=== PATIENT | male | born 1945 | race Caucasian/White ===

== ENCOUNTER 2023-05-17 22:11 | Inpatient (IN) | payer OTHER, SELFPAY ==
[2023-05-17 18:54] VITALS: BP 156/71
[2023-05-17 20:34] VITALS: BMI 34.6
[2023-05-17 20:36] VITALS: BP 146/64
[2023-05-17] MEDS: ZOSYN 100 IV (20:52)
[2023-05-17 21:00] VITALS: BP 138/61
--- NOTE | 2023-05-17 21:00 | ED.GENMED ---
History of Present Illness
General
Chief Complaint: Skin Problem
Source: patient
Exam Limitations: none
Time Seen by Provider: 05/17/23 19:57
Travel History
Have you had any contact with someone who has COVID-19?: No
Do you have any symptoms of coronavirus? Fever > 100 degrees, chills, cough, shortness of breath, sore throat, loss of taste or smell, muscle aches, or headache?: No
History of Present Illness
History of Present Illness:
77-year-old male presents with redness and drainage from the left third toe. Noticed it 3 to 4 days ago. Seen by his car stereo installer today who felt this needed IV antibiotics and apparently an amputation. Patient denies pain fever or other complaints
Past History
Past History
ED Past Medical History: HTN, Hypercholesterolemia and NIDDM
ED Past Surgical History: Cardiac (Pacemaker/stents), Orthopedic (Laminectomy) and Other (Stents bilateral lower extremities for peripheral vascular disease)
Social History
Tobacco: Former smoker
Alcohol: Occasional
Drug: None
Personal:
Living: with family
Review of Systems
Review of Systems
All Other Systems: Not applicable
Constitutional: Denies fever
Respiratory: Reports no symptoms
Cardiac: Reports no symptoms
Phy Exam
Physical Exam
Physical Exam:
GENERAL: Alert and oriented in no apparent distress. Healing surgical laceration of the right scalp
EYE: Orbits normal.
NECK: Supple
CARDIAC: Regular rate and rhythm without any obvious murmurs.
LUNGS: Clear breath sounds,normal
ABDOMEN: Soft, without focal tenderness or distention. Elevated BMI
NEUROLOGICAL: Alert and oriented , grossly non-focal
SKIN: Warm and dry, erythema swelling and skin breakdown with ulceration to the left third toe with cellulitis extending up to the dorsal foot
MUSCULOSKELETAL: Chronic edema
PSYCH: Normal and appropriate interaction.
Course
Orders/Labs/Results
Orders:
Orders
05/17/23 20:14
IV Insert/Care/Rem.- Treatment PRN
Piperacillin/Tazo 4.5 Gram [Zosyn] 4.5 gram in 100 ml IV NOW
05/17/23 20:15
Foot, Left 3 View [CR Foot - Left Min 3 Views] Routine
Comment:
Reason For Exam: Cellulitic left third toe
05/17/23 20:49
Blood Culture Q30M
FELICIANO Source: Blood/Venous
Specimen Description:
Blood Culture Q30M
FELICIANO Source: Blood/Venous
Specimen Description:
05/17/23 20:52
Basic Metabolic Panel Urgent
Complete Blood Count/With Diff Urgent
05/17/23 21:17
Vancomycin [Vancocin] 1,500 mg 0.9% Sodium Chloride [Nss] 20 ml 0.9% Sodium Chloride 250 ml [Nss] 250 ml IV NOW
Abnormal Lab Results
05/17/23
20:52
RBC 3.42 L 10^6/uL
(4.70-6.10)
Hgb 11.7 L g/dL
(13.0-18.0)
Hct 32.0 L %
(39.0-52.0)
MCH 34.2 H pg
(27.0-31.0)
Absolute Monos (auto) 1.0 H 10^3/uL
(0.1-0.6)
Lymphocytes % 15.1 L %
(20.5-51.1)
Monocytes % 11.0 H %
(1.7-9.3)
BUN 22 H mg/dl
(9-20)
05/17/23 20:52
05/17/23 20:52
Vital Signs
Initial and Last Documented VS:
Initial Vital Signs
Temp Pulse Resp BP Pulse Ox
98.2 F 72 18 156/71 96
05/17/23 18:54 05/17/23 18:54 05/17/23 18:54 05/17/23 18:54 05/17/23 18:54
Last Documented Vital Signs
Temp Pulse Resp BP Pulse Ox
98.2 F 72 18 156/71 96
05/17/23 18:54 05/17/23 18:54 05/17/23 18:54 05/17/23 18:54 05/17/23 18:54
*Radiology
Radiology exam reviewed: preliminary read by ED provider (Osteomyelitis left third toe)
*Pulse Oximetry
Patient hypoxic: no
*Critical Care Note
Total Time (30-74mins, 75-104mins- exclusive of procedures): Not Applicable
Data Reviewed
Review of Other/Old Records Reveals: Labs and Records
Update Note
Update Note:
Osteomyelitis/cellulitis left third toe and diabetic. Admit IV antibiotics
ED Attending Note
-
Portions of this chart may have been created with voice recognition software.� Occasional wrong word or��sound alike� substitutions may have occurred due to the inherent limitations of voice recognition software.
Discharge Plan
Departure
Patient Disposition: Admit
Date of Disposition: 05/17/23
Time of Disposition: 21:31
Presentation/result/management discussed w/ accepting MD/DO: Hospitalist
Discharge Problem:
Osteomyelitis/cellulitis left third toe
Prescriptions:
No Action
cyanocobalamin (vitamin B-12) 1,000 MCG tablet
1,000 mcg PO DAILY
multivitamin with folic acid [Tab-A-Natasha] 1 TABLET tablet
1 tab PO DAILY
atorvastatin 40 MG tablet
40 mg PO HS
trazodone 100 MG tablet
100 mg PO HS
pantoprazole 40 MG tablet,delayed release (DR/EC)
40 mg PO DAILY
pregabalin [Lyrica] 150 MG capsule
300 mg PO HS
Patient Comments:
05/17/2023: last filled 03/09/23, 90 tabs for 30 days from [id number]
aspirin 81 MG tablet,delayed release (DR/EC)
81 mg PO DAILY
melatonin 10 MG tablet
10 mg PO HSPRN PRN (Reason: sleep)
amlodipine 10 MG tablet
10 mg PO DAILY Qty: 30 0RF
insulin aspart U-100 [Novolog FlexPen U-100 Insulin] 300 UNITS/3 ML insulin pen
20 units SC AC Qty: 1 1RF
carvedilol 12.5 mg tablet
12.5 mg PO BID
pregabalin 150 mg capsule
150 mg PO DAILY
Patient Comments:
05/17/2023: last filled 03/09/23, 90 tabs for 30 days from [id number]
Levemir FlexPen 100 unit/mL (3 mL) insulin pen
55 unit SC HS
budesonide-formoterol [Symbicort] 80-4.5 mcg/actuation Hfa Aerosol Inhaler
1 puff INHALATION R DAILY PRN (Reason: sob/wheezing)
Eliquis 5 mg tablet
5 mg PO BID
Combivent Respimat 20-100 mcg/actuation Mist
1 puff INHALATION R Q4 PRN (Reason: sob/wheezing)
Referrals:
Haja Manuel MD [Family Provider] -
Interventions
Interventions:
*Risk Screen - Suicide Last Done: 05/17/23 18:54
*General Assessment Last Done: 05/17/23 18:54
*Neglect/Abuse Screening Last Done: 05/17/23 18:54
*ED COVID-19 Vaccine History Last Done: 05/17/23 18:54
ED-Skin Assessment Last Done: 05/17/23 20:34
[2023-05-17 21:17] LABS: % Basophils 0.5 % (0-2); % Eosinophils 4.5 % (0-6); % Immature Granulocytes 0.4 % (0-0.5); % Lymphocytes 15.1 % (20.5-51.1); % Neutrophils 68.5 % (42.2-75.2); Absolute Basophils 0.1 10^3/uL (0-0.2); Absolute Eosinophils 0.4 10^3/uL (0-0.7); Absolute Lymphocytes 1.4 10^3/uL (1.2-3.4); Absolute Neutrophils 6.4 10^3/uL (1.4-6.5); Hemoglobin 11.7 g/dL (13.0-18.0); Mean Corp Hgb Conc. 36.6 g/dL (33.0-37.0); Mean Corpuscular Hgb 34.2 pg (27.0-31.0); Mean Corpuscular Volume 93.6 fL (80.0-94.0); Nucleated Red Blood Cells % 0 % (-); Platelet Count 217 10^3/uL (130-400); Red Blood Cell Count 3.42 10^6/uL (4.70-6.10); Red Cell Dist. Width 13.1 % (11.5-14.5); White Blood Cell Count 9.3 10^3/uL (4.8-10.8)
[2023-05-17 21:22] LABS: Blood Urea Nitrogen 22 mg/dl (9-20); Calcium 9.2 mg/dl (8.4-10.2); Carbon Dioxide 27 mmol/L (22-30); Chloride 102 mmol/L (98-107); Estimated Creatinine Clearance 51 ml/min; Glucose 76 mg/dl (70-99); Potassium 4.2 mmol/L (3.5-5.1); Sodium 139 mmol/L (135-145); eGFR 56.23
[2023-05-17] MEDS: VANCOCIN 300 ML IV (21:44)
[2023-05-17] MEDS: VANCOCIN 300 MG IV (21:44)
[2023-05-17 22:00] VITALS: BP 128/52
--- NOTE | 2023-05-17 22:04 | HPS.HSE ---
Family Physician
-
Family Physician: Haja Manuel
Chief Complaint
-
L Toe Redness / Discharge
History of Present Illness
Patient is a 77y M with PMH significant for ASCVD, DM-II and newly diagnosed A-Fib who presents to ED for evaluation of L 3rd toe infection. Patient has prior history of diabetic foot infections and multiple prior amputations. He states that he
noted swelling, redness and blood in his sock about 1 week ago. He was seen by his Industrial Analyst today who advised hospital admission for IV medications and likely amputation.
Patient denies any evident purulent discharge. He denies any systemic complaints such as fevers / chills, N/V/D, etc.
Of note: Patient states that he was changed from Plavix to Eliquis last week due to periods of A-Fib noted on routine PPM evaluation.
Medical History
Past Medical History
Past Medical History: Reports Other
Additional Past Medical History:
ASCVD (CAD, PAD)
DM-II with CKD and Neuropathy
Hypertension
Cardiomyopathy (LVEF = 40-45%)
Paroxysmal Atrial Fibrillation (new)
Lumbar DDD
Past Surgical History: Reports Other
Additional Past Surgical History:
Bilateral 1st-2nd Distal Phalanx / Toe Amputations
Left Heel Debridement
PTCA with Stent (x 6)
PPM Placement
LE Angiography with SFA Stents
Lumbar Laminectomy
Social History
Tobacco: Former Smoker (Quit smoking 40 years ago. Approx 20 pack years total use.)
Alcohol: Daily (3-4 beers daily.)
Drug: None
Family History
Family History: Not pertinent
Allergies / Home Medications
Allergies reflects when Allergies were last updated in [employer].
Home Medications with original date entered in [employer] [facility]
Allergy/Medication List:
Allergies
Allergy/AdvReac Type Severity Reaction Status Date / Time
No Known Allergies Allergy Verified 05/17/23 18:56
Home Medications
cyanocobalamin (vitamin B-12) 1,000 mcg tablet 1,000 mcg PO DAILY Supplement 07/27/14
multivitamin with folic acid 400 mcg tablet (Tab-A-Natasha) 1 tab PO DAILY Supplement 07/27/14
atorvastatin 40 mg tablet 40 mg PO HS High cholesterol 03/15/20
pantoprazole 40 mg tablet,delayed release 40 mg PO DAILY Gastrointestinal issue 03/15/20
pregabalin 150 mg capsule (Lyrica) 300 mg PO HS fibromyalgia 03/15/20
trazodone 100 mg tablet 100 mg PO HS antidepress 03/15/20
aspirin 81 mg tablet,delayed release 81 mg PO DAILY Blood clot prevention/tx 04/23/20
melatonin 10 mg tablet 10 mg PO HSPRN PRN sleep 04/28/20
amlodipine 10 mg tablet 10 mg PO DAILY #30 tabs 07/15/21
insulin aspart U-100 100 unit/mL (3 mL) subcutaneous pen (Novolog FlexPen U-100 Insulin aspart) 20 units (0.2 mL) SC AC ##1 07/15/21
apixaban 5 mg tablet (Eliquis) 5 mg PO BID 05/17/23
budesonide-formoterol HFA 80 mcg-4.5 mcg/actuation aerosol inhaler (Symbicort) 1 puff inhalation R DAILY PRN sob/wheezing 05/17/23
carvedilol 12.5 mg tablet 12.5 mg PO BID 05/17/23
insulin detemir U-100 100 unit/mL (3 mL) subcutaneous pen (Levemir FlexPen) 55 unit SC HS 05/17/23
ipratropium 20 mcg-albuterol 100 mcg/actuation mist for inhalation (Combivent Respimat) 1 puff inhalation R Q4 PRN sob/wheezing 05/17/23
pregabalin 150 mg capsule 150 mg PO DAILY 05/17/23
Review of Systems
-
History Source: Patient
A 12 point ROS was completed and negative except as noted: Yes
Constitutional: Denies Fever, Fatigue or Chills
Respiratory: Denies Cough or Trouble Breathing
Cardiac: Denies Chest Pain or Palpitations
Abdomen/GI: Denies Abdominal Pain, Nausea, Vomiting or Diarrhea
: Denies Dysuria, Frequency or Flank Pain
Musculoskeletal: Reports Joint Pain (bilateral hip pain.) and Edema (chronic / unchanged)
Skin: Reports Other (L 3rd toe bleeding / redness.)
Neurological: Denies Dizzy or Headache
Psych: Denies Depression or Anxiety
Physical Exam
Vital Signs
Vital Signs
Temp Pulse Resp BP Pulse Ox
98.2 F 72 18 138/61 95
05/17/23 18:54 05/17/23 18:54 05/17/23 18:54 05/17/23 21:00 05/17/23 21:45
Physical Exam
General: Other (77y M in no acute distress.)
HEENT: Moist mucous membranes and PERRLA
Respiratory: Clear; No Wheezes, Rales or Rhonchi
Cardiac: S1/S2, Regular Rhythm and Murmur (III/ ERIC)
GI: Other (Distended, not tender. Pos BS. No guarding.)
Musculoskeletal: No Clubbing, No Cyanosis and Other (2-3+ pitting edema b/l LEs)
Skin: Other (L 3rd toe with erythema extending into foot. Wound lateral aspect with serosanguinous drainage. Wound over heel with dressing in place. No surrounding erythema / induration.)
Neuro: AO x 3
Laboratory Results
-
05/17/23 20:52
05/17/23 20:52
Impression/Plan
-
A/P: Patient is a 77y M with PMH significant for ASCVD, DM-II and prior amputations who presents to ED at the direction of his Industrial Analyst for evaluation of L 3rd toe infection.
Left 3rd Toe Osteomyelitis
- Admit for further evaluation and treatment.
- X-ray done in the ED shows soft tissue infection and evidence for bony erosion c/w suspected osteo.
- IV abx with Vanco / Zosyn for now.
- Podiatry consulted for probably amputation in AM.
- Follow-up operative culture data for abx changes.
- Vascular evaluation including angiography in 2021 revealed distal / small vessel changes not amenable to intervention.
Paroxysmal Atrial Fibrillation
PPM
- New diagnosis per patient - made from evaluation of routine PPM data.
- Changed from Plavix to Eliquis last week.
- Asymptomatic without palpitations, chest pain, worsening dyspnea, etc.
- Monitor on tele dhruv-operatively.
- Hold Eliquis for now.
- Will ask Cardiology to evaluate given new diagnosis / extensive associated CV disease.
ASCVD
- Extensive vascular disease history with documented CAD (6 stents) and PAD (SFA stents).
- Continue daily ASA without interruption.
- Continue statin, etc.
- Follow for any new / worsening symptoms.
Ischemic Cardiomyopathy
- Last Echo (11/2022) with LVEF = 40-45%. Chronic edema and abdominal distention on exam.
- Follow I/Os, daily weights, etc.
- Consider trial of diuretic therapy / PRN Lasix and follow clinical status.
- Cardio eval as noted above.
DM-II
CKD III secondary to the above
Peripheral Neuropathy secondary to the above
- Stable. Continue basal : bolus insulin regimen.
- Follow glucose and cover with SSI as needed.
- Update A1C.
- Renal function is better than usual baseline - follow for any changes.
- Continue Lyrica for neuropathy symptoms.
COPD without Acute Exacerbation
- Stable. No complaints.
- DuoNebs PRN.
Alcohol Use Disorder
- Patient reports 3-4 beers daily / every day.
- Monitor MSAS and treat any withdrawal symptoms with BZDs as needed.
Obesity due to excess calories and insulin resistance
- Affects all aspects of care.
- Encourage health diet and increased activity with goal of weight loss.
DVT Prophylaxis: SCDs - Resume Eliquis post-op.
Code Status: Full
[2023-05-17 23:14] VITALS: BP 155/78
[2023-05-17 23:22] VITALS: BMI 33.8
[2023-05-17 23:24] LABS: Glucose - Point of Care 126 mg/dl (70-99)
[2023-05-17 23:25] VITALS: BMI 33.8
--- NOTE | 2023-05-17 23:29 | PHA.VAN.IN ---
Assessment
- Assessment
Renal Function: Appears similar to baseline (04/29/20 BASELINE SCR: 1.3)
Concomitant Antimicrobials: ZOSYN
- Previous Dosing Experience
Previous Regimen: NONE
AUC Dosing Plan
- Dosing Variables
Dosing Weight (kg): 97.3
Dosing CrCl (ml/min): 51
Vd coefficient (L/kg): 0.6
- Empiric Dosing
Initial / Loading Dose: 1500MG
Maintenance Regimen: 1250MG IV Q24H
Estimated AUC (mcg*h/mL): 474
Estimated Peak (mcg*h/mL): 31.8
Estimated Trough (mcg/ml): 11.1
Estimated Half Life (H): 14.8
Pharmacokinetics Vancomycin I
- -
Patient Age: 77
Patient Sex: Male
Vancomycin Day #: 1
Indication: Diabetic Foot
Requesting Provider: STEPHANIE
Height / Weight:
Height 5 ft 6 in
Actual Weight 94.982 kg
Pertinent Past Medical History: DM, AFIB, RECURRENT FOOT INFECTIONS, AMPUTATIONS
- Vital Signs / Lab Results
Temp Pulse Resp BP Pulse Ox
97.5 F 79 18 155/78 93
05/17/23 23:14 05/17/23 23:14 05/17/23 23:14 05/17/23 23:14 05/17/23 23:14
Lab Results - Hematology
05/17/23
20:52
WBC 9.3
Lab Results - Chemistry
05/17/23
20:52
BUN 22 H
Creatinine 1.3
Estimated Creat Clear 51
[2023-05-18] VITALS (15 sets, daily range): BP systolic 132–175; BP diastolic 54–75; PULSE 65–76; O2SAT 96–97; BMI 33.8
[2023-05-18] MEDS: LYRICA 300 MG PO ×2 (00:11→21:30)
[2023-05-18] MEDS: LIPITOR 40 MG PO ×2 (00:12→21:30)
[2023-05-18] MEDS: DESYREL 100 MG PO ×2 (00:12→21:30)
[2023-05-18] MEDS: MELATONIN 10 MG PO (00:14)
[2023-05-18] MEDS: TYLENOL 650 MG PO (00:14)
[2023-05-18] MEDS: ZOSYN 50 IV ×4 (02:28→20:18)
[2023-05-18] MEDS: VANCOCIN 275 MG IV (05:03)
[2023-05-18 05:35] LABS: Glucose - Point of Care 143 mg/dl (70-99)
[2023-05-18] MEDS: NOVOLOG FLEXPEN-HIGH RESISTANCE SC (05:36)
[2023-05-18 07:24] LABS: Hematocrit 30.8 % (39.0-52.0); Hemoglobin 10.7 g/dL (13.0-18.0); Mean Corp Hgb Conc. 34.7 g/dL (33.0-37.0); Mean Corpuscular Volume 97.8 fL (80.0-94.0); Mean Platelet Volume 9.4 fL (7.4-10.4); Platelet Count 192 10^3/uL (130-400); Red Blood Cell Count 3.15 10^6/uL (4.70-6.10); Red Cell Dist. Width 13.3 % (11.5-14.5); White Blood Cell Count 7.5 10^3/uL (4.8-10.8)
[2023-05-18 08:13] LABS: Blood Urea Nitrogen 21 mg/dl (9-20); Calcium 8.6 mg/dl (8.4-10.2); Carbon Dioxide 29 mmol/L (22-30); Chloride 106 mmol/L (98-107); Estimated Creatinine Clearance 44 ml/min; Glucose 148 mg/dl (70-99); Potassium 4.1 mmol/L (3.5-5.1); Sodium 139 mmol/L (135-145); eGFR 47.36
[2023-05-18] MEDS: ASPIR LOW (ENTERIC COATED) 81 MG PO (08:31)
[2023-05-18] MEDS: PROTONIX 40 MG PO (08:31)
[2023-05-18] MEDS: LYRICA 150 MG PO (08:31)
[2023-05-18] MEDS: COREG 12.5 MG PO ×2 (08:31→20:19)
[2023-05-18] MEDS: NORVASC 10 MG PO (08:31)
[2023-05-18] MEDS: THIAMINE INJECTION 200 MG IV ×2 (08:32→20:18)
[2023-05-18] MEDS: FOLVITE 1 MG PO (08:32)
[2023-05-18] MEDS: NOVOLOG FLEXPEN SC ×3 (08:33→18:12)
--- NOTE | 2023-05-18 08:50 | PHA.VAN.FU ---
Vancomycin Assessment / Plan
- Assessment
Renal Function: SCR Increasing
WBC's are: WNL
In the past 24 hrs, patient has been: Afebrile
Concomitant Antimicrobials: piperacillin/tazobactam
- Dosing Plan
Continue: Vanc 1250mg Q24H
- Monitoring Plan
No level(s) ordered at this time: consider changing to dosing by level if SCR continues to increase
- Follow Up
Pharmacy will continue to follow.
Vancomycin Follow UP
- -
Patient Age: 77
Patient Sex: Male
Vancomycin Day #: 2
Indication: Diabetic Foot
Requesting Provider: Dr. Nuno
Pertinent Antimicrobial Allergies:
NKDA
Height / Weight:
Height 5 ft 6 in
Actual Weight 94.892 kg
Pertinent Past Medical History: DM II, BMI ~34, CKD
- Vital Signs / Lab Results
Temp Pulse Resp BP Pulse Ox
98.1 F 68 18 175/75 92
05/18/23 07:30 05/18/23 07:30 05/18/23 04:38 05/18/23 07:30 05/18/23 07:30
Lab Results - Hematology
05/17/23 05/18/23
20:52 06:56
WBC 9.3 7.5
Lab Results - Chemistry
05/17/23 05/18/23
20:52 06:56
BUN 22 H 21 H
Creatinine 1.3 1.5 H
Estimated Creat Clear 51 44
--- NOTE | 2023-05-18 09:56 | CON.CAR ---
Addendum entered and electronically signed by Flo Marroquin MD 05/18/23 13:58:
77-year-old man with history of ANGELITA to mid circumflex, OM 2 and RCA in 2014, heart block, pacemaker, paroxysmal atrial fibrillation admitted now for osteomyelitis of the left third toe and now scheduled for amputation. Currently without cardiac
complaints. Last echo in 2022, cardiac catheterization in 2019
PMH: CAD/PCI to circumflex, OM 2 and RCA 2014, Complete heart block, dual-chamber [employer] pacemaker, recently diagnosed paroxysmal atrial fibrillation on pacemaker histograms, diabetes, hyperlipidemia, hypertension, asthma/COPD,
obstructive sleep apnea, ischemic cardiomyopathy, EF 40-45% by echo 2022, history of possible TIA
PSH: Amputation of right second toe, partial amputation of left great toe, carpal tunnel release, cataracts
SH: , former smoker, daily alcohol, retired, lives alone, no children, socially isolated
FH: Reviewed
Allergies: None
Outpatient medicines: Amlodipine 10 mg a day, apixaban 5 mg twice daily, aspirin 81 mg a day, atorvastatin 40 mg at bedtime, carvedilol 12.5 twice daily, insulin, Combivent, Symbicort, Lyrica, trazodone
Current meds: Carvedilol 12.5 twice daily, Lyrica, amlodipine 10 mg a day, aspirin 81 mg a day, atorvastatin 40 mg at bedtime, Protonix, Lyrica, trazodone, Zosyn, thiamine, vancomycin, insulin
ROS: Negative except as above
132/60, pulse 60,
No acute distress, head neck exam unremarkable, lungs are clear, soft systolic murmur at base to left sternal border, abdomen benign, 1+ to 2+ edema, pulses in lower extremities modestly diminished, but palpable, partial amputations of both feet,
left third toe wrapped, neuro nonfocal
EKG sinus rhythm with ventricular pacing
Hemoglobin 10.7, white count 7.5, BUN and creatinine 21 and 1.5, which is baseline
Impression:
Impression:
Presented with left third toe infection
Osteomyelitis of left third toe
CAD
[facility] 05/13/2019 with stable, nonobstructive disease
s/p ANGELITA to the OM 2 and mid circumflex 11/27/2014
s/p ANGELITA to RCA 11/16/2014Cardiomyopathy, EF 40-45% by echo 11/2022
Complete heart block s/p [employer] PPM 05/20/2019
Paroxysmal atrial fibrillation (New diagnosis 04/20/2023)
Anticoagulated with Eliquis
DM2
Hyperlipidemia
Hypertension
h/o TIA vs hypertensive encephalopathy in 07/2014
RBBB
Asthma/COPD
Plan:
He appears stable from a cardiac standpoint, okay to proceed with amputation of left third toe at acceptable cardiac risk. No further testing required at this time.
Resume Eliquis when safe from a surgical standpoint. Continue carvedilol 12.5 mg twice daily, continue aspirin
Original Note:
Consultation
Consultation Request
Date/Time Consultation Requested: 05/17/2023 at 2255
Date/Time Consultation Performed: 05/18/2023 at 0900
Requesting Provider: Dr. Nuno
Performing Provider: Dr. SIVA Marroquin
Reason for Consultation: Pre-op Evaluation
Medical History
-
History of Present Illness:
HPI: Christopher is a 77-year-old male with past medical history of CAD status post ANGELITA to OM2, mid circumflex, and RCA in 2014, cardiomyopathy, complete heart block status post permanent pacemaker, recently diagnosed paroxysmal A-fib, diabetes,
hyperlipidemia, hypertension, asthma, and KATHY who presents to ER for evaluation of left third toe infection. He states he first noted swelling, redness, and pain of his toe last week. He was seen by his caramel cutter machine yesterday and was recommended
to come to ER for further evaluation and IV antibiotics. On arrival, x-ray of left foot showed evidence of possible osteomyelitis of the toe. He was admitted, started on IV antibiotics, and plan is for possible amputation of the toe later today.
Cardiology asked to evaluate preoperatively. He has been feeling well from a cardiac standpoint and has had no new or worsening complaints. He is active at home and denies any limiting exertional cardiac symptoms. Denies any chest pain,
palpitations, dizziness, lightheadedness, or shortness of breath. Of note, he recently was noted to have 14 hours of A-fib by pacemaker on 04/20/2023. He was started on anticoagulation at that time.
PMH:
CAD
LHC 05/13/2019 with stable, nonobstructive disease
s/p ANGELITA to the OM 2 and mid circumflex 11/27/2014
s/p ANGELITA to RCA 11/16/2014
Cardiomyopathy, EF 40-45% by echo 11/2022
Complete heart block s/p [employer] PPM 05/20/2019
Paroxysmal atrial fibrillation (New diagnosis 04/20/2023)
Anticoagulated with Eliquis
DM2
Hyperlipidemia
Hypertension
h/o TIA vs hypertensive encephalopathy in 07/2014
RBBB
Asthma/COPD
KATHY on CPAP
Past Medical History
Past Medical History: Other (In HPI)
Past Surgical History: Cardiac (PCI of OM2, mid circumflex, RCA 2014, PPM implantation 05/2019) and Other (Amputation of right second toe 04/2020, left great toe partial amputation 07/09/2021, right carpal tunnel release 11/30/2022, cataract extraction
10/2017)
Social History
Tobacco: Former Smoker
Alcohol: Daily
Drug: None
Personal:
Employment: Retired
Family History
Family History: Cancer
Allergies / Home Medications
Allergy/AdvReac Type Severity Reaction Status Date / Time
No Known Allergies Allergy Verified 05/17/23 18:56
Medication Instructions Recorded Confirmed Type
cyanocobalamin (vitamin B-12) 1,000 mcg PO DAILY Supplement 07/27/14 05/17/23 History
1,000 mcg tablet
multivitamin with folic acid 400 1 tab PO DAILY Supplement 07/27/14 05/17/23 History
mcg tablet (Tab-A-Natasha)
atorvastatin 40 mg tablet 40 mg PO HS High cholesterol 03/15/20 05/17/23 History
pantoprazole 40 mg tablet,delayed 40 mg PO DAILY Gastrointestinal 03/15/20 05/17/23 History
release issue
pregabalin 150 mg capsule (Lyrica) 300 mg PO HS fibromyalgia 03/15/20 05/17/23 History
trazodone 100 mg tablet 100 mg PO HS antidepress 03/15/20 05/17/23 History
aspirin 81 mg tablet,delayed 81 mg PO DAILY Blood clot 04/23/20 05/17/23 History
release prevention/tx
melatonin 10 mg tablet 10 mg PO HSPRN PRN sleep 04/28/20 05/17/23 History
amlodipine 10 mg tablet 10 mg PO DAILY #30 tabs 07/15/21 05/17/23 Rx
insulin aspart U-100 100 unit/mL 20 units (0.2 mL) SC AC ##1 07/15/21 05/17/23 Rx
(3 mL) subcutaneous pen (Novolog
FlexPen U-100 Insulin aspart)
apixaban 5 mg tablet (Eliquis) 5 mg PO BID 05/17/23 05/17/23 History
budesonide-formoterol HFA 80 1 puff inhalation R DAILY PRN 05/17/23 05/17/23 History
mcg-4.5 mcg/actuation aerosol sob/wheezing
inhaler (Symbicort)
carvedilol 12.5 mg tablet 12.5 mg PO BID 05/17/23 05/17/23 History
insulin detemir U-100 100 unit/mL 55 unit SC HS 05/17/23 05/17/23 History
(3 mL) subcutaneous pen (Levemir
FlexPen)
ipratropium 20 mcg-albuterol 100 1 puff inhalation R Q4 PRN 05/17/23 05/17/23 History
mcg/actuation mist for inhalation sob/wheezing
(Combivent Respimat)
pregabalin 150 mg capsule 150 mg PO DAILY 05/17/23 05/17/23 History
Review of Systems
-
History Source: Patient
All other systems: Negative unless noted
Physical Exam
Vital Signs
Temp Pulse Resp BP Pulse Ox
98.1 F 68 18 175/75 92
05/18/23 07:30 05/18/23 07:30 05/18/23 04:38 05/18/23 07:30 05/18/23 07:30
Lab Results
05/18/23 06:56
05/18/23 06:56
Physical Exam
General: Well Developed, Well Nourished and No Apparent Distress
HEENT: Normocephalic, Anicteric and Moist Mucous Membranes
Respiratory: Clear and Non Labored Respirations
Cardiac: S1/S2 and Regular Rhythm
Musculoskeletal: No Clubbing, No Cyanosis and Edema
Skin: Warm and Dry
Neuro: AO x 3 and Nonfocal/Grossly Intact
Psych: Calm
Impression / Plan
-
PCP: Dr. Manuel
Cardiology: Dr. Del Angel
Impression:
Presented with left third toe infection
Osteomyelitis of left third toe
CAD
[facility] 05/13/2019 with stable, nonobstructive disease
s/p ANGELITA to the OM 2 and mid circumflex 11/27/2014
s/p ANGELITA to RCA 11/16/2014
Cardiomyopathy, EF 40-45% by echo 11/2022
Complete heart block s/p [employer] PPM 05/20/2019
Paroxysmal atrial fibrillation (New diagnosis 04/20/2023)
Anticoagulated with Eliquis
DM2
Hyperlipidemia
Hypertension
h/o TIA vs hypertensive encephalopathy in 07/2014
RBBB
Asthma/COPD
KATHY on CPAP
[facility] @ [facility] 05/13/2019: LM: Normal. LAD: Diffusely calcified and tortuous with 20 to 30% stenosis. LCx: Stent in mid vessel is widely patent. OM1 patent. OM 2 patent. RCA: Dominant 20 to 30% segmental. LVEF: Normal.
Echo 09/27/2020: EF 50 to 55%, trace MR, trace AI, trace TR, estimated PAP 27 mmHg
Echo 12/05/2022: EF 40 to 45%, hypokinesis of the distal inferior septum and apex, mild concentric LVH, mild MR, trace TR, estimated PAP 20 mmHg
Plan:
-Presented with left third toe infection and found to have osteomyelitis. Plan is for possible amputation in OR later today. Cardiology asked to evaluate preoperatively.
-He is stable from a cardiac standpoint and denies any new or worsening symptoms. He is able to complete at least 3 METS of activity without any angina.
-He had cath at outside hospital in 2019 with stable, nonobstructive disease as noted above.
-Recent echo 12/05/2022 with EF 40 to 45%.
-Recently diagnosed with paroxysmal atrial fibrillation as noted on device check 04/20/2023.
-No A-fib noted on review of telemetry. V-Paced on EKG.
-He has been maintained on Eliquis. This has been placed on hold pre-operatively. Resume once safe from surgical perspective post-op.
-BP and HR stable on-Coreg 12.5mg BID. Continue amlodipine 10 mg daily.
-Continue aspirin and Lipitor.
-HbA1c pending. Continue tight glucose control
-Patient is at increased cardiac risk for surgery, however this risk is not prohibitive.
HPI: Christopher is a 77-year-old male with past medical history of CAD status post ANGELITA to OM2, mid circumflex, and RCA in 2014, cardiomyopathy, complete heart block status post permanent pacemaker, recently diagnosed paroxysmal A-fib, diabetes,
hyperlipidemia, hypertension, asthma, and KATHY who presents to ER for evaluation of left third toe infection. He states he first noted swelling, redness, and pain of his toe last week. He was seen by his caramel cutter machine yesterday and was recommended
to come to ER for further evaluation and IV antibiotics. On arrival, x-ray of left foot showed evidence of possible osteomyelitis of the toe. He was admitted, started on IV antibiotics, and plan is for possible amputation of the toe later today.
Cardiology asked to evaluate preoperatively. He has been feeling well from a cardiac standpoint and has had no new or worsening complaints. He is active at home and denies any limiting exertional cardiac symptoms. Denies any chest pain,
palpitations, dizziness, lightheadedness, or shortness of breath. Of note, he recently was noted to have 14 hours of A-fib by pacemaker on 04/20/2023. He was started on anticoagulation at that time.
Data Reviewed
-
EKG: Tracing Personally Visualized and interpreted
Radiology: Report Reviewed by me
Labs: Labs Reviewed by me
Old Records: Reviewed
--- NOTE | 2023-05-18 10:57 | W.PN.HOSP.TC ---
Today's Communication/Plan
-
NPO for OR today
Vanc/Zosyn
appreciate cardiology consult
Assessment / Plan
Assessment / Plan
A/P:� Patient is a 77y M with PMH significant for ASCVD, DM-II and prior amputations who presents to ED at the direction of his Ward Assistant for evaluation of L 3rd toe infection.
Left 3rd Toe Osteomyelitis
�- X-ray done in the ED shows soft tissue infection and evidence for bony erosion c/w suspected osteo.
�- IV abx with Vanco / Zosyn for now.
�- Podiatry consulted for probably amputation in AM.
�- Follow-up operative culture data for abx changes.
�- Vascular evaluation including angiography in 2021 revealed distal / small vessel changes not amenable to intervention.
Paroxysmal Atrial Fibrillation
PPM
�- New diagnosis per patient - made from evaluation of routine PPM data.
�- Changed from Plavix to Eliquis last week.
�- Asymptomatic without palpitations, chest pain, worsening dyspnea, etc.
�- Monitor on tele dhruv-operatively.
�- Hold Eliquis for now.
- appreciate cardiology consult
ASCVD
�- Extensive vascular disease history with documented CAD (6 stents) and PAD (SFA stents).
�- Continue daily ASA without interruption.
�- Continue statin, etc.
- appreciate cardiology consult, cleared for OR
Ischemic Cardiomyopathy
�- Last Echo (11/2022) with LVEF = 40-45%.� Chronic edema and abdominal distention on exam.
�- Follow I/Os, daily weights, etc.
�- Consider trial of diuretic therapy / PRN Lasix and follow clinical status.
DM-II
CKD III secondary to the above
Peripheral Neuropathy secondary to the above
�- Stable.� Continue basal : bolus insulin regimen.
�- Follow glucose and cover with SSI as needed.
�- Update A1C.
�- Renal function is better than usual baseline - follow for any changes.
�- Continue Lyrica for neuropathy symptoms.
COPD without Acute Exacerbation
�- Stable.� No complaints.
�- DuoNebs PRN.
Alcohol Use Disorder
�- Patient reports 3-4 beers daily / every day.
�- Monitor MSAS and treat any withdrawal symptoms with BZDs as needed.
Obesity due to excess calories and insulin resistance
�- Affects all aspects of care.
�- Encourage health diet and increased activity with goal of weight loss.
DVT Prophylaxis:� SCDs - Resume Eliquis post-op.
Code Status:� Full
Anticipated Discharge: > 48 hours
Subjective/Interval History
-
Date of Service: May 18, 2023
feeling well
no new complaints
no chest pain or shortness of breath
Objective Data
-
Labs:
Laboratory Results
05/18/23
06:56
WBC 7.5
Hgb 10.7 L
Hct 30.8 L
Plt Count 192
Sodium 139
Potassium 4.1
Chloride 106
Carbon Dioxide 29
BUN 21 H
Creatinine 1.5 H
Glucose 148 H
Calcium 8.6
Vital Signs:
Vital Signs
Temp Pulse Resp BP Pulse Ox
98.1 F 68 18 175/75 92
05/18/23 07:30 05/18/23 07:30 05/18/23 04:38 05/18/23 07:30 05/18/23 07:30
I&O
05/17/23 05/18/23 05/19/23
06:59 06:59 06:59
Intake Total 565 / 565
Balance 565 / 565
Review of Systems
-
History Source: Patient
All other systems: Reviewed and negative
Physical Exam
-
General: No Apparent Distress
HEENT: PERRLA
Respiratory: Clear to Auscultation; Negative Wheezes
Cardiac: Regular Rhythm and S1/S2
GI: Soft and Nontender
Musculoskeletal: No Edema
Skin: Warm and Dry; Negative Rash
Neuro: AO x 3
Psych: Calm
Data Reviewed
-
Diagnostic Radiology: Report Reviewed by me
Labs: Labs Reviewed by me
[2023-05-18 11:06] LABS: Glycohemoglobin (HgbA1c) 7.2 % (4.0-5.6)
[2023-05-18 11:49] LABS: Glucose - Point of Care 228 mg/dl (70-99)
[2023-05-18] MEDS: NOVOLOG FLEXPEN-HIGH RESISTANCE 4 UNITS SC (12:39)
--- NOTE | 2023-05-18 15:50 | CON.MD ---
Consultation - Medical
-
HPI:
This is a pleasant 77-year-old diabetic man seen by me in outpatient office for diabetic foot screening with new ulceration left 3rd toe that probed to bone and cellulitis left 3rd toe and forefoot and was sent to ED for IV abt, abt with high
suspicion of osteomyelitis and possible need for amputation.
PMH: CAD, Complete heart block, dual-chamber [employer] pacemaker, recently diagnosed paroxysmal atrial fibrillation, diabetes, hyperlipidemia, hypertension, asthma/COPD, obstructive sleep apnea, ischemic cardiomyopathy, history of possible
TIA
PSH: Amputation of right second toe, partial amputation of left great toe and 2nd toe, carpal tunnel release, cataracts
SH: , former smoker, daily alcohol, retired, lives alone, no children, socially isolated
FH: Reviewed and not pertinent
Allergies: None
Outpatient medicines: Amlodipine 10 mg a day, apixaban 5 mg twice daily, aspirin 81 mg a day, atorvastatin 40 mg at bedtime, carvedilol 12.5 twice daily, insulin, Combivent, Symbicort, Lyrica, trazodone
Current meds: Carvedilol 12.5 twice daily, Lyrica, amlodipine 10 mg a day, aspirin 81 mg a day, atorvastatin 40 mg at bedtime, Protonix, Lyrica, trazodone, Zosyn, thiamine, vancomycin, insulin
ROS: Negative except as above
Physical Exam-lower extremity focused-
feeble pedal pulses, feet warm and dry. Cellulitis left distal forefoot. Ulcer distal 3rd toe to bone
xerosis. previous toe amps lef 1,2 and right 2nd. Ulcer left heel -full thickness to subcutaneous tissue, uninfected.
Vital Signs / Labs
-
Vital Signs and Labs:
Temp Pulse Resp BP Pulse Ox
97.8 F 60 30 138/59 96
05/18/23 11:30 05/18/23 11:30 05/18/23 17:22 05/18/23 17:22 05/18/23 17:22
05/18/23 06:56
05/18/23 06:56
05/17/23 05/17/23 05/18/23
20:52 23:23 05:34
RBC 3.42 L
Hgb 11.7 L
Hct 32.0 L
MCV
MCH 34.2 H
Absolute Monos (auto) 1.0 H
Lymphocytes % 15.1 L
Monocytes % 11.0 H
BUN 22 H
Creatinine
Glucose
Hemoglobin A1c
POC Glucose 126 H 143 H
05/18/23 05/18/23 05/18/23
06:56 11:47 17:25
RBC 3.15 L
Hgb 10.7 L
Hct 30.8 L
MCV 97.8 H
MCH 34.0 H
Absolute Monos (auto)
Lymphocytes %
Monocytes %
BUN 21 H
Creatinine 1.5 H
Glucose 148 H
Hemoglobin A1c 7.2 H
POC Glucose 228 H 163 H
XRAYS + osteomyelitis to the left 3rd toe distal phalynx, no st emphysema
Assessemnt/Plan
-
DM2 with PAD -stable
DM2 with DPN and LOPS
Cellulitis and OM left 3rd toe
--> patient agreeable to proceed with partial left 3rd toe amp. he has been NPO and cleared by cardiology. Patient transitional care manager to OR today
--- NOTE | 2023-05-18 16:51 | CM ---
CM following re: d/c planning
Chart reviewed
CM met with the patient at bedside; IA completed
Pt states he resides in an apartment on the 1st floor with 7 [address] through the front of the home and 3 [address] in the back of the house
OFFC SPEC patient reports independence at baseline
Pt has no past SNF hx, has had [facility] for home care and has a r/w for use as needed
Pt has prescription coverage and rx's are filled at [facility]
Pt PCP-Dr. Haja Manuel
CM addressed CM consult for SA counseling & the patient became offended denied having a substance abuse problem and also declined resources
Per PT eval. post d/c recommendation wavers btwn home PT vs SNF
CM will continue to monitor patient progress and assist with needs at d/c as indicated
PLAN; CM following for continued needs
--- NOTE | 2023-05-18 17:21 | W.SUR.POST ---
Surgical Immediate Post Op
Note
Pre Op Diagnosis: osteomyelitis distal phalynx left 3rd toe
Post Op Diagnosis: osteomyelitis distal phalynx left 3rd toe
Procedure Performed: partial left 3rd toe amp to prox phalynx
Primary Surgeon: Nicole Barros
Secondary Surgeons: N/A
Anesthesia: IV sed w/local block 0.5%tracy plain 10mL
Estimated Blood Loss: 5mL
Fluids: n/a
Drains/Shunts: n/a
Specimens/Cultures: bone prox phal left 3rd toe
Doppler/Duplex/Angio (Y/N): N
Complications:
NONE
Operative Findings: necrosis and fracture of the distal phalynx, good healthy bone to the prox phalynx
[2023-05-18 17:26] LABS: Glucose - Point of Care 163 mg/dl (70-99)
[2023-05-18] MEDS: NOVOLOG FLEXPEN-HIGH RESISTANCE 2 UNITS SC (18:46)
[2023-05-18] MEDS: FLUSH (NSS) 1 FLUSH IV (20:18)
[2023-05-18] MEDS: ELIQUIS 5 MG PO (21:30)
[2023-05-18] MEDS: LEVEMIR 0.5 UNITS SC (21:34)
[2023-05-18 21:35] LABS: Glucose - Point of Care 225 mg/dl (70-99)
[2023-05-19] MEDS: ZOSYN 50 IV ×4 (01:40→21:10)
[2023-05-19 01:58] VITALS: PULSE 62
[2023-05-19 03:09] VITALS: BP 146/60
[2023-05-19] MEDS: TYLENOL 650 MG PO ×2 (05:39→21:19)
[2023-05-19] MEDS: VANCOCIN 275 MG IV (05:40)
[2023-05-19 06:00] VITALS: BMI 32.5
[2023-05-19 06:17] LABS: Hematocrit 33.7 % (39.0-52.0); Hemoglobin 11.9 g/dL (13.0-18.0); Mean Corp Hgb Conc. 35.3 g/dL (33.0-37.0); Mean Corpuscular Hgb 34.5 pg (27.0-31.0); Mean Corpuscular Volume 97.7 fL (80.0-94.0); Mean Platelet Volume 9.3 fL (7.4-10.4); Platelet Count 208 10^3/uL (130-400); Red Blood Cell Count 3.45 10^6/uL (4.70-6.10); Red Cell Dist. Width 13.2 % (11.5-14.5); White Blood Cell Count 8.8 10^3/uL (4.8-10.8)
[2023-05-19 06:50] LABS: Blood Urea Nitrogen 19 mg/dl (9-20); Carbon Dioxide 27 mmol/L (22-30); Chloride 104 mmol/L (98-107); Estimated Creatinine Clearance 46 ml/min; Glucose 167 mg/dl (70-99); Sodium 138 mmol/L (135-145); eGFR 51.45
[2023-05-19 07:19] LABS: Glucose - Point of Care 165 mg/dl (70-99)
[2023-05-19 07:20] VITALS: BP 139/75
[2023-05-19] MEDS: NOVOLOG FLEXPEN-HIGH RESISTANCE 2 UNITS SC ×2 (08:27→17:16)
[2023-05-19] MEDS: NOVOLOG FLEXPEN 14 UNITS SC ×3 (08:27→17:16)
[2023-05-19] MEDS: LYRICA 150 MG PO (09:15)
[2023-05-19] MEDS: PROTONIX 40 MG PO ×2 (09:16)
[2023-05-19] MEDS: ASPIR LOW (ENTERIC COATED) 81 MG PO (09:16)
[2023-05-19] MEDS: COREG 12.5 MG PO ×2 (09:16→21:09)
[2023-05-19] MEDS: FOLVITE 1 MG PO (09:16)
[2023-05-19] MEDS: ELIQUIS 5 MG PO ×2 (09:16→21:09)
[2023-05-19] MEDS: THIAMINE INJECTION 200 MG IV ×2 (09:16→21:09)
[2023-05-19] MEDS: NORVASC 10 MG PO (09:16)
--- NOTE | 2023-05-19 09:36 | W.PN.HOSP.TC ---
Today's Communication/Plan
-
Back on Eliquis
Dressing changes as per podiatry
Activity with PT/OT
Unclear whether will need rehab course
Having bladder retention and will need bladder protocol and will place on trial of tamsulosin could be postanesthetic effect still
Assessment / Plan
Assessment / Plan
A/P:� Patient is a 77y M with PMH significant for ASCVD, DM-II and prior amputations who presents to ED at the direction of his Supervisor Cell Maintenance for evaluation of L 3rd toe infection.
Left 3rd Toe Osteomyelitis
�- X-ray done in the ED shows soft tissue infection and evidence for bony erosion c/w suspected osteo.
�- IV abx with Vanco / Zosyn for now.
�- Podiatry consulted for probably amputation in AM.
�- Follow-up operative culture data for abx changes.
�- Vascular evaluation including angiography in 2021 revealed distal / small vessel changes not amenable to intervention.
Paroxysmal Atrial Fibrillation
PPM
�- New diagnosis per patient - made from evaluation of routine PPM data.
�- Changed from Plavix to Eliquis last week.
�- Asymptomatic without palpitations, chest pain, worsening dyspnea, etc.
�- Monitor on tele dhruv-operatively.
�- Eliquis restarted
- appreciate cardiology consult
ASCVD
�- Extensive vascular disease history with documented CAD (6 stents) and PAD (SFA stents).
�- Continue daily ASA without interruption.
�- Continue statin, etc.
- appreciate cardiology consult, cleared for OR
Ischemic Cardiomyopathy
�- Last Echo (11/2022) with LVEF = 40-45%.� Chronic edema and abdominal distention on exam.
�- Follow I/Os, daily weights, etc.
�- Consider trial of diuretic therapy / PRN Lasix and follow clinical status.
DM-II
CKD III secondary to the above
Peripheral Neuropathy secondary to the above
�- Stable.� Continue basal : bolus insulin regimen.
�- Follow glucose and cover with SSI as needed.
�- Update A1C.
�- Renal function is better than usual baseline - follow for any changes.
�- Continue Lyrica for neuropathy symptoms.
COPD without Acute Exacerbation
�- Stable.� No complaints.
�- DuoNebs PRN.
Alcohol Use Disorder
�- Patient reports 3-4 beers daily / every day.
�- Monitor MSAS and treat any withdrawal symptoms with BZDs as needed.
Obesity due to excess calories and insulin resistance
�- Affects all aspects of care.
�- Encourage health diet and increased activity with goal of weight loss.
Bladder retention
-Postvoid residual was 900 this morning
-Possibly related to postanesthetic effects will placed on tamsulosin
-Continue bladder scan protocol and straight cath as needed
DVT Prophylaxis:� SCDs - Resume Eliquis post-op.
Code Status:� Full
Anticipated Discharge: 24 - 48 hours
Subjective/Interval History
-
Date of Service: May 19, 2023
Patient no acute distress was able to walk with walking boot to the bathroom overnight.
Objective Data
-
Labs:
Laboratory Results
05/19/23
05:54
WBC 8.8
Hgb 11.9 L
Hct 33.7 L
Plt Count 208
Sodium 138
Potassium 4.0
Chloride 104
Carbon Dioxide 27
BUN 19
Creatinine 1.4 H
Glucose 167 H
Calcium 9.0
Vital Signs:
Vital Signs
Temp Pulse Resp BP Pulse Ox
98 F 68 20 139/75 92
05/19/23 07:20 05/19/23 07:20 05/19/23 07:20 05/19/23 07:20 05/19/23 07:20
I&O
05/18/23 05/19/23 05/20/23
06:59 06:59 06:59
Intake Total 565 / 565 725 / 72
Balance 565 / 56 725 / 72
Review of Systems
-
All other systems: Not reviewed unless documented
Respiratory: Reports No Symptoms
Cardiac: Reports No Symptoms
Abdomen/GI: Reports No Symptoms
Musculoskeletal: Reports Joint Swelling, Arthralgias and Myalgias
Physical Exam
-
General: Obese
HEENT: Normocephalic
Respiratory: Clear to Auscultation
Cardiac: Regular Rhythm
GI: Soft and Distended (protuberent)
Musculoskeletal: Edema, Right Lower Extrem and Edema, Left Lower Extrem (dressing w/ strikethru bleeding )
Neuro: Awake
Data Reviewed
-
Total Time Spent with Patient (in minutes): 45
Labs: Labs Reviewed by me (creat 1.4/ Hgb uo to 11.9)
[2023-05-19] MEDS: FLOMAX 0.400000000000000022 MG PO (10:08)
[2023-05-19 11:15] VITALS: BP 146/68
--- NOTE | 2023-05-19 11:24 | PHA.VAN.FU ---
Vancomycin Assessment / Plan
- Assessment
Renal Function: Stable (1.3->1.5->1.4)
WBC's are: WNL
In the past 24 hrs, patient has been: Afebrile
Concomitant Antimicrobials: piperacillin/tazobactam
- Dosing Plan
Continue: vancomycin 1250 mg q24h - first dose 05/18 0600 (after 1500 mg LD 05/17)
- Monitoring Plan
No level(s) ordered at this time: consider levels in a couple days or if renal function changes
- Follow Up
Pharmacy will continue to follow.
Vancomycin Follow UP
- -
Patient Age: 77
Patient Sex: Male
Vancomycin Day #: 3
Indication: Diabetic Foot
Requesting Provider: Dr. Nuno
Pertinent Antimicrobial Allergies:
NKDA
Height / Weight:
Height 5 ft 6 in
Actual Weight 91.2 kg
Pertinent Past Medical History: DM II, BMI ~34, CKD ( partial L 3rd toe amp 05/18/23)
- Vital Signs / Lab Results
Temp Pulse Resp BP Pulse Ox
98.1 F 66 20 146/68 95
05/19/23 11:15 05/19/23 11:15 05/19/23 11:15 05/19/23 11:15 05/19/23 11:15
Lab Results - Hematology
05/17/23 05/18/23 05/19/23
20:52 06:56 05:54
WBC 9.3 7.5 8.8
Lab Results - Chemistry
05/17/23 05/18/23 05/19/23
20:52 06:56 05:54
BUN 22 H 21 H 19
Creatinine 1.3 1.5 H 1.4 H
Estimated Creat Clear 51 44 46
Microbiology Results
05/18/23 00:19 MRSA Screen - Final
Nose No Methicillin Resistant Staphylococcus aureus isolated.
05/17/23 20:49 Blood Culture - Preliminary
Blood/Venous No Growth in 24 hours- Final report to follow
05/17/23 20:49 Blood Culture - Preliminary
Blood/Venous No Growth in 24 hours- Final report to follow
05/18/23 17:01 Gram Stain - Preliminary
Toe
[2023-05-19 12:20] LABS: Glucose - Point of Care 238 mg/dl (70-99)
[2023-05-19] MEDS: NOVOLOG FLEXPEN-HIGH RESISTANCE 4 UNITS SC (12:24)
--- NOTE | 2023-05-19 13:01 | W.PN.UPDATE ---
Update Note
Progress Note Update
Patient adm 05/17/23 from outpt office w/ cellulitis and wound to bone left 3rd toe +OM distal phalynx
POD #1 S/P partial left 3rd toe amp
Denies fever/chills/pain/V/N
He was able to walk to the bathroom in post op shoe w/o difficulty
Wound cx bone-negative so far
exam-dressing left foot with bloody drainage now back on eliquis. cellulitis left forefoot resolved
a/p
1-S/P amp for osteomyelitis left 3rd toe- redressed left foot dressing and heel, surgical cure
2-Recurrent heel wound left-full thickness. Recommend Home VN for wound care to the left heel. Medihoneydressing 2x/week. will see in office mon/tu
3-cellulitis -resolved
Ok to DC home from my standpoint. Follow up in office in 2-3 days
--- NOTE | 2023-05-19 14:06 | W.PN.UPDATE ---
Update Note
Progress Note Update
I spoke with patient who offers no cardiac complaints. He has follow-up with Dr. Del Angel in June.
Cardiac status seems stable, no changes in medications recommended, he is back on Eliquis. He is on aspirin.
I will sign off, please call if questions.
[2023-05-19 15:20] VITALS: BP 140/67
[2023-05-19 16:44] LABS: Glucose - Point of Care 177 mg/dl (70-99)
[2023-05-19 21:08] LABS: Glucose - Point of Care 115 mg/dl (70-99)
[2023-05-19] MEDS: DESYREL 100 MG PO (21:10)
[2023-05-19] MEDS: LEVEMIR 0.5 UNITS SC (21:10)
[2023-05-19] MEDS: LYRICA 300 MG PO (21:10)
[2023-05-19] MEDS: LIPITOR 40 MG PO (21:10)
[2023-05-19] MEDS: MELATONIN 10 MG PO (21:19)
[2023-05-19 23:57] VITALS: BP 141/66
[2023-05-20] MEDS: ZOSYN 50 IV ×2 (01:57→08:51)
[2023-05-20] MEDS: VANCOCIN 275 MG IV (05:06)
[2023-05-20 06:00] VITALS: BMI 32.2
[2023-05-20 06:23] LABS: Hemoglobin 11.4 g/dL (13.0-18.0); Mean Corp Hgb Conc. 35.6 g/dL (33.0-37.0); Mean Corpuscular Hgb 34.1 pg (27.0-31.0); Mean Corpuscular Volume 95.8 fL (80.0-94.0); Mean Platelet Volume 9.1 fL (7.4-10.4); Platelet Count 182 10^3/uL (130-400); Red Blood Cell Count 3.34 10^6/uL (4.70-6.10); Red Cell Dist. Width 13.2 % (11.5-14.5); White Blood Cell Count 7.2 10^3/uL (4.8-10.8)
[2023-05-20 06:43] LABS: Blood Urea Nitrogen 20 mg/dl (9-20); Calcium 9.1 mg/dl (8.4-10.2); Carbon Dioxide 29 mmol/L (22-30); Chloride 102 mmol/L (98-107); Estimated Creatinine Clearance 43 ml/min; Glucose 99 mg/dl (70-99); Potassium 3.6 mmol/L (3.5-5.1); Sodium 142 mmol/L (135-145); eGFR 47.36
[2023-05-20 07:15] VITALS: BP 154/76
[2023-05-20 07:16] LABS: Glucose - Point of Care 108 mg/dl (70-99)
[2023-05-20] MEDS: NOVOLOG FLEXPEN-HIGH RESISTANCE SC (07:44)
[2023-05-20] MEDS: NOVOLOG FLEXPEN 14 UNITS SC (08:48)
[2023-05-20] MEDS: FLOMAX 0.400000000000000022 MG PO (08:51)
[2023-05-20] MEDS: FOLVITE 1 MG PO (08:51)
[2023-05-20] MEDS: ASPIR LOW (ENTERIC COATED) 81 MG PO (08:51)
[2023-05-20] MEDS: ELIQUIS 5 MG PO (08:51)
[2023-05-20] MEDS: NORVASC 10 MG PO (08:52)
[2023-05-20] MEDS: THIAMINE INJECTION 200 MG IV (08:52)
[2023-05-20] MEDS: COREG 12.5 MG PO (08:52)
[2023-05-20] MEDS: LYRICA 150 MG PO (08:52)
--- NOTE | 2023-05-20 10:02 | W.DS.TRANS ---
DC Summary - Presales Consultant
-
Discharge Instructions:
Discharge Diagnosis/Procedures Osteomyelitis of the left third toe resected
Surgical cure
Coronary artery disease with PCI history
Paroxysmal atrial fibrillation rate controlled
continue Eliquis
Dual-chamber pacer
Diabetes mellitus
Diet Diabetic, Carb Controlled
Additional Activity Weightbearing with boot left foot
Driving Restrictions As prior to admission
Other Services VN,PT,OT
Wound Care Recurrent heel wound to the left full-thickness
recommendation for home visiting nurses for
wound care to the left heel/Medihoney dressing 2
times a week follow-up with podiatry in 1 to 2
days
Instructions:
Stand-Alone Forms:
Changes to Home Medications: Yes
Discharge Medications:
DC Medications w/original date entered in [employer]
cyanocobalamin (vitamin B-12) 1,000 mcg tablet 1,000 mcg PO DAILY Supplement 07/27/14
multivitamin with folic acid 400 mcg tablet (Tab-A-Natasha) 1 tab PO DAILY Supplement 07/27/14
atorvastatin 40 mg tablet 40 mg PO HS High cholesterol 03/15/20
pantoprazole 40 mg tablet,delayed release 40 mg PO DAILY Gastrointestinal issue 03/15/20
pregabalin 150 mg capsule (Lyrica) 300 mg PO HS fibromyalgia 03/15/20
trazodone 100 mg tablet 100 mg PO HS antidepress 03/15/20
aspirin 81 mg tablet,delayed release 81 mg PO DAILY Blood clot prevention/tx 04/23/20
melatonin 10 mg tablet 10 mg PO HSPRN PRN sleep 04/28/20
amlodipine 10 mg tablet 10 mg PO DAILY #30 tabs 07/15/21
insulin aspart U-100 100 unit/mL (3 mL) subcutaneous pen (Novolog FlexPen U-100 Insulin aspart) 20 units (0.2 mL) SC AC ##1 07/15/21
apixaban 5 mg tablet (Eliquis) 5 mg PO BID Blood Clot Prevention/Tx 05/17/23
budesonide-formoterol HFA 80 mcg-4.5 mcg/actuation aerosol inhaler (Symbicort) 1 puff inhalation R DAILY PRN sob/wheezing 05/17/23
carvedilol 12.5 mg tablet 12.5 mg PO BID Heart Disease/Condition 05/17/23
insulin detemir U-100 100 unit/mL (3 mL) subcutaneous pen (Levemir FlexPen) 55 unit SC HS Diabetes 05/17/23
ipratropium 20 mcg-albuterol 100 mcg/actuation mist for inhalation (Combivent Respimat) 1 puff inhalation R Q4 PRN sob/wheezing 05/17/23
pregabalin 150 mg capsule 150 mg PO DAILY Pain 05/17/23
tamsulosin 0.4 mg capsule 0.4 mg PO DAILY #30 caps 05/20/23
Home Medication Changes
tamsulosin 0.4 mg capsule 0.4 mg PO DAILY #30 caps 05/20/23
Pending Results: No
Total time spent discharging patient (in min): 39
--- NOTE | 2023-05-20 10:49 | PHA.VAN.FU ---
Vancomycin Assessment / Plan
- Assessment
Renal Function: Stable
WBC's are: WNL
In the past 24 hrs, patient has been: Afebrile
Concomitant Antimicrobials: piperacillin/tazobactam
- Dosing Plan
Continue: vancomycin 1250 mg q12h
- Monitoring Plan
No level(s) ordered at this time: pt is stable for discharge today
- Follow Up
Pharmacy will continue to follow.
Vancomycin Follow UP
- -
Patient Age: 77
Patient Sex: Male
Vancomycin Day #: 4
Indication: Diabetic Foot
Requesting Provider: Dr. Nuno
Pertinent Antimicrobial Allergies:
NKDA
Height / Weight:
Height 5 ft 6 in
Actual Weight 90.407 kg
Pertinent Past Medical History: DM II, BMI ~34, CKD ( partial L 3rd toe amp 05/18/23)
- Vital Signs / Lab Results
Temp Pulse Resp BP Pulse Ox
97.4 F 61 20 154/76 95
05/20/23 07:15 05/20/23 07:15 05/20/23 07:15 05/20/23 07:15 05/20/23 07:15
Lab Results - Hematology
05/17/23 05/18/23 05/19/23
20:52 06:56 05:54
WBC 9.3 7.5 8.8
05/20/23
05:38
WBC 7.2
Lab Results - Chemistry
05/17/23 05/18/23 05/19/23
20:52 06:56 05:54
BUN 22 H 21 H 19
Creatinine 1.3 1.5 H 1.4 H
Estimated Creat Clear 51 44 46
05/20/23
05:38
BUN 20
Creatinine 1.5 H
Estimated Creat Clear 43
Microbiology Results
05/17/23 20:49 Blood Culture - Preliminary
Blood/Venous No Growth in 48 hours- Final report to follow
05/17/23 20:49 Blood Culture - Preliminary
Blood/Venous No Growth in 48 hours- Final report to follow
05/18/23 17:01 Anaerobic Culture - Preliminary
Toe Culture pending. Anaerobic cultures are examined after 3
days incubation. Additional information to follow.
05/18/23 17:01 Tissue Culture - Preliminary
Toe No Growth After 18-24 Hours
Gram Stain - Preliminary
05/18/23 00:19 MRSA Screen - Final
Nose No Methicillin Resistant Staphylococcus aureus isolated.
--- NOTE | 2023-05-20 13:38 | W.DCSUMMARY ---
Discharge Summary
Discharge Data
Date of Admission: 05/17/23
Date of Discharge: 05/20/23
Total time spent discharging patient (in min): 38
-
Pending Results: No
Hospital Course
Patient is a 77y M with PMH significant for ASCVD, DM-II and newly diagnosed A-Fib who presents to ED for evaluation of L 3rd toe infection.� Patient has prior history of diabetic foot infections and multiple prior amputations.� He states that he
noted swelling, redness and blood in his sock about 1 week ago.� He was seen by his Milk Bottling Machine Operator today who advised hospital admission for IV medications and likely amputation.
Patient denies any evident purulent discharge.� He denies any systemic complaints such as fevers / chills, N/V/D, etc.
In addition the patient was recently found to have periods of atrial fibrillation and his Plavix dosing was changed to Eliquis
He was admitted with a diagnosis of left third toe osteomyelitis/paroxysmal atrial fibrillation/diabetes mellitus and COPD without acute exacerbation.
He is placed on empiric antibiotic coverage with vancomycin and Zosyn and podiatry was consulted of note the patient had a vascular evaluation and angiography in 2021 showing distal small vessel changes not amenable to intervention at that time.
X-ray done in the ED showed soft tissue infection and evidence of bony erosion with consistent with suspected osteomyelitis
Patient's Eliquis was held
He underwent evaluation for cardiac clearance by the cardiology service. Review of prior left heart cath along with records of previous [facility] to stenting of the obtuse marginal and RCA and diagnosis of cardiomyopathy with EF of 40 to 45% document in
November 2022 based on their assessment he appears stable from cardiac standpoint for her to undergo third toe amputation with acceptable cardiac risk. It is felt that the patient's Eliquis dosing can be resumed once surgical opinion warranted. He
is to continue on carvedilol 12.5 mg twice daily along with aspirin.
He underwent a left third toe amputation by the podiatry service is not considered a surgical cure
Eliquis was resumed resumed postop only postop complication with some postvoid residual urine retention felt to be postanesthetic and he was watched an additional night to document adequate void he was placed on tamsulosin 0.4 mg will be called into
his local pharmacy
Arrangements were made for VNA follow-up for wound care with also noting a left heel wound that is full-thickness and recommendations by podiatry are Medihoney dressing 3 times a week and for further follow-up early this coming week Sunday or
Sunday.
Discharge Plan
-
Patient Disposition: Home with Home Care
Discharge Diagnosis/Procedures: Osteomyelitis of the left third toe resected
Surgical cure
Coronary artery disease with PCI history
Paroxysmal atrial fibrillation rate controlled continue Eliquis
Dual-chamber pacer
Diabetes mellitus
Condition: Good
Diet: Diabetic, Carb Controlled
Additional Activity: Weightbearing with boot left foot
Driving Restrictions: As prior to admission
Other Services: VN, PT and OT
Wound Care: Recurrent heel wound to the left full-thickness recommendation for home visiting nurses for wound care to the left heel/Medihoney dressing 2 times a week follow-up with podiatry in 1 to 2 days
Referrals:
Haja Manuel MD [Family Provider] -
Angelina Barros DPM [Active] - (See in office 1 to 2 days)
Prescriptions:
New
tamsulosin 0.4 mg Capsule
0.4 mg PO DAILY Qty: 30 0RF
Continued
cyanocobalamin (vitamin B-12) 1,000 MCG tablet
1,000 mcg PO DAILY
multivitamin with folic acid [Tab-A-Natasha] 1 TABLET tablet
1 tab PO DAILY
atorvastatin 40 MG tablet
40 mg PO HS
trazodone 100 MG tablet
100 mg PO HS
pantoprazole 40 MG tablet,delayed release (DR/EC)
40 mg PO DAILY
pregabalin [Lyrica] 150 MG capsule
300 mg PO HS
Patient Comments:
05/17/2023: last filled 12/01/23, 90 tabs for 30 days from [facility]#[id number]
aspirin 81 MG tablet,delayed release (DR/EC)
81 mg PO DAILY
melatonin 10 MG tablet
10 mg PO HSPRN PRN (Reason: sleep)
amlodipine 10 MG tablet
10 mg PO DAILY Qty: 30 0RF
insulin aspart U-100 [Novolog FlexPen U-100 Insulin] 300 UNITS/3 ML insulin pen
20 units SC AC Qty: 1 1RF
carvedilol 12.5 mg tablet
12.5 mg PO BID
pregabalin 150 mg capsule
150 mg PO DAILY
Patient Comments:
05/17/2023: last filled 03/09/23, 90 tabs for 30 days from [facility]#[id number]
Levemir FlexPen 100 unit/mL (3 mL) insulin pen
55 unit SC HS
budesonide-formoterol [Symbicort] 80-4.5 mcg/actuation Hfa Aerosol Inhaler
1 puff INHALATION R DAILY PRN (Reason: sob/wheezing)
Eliquis 5 mg tablet
5 mg PO BID
Combivent Respimat 20-100 mcg/actuation Mist
1 puff INHALATION R Q4 PRN (Reason: sob/wheezing)
Discharge Orders:
Discharge Patient (As Directed); Ordered 05/20/23
Ordered By: Nitesh Nicole
Discharge Date and Time
Discharge Date/Time: 05/20/23 11:02
--- NOTE | 2023-05-20 13:41 | CM ---
Pt for dc today.
IMM issued and signed.
[facility] referral was placed.
No transport needs identified.
== END 2023-05-20 11:02 | disposition home health service (06) | DRG 580 ==
LOC: 4 EAST ACU 22:11
PROVIDERS: Student in an Organized Health Care Education/Training Program; ADMITTING PHYSICIAN Hospitalist; ATTENDING PHYSICIAN Internal Medicine; CONSULT PHYSICIAN Internal Medicine Cardiovascular Disease; CONSULT PHYSICIAN Podiatrist Foot & Ankle Surgery; EMERGENCY PHYSICIAN Emergency Medicine; FAMILY PHYSICIAN Family Medicine
PROC: 0Y6U0Z1 Detachment at Left 3rd Toe, High, Open Approach (ICD-10-PCS; 2023-05-18)
DX: L03.032 Cellulitis of left toe (principal); M86.8X7 Other osteomyelitis, ankle and foot; E11.51 Type 2 diabetes mellitus with diabetic peripheral angiopathy without gangrene; E11.69 Type 2 diabetes mellitus with other specified complication; E11.621 Type 2 diabetes mellitus with foot ulcer; I48.0 Paroxysmal atrial fibrillation; E11.22 Type 2 diabetes mellitus with diabetic chronic kidney disease; N18.30 Chronic kidney disease, stage 3 unspecified; I25.10 Atherosclerotic heart disease of native coronary artery without angina pectoris; I12.9 Hypertensive chronic kidney disease with stage 1 through stage 4 chronic kidney disease, or unspecified chronic kidney disease; I25.5 Ischemic cardiomyopathy; F10.10 Alcohol abuse, uncomplicated; E66.09 Other obesity due to excess calories; L97.529 Non-pressure chronic ulcer of other part of left foot with unspecified severity; Z79.01 Long term (current) use of anticoagulants; Z87.891 Personal history of nicotine dependence; Z68.32 Body mass index [BMI] 32.0-32.9, adult
CPT/HCPCS: 88304; 88311; 73620; 73630; 80048; 82962; 83036; 83735; 85025; 85027; 87040; 87070; 87075; 87147; 87176; 87186; 87205; 93005; 94660; 96365; 96367; 97163; 97167; 99285

== ENCOUNTER → 2023-09-26 12:36 | Outpatient (REF) | payer OTHER, SELFPAY | LOC: RAD 12:36 | PROVIDERS: ATTENDING PHYSICIAN Surgery Vascular Surgery; FAMILY PHYSICIAN Family Medicine; REFERRING PHYSICIAN Podiatrist Foot & Ankle Surgery | DX: I73.9 Peripheral vascular disease, unspecified (principal); L97.422 Non-pressure chronic ulcer of left heel and midfoot with fat layer exposed; E11.51 Type 2 diabetes mellitus with diabetic peripheral angiopathy without gangrene | CPT/HCPCS: 93922; 93925 ==

== ENCOUNTER 2023-10-26 18:17 | Inpatient (IN) | payer OTHER, SELFPAY ==
[2023-10-26] VITALS (12 sets, daily range): BP systolic 106–133; BP diastolic 49–61; PULSE 71; BMI 32.4; BMI 32.1
[2023-10-26 11:52] LABS: % Basophils 0.2 % (0-2); % Immature Granulocytes 0.6 % (0-0.5); % Lymphocytes 5.7 % (20.5-51.1); % Monocytes 11.3 % (1.7-9.3); % Neutrophils 82.2 % (42.2-75.2); Absolute Basophils 0.1 10^3/uL (0-0.2); Absolute Immature Granulocytes 0.1 10^3/uL (0-0.05); Absolute Lymphocytes 1.3 10^3/uL (1.2-3.4); Absolute Monocytes 2.7 10^3/uL (0.1-0.6); Absolute Neutrophils 19.3 10^3/uL (1.4-6.5); Hematocrit 35.2 % (39.0-52.0); Hemoglobin 12.8 g/dL (13.0-18.0); Mean Corp Hgb Conc. 36.4 g/dL (33.0-37.0); Mean Corpuscular Hgb 33.3 pg (27.0-31.0); Mean Corpuscular Volume 91.7 fL (80.0-94.0); Mean Platelet Volume 10.2 fL (7.4-10.4); Nucleated Red Blood Cells % 0 % (-); Platelet Count 149 10^3/uL (130-400); Red Blood Cell Count 3.84 10^6/uL (4.70-6.10); Red Cell Dist. Width 13.3 % (11.5-14.5); White Blood Cell Count 23.5 10^3/uL (4.8-10.8)
[2023-10-26 12:05] LABS: ALT (SGPT) 17 U/L (0-50); AST (SGOT) 29 U/L (17-59); Albumin 4.2 g/dl (3.5-5.0); Alkaline Phosphatase 89 U/L (38-126); Blood Urea Nitrogen 27 mg/dl (9-20); Calcium 8.7 mg/dl (8.4-10.2); Carbon Dioxide 25 mmol/L (22-30); Chloride 97 mmol/L (98-107); Estimated Creatinine Clearance 40 ml/min; Glucose 281 mg/dl (70-99); Potassium 3.9 mmol/L (3.5-5.1); Sodium 134 mmol/L (135-145); Total Bilirubin 1.4 mg/dl (0.2-1.3); Total Protein 6.9 g/dl (6.3-8.2); eGFR 43.56
--- NOTE | 2023-10-26 13:00 | ED.GENMED ---
History of Present Illness
General
Chief Complaint: Weakness
Source: patient
Time Seen by Provider: 10/26/23 12:34
History of Present Illness
History of Present Illness:
78 year old male presents c/o generalized weakness. Symptoms began yesterday afternoon. He also has joint aches and noted foul-smelling urine. + nausea but no vomiting. No appetite for food but has forced down some Gatroaid. No
diarrhea/constipation.
Past History
Past History
ED Past Medical History: HTN, Hypercholesterolemia and NIDDM
ED Past Surgical History: Cardiac (Pacemaker/stents), Orthopedic (Laminectomy) and Other (Stents bilateral lower extremities for peripheral vascular disease)
Social History
Tobacco: Former smoker
Alcohol: Occasional
Drug: None
Personal:
Living: with family
Phy Exam
Physical Exam
Physical Exam:
Gen: Awake, alert, oriented x3. Appears stated age. No acute distress
Head: Atraumatic
Eyes: EOMI, no scleral icterus, pupils equal and reactive b/l
Throat: no exudates, mucosa moist, no stridor
Ears: TM's normal b/l
Neck: trachea midline, no mass or adenopathy
Lungs: clear and equal b/l
Heart: regular rate, no murmurs
Abd: soft, non-tender, no pulsitile mass
Ext: pulses intact b/l, sensation intact, no edema
Neuro: CN intact, muscle strength equal b/l, sensation equal b/l, cerebellar exam intact, reflexes equal and intact b/l
Course
Orders/Labs/Results
Orders:
Orders
10/26/23 11:40
Complete Blood Count/With Diff Urgent
Comprehensive Metabolic Panel Urgent
10/26/23 12:45
Urinalysis Reflex To Culture Urgent
Date Specimen was Collected: 10/26/23
Time Specimen was Collected: 11:39
Urine Microscopic Reflex Cult Urgent
Urine Culture Urgent
FELICIANO Source: U
Specimen Description:
Date Specimen was Collected: 10/26/23
Time Specimen was Collected: 11:39
10/26/23 12:58
0.9% Sodium Chloride 500 ml [Nss] 500 ml IV BOLUS
CR Chest - 2 Views Urgent
Comment:
Reason For Exam: weakness, mild cough
10/26/23 14:20
CT Abd/pel Without Iv Or Oral Urgent
Comment:
Reason For Exam: uti, eval for infected stone
CefTRIAXone [Rocephin] 1,000 mg IV NOW STA
10/26/23 14:51
COVID-19 Antigen Urgent
Source: Nasal Swab
10/26/23 Dinner
1600 calorie (13 carb) Diabetic
10/26/23 15:42
Acetaminophen [Tylenol] 650 mg PO NOW STA
10/26/23 17:34
Admit/Transfer Patient As Directed
Co-Sign Provider:
Level of Care: Inpatient admission
Assign to:: Telemetry
Physician / Group: hospitalist
Diagnosis: Acute UTI
Reason for Telemetry: Arrhythmia
Date to Stop Telemetry: 10/29/23
Time to Stop Telemetry: 11:00
Reason for Hospitalization: Acute urinary tract infection, leukocytosis, generalized weakness
Expected length of stay greater than two midnights?: Yes
ELOS- Estimated Length of Stay in days: 3
I certify the patient meets the requirements for IP care: Yes
PRN Pain Medication Management As Directed
May give lesser potent ordered pain med per pt: Yes
preference::
Protocol:: Medication orders for pain may be administered in a
manner that supports deferring to patient preference
when the pt is:
- Requesting an ordered lesser potent pain medication.
Least to most potent pain medications are defined
as: acetaminophen < NSAID < tramadol < opioids
(morphine, oxycodone, hydromorphone).
- Requesting a lesser dose of the same medication IF
ORDERED.
- Requesting a less intrusive route of administration
if both routes are prescribed by the provider (PO <
IV).
10/26/23 17:58
Code Status As Directed
Resuscitation Status: Full Code
10/26/23 19:21
0.9% Sodium Chloride [Nss (Preservative Free)] See Protocol IV PRN PRN
Bisacodyl [Dulcolax] 10 mg RECTAL [id number] PRN
Docusate W/Senna [Senokot-S] 1 tablet PO BIDPRN PRN
FOLic ACID [Folvite] 1 mg 0.9% Sodium Chloride 50 ml [Nss] 50 ml IV DAILYPRN
Lorazepam [Ativan] 1 mg IV Q1HPRN PRN
Lorazepam [Ativan] 1 mg PO Q2HPRN PRN
Lorazepam [Ativan] 2 mg IV Q1HPRN PRN
Polyethylene Glycol Powder [Miralax] 17 grams PO DAILYPRN PRN
ipratropium-albuterol [Combivent Respimat] 1 puff INH R Q4HPRN PRN
10/26/23 19:21
Case Management Consult Once
Case Management Consult: Other
Comment: Substance abuse counseling
DIETARY CONSULT Routine
Reason for Consult: Nutrition support, possible refeeding guidelines
Activity As Directed
Activity Level: Out of Bed-Early Mobility
Head of Bed-Restrictions As Directed
Intake/ Output As Directed
Frequency: Per unit guidelines
MSAS SCORE As Directed
MSAS Score 0-4: Repeat MSAS every 2 hours until 0-4 for three consecutive assessments, then every 4 hours x 48
hours.
MSAS Score 5-7: For MILD withdrawl symptoms. Repeat MSAS and RASS every 2 hours
MSAS Score 8-11: For MODERATE withdrawal symptoms. Repeat MSAS and RASS every 1 hour. Consider ICU or IMU
level of care.
MSAS Score > 11: For SEVERE withdrawal symptoms. Repeat MSAS and RASS every 1 hour. Notify provider, consider
ICU level of care.
MSAS Additional Instructions: If no improvement or no decrease in score from severe to moderate within 12
hours, consult psychiatry
MSAS Notify Provider: Notify provider if patient requires more than 10 mg of Lorazepam in eight hour period.
Precautions As Directed
Type of Precautions: Aspiration
Vital Signs As Directed
Frequency: Per unit guidelines
Weight As Directed
Frequency: Daily
10/26/23 19:35
Alcohol Urgent
B-Hydroxybutyrate Urgent
GGTP Urgent
NT-proBNP Routine
Phosphorus Urgent
Prothrombin Time Urgent
10/26/23 20:00
Apixaban [Eliquis] 5 mg PO BID
Carvedilol [Coreg] 12.5 mg PO BID
Thiamine Injection 200 mg IV Q12
10/26/23 22:00
Atorvastatin [Lipitor] 40 mg PO HS
Pregabalin [Lyrica] 300 mg PO HS
Trazodone [Desyrel] 100 mg PO HS
10/27/23 Breakfast
1600 calorie (13 carb) Diabetic
Complete Blood Count/With Diff IN AM
Comprehensive Metabolic Panel IN AM
Magnesium IN AM
TSH IN AM
Vitamin B12 IN AM
10/27/23 07:30
Insulin Aspart Pen [Novolog Flexpen] 14 units SC AC
10/27/23 08:00
Amlodipine [Norvasc] 10 mg PO DAILY
Aspirin Low Dose EC [Aspir Low (Enteric Coated)] 81 mg PO DAILY
Cyanocobalamin [Vitamin B-12] 1,000 mcg PO DAILY
Furosemide [Lasix] 40 mg PO DAILY
Pantoprazole [Protonix] 40 mg PO DAILY
pregabalin 150 mg PO DAILY
10/29/23 11:00
DC Protocol for Telemetry ONCE
10/29/23 20:00
Thiamine HCl [Vitamin B1] 100 mg PO BID
Abnormal Lab Results
10/26/23 10/26/23
11:40 12:45
WBC 23.5 H 10^3/uL
(4.8-10.8)
RBC 3.84 L 10^6/uL
(4.70-6.10)
Hgb 12.8 L g/dL
(13.0-18.0)
Hct 35.2 L %
(39.0-52.0)
MCH 33.3 H pg
(27.0-31.0)
Abs Immat Gran (auto) 0.1 H 10^3/uL
(0-0.05)
Absolute Neuts (auto) 19.3 H 10^3/uL
(1.4-6.5)
Absolute Monos (auto) 2.7 H 10^3/uL
(0.1-0.6)
Immature Gran % 0.6 H %
(0-0.5)
Neutrophils % 82.2 H %
(42.2-75.2)
Lymphocytes % 5.7 L %
(20.5-51.1)
Monocytes % 11.3 H %
(1.7-9.3)
Sodium 134 L mmol/L
(135-145)
Chloride 97 L mmol/L
(98-107)
BUN 27 H mg/dl
(9-20)
Creatinine 1.6 H mg/dL
(0.7-1.3)
Glucose 281 H mg/dl
(70-99)
Total Bilirubin 1.4 H mg/dl
(0.2-1.3)
Urine Ketones Trace A
(Negative)
Ur Occult Blood Reflex 2+ A
(Negative)
Leukocyte Esterase Rfl 2+ A
(Negative)
Urine RBC 16-20 A /HPF
(0-2)
Urine WBC (Reflex) 50-60 A /HPF
(0-5)
Urine Bacteria (Reflex) Many A
(Negative)
10/26/23 11:40
10/26/23 11:40
Vital Signs
Initial and Last Documented VS:
Initial Vital Signs
Temp Pulse Resp BP Pulse Ox
98.1 F 80 24 125/55 93
10/26/23 11:34 10/26/23 11:34 10/26/23 11:34 10/26/23 11:34 10/26/23 11:34
Last Documented Vital Signs
Temp Pulse Resp BP Pulse Ox
100.5 F H 69 22 121/59 24
10/26/23 14:00 10/26/23 19:15 10/26/23 19:15 10/26/23 19:00 10/26/23 18:00
MDM/Problems Addressed
Differential Diagnosis Includes:
Urinary tract infection, electrolyte abnormality, renal failure, pneumonia, viral illness
MDM/Problems Addressed:
Patient presents with confusion, general weakness. Labs show a significantly elevated white blood cell count of 23.5. Chemistry show increased renal function which is baseline for him. Urinalysis is highly suggestive of a urinary tract infection
with 50-60 WBCs per high-power field and positive leukocyte esterase. Patient treated with Rocephin. He will be admitted to the hospitalist because he is too weak to ambulate and care for himself at home. CT of the abdomen and pelvis shows no
obstructing stones.
*Radiology
Radiology exam reviewed: radiology read reviewed
*Pulse Oximetry
Patient hypoxic: no
*Critical Care Note
Total Time (30-74mins, 75-104mins- exclusive of procedures): Not Applicable
ED Attending Note
-
Portions of this chart may have been created with voice recognition software.� Occasional wrong word or��sound alike� substitutions may have occurred due to the inherent limitations of voice recognition software.
Discharge Plan
Departure
Patient Disposition: Admit
Date of Disposition: 10/26/23
Time of Disposition: 16:33
Admit to: Med/Surg
Presentation/result/management discussed w/ accepting MD/DO: Hospitalist
Condition: Fair
Discharge Problem:
Acute UTI
Interventions
Interventions:
*Risk Screen - Suicide Last Done: 10/26/23 11:36
*General Assessment Last Done: 10/26/23 11:27
*Neglect/Abuse Screening Last Done: 10/26/23 11:36
ED- Fall Risk Assessment Last Done: 10/26/23 11:37
*ED COVID-19 Vaccine History Last Done: 10/26/23 19:33
*Nursing Disposition Last Done: 10/26/23 19:26
ED- Cardiac Assessment Last Done: 10/26/23 11:37
ED- Neurological Assessment Last Done: 10/26/23 11:37
ED- Pulmonary Assessment Last Done: 10/26/23 11:37
Discharge Date and Time
Discharge Date/Time: 10/26/23 19:27
[2023-10-26 13:12] LABS: Urine Albumin Trace (Neg - Trace); Urine Bilirubin Negative (Negative); Urine Character Clear (Clear); Urine Color Yellow; Urine Glucose Negative (Negative); Urine Ketone Trace (Negative); Urine Leukocyte 2+ (Negative); Urine Nitrite Negative (Negative); Urine Occult Blood 2+ (Negative); Urine Urobilinogen Negative (Neg - 1+)
[2023-10-26] MEDS: NSS 500 IV (13:38)
[2023-10-26 13:48] LABS: Urine Bacteria Many (Negative); Urine White Cell 50-60 /HPF (0-5)
[2023-10-26 13:49] LABS: Urine Red Blood Cell 16-20 /HPF (0-2)
[2023-10-26] MEDS: ROCEPHIN 1000 MG IV (14:34)
[2023-10-26 15:15] LABS: COVID-19 Antigen Negative (Negative)
[2023-10-26] MEDS: TYLENOL 650 MG PO (15:47)
--- NOTE | 2023-10-26 18:40 | HPS.HSE ---
Addendum entered and electronically signed by Wilfredo Briscoe MD 10/26/23 19:03:
78-year-old male with weakness
I personally performed a history and physical exam of the patient and discussed management with the resident. I reviewed the resident's note and agree with the documented findings and plan of care HPI/CC except for change in documentation
CT abdomen and pelvis-no acute pathology. Nonobstructing renal or ureteral calculi. No hydronephrosis or hydroureter. Atherosclerosis, multilevel lumbar DJD
Chest x-ray-no acute cardiopulmonary abnormality
Drowsy but arousable
Cardiovascular system is most appreciated
Chest clear to auscultation
Abdomen soft and nontender. No CVA tenderness
Pedal edema
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
# Fever-Likely source UTI
Likely due to enlarged Prostate
Unfortunately no Bld Cx sent from ER
Will do if he has more fevers
Await Urin CX
# Coronary artery disease with history of RCA stent , mid circumflex stent -continue ASA/statin/Coreg
# Diabetes-outpatient regimen-Levemir 55 units at bedtime, NovoLog 20 AC. will do Lantus 45 units and NovoLog 14 AC and SSI
# Paroxysmal atrial fibrillation-continue Eliquis 5 twice daily, Coreg
# Hypertension-continue Coreg/Norvasc
# History of pacemaker 2020
# Peripheral vascular disease with right lower extremity stent
# CKD stage III
# COPD-continue Combivent inhaler/equivalent
# Sleep apnea-continue CPAP at 11 cm H2)
# History of CVA versus hypertensive encephalopathy 2014-Eliquis/statin/aspirin
# History of gout/pseudogout
# Atherosclerosis/hyperlipidemia-continue Statin
# Chronic right bundle branch block
# Multilevel lumbar DJD/chronic back pain/diabetic neuropathy-continue Lyrica
# Daily Alcohol use - Thiamine and MSAS protocol
# Obesity - Per BMI
# Ex-smoker
# DVT prophylaxis-Eliquis
# CODE STATUS- Full CODE
Original Note:
Family Physician
-
Family Physician: Haja Manuel
Chief Complaint
-
Acute UTI
Admit to telemetry
History of Present Illness
78-year-old male with past medical history of ASCVD, heart failure mildly reduced ejection fraction, A-fib on Eliquis, hypertension, hyperlipidemia, presents to the emergency department complaining of generalized weakness acutely worse over the last
day. Patient reports having weakness over the last couple days as well as a foul-smelling urine. He reports the urine smelling as 'battery acid 'he also endorses having a fever as well as joint aches. No nausea vomiting diarrhea patient endorses
being able to void on his own however he also endorses nocturia and incontinence at times. Drinks 2-3 beers per day his last drink was yesterday. Patient will be admitted to telemetry for his previous history of A-fib.
Medical History
Past Medical History
Past Medical History: Reports Arrhythmia, CAD, CHF, HTN, Hypercholesterolemia and IDDM
Past Surgical History: Reports Other (Laminectomy, cardiac pacemaker, coronary artery stents, peripheral vascular stents)
Additional Past Surgical History:
PTCA with stent x 6, cardiac pacemaker, laminectomy, bilateral lower extremity stents
Social History
Tobacco: Former Smoker (04-[id number]-mpup history of smoking, 40 years ago)
Alcohol: Daily (Drinks 2-3 beers per day, last drink was 10/25/2023)
Drug: None
Personal: Single
Living: Alone
Employment: Retired
Family History
Family History: Not pertinent
Allergies / Home Medications
Allergies reflects when Allergies were last updated in [facility].
Home Medications with original date entered in [facility]
Allergy/Medication List:
Allergies
Allergy/AdvReac Type Severity Reaction Status Date / Time
No Known Allergies Allergy Verified 10/26/23 11:30
Home Medications
cyanocobalamin (vitamin B-12) 1,000 mcg tablet 1,000 mcg PO DAILY Supplement 07/27/14
atorvastatin 40 mg tablet 40 mg PO HS High cholesterol 03/15/20
pantoprazole 40 mg tablet,delayed release 40 mg PO DAILY Gastrointestinal issue 03/15/20
pregabalin 150 mg capsule (Lyrica) 300 mg PO HS fibromyalgia 03/15/20
trazodone 100 mg tablet 100 mg PO HS antidepress 03/15/20
aspirin 81 mg tablet,delayed release 81 mg PO DAILY Blood clot prevention/tx 04/23/20
amlodipine 10 mg tablet 10 mg PO DAILY #30 tabs 07/15/21
insulin aspart U-100 100 unit/mL (3 mL) subcutaneous pen (Novolog FlexPen U-100 Insulin aspart) 20 units SC AC ##1 07/15/21
apixaban 5 mg tablet (Eliquis) 5 mg PO BID Blood Clot Prevention/Tx 05/17/23
carvedilol 12.5 mg tablet 12.5 mg PO BID Heart Disease/Condition 05/17/23
insulin detemir U-100 100 unit/mL (3 mL) subcutaneous pen (Levemir FlexPen) 55 unit SC HS Diabetes 05/17/23
ipratropium 20 mcg-albuterol 100 mcg/actuation mist for inhalation (Combivent Respimat) 1 puff inhalation R Q4HPRN PRN sob/wheezing 05/17/23
pregabalin 150 mg capsule 150 mg PO DAILY Pain 05/17/23
furosemide 40 mg tablet (Lasix) 40 mg PO DAILY 10/26/23
Review of Systems
-
History Source: Patient
Constitutional: Reports Fever
Respiratory: Reports No Symptoms
Cardiac: Reports No Symptoms
Abdomen/GI: Reports No Symptoms; Denies Nausea, Vomiting or Diarrhea
: Reports Frequency and Incontinence
Physical Exam
Vital Signs
Vital Signs
Temp Pulse Resp BP Pulse Ox
100.5 F H 74 25 133/58 97
10/26/23 14:00 10/26/23 16:00 10/26/23 16:00 10/26/23 16:00 10/26/23 16:00
Physical Exam
General: Well Developed, Well Nourished, No Apparent Distress, Comfortable and Morbidly Obese
Respiratory: Clear
Cardiac: S1/S2 and Regular Rhythm
GI: Soft, Non Tender, Normal Bowel Sounds and Distended
Genito-urinary: No costovertebral tender; No Suprapubic Tube
Musculoskeletal: Edema, Left Lower Extremity and Edema, Right Lower Extremity
Skin: Warm and Dry
Neuro: Awake, Alert, Oriented and AO x 3
Psych: Calm and Intact Judgment/Insight
Laboratory Results
-
10/26/23 11:40
10/26/23 11:40
Laboratory Results
Total Bilirubin 1.4 mg/dl (0.2-1.3) H 10/26/23 11:40
AST 29 U/L (17-59) 10/26/23 11:40
ALT 17 U/L (0-50) 10/26/23 11:40
Alkaline Phosphatase 89 U/L (38-126) 10/26/23 11:40
Data Reviewed
-
Diagnostic Radiology: Report Reviewed by me and Discussed with Physician
CT Scan: Report Reviewed by me and Discussed with Physician
Lab Data: Labs Reviewed by me and Discussed with Physician
Impression/Plan
-
IMPRESSION:
78-year-old male with weakness and an acute UTI
PLAN:
#Acute UTI
-Patient febrile in ED temperature 100.5
-Likely due to enlarged prostate
-Patient endorses multiple days of foul-smelling urine
-Urinalysis in ED was consistent with UTI, many bacteria 50-60 with blood cells
-Patient started on ceftriaxone 1000 mg IV daily
-Urinalysis and culture was sent out, await culture and sensitivity and adjust antibiotics
#Alcohol use disorder
-Patient endorses drinking 2-3 beers daily
-Donna RODRIGUEZ protocol initiated
-Replete thiamine and folate
-Check magnesium, phosphorus in a.m.
#Paroxysmal atrial fibrillation
-Telemetry
-Status post pacemaker
-Currently in sinus rhythm
-[id number] score 5
-Continue Eliquis 5 mg twice daily p.o.
-Continue Coreg
#Heart failure mildly reduced ejection fraction
-Echo 11/29 showed EF 40 to 45%
-Strict ins and outs
-Daily weights
-Continue Lasix 40 mg p.o. daily
#Insulin-dependent diabetes mellitus
-Continue Lantus 55 units
-Continue mealtime NovoLog insulin 20 units
-Adjust as needed
#Obstructive sleep apnea
-Patient on CPAP at night 11 cm H20
-Ordered CPAP for patient
# Coronary artery disease with history of RCA stent , mid circumflex stent
-continue ASA/statin/Coreg
# Atherosclerosis/hyperlipidemia
-continue Statin
# Hypertension-continue Coreg/Norvasc
# History of pacemaker 2019
# Peripheral vascular disease with right lower extremity stent
# CKD stage III
# COPD-continue Combivent inhaler/equivalent
# History of CVA versus hypertensive encephalopathy 2014-Eliquis/statin/aspirin
# History of gout/pseudogout
# Chronic right bundle branch block
# Multilevel lumbar DJD/chronic back pain/diabetic neuropathy-continue Lyrica
# Obesity - Per BMI
Diet: Diabetic diet 1600 pasha
DVT prophylaxis-Eliquis
CODE STATUS-full code
[2023-10-26 19:53] LABS: PT 23.4 Sec (11.4-14.6)
[2023-10-26 19:55] LABS: GGTP 46 U/L (15-73); Phosphorus 3.9 mg/dl (2.5-4.5)
[2023-10-26 19:59] LABS: Alcohol None Detected
[2023-10-26 20:02] LABS: B-Hydroxybutyrate 0.19 mmol/L (0.02-0.27)
[2023-10-26 20:06] LABS: NT-proBNP 6790 pg/ml
[2023-10-26] MEDS: COREG 12.5 MG PO (21:23)
[2023-10-26] MEDS: ELIQUIS 5 MG PO (21:23)
[2023-10-26] MEDS: DESYREL 100 MG PO (21:24)
[2023-10-26] MEDS: THIAMINE INJECTION 200 MG IV (21:24)
[2023-10-26] MEDS: STERILE WATER FOR INJECTION 10 ML IV (21:24)
[2023-10-26] MEDS: LIPITOR 40 MG PO (21:24)
[2023-10-26] MEDS: LYRICA 150 MG PO (21:28)
[2023-10-26 22:01] LABS: Glucose - Point of Care 225 mg/dl (70-99)
[2023-10-26] MEDS: LANTUS 0.45 UNITS SC (22:04)
[2023-10-27] VITALS (8 sets, daily range): BP systolic 119–144; BP diastolic 40–65; PULSE 75; BMI 32.2
--- NOTE | 2023-10-27 07:17 | W.PN.HOSP.TC ---
Addendum entered and electronically signed by Wilfredo Briscoe MD 10/27/23 13:23:
78-year-old male with weakness
I personally performed a history and physical exam of the patient and discussed management with the resident. I reviewed the resident's note and agree with the documented findings and plan of care HPI/CC except for change in documentation
CT abdomen and pelvis-no acute pathology. Nonobstructing renal or ureteral calculi. No hydronephrosis or hydroureter. Atherosclerosis, multilevel lumbar DJD
Feels better
Had retention needed straight cath
# Fever-Likely source UTI
Likely due to enlarged Prostate
Unfortunately no Bld Cx sent from ER
Will do if he has more fevers
Urine CX with E COli
# Coronary artery disease with history of RCA stent , mid circumflex stent -continue ASA/statin/Coreg
# Diabetes-outpatient regimen-Levemir 55 units at bedtime, NovoLog 20 AC. will do Lantus 48 units and NovoLog 17 AC and SSI
# Paroxysmal atrial fibrillation-continue Eliquis 5 twice daily, Coreg
# Hypertension-continue Coreg/Norvasc
# History of pacemaker 2019
# Peripheral vascular disease with right lower extremity stent
# CKD stage III
# COPD-continue Combivent inhaler/equivalent
# Sleep apnea-continue CPAP at 11 cm H2)
# History of CVA versus hypertensive encephalopathy 2014-Eliquis/statin/aspirin
# History of gout/pseudogout
# Atherosclerosis/hyperlipidemia-continue Statin
# Chronic right bundle branch block
# Multilevel lumbar DJD/chronic back pain/diabetic neuropathy-continue Lyrica
# Daily Alcohol use - Thiamine and MSAS protocol
# Obesity - Per BMI
# Ex-smoker
# DVT prophylaxis-Eliquis
# CODE STATUS- Full CODE
Original Note:
Today's Communication/Plan
-
Continue ceftriaxone
Monitor for alcohol withdrawal with MSAS protocol
Assessment / Plan
Assessment / Plan
IMPRESSION:
78-year-old male with acute onset weakness and an acute UTI
PLAN:
#Acute UTI
-Patient febrile in ED temperature 100.5
-Likely due to enlarged prostate
-Patient endorses multiple days of foul-smelling urine
-Urinalysis in ED was consistent with UTI, many bacteria 50-60 with blood cells
-ceftriaxone 1000 mg IV daily, Day 2
-Urinalysis and culture was sent out, await culture and sensitivity and adjust antibiotics
#Urinary retention
-Per nursing patient not voiding overnight, patient reports no sensation to void
-Bladder scan overnight 600, status post straight cath removing 600 mL of urine
-Patient willing to trial Flomax
-Flomax 0.4 daily PO
#Alcohol use disorder
-Patient endorses drinking 2-3 beers daily
-MSAS protocol initiated
-M SAS score 0 this a.m.
-Replete thiamine and folate
-Check magnesium, phosphorus in a.m.
#Paroxysmal atrial fibrillation
-Telemetry
-Status post pacemaker
-Currently in sinus rhythm
-[id number] score 5
-Continue Eliquis 5 mg twice daily p.o.
-Continue Coreg
#Heart failure mildly reduced ejection fraction
-Lower extremity edema +1 on exam today
-Echo 11/29 showed EF 40 to 45%
-Strict ins and outs
-Daily weights
-Continue Lasix 40 mg p.o. daily
-PT/OT consulted
#Insulin-dependent diabetes mellitus
-Continue Lantus 48 units
-Continue mealtime NovoLog insulin 14 units
-Adjust as needed
#Obstructive sleep apnea
-Patient on CPAP at night 11 cm H20
-CPAP 11 cm H2O @ night
# Coronary artery disease with history of RCA stent , mid circumflex stent
-continue ASA/statin/Coreg
# Atherosclerosis/hyperlipidemia
-continue Statin
# Hypertension
-continue Coreg/Norvasc
# CKD stage III
-Creatinine on admission 1.6
# COPD
-continue Combivent inhaler/equivalent
# History of CVA versus hypertensive encephalopathy 2014
-Eliquis/statin/aspirin
# Multilevel lumbar DJD/chronic back pain/diabetic neuropathy
-continue Lyrica
# History of pacemaker 2019
# Peripheral vascular disease with right lower extremity stent
# History of gout/pseudogout
# Chronic right bundle branch block
# Obesity - Per BMI
Diet: Diabetic diet 1600 pasha
DVT prophylaxis-Eliquis
CODE STATUS-full code
Anticipated Discharge: 24 - 48 hours
Subjective/Interval History
-
Date of Service: October 27, 2023
No acute events overnight
Objective Data
-
Labs:
Laboratory Results
10/26/23 10/27/23
19:35 06:00
WBC Pending
Hgb Pending
Hct Pending
Plt Count Pending
PT 23.4 H
INR 2.10
Sodium Pending
Potassium Pending
Chloride Pending
Carbon Dioxide Pending
BUN Pending
Creatinine Pending
Glucose Pending
Calcium Pending
Total Bilirubin Pending
AST Pending
ALT Pending
Alkaline Phosphatase Pending
Vital Signs:
Vital Signs
Temp Pulse Resp BP Pulse Ox
99.5 F 76 19 119/40 92
10/27/23 03:00 10/27/23 03:00 10/27/23 03:00 10/27/23 03:00 10/27/23 03:00
I&O
10/26/23 10/27/23 10/28/23
06:59 06:59 06:59
Intake Total 280 / 280
Balance 280 / 280
Review of Systems
-
History Source: Patient
Constitutional: Reports No Symptoms
Respiratory: Reports No Symptoms
Cardiac: Reports No Symptoms
Abdomen/GI: Reports No Symptoms
Genitourinary: Reports Difficulty Voiding and Other (Foul-smelling urine)
Physical Exam
-
General: Well Developed, Well Nourished, No Apparent Distress, Comfortable and Obese
Respiratory: Clear to Auscultation
Cardiac: Regular Rhythm and S1/S2
GI: Soft, Nontender, Normal Bowel Sounds and Distended
Musculoskeletal: Edema, Right Lower Extrem (+1) and Edema, Left Lower Extrem (+1)
Skin: Warm and Dry
Neuro: Awake, Alert, Oriented and AO x 3
Psych: Calm and Intact Judgement/Insight
Data Reviewed
-
Labs: Labs Reviewed by me and Discussed with Physician
--- NOTE | 2023-10-27 07:34 | PTCARENOTE ---
Patient admitted to unit overnight. Dx UTI. Patient AAO. Patient uses cane at baseline. No compliants overnight, tolerated CPAP well. Patient woke up and needed to urinate. Patient was able to stand with moderate assistance using a walker. Full skin
assessment showed hx of 3 partial toe amputations on L foot, 2 partial toe amputations on R foot, L heel ulcer (mepilex applied). Wound care consult ordered. Patient was unable to use urinal. Bladder scan showed 510 cc in bladder. Straight cath
output 600 selene urine. PVR 0 cc. Will continue to monitor during day shift.
[2023-10-27 07:42] LABS: Glucose - Point of Care 205 mg/dl (70-99)
[2023-10-27] MEDS: THIAMINE INJECTION 200 MG IV ×2 (08:03→21:35)
[2023-10-27] MEDS: COREG 12.5 MG PO ×2 (08:04→21:31)
[2023-10-27] MEDS: PROTONIX 40 MG PO (08:04)
[2023-10-27] MEDS: LYRICA 150 MG PO ×2 (08:04→21:32)
[2023-10-27] MEDS: LASIX 40 MG PO (08:04)
[2023-10-27] MEDS: VITAMIN B-12 1000 MCG PO (08:04)
[2023-10-27] MEDS: ASPIR LOW (ENTERIC COATED) 81 MG PO (08:05)
[2023-10-27] MEDS: ELIQUIS 5 MG PO ×2 (08:05→21:31)
[2023-10-27] MEDS: NORVASC 10 MG PO (08:05)
[2023-10-27] MEDS: NOVOLOG FLEXPEN 14 UNITS SC ×2 (08:14→12:05)
[2023-10-27 09:15] LABS: % Basophils 0.2 % (0-2); % Eosinophils 0.5 % (0-6); % Immature Granulocytes 0.8 % (0-0.5); % Lymphocytes 9.6 % (20.5-51.1); % Monocytes 8.1 % (1.7-9.3); % Neutrophils 80.8 % (42.2-75.2); Absolute Eosinophils 0.1 10^3/uL (0-0.7); Absolute Immature Granulocytes 0.2 10^3/uL (0-0.05); Absolute Lymphocytes 1.9 10^3/uL (1.2-3.4); Absolute Monocytes 1.6 10^3/uL (0.1-0.6); Absolute Neutrophils 15.6 10^3/uL (1.4-6.5); Hematocrit 34.7 % (39.0-52.0); Hemoglobin 12.4 g/dL (13.0-18.0); Mean Corp Hgb Conc. 35.7 g/dL (33.0-37.0); Mean Corpuscular Hgb 34.3 pg (27.0-31.0); Mean Corpuscular Volume 95.9 fL (80.0-94.0); Mean Platelet Volume 10.5 fL (7.4-10.4); Nucleated Red Blood Cells % 0 % (-); Platelet Count 133 10^3/uL (130-400); Red Blood Cell Count 3.62 10^6/uL (4.70-6.10); Red Cell Dist. Width 13.6 % (11.5-14.5); White Blood Cell Count 19.3 10^3/uL (4.8-10.8)
[2023-10-27 09:58] LABS: ALT (SGPT) 14 U/L (0-50); AST (SGOT) 29 U/L (17-59); Albumin 3.6 g/dl (3.5-5.0); Alkaline Phosphatase 90 U/L (38-126); Blood Urea Nitrogen 29 mg/dl (9-20); Calcium 8.3 mg/dl (8.4-10.2); Carbon Dioxide 29 mmol/L (22-30); Chloride 99 mmol/L (98-107); Estimated Creatinine Clearance 37 ml/min; Glucose 176 mg/dl (70-99); Magnesium 1.8 mg/dl (1.6-2.3); Potassium 3.5 mmol/L (3.5-5.1); Sodium 137 mmol/L (135-145); Total Bilirubin 1.2 mg/dl (0.2-1.3); Total Protein 6.2 g/dl (6.3-8.2)
[2023-10-27 11:30] LABS: Glucose - Point of Care 206 mg/dl (70-99)
[2023-10-27] MEDS: NSS (PRESERVATIVE FREE) 10 ML IV ×2 (12:02→12:32)
[2023-10-27] MEDS: FLOMAX 0.4 MG PO (12:31)
[2023-10-27] MEDS: ROCEPHIN 1000 MG IV (12:32)
--- NOTE | 2023-10-27 15:08 | CM ---
Patient lives alone in a 1st floor apartment, with 7 steps to enter, patient is independent with adl's and uses a walker or cane with ambulation, patient drives, disability case manager offered patient information and treatment for alcohol however patient
declined.
Pharmacy [facility]
PCP: Dr Manuel
[2023-10-27 15:11] LABS: TSH 3.98 uIU/ml (0.47-4.68)
[2023-10-27 15:30] LABS: Vitamin B12 986 pg/ml (239-931)
[2023-10-27 17:05] LABS: Glucose - Point of Care 124 mg/dl (70-99)
[2023-10-27] MEDS: NOVOLOG FLEXPEN 17 UNITS SC (17:09)
[2023-10-27 20:57] LABS: Glucose - Point of Care 185 mg/dl (70-99)
[2023-10-27] MEDS: LIPITOR 40 MG PO (21:32)
[2023-10-27] MEDS: DESYREL 100 MG PO (21:32)
[2023-10-27] MEDS: LANTUS 0.48 UNITS SC (21:33)
[2023-10-27] MEDS: STERILE WATER FOR INJECTION IV (21:36)
[2023-10-27] MEDS: TYLENOL 650 MG PO (23:00)
[2023-10-28] VITALS (9 sets, daily range): BP systolic 119–157; BP diastolic 51–69; PULSE 74–75; BMI 32.0
[2023-10-28 06:55] LABS: Glucose - Point of Care 178 mg/dl (70-99)
--- NOTE | 2023-10-28 07:33 | W.PN.HOSP.TC ---
Addendum entered and electronically signed by Wilfredo Briscoe MD 10/28/23 15:16:
78-year-old male with weakness
I personally performed a history and physical exam of the patient and discussed management with the resident. I reviewed the resident's note and agree with the documented findings and plan of care HPI/CC except for change in documentation
CT abdomen and pelvis-no acute pathology. Nonobstructing renal or ureteral calculi. No hydronephrosis or hydroureter. Atherosclerosis, multilevel lumbar DJD
# Fever-Likely source UTI
Likely due to enlarged Prostate
Unfortunately no Bld Cx sent from ER-Will do if he has more fevers
Urine CX with E Coli-Townsend sensitive
Leukocytosis better
Flomax started
Davis placed as he was requiring straight cath multiple Straight cath
He has an appt with
Voiding trial in the rehab
# Coronary artery disease with history of RCA stent , mid circumflex stent -continue ASA/statin/Coreg
# Diabetes-outpatient regimen-Levemir 55 units at bedtime, NovoLog 20 AC.
# Paroxysmal atrial fibrillation-continue Eliquis 5 twice daily, Coreg
# Hypertension-continue Coreg/Norvasc
# History of pacemaker 2019
# Peripheral vascular disease with right lower extremity stent
# CKD stage III
# COPD-continue Combivent inhaler/equivalent
# Sleep apnea-continue CPAP at 11 cm H2)
# History of CVA versus hypertensive encephalopathy 2014-Eliquis/statin/aspirin
# History of gout/pseudogout
# Atherosclerosis/hyperlipidemia-continue Statin
# Chronic right bundle branch block
# Multilevel lumbar DJD/chronic back pain/diabetic neuropathy-continue Lyrica
# Daily Alcohol use - Thiamine and MSAS protocol ( zero now)
# Obesity - Per BMI
# Ex-smoker
# DVT prophylaxis-Eliquis
# CODE STATUS- Full CODE
Medically stable for discharge to rehab
Case management made aware.
Original Note:
Today's Communication/Plan
-
Ceftriaxone day 3
Continue to monitor for alcohol withdrawal
Assessment / Plan
Assessment / Plan
IMPRESSION:
78-year-old male with acute onset weakness and an acute UTI
PLAN:
#Acute UTI
-Patient febrile in ED temperature 100.5
-Currently afebrile
-Likely due to enlarged prostate
-Patient endorses multiple days of foul-smelling urine
-Urinalysis in ED was consistent with UTI, many bacteria 50-60 with blood cells
-ceftriaxone 1000 mg IV daily, Day 3
-Urinalysis and culture was sent out, await culture and sensitivity and adjust antibiotics
#Urinary retention
-Per nursing patient not voiding overnight, patient reports no sensation to void, as well as incontinence at times
-Patient has a urologist he follows outpatient, patient says will schedule his own appointment to follow-up with urology
-Bladder scan overnight 400
-Davis was ordered by overnight team
-Flomax 0.4 daily PO
-Creatinine abnormalities likely secondary to bladder outlet obstruction
#Alcohol use disorder
-Patient endorses drinking 2-3 beers daily
-MSAS protocol initiated
-MSAS score 0 this a.m.
-IV thiamine and folate
-Magnesium normal
#Paroxysmal atrial fibrillation
-Telemetry
-Status post pacemaker
-Currently in sinus rhythm
-[id number] score 5
-Continue Eliquis 5 mg twice daily p.o.
-Continue Coreg
#Heart failure mildly reduced ejection fraction
-Lower extremity edema +1 on exam today
-Echo 11/29 showed EF 40 to 45%
-Strict ins and outs
-Daily weights
-Continue Lasix 40 mg p.o. daily
-PT/OT consulted
#Insulin-dependent diabetes mellitus
-Continue Lantus 48 units
-Continue mealtime NovoLog insulin 14 units
-Adjust as needed
#Obstructive sleep apnea
-Patient on CPAP at night 11 cm H20
-CPAP 11 cm H2O @ night
# Coronary artery disease with history of RCA stent , mid circumflex stent
-continue ASA/statin/Coreg
# Atherosclerosis/hyperlipidemia
-continue Statin
# Hypertension
-continue Coreg/Norvasc
# CKD stage III
-Creatinine on admission 1.6
# COPD
-continue Combivent inhaler/equivalent
# History of CVA versus hypertensive encephalopathy 2014
-Eliquis/statin/aspirin
# Multilevel lumbar DJD/chronic back pain/diabetic neuropathy
-continue Lyrica
# History of pacemaker 2019
# Peripheral vascular disease with right lower extremity stent
# History of gout/pseudogout
# Chronic right bundle branch block
# Obesity - Per BMI
Diet: Diabetic diet 1600 [address]asha
DVT prophylaxis-Eliquis
CODE STATUS-full code
Anticipated Discharge: Within 24 hours
Subjective/Interval History
-
Date of Service: October 28, 2023
Patient required Davis overnight
Bladder scan was 400
MSAS 0
Objective Data
-
Labs:
Laboratory Results
10/28/23
07:26
WBC Pending
Hgb Pending
Hct Pending
Plt Count Pending
Sodium Pending
Potassium Pending
Chloride Pending
Carbon Dioxide Pending
BUN Pending
Creatinine Pending
Glucose Pending
Calcium Pending
Vital Signs:
Vital Signs
Temp Pulse Resp BP Pulse Ox
97.4 F 71 18 126/64 92
10/28/23 03:00 10/28/23 03:00 10/28/23 03:00 10/28/23 03:00 10/28/23 03:00
I&O
07/10/28/23 10/29/23
06:59 06:59 06:59
Intake Total 280 / 280 1330 / 1330
Output Total 2450 / 2450
Balance 280 / 280 -1120 / -1120
Review of Systems
-
History Source: Patient
Constitutional: Reports No Symptoms
Respiratory: Reports No Symptoms
Cardiac: Reports No Symptoms
Abdomen/GI: Reports No Symptoms
Genitourinary: Reports Incontinence, Difficulty Voiding and Urgency
Physical Exam
-
General: Well Developed, Well Nourished, No Apparent Distress, Comfortable and Morbidly Obese
Respiratory: Clear to Auscultation
Cardiac: Regular Rhythm and S1/S2
GI: Soft, Nontender, Normal Bowel Sounds and Distended
Musculoskeletal: No Edema
Neuro: Awake, Alert, Oriented and AO x 3
Psych: Calm and Intact Judgement/Insight
Data Reviewed
-
Labs: Labs Reviewed by me and Discussed with Physician
[2023-10-28] MEDS: NOVOLOG FLEXPEN 17 UNITS SC ×2 (07:41→11:40)
[2023-10-28] MEDS: ELIQUIS 5 MG PO ×2 (07:42→21:59)
[2023-10-28] MEDS: LASIX 40 MG PO (07:42)
[2023-10-28] MEDS: LYRICA 150 MG PO ×2 (07:42→21:58)
[2023-10-28] MEDS: THIAMINE INJECTION 200 MG IV ×2 (07:42→21:58)
[2023-10-28] MEDS: ASPIR LOW (ENTERIC COATED) 81 MG PO (07:43)
[2023-10-28] MEDS: COREG 12.5 MG PO ×2 (07:43→21:59)
[2023-10-28] MEDS: PROTONIX 40 MG PO (07:44)
[2023-10-28] MEDS: NORVASC 10 MG PO (07:44)
[2023-10-28] MEDS: VITAMIN B-12 1000 MCG PO (07:44)
[2023-10-28] MEDS: FLOMAX 0.4 MG PO (07:44)
[2023-10-28 08:30] LABS: % Basophils 0.3 % (0-2); % Eosinophils 2.4 % (0-6); % Immature Granulocytes 0.4 % (0-0.5); % Lymphocytes 7.8 % (20.5-51.1); % Monocytes 9.4 % (1.7-9.3); % Neutrophils 79.7 % (42.2-75.2); Absolute Eosinophils 0.3 10^3/uL (0-0.7); Absolute Immature Granulocytes 0.1 10^3/uL (0-0.05); Absolute Lymphocytes 0.9 10^3/uL (1.2-3.4); Absolute Monocytes 1.1 10^3/uL (0.1-0.6); Absolute Neutrophils 9.1 10^3/uL (1.4-6.5); Hematocrit 34.9 % (39.0-52.0); Hemoglobin 12.4 g/dL (13.0-18.0); Mean Corp Hgb Conc. 35.5 g/dL (33.0-37.0); Mean Corpuscular Hgb 32.9 pg (27.0-31.0); Mean Corpuscular Volume 92.6 fL (80.0-94.0); Mean Platelet Volume 10.4 fL (7.4-10.4); Nucleated Red Blood Cells % 0 % (-); Platelet Count 149 10^3/uL (130-400); Red Blood Cell Count 3.77 10^6/uL (4.70-6.10); Red Cell Dist. Width 13.2 % (11.5-14.5); White Blood Cell Count 11.5 10^3/uL (4.8-10.8)
[2023-10-28 08:46] LABS: Blood Urea Nitrogen 28 mg/dl (9-20); Calcium 8.5 mg/dl (8.4-10.2); Carbon Dioxide 29 mmol/L (22-30); Chloride 99 mmol/L (98-107); Estimated Creatinine Clearance 42 ml/min; Glucose 165 mg/dl (70-99); Potassium 3.5 mmol/L (3.5-5.1); Sodium 136 mmol/L (135-145); eGFR 47.06
[2023-10-28 11:19] LABS: Glucose - Point of Care 238 mg/dl (70-99)
--- NOTE | 2023-10-28 11:43 | CM ---
bridge manager reviewed patient's chart and met with patient and spoke with nursing per physical therapy notes recommendation is [facility] family service caseworker reviewed options with patient and patient stated that he would prefer to return
to home home at discharge but has agreed to skilled placement at [facility], referral has been faxed to [facility] skilled.
Plan; Skilled placement at [facility], referral sent though care port.
[2023-10-28] MEDS: ROCEPHIN 1000 MG IV (13:09)
[2023-10-28] MEDS: NSS (PRESERVATIVE FREE) 10 ML IV (13:10)
[2023-10-28 16:18] LABS: Glucose - Point of Care 164 mg/dl (70-99)
[2023-10-28] MEDS: NOVOLOG FLEXPEN 20 UNITS SC (16:36)
[2023-10-28 21:27] LABS: Glucose - Point of Care 183 mg/dl (70-99)
[2023-10-28] MEDS: STERILE WATER FOR INJECTION IV (21:58)
[2023-10-28] MEDS: DESYREL 100 MG PO (21:58)
[2023-10-28] MEDS: LANTUS 0.5 UNITS SC (21:59)
[2023-10-28] MEDS: LIPITOR 40 MG PO (21:59)
[2023-10-28] MEDS: TYLENOL 650 MG PO (23:00)
[2023-10-29] VITALS (11 sets, daily range): BP systolic 122–150; BP diastolic 63–77; PULSE 61–67; O2SAT 99; BMI 32.0
[2023-10-29 07:15] LABS: Glucose - Point of Care 164 mg/dl (70-99)
[2023-10-29 07:28] LABS: % Basophils 0.4 % (0-2); % Eosinophils 5.3 % (0-6); % Immature Granulocytes 0.2 % (0-0.5); % Lymphocytes 17.6 % (20.5-51.1); % Monocytes 14.2 % (1.7-9.3); % Neutrophils 62.3 % (42.2-75.2); Absolute Eosinophils 0.4 10^3/uL (0-0.7); Absolute Lymphocytes 1.4 10^3/uL (1.2-3.4); Absolute Monocytes 1.1 10^3/uL (0.1-0.6); Hematocrit 32.4 % (39.0-52.0); Hemoglobin 11.8 g/dL (13.0-18.0); Mean Corp Hgb Conc. 36.4 g/dL (33.0-37.0); Mean Corpuscular Hgb 33.3 pg (27.0-31.0); Mean Corpuscular Volume 91.5 fL (80.0-94.0); Mean Platelet Volume 10.3 fL (7.4-10.4); Nucleated Red Blood Cells % 0 % (-); Platelet Count 164 10^3/uL (130-400); Red Blood Cell Count 3.54 10^6/uL (4.70-6.10); Red Cell Dist. Width 13.2 % (11.5-14.5); White Blood Cell Count 8.1 10^3/uL (4.8-10.8)
[2023-10-29 07:36] LABS: Blood Urea Nitrogen 29 mg/dl (9-20); Calcium 8.6 mg/dl (8.4-10.2); Carbon Dioxide 27 mmol/L (22-30); Chloride 100 mmol/L (98-107); Estimated Creatinine Clearance 39 ml/min; Glucose 151 mg/dl (70-99); Potassium 3.5 mmol/L (3.5-5.1); Sodium 138 mmol/L (135-145); eGFR 43.56
[2023-10-29] MEDS: NOVOLOG FLEXPEN 20 UNITS SC ×3 (08:22→15:44)
[2023-10-29] MEDS: THIAMINE INJECTION 200 MG IV (08:23)
[2023-10-29] MEDS: FLOMAX 0.4 MG PO (08:24)
[2023-10-29] MEDS: ASPIR LOW (ENTERIC COATED) 81 MG PO (08:24)
[2023-10-29] MEDS: NORVASC 10 MG PO (08:24)
[2023-10-29] MEDS: LASIX 40 MG PO (08:24)
[2023-10-29] MEDS: LYRICA 150 MG PO ×2 (08:25→21:26)
[2023-10-29] MEDS: ELIQUIS 5 MG PO ×2 (08:25→21:27)
[2023-10-29] MEDS: COREG 12.5 MG PO ×2 (08:25→21:27)
[2023-10-29] MEDS: VITAMIN B-12 1000 MCG PO (08:25)
[2023-10-29] MEDS: PROTONIX 40 MG PO (08:25)
--- NOTE | 2023-10-29 09:32 | W.PN.HOSP.TC ---
Addendum entered and electronically signed by Scooter Nur MD 10/29/23 11:35:
I saw and evaluated the patient. I reviewed the resident�s note and agree with findings and plan as documented in the resident�s note.
Patient denies chest pain, shortness of breath, abdominal pain.
No acute distress, awake and alert
Regular rate and rhythm, normal S1-S2
Clear to auscultation bilaterally
Positive bowel sounds, soft, nontender, nondistended
Davis catheter with clear yellow urine
10/26/23 19:35 Blood/Venous Blood Culture - Preliminary
No Growth in 48 hours- Final report to follow
10/26/23 12:45 Urine Urine Culture - Final
Escherichia coli
10/26/23 22:28 Nose MRSA Screen - Final
No Methicillin Resistant Staphylococcus aureus isolated.
Acute urinary tract infection:
-CT A/P: There is no evidence of acute pathology. There are no obstructing renal or ureteral calculi. There is no hydronephrosis or hydroureter.
-Leukocytosis resolved
-with fever yesterday evening monitor one more day (cont to trend fever curve)
-Transition to Keflex to complete 10 days of antibiotic therapy on discharge
-with recurrent fever check BCxs and c/s ID
Acute urinary retention:
-Flomax started
-Add Proscar
-c/s urology
Total time spent on today's encounter was 50 minutes which included time spent in counseling the patient/family regarding diagnosis and treatment plan as listed above, goals of care, and symptom management. Case was discussed with nursing staff,
specialists, and care coordinators/case management. All labs and imaging personally reviewed by me. Remainder the time spent in detailed review of previous records, lab data, imaging, and other medical provider documentation.
Original Note:
Today's Communication/Plan
-
Discharge, either home or to rehab facility
Assessment / Plan
Assessment / Plan
IMPRESSION:
78-year-old male with acute onset weakness and an acute UTI
PLAN:
#Acute UTI
-Patient febrile in ED temperature 100.5
-Currently afebrile
-Likely due to enlarged prostate
-Patient endorses multiple days of foul-smelling urine
-Urinalysis in ED was consistent with UTI, many bacteria 50-60 with blood cells
-ceftriaxone 1000 mg IV daily, Day 4
-Urinalysis and culture was sent out, await culture and sensitivity and adjust antibiotics
-Urinalysis resulted with E. coli resistant to ampicillin and ampicillin/sulbactam
-Will transition to p.o. antibiotics keeping these resistances in mind
#Urinary retention
-Per nursing patient not voiding overnight, patient reports no sensation to void, as well as incontinence at times
-Patient has a urologist he follows outpatient, patient says will schedule his own appointment to follow-up with urology
-Patient requiring multiple intermittent bladder scans and straight caths as he could not void during his stay
-Davis was initiated per protocol
-Flomax 0.4 daily PO
-Creatinine abnormalities likely secondary to bladder outlet obstruction
#Alcohol use disorder
-Patient endorses drinking 2-3 beers daily
-MSAS protocol initiated
-MSAS score 0 this a.m.
-IV thiamine and folate
-Last magnesium check was normal
#Paroxysmal atrial fibrillation
-Telemetry
-Status post pacemaker
-Currently in sinus rhythm
-[id number] score 5
-Continue Eliquis 5 mg twice daily p.o.
-Continue Coreg
#Heart failure mildly reduced ejection fraction
-Lower extremity edema +1 on exam today
-Echo 11/29 showed EF 40 to 45%
-Strict ins and outs
-Daily weights
-Continue Lasix 40 mg p.o. daily
-PT/OT consulted
#Insulin-dependent diabetes mellitus
-Continue Lantus 48 units
-Continue mealtime NovoLog insulin 14 units
-Adjust as needed
#Obstructive sleep apnea
-Patient on CPAP at night 11 cm H20
-CPAP 11 cm H2O @ night
# Coronary artery disease with history of RCA stent , mid circumflex stent
-continue ASA/statin/Coreg
# Atherosclerosis/hyperlipidemia
-continue Statin
# Hypertension
-continue Coreg/Norvasc
# CKD stage III
-Creatinine on admission 1.6
# COPD
-continue Combivent inhaler/equivalent
# History of CVA versus hypertensive encephalopathy 2014
-Eliquis/statin/aspirin
# Multilevel lumbar DJD/chronic back pain/diabetic neuropathy
-continue Lyrica
# History of pacemaker 2019
# Peripheral vascular disease with right lower extremity stent
# History of gout/pseudogout
# Chronic right bundle branch block
# Obesity - Per BMI
Diet: Diabetic diet 1600 pasha
DVT prophylaxis-Eliquis
CODE STATUS-full code
Anticipated Discharge: Today
Subjective/Interval History
-
Date of Service: October 29, 2023
No acute events overnight
Patient reports no longer weak and would like to be discharged home if possible
Were originally tentatively planning to send him to rehab
Objective Data
-
Labs:
Laboratory Results
10/29/23
06:36
WBC 8.1
Hgb 11.8 L
Hct 32.4 L
Plt Count 164
Sodium 138
Potassium 3.5
Chloride 100
Carbon Dioxide 27
BUN 29 H
Creatinine 1.6 H
Glucose 151 H
Calcium 8.6
Vital Signs:
Vital Signs
Temp Pulse Resp BP Pulse Ox
97.9 F 68 17 127/64 96
10/29/23 07:00 10/29/23 08:24 10/29/23 07:00 10/29/23 08:10/29/23 07:00
I&O
10/28/23 10/29/23 10/30/23
06:59 06:59 06:59
Intake Total 1330 / 1330 660 / 660
Output Total 2450 / 2450 1974
Balance -1120 / -1120 -1315 / -1315
--- NOTE | 2023-10-29 10:50 | WOUNDNOTE ---
L HEEL 2ND VIEW
--- NOTE | 2023-10-29 10:50 | WOUNDNOTE ---
L HEEL WITH FLASH
--- NOTE | 2023-10-29 10:51 | WOUNDNOTE ---
WON RN note: Patient admitted with Acute UTI.
See H&P for complete history. Lives alone at home.
PMH: NIDDM, COPD,HTN,CT, PM, Gout, RCA stents, ex- smoker L partial amp L Gr. toe and L heel debridement 2021.
Wound Location and type/assessment: Patient known to service last seen 07/12/21 for L great toe and heel wounds. Was being followed by Dr. Ratliff at that time who did partial amp of toe and debridement of heel. Has also been seen by Dr. Alegre and patient
confirmed he has a follow up apt next month. Currently patient has been going to Dr. Barros for Podiatry regularly and has [facility] home care 3x wk. Reviewed current wound care and offloading with patient. Uses Diabetic sneakers with moldable inserts,
at home. Ambulated with walker slowly, minimal assist from chair to bed and back to chair. L heel with mostly pink base, scant slough and small drainage. No sign of infection, no odor. + palpable pedal pulses. R heel intact and healed Amp. sites of
R 2 toes. Sacrum is intact.
Appetite: Good, 100% of breakfast.
Pressure redistribution devices in place: Versa care Accumax, able to turn self and ambulate with walker.
Plan: Honey gel, adaptic and dry dressing applied. Air chair cushion given, using in chair currently. When back to bed then use to offload heel with air cushion on pillow under calves.
Will confirm orders with hospitalist and updated nurse [place].
Updated care plan and will follow as needed.
Recommend follow up with Dr. Barros and Dr. Alegre as scheduled
Continue VN when home. For discharge to [email or web address] when medically ready per CM note.
--- NOTE | 2023-10-29 11:41 | CM ---
Addendum entered by Ashanti Richard 10/29/23 14:29:
CM notified by physician, that patient would not be ready for discharge today. CM updated [facility] and nursing. Will need to confirm bed availability tomorrow.
Addendum entered by Ashanti Richard 10/29/23 13:55:
CM spoke with Alfred from insurance and auth approved # [id number] for 10/28-11/01 next review date is 11/01 and report to [phone]. CM updated patient nursing and physician. Patient completed IMM and signed form placed on chart. patient for
transfer via private car with friend Brian. patient to update nursing with time as soon as clarified. CM will continue to follow for discharge planning needs.
Original Note:
Patient accepted to go to [facility], CM to work on Auth. Patient not indicated that he would like to go home. Patient to see PT/OT and confirm plan for discharge. CM will continue to follow for discharge planning needs.
Plan; SNF; pending confirmation and Auth
[2023-10-29] MEDS: PROSCAR 5 MG PO (11:53)
[2023-10-29 12:38] LABS: Glucose - Point of Care 215 mg/dl (70-99)
[2023-10-29] MEDS: ROCEPHIN 1000 MG IV (13:33)
[2023-10-29] MEDS: CITROMA 300 ML PO (15:07)
[2023-10-29 15:43] LABS: Glucose - Point of Care 226 mg/dl (70-99)
--- NOTE | 2023-10-29 16:54 | W.PN.URO.CBU ---
Today's Communication / Plan
-
teach pt and family foly leg bag care
Assessment / Plan
-
acute retention in diabetic with bph will leave hall will do voiding trial inofficve on flomax may need to learn cic and require uds cyst has appt thos week
Diagnosis
-
Date of Service: October 29, 2023
-
Patient Diagnosis:acute urinary retention and e coli uti 700- 1000 cc drained x 3
Post Op Day:
Subjective
-
hates hall no systemic complaints
Objective
-
Vital Signs
Temp Pulse Resp BP Pulse Ox
98.7 F 69 17 141/73 97
10/29/23 15:00 10/29/23 15:00 10/29/23 15:00 10/29/23 15:00 10/29/23 15:00
Intake and Output
10/28/23 10/29/23 10/30/23
06:59 06:59 06:59
Intake Total 1330 / 1330 660 / 660
Output Total 2450 / 2450 1974
Balance -1120 / -1120 -1315 / -1315
Intake:
Oral fluids 1330 / 1330 660 / 660
Output:
Urine, Hall 800 / 800 1974
Urine, Voided 550 / 550
Straight cath output 1100 / 1100
Laboratory Results
10/29/23 06:36
10/29/23 06:36
Review of Systems
-
: Difficulty Voiding
Physical Exam
-
General - well developed, well nourished, no acute distress
Chest - clear bilaterally
Abdomen - soft, non-tender, positive bowel sounds, no CVAT, no incisional pain or distention
Genitalia - normal
Rectal - normal
Skin - warm & dry with no rash
Neuro - AOx3, no motor deficits
Extremities - no clubbing, no cyanosis, no edema
Incision - clean, dry
Dressing - clean, dry, intact
Care Review
Data Reviewed
Discussed with: Hospitalist and Nursing
CT Scan: Image Pers Reviewed
[2023-10-29 20:58] LABS: Glucose - Point of Care 146 mg/dl (70-99)
[2023-10-29] MEDS: STERILE WATER FOR INJECTION IV (21:25)
[2023-10-29] MEDS: DESYREL 100 MG PO (21:26)
[2023-10-29] MEDS: LANTUS 0.5 UNITS SC (21:26)
[2023-10-29] MEDS: LIPITOR 40 MG PO (21:26)
[2023-10-29] MEDS: VITAMIN B1 100 MG PO (21:27)
[2023-10-30 03:00] VITALS: BP 140/75
[2023-10-30 06:00] VITALS: BMI 31.7
[2023-10-30 07:25] VITALS: BP 134/61
[2023-10-30 07:29] LABS: Glucose - Point of Care 216 mg/dl (70-99)
[2023-10-30 07:56] LABS: % Basophils 0.6 % (0-2); % Eosinophils 6.1 % (0-6); % Immature Granulocytes 0.6 % (0-0.5); % Lymphocytes 18.3 % (20.5-51.1); % Monocytes 15.7 % (1.7-9.3); % Neutrophils 58.7 % (42.2-75.2); Absolute Basophils 0.1 10^3/uL (0-0.2); Absolute Eosinophils 0.5 10^3/uL (0-0.7); Absolute Immature Granulocytes 0.1 10^3/uL (0-0.05); Absolute Lymphocytes 1.5 10^3/uL (1.2-3.4); Absolute Monocytes 1.3 10^3/uL (0.1-0.6); Absolute Neutrophils 4.7 10^3/uL (1.4-6.5); Mean Corp Hgb Conc. 36.4 g/dL (33.0-37.0); Mean Corpuscular Volume 90.7 fL (80.0-94.0); Nucleated Red Blood Cells % 0 % (-); Platelet Count 180 10^3/uL (130-400); Red Blood Cell Count 3.64 10^6/uL (4.70-6.10); Red Cell Dist. Width 13.2 % (11.5-14.5); White Blood Cell Count 8.1 10^3/uL (4.8-10.8)
[2023-10-30] MEDS: NOVOLOG FLEXPEN 20 UNITS SC ×2 (08:13→12:17)
[2023-10-30 08:14] LABS: Blood Urea Nitrogen 35 mg/dl (9-20); Calcium 8.6 mg/dl (8.4-10.2); Carbon Dioxide 29 mmol/L (22-30); Chloride 98 mmol/L (98-107); Estimated Creatinine Clearance 42 ml/min; Glucose 200 mg/dl (70-99); Potassium 3.6 mmol/L (3.5-5.1); Sodium 135 mmol/L (135-145); eGFR 47.06
[2023-10-30] MEDS: PROTONIX 40 MG PO (08:14)
[2023-10-30] MEDS: PROSCAR 5 MG PO (08:14)
[2023-10-30] MEDS: FLOMAX 0.4 MG PO (08:14)
[2023-10-30] MEDS: LYRICA 150 MG PO (08:14)
[2023-10-30] MEDS: ELIQUIS 5 MG PO (08:14)
[2023-10-30] MEDS: VITAMIN B1 100 MG PO (08:15)
[2023-10-30] MEDS: NORVASC 10 MG PO (08:15)
[2023-10-30] MEDS: ASPIR LOW (ENTERIC COATED) 81 MG PO (08:15)
[2023-10-30] MEDS: COREG 12.5 MG PO (08:15)
[2023-10-30] MEDS: LASIX 40 MG PO (08:15)
[2023-10-30] MEDS: VITAMIN B-12 1000 MCG PO (08:15)
--- NOTE | 2023-10-30 09:02 | W.PN.URO.CBU ---
Today's Communication / Plan
-
home with hall oce cleared by hospitalist
Assessment / Plan
-
acute retention in diabetic with bph will leave hall will do voiding trial inofficve on flomax may need to learn cic and require uds cyst has appt thos week
Diagnosis
-
Date of Service: October 30, 2023
-
Patient Diagnosis:
Post Op Day:
Patient Diagnosis:acute urinary retention and e coli uti 700- 1000 cc drained x 3
Post Op Day:
Subjective
-
feels well discussed hall options
Objective
-
Vital Signs
Temp Pulse Resp BP Pulse Ox
98.8 F 70 14 134/61 96
10/30/23 07:25 10/30/23 07:25 10/30/23 07:25 10/30/23 07:25 10/30/23 07:25
Intake and Output
10/29/23 10/30/23 10/31/23
06:59 06:59 06:59
Intake Total 660 / 660 1080 / 1080
Output Total 1974
Balance -1315 / -1315 -670 / -670
Intake:
Oral fluids 660 / 660 1080 / 1080
Output:
Urine, Hall 1974
Laboratory Results
10/30/23 07:17
10/30/23 07:17
Review of Systems
-
: Difficulty Voiding
Physical Exam
-
General - well developed, well nourished, no acute distress
Chest - clear bilaterally
Abdomen - soft, non-tender, positive bowel sounds, no CVAT, no incisional pain or distention
Genitalia - normal
Rectal - normal
Skin - warm & dry with no rash
Neuro - AOx3, no motor deficits
Extremities - no clubbing, no cyanosis, no edema
Incision - clean, dry
Dressing - clean, dry, intact
--- NOTE | 2023-10-30 09:05 | W.PN.HOSP.TC ---
Addendum entered and electronically signed by Scooter Nur MD 10/30/23 15:02:
Total time spent on d/c = 31 min. This included today's physical exam, progress note, review of laboratory and diagnostic data, preparation of discharge documents and prescriptions, and discussions about the pt's hospital course and discharge plan
with the patient and other chief medical officer involved in the patient's care.
Addendum entered and electronically signed by Scooter Nur MD 10/30/23 12:38:
Case discussed with Dr. Paul ([email or web address]). d/c on 5 days of Keflex to complete 10 days total abx. Pt needs to receive today's dose of Rocephin prior to discharge.
Addendum entered and electronically signed by Scooter Nur MD 10/30/23 10:57:
I saw and evaluated the patient. I reviewed the resident�s note and agree with findings and plan as documented in the resident�s note.
Patient denies chest pain, shortness of breath, abdominal pain.
No acute distress, awake and alert
remains Regular rate and rhythm, normal S1-S2
remains Clear to auscultation bilaterally
remains Positive bowel sounds, soft, nontender, nondistended
Hall catheter with clear yellow urine
10/26/23 19:35 Blood/Venous Blood Culture - Preliminary
No Growth in 72 hours- Final report to follow
10/26/23 12:45 Urine Urine Culture - Final
Escherichia coli
10/26/23 22:28 Nose MRSA Screen - Final
No Methicillin Resistant Staphylococcus aureus isolated.
Acute urinary tract infection:
-CT A/P: There is no evidence of acute pathology. There are no obstructing renal or ureteral calculi. There is no hydronephrosis or hydroureter.
-Leukocytosis resolved
-fever now resolved
-ID to see
-cont Rocephin
-follow repeat BCxs
Acute urinary retention:
-Flomax/proscar started
-seen by uro, d/c with hall
Dispo: Possible d/c later today pending ID recs.
Original Note:
Today's Communication/Plan
-
Discharge to rehab, with Hall and antibiotics
Patient has follow-up with urology regarding new urinary retention
Assessment / Plan
Assessment / Plan
IMPRESSION:
78-year-old male with acute onset weakness and an acute UTI
PLAN:
#Acute UTI
-Patient febrile in ED temperature 100.5
-Currently afebrile
-Was afebrile overnight as well
-Likely due to enlarged prostate
-Patient endorses multiple days of foul-smelling urine
-Urinalysis in ED was consistent with UTI, many bacteria 50-60 with blood cells
-ceftriaxone 1000 mg IV daily, Day 5
-Urinalysis and culture was sent out, await culture and sensitivity and adjust antibiotics
-Urinalysis resulted with E. coli resistant to ampicillin and ampicillin/sulbactam
-Will transition to p.o. antibiotics keeping these resistances in mind
#Urinary retention
-New onset urinary retention, cause unknown.
-Autonomic dysfunction secondary to diabetes versus acute UTI
-Per nursing patient not voiding overnight, patient reports no sensation to void, as well as incontinence at times
-Urology was consulted
-Urology recommended leaving and Hall, as well as voiding trial at rehab. Will see the patient in their office next Sunday.
-Patient requiring multiple intermittent bladder scans and straight caths as he could not void during his stay
-Hall was initiated per protocol
-Flomax 0.4 daily PO
-Creatinine abnormalities likely secondary to bladder outlet obstruction
#Alcohol use disorder
-Patient endorses drinking 2-3 beers daily
-MSAS protocol initiated
-MSAS score 0 this a.m.
-IV thiamine and folate
-Last magnesium check was normal
#Paroxysmal atrial fibrillation
-Telemetry
-Status post pacemaker
-Currently in sinus rhythm
-[id number] score 5
-Continue Eliquis 5 mg twice daily p.o.
-Continue Coreg
#Heart failure mildly reduced ejection fraction
-Lower extremity edema +1 on exam today
-Echo 11/29 showed EF 40 to 45%
-Strict ins and outs
-Daily weights
-Continue Lasix 40 mg p.o. daily
-PT/OT consulted
#Insulin-dependent diabetes mellitus
-Continue Lantus 48 units
-Continue mealtime NovoLog insulin 14 units
-Adjust as needed
#Obstructive sleep apnea
-Patient on CPAP at night 11 cm H20
-CPAP 11 cm H2O @ night
# Coronary artery disease with history of RCA stent , mid circumflex stent
-continue ASA/statin/Coreg
# Atherosclerosis/hyperlipidemia
-continue Statin
# Hypertension
-continue Coreg/Norvasc
# CKD stage III
-Creatinine on admission 1.6
# COPD
-continue Combivent inhaler/equivalent
# History of CVA versus hypertensive encephalopathy 2014
-Eliquis/statin/aspirin
# Multilevel lumbar DJD/chronic back pain/diabetic neuropathy
-continue Lyrica
# History of pacemaker 2019
# Peripheral vascular disease with right lower extremity stent
# History of gout/pseudogout
# Chronic right bundle branch block
# Obesity - Per BMI
Diet: Diabetic diet 1600 pasha
DVT prophylaxis-Eliquis
CODE STATUS-full code
Anticipated Discharge: Today
Subjective/Interval History
-
Date of Service: October 30, 2023
No acute events overnight
Patient afebrile overnight
Objective Data
-
Labs:
Laboratory Results
10/30/23
07:17
WBC 8.1
Hgb 12.0 L
Hct 33.0 L
Plt Count 180
Sodium 135
Potassium 3.6
Chloride 98
Carbon Dioxide 29
BUN 35 H
Creatinine 1.5 H
Glucose 200 H
Calcium 8.6
Vital Signs:
Vital Signs
Temp Pulse Resp BP Pulse Ox
98.8 F 70 14 134/61 96
10/30/23 07:25 10/30/23 07:25 10/30/23 07:25 10/30/23 07:25 10/30/23 07:25
I&O
10/29/23 10/30/23 10/31/23
06:59 06:59 06:59
Intake Total 660 / 660 1080 / 1080
Output Total 1974 1750 / 1750
Balance -1315 / -1315 -670 / -670
Review of Systems
-
History Source: Patient
Constitutional: Reports No Symptoms
Respiratory: Reports No Symptoms
Cardiac: Reports No Symptoms
Abdomen/GI: Reports No Symptoms
Genitourinary: Reports Difficulty Voiding
Physical Exam
-
General: Well Developed, Well Nourished, No Apparent Distress, Comfortable and Obese
Respiratory: Clear to Auscultation
Cardiac: Regular Rhythm and S1/S2
GI: Soft, Nontender, Normal Bowel Sounds and Distended
Genito-urinary: Hall
Skin: Warm and Dry
Neuro: Awake, Alert, Oriented and AO x 3
Psych: Calm and Intact Judgement/Insight
Data Reviewed
-
Labs: Labs Reviewed by me and Discussed with Physician
--- NOTE | 2023-10-30 09:27 | W.DCSUMMARY ---
Discharge Summary
Discharge Data
Date of Admission: 10/26/23
Date of Discharge: 10/30/23
-
Pending Results: Yes
Additional Pending Results:
Blood culture sent pending
Hospital Course
Discharging Physician : Liudmila Ramos
Disposition : shelter facility
Primary care physician : Dr. Haja Manuel
Principal Discharge diagnosis : Acute urinary tract infection
Chronic Discharge diagnosis : CAD history of RCA, mid circumflex stent, Diabetes insulin-dependent, paroxysmal A-fib, heart failure with mildly reduced ejection fraction, hypertension, history of pacemaker 2020, PVD with right lower extremity stent,
CKD stage III, COPD, obstructive sleep apnea, gout, hyperlipidemia, chronic right bundle branch block, multilevel lumbar DJD, diabetic neuropathy, chronic back pain, daily alcohol use, obesity,
Hospital Course : 78-year-old male with an extensive medical history presents to the emergency department for generalized acute weakness, worse over the last day. Patient reported having weakness over the last couple days as well as foul-smelling
urine, he reports the urine smelling as 'battery acid 'he also endorses having a fever and joint aches. No nausea vomiting or diarrhea on admission. Patient drinks 2-3 beers per day with his last drink being the day before admission. He was
admitted to telemetry for previous history of A-fib. In the ED patient had urinalysis with reflex culture, as well as 1 blood culture drawn. Patient was started on M SAS protocol due to his alcohol use. During his stay patient articulated that he
could not void on his own, he follows a urologist outpatient for this issue. Patient required multiple bladder scans and straight caths over his days. Eventually protocol was met and patient was started on a chronic Davis for his urinary
retention. Patient was started on Flomax 0.4 mg daily p.o. as well as finasteride 5 mg p.o. Urology was consulted see the patient decided that a voiding trial would be held at the rehab facility. Patient will follow-up with his urologist
outpatient next Sunday regarding this. Patient was started on ceftriaxone 1000 mg IV he received 5 doses of ceftriaxone total. Patient will be discharged on Keflex 500 mg 4 times daily for 5 days, totalling 10 days of abx.
Important imaging findings :
10/26/2023 chest x-ray, findings:
Lines/Tubes/Devices: Left chest wall dual-lead pacemaker.
Lungs/Pleura: Low lung volumes. No focal airspace disease. No significant pleural effusions or pneumothorax.
Mediastinum/Heart: Mildly enlarged cardiac silhouette, exaggerated by portable technique.
Bones: No suspicious lesions.
10/26/2023 CT abdomen pelvis, findings:
1). There is no evidence of acute pathology
There are no obstructing renal or ureteral calculi.
There is no hydronephrosis or hydroureter.
2). Nonurgent findings include
-Atherosclerosis
-Multilevel lumbar degenerative disc disease
Procedure findings : No procedures
Discharge Plan
-
Patient Disposition: Acute Rehab Facility
Discharge Diagnosis/Procedures: Acute urinary tract infection, coronary artery disease history of right circumflex artery, mid circumflex stent, Diabetes insulin-dependent, paroxysmal atrial fibrillation, heart failure with mildly reduced ejection
fraction, hypertension, history of pacemaker 2019, peripheral vascular disease with right lower extremity stent, chronic kidney disease stage III, chronic obstructive pulmonary disease, obstructive sleep apnea, gout, hyperlipidemia, chronic right
bundle branch block, multilevel lumbar degenerative disc disease, diabetic neuropathy, chronic back pain, daily alcohol use, obesity,
Condition: Good
Diet: Low Cholesterol and Low Sodium
Activity: As tolerated
Driving Restrictions: As prior to admission
Bathing Restrictions: None
Activity Restrictions/Additional Instructions:
Wound Care Instructions
L heel:clean with saline, skin prep periwound, smear of honey gel, adaptic, 1/2 ABD pad and renato change daily or (q other day when home) and prn drainage.
offloading shoe per podiatry when ambulating
pillow under calve when sitting with leg elevated
air pillow can take home to use for offloading chair and L heel.
Follow up with [facility] and vascular as scheduled.
Instructions: How to Care for Your Davis Catheter, Male, Generalized Weakness (DC), Davis Catheter, How to remove a urinary catheter, BLOOD PRESSURE
Referrals:
Haja Manuel MD [Family Provider] - in less than 1 week
Adolph Potter MD [Active] - in less than 1 week (keep appt dr varner call if concerns [phone] You should also call to confirm appt )
Additional Discharge Medication Instructions: Take Cephalexin 500 mg capsule by mouth 4 times daily
Take Finasteride 5 mg tablet by mouth once daily
Take Tamsulosin 0.4 mg capsule by mouth once daily
Please take insulin aspart 20 units with meals
Prescriptions:
New
cephalexin 500 mg capsule
500 mg PO QID Qty: 16 0RF
tamsulosin 0.4 mg Capsule
0.4 mg PO DAILY Qty: 30 0RF
finasteride 5 mg Tablet
5 mg PO DAILY Qty: 30 0RF
Continued
cyanocobalamin (vitamin B-12) 1,000 MCG tablet
1,000 mcg PO DAILY
atorvastatin 40 MG tablet
40 mg PO HS
trazodone 100 MG tablet
100 mg PO HS
pantoprazole 40 MG tablet,delayed release (DR/EC)
40 mg PO DAILY
pregabalin [Lyrica] 150 MG capsule
300 mg PO HS
aspirin 81 MG tablet,delayed release (DR/EC)
81 mg PO DAILY
amlodipine 10 MG tablet
10 mg PO DAILY Qty: 30 0RF
carvedilol 12.5 mg tablet
12.5 mg PO BID
pregabalin 150 mg capsule
150 mg PO DAILY
Levemir FlexPen 100 unit/mL (3 mL) insulin pen
55 unit SC HS
Eliquis 5 mg tablet
5 mg PO BID
Combivent Respimat 20-100 mcg/actuation Mist
1 puff INHALATION R Q4HPRN PRN (Reason: sob/wheezing)
furosemide [Lasix] 40 mg Tablet
40 mg PO DAILY
Changed
insulin aspart U-100 [Novolog FlexPen U-100 Insulin] 300 UNITS/3 ML insulin pen
20 unit SC AC Qty: 1 1RF
Discharge Orders:
Discharge Patient (As Directed); Ordered 10/30/23
Ordered By: Jacob Ramos
Discharge Date and Time
Discharge Date/Time: 10/30/23 14:41
Print Language: DIVEHI
--- NOTE | 2023-10-30 09:55 | CM ---
Addendum entered by Ellie Ribera 10/30/23 10:31:
IMM completed.
Patients friend Brian will transport.
Original Note:
Bed available at [facility] fo transfer today.
Insurance approved skilled rehab, auth # [id number]
Start date 10/28-11/01
next review date is 11/01
updates to [phone].
[facility]
Report # [phone]
fax# [phone]
[2023-10-30 11:46] LABS: Glucose - Point of Care 290 mg/dl (70-99)
[2023-10-30] MEDS: ROCEPHIN 1000 MG IV (13:25)
[2023-10-30 14:24] VITALS: BP 131/74
== END 2023-10-30 14:41 | DRG 690 ==
LOC: 4 WEST ACU 18:17
PROVIDERS: Emergency Medicine; ADMITTING PHYSICIAN Hospitalist; ATTENDING PHYSICIAN Internal Medicine; CONSULT PHYSICIAN Specialist; EMERGENCY PHYSICIAN Emergency Medicine; FAMILY PHYSICIAN Family Medicine
DX: N39.0 Urinary tract infection, site not specified (principal); I13.0 Hypertensive heart and chronic kidney disease with heart failure and stage 1 through stage 4 chronic kidney disease, or unspecified chronic kidney disease; I50.22 Chronic systolic (congestive) heart failure; E11.22 Type 2 diabetes mellitus with diabetic chronic kidney disease; E11.51 Type 2 diabetes mellitus with diabetic peripheral angiopathy without gangrene; E11.40 Type 2 diabetes mellitus with diabetic neuropathy, unspecified; I25.10 Atherosclerotic heart disease of native coronary artery without angina pectoris; I48.0 Paroxysmal atrial fibrillation; J44.9 Chronic obstructive pulmonary disease, unspecified; G47.33 Obstructive sleep apnea (adult) (pediatric); I45.10 Unspecified right bundle-branch block; N40.0 Benign prostatic hyperplasia without lower urinary tract symptoms; R35.1 Nocturia; R33.8 Other retention of urine; R32 Unspecified urinary incontinence; E78.00 Pure hypercholesterolemia, unspecified; B96.20 Unspecified Escherichia coli [E. coli] as the cause of diseases classified elsewhere; N18.30 Chronic kidney disease, stage 3 unspecified; E66.9 Obesity, unspecified; Z68.31 Body mass index [BMI] 31.0-31.9, adult; Z95.820 Peripheral vascular angioplasty status with implants and grafts; Z95.0 Presence of cardiac pacemaker; Z95.5 Presence of coronary angioplasty implant and graft; Z79.899 Other long term (current) drug therapy; Z79.4 Long term (current) use of insulin; Z79.01 Long term (current) use of anticoagulants; Z79.82 Long term (current) use of aspirin; Z87.891 Personal history of nicotine dependence; Z11.52 Encounter for screening for COVID-19
CPT/HCPCS: 71046; 74176; 80048; 80053; 81003; 81015; 82010; 82077; 82607; 82962; 82977; 83735; 83880; 84100; 84443; 85025; 85610; 87040; 87070; 87086; 87088; 87186; 87811; 94660; 96374; 97116; 97162; 97166; 97530; 97535; 99285

== ENCOUNTER → 2023-11-01 09:28 | Outpatient (REF) | payer OTHER, SELFPAY ==
[2023-11-01 10:58] LABS: % Basophils 0.7 % (0-2); % Eosinophils 6.9 % (0-6); % Immature Granulocytes 0.9 % (0-0.5); % Lymphocytes 22.2 % (20.5-51.1); % Monocytes 12.4 % (1.7-9.3); % Neutrophils 56.9 % (42.2-75.2); Absolute Basophils 0.1 10^3/uL (0-0.2); Absolute Eosinophils 0.6 10^3/uL (0-0.7); Absolute Immature Granulocytes 0.1 10^3/uL (0-0.05); Absolute Lymphocytes 1.9 10^3/uL (1.2-3.4); Absolute Monocytes 1.1 10^3/uL (0.1-0.6); Absolute Neutrophils 4.8 10^3/uL (1.4-6.5); Hematocrit 32.4 % (39.0-52.0); Hemoglobin 11.5 g/dL (13.0-18.0); Mean Corp Hgb Conc. 35.5 g/dL (33.0-37.0); Mean Corpuscular Hgb 32.9 pg (27.0-31.0); Mean Corpuscular Volume 92.6 fL (80.0-94.0); Mean Platelet Volume 10.1 fL (7.4-10.4); Nucleated Red Blood Cells % 0 % (-); Platelet Count 235 10^3/uL (130-400); Red Cell Dist. Width 13.3 % (11.5-14.5); White Blood Cell Count 8.5 10^3/uL (4.8-10.8)
[2023-11-01 11:55] LABS: ALT (SGPT) 23 U/L (0-50); AST (SGOT) 25 U/L (17-59); Albumin 3.5 g/dl (3.5-5.0); Alkaline Phosphatase 91 U/L (38-126); Blood Urea Nitrogen 31 mg/dl (9-20); Calcium 8.9 mg/dl (8.4-10.2); Carbon Dioxide 29 mmol/L (22-30); Chloride 99 mmol/L (98-107); Glucose 129 mg/dl (70-99); Potassium 3.5 mmol/L (3.5-5.1); Sodium 138 mmol/L (135-145); Total Bilirubin 0.4 mg/dl (0.2-1.3); Total Protein 6.2 g/dl (6.3-8.2); eGFR 51.13
== END ==
LOC: OLABP 09:28
PROVIDERS: ATTENDING PHYSICIAN Family Medicine
DX: I48.0 Paroxysmal atrial fibrillation (principal); I50.9 Heart failure, unspecified; E11.40 Type 2 diabetes mellitus with diabetic neuropathy, unspecified; I73.9 Peripheral vascular disease, unspecified; Z95.0 Presence of cardiac pacemaker; I45.10 Unspecified right bundle-branch block; N18.30 Chronic kidney disease, stage 3 unspecified; I13.0 Hypertensive heart and chronic kidney disease with heart failure and stage 1 through stage 4 chronic kidney disease, or unspecified chronic kidney disease; I25.10 Atherosclerotic heart disease of native coronary artery without angina pectoris; J44.9 Chronic obstructive pulmonary disease, unspecified
CPT/HCPCS: 36415; 80053; 85025

== ENCOUNTER → 2023-11-06 10:44 | Outpatient (REF) | payer OTHER, SELFPAY ==
[2023-11-06 11:39] LABS: Blood Urea Nitrogen 33 mg/dl (9-20); Calcium 8.7 mg/dl (8.4-10.2); Carbon Dioxide 31 mmol/L (22-30); Chloride 99 mmol/L (98-107); Glucose 182 mg/dl (70-99); Potassium 3.9 mmol/L (3.5-5.1); Sodium 137 mmol/L (135-145); eGFR 47.06
== END ==
LOC: OLABP 10:44
PROVIDERS: ATTENDING PHYSICIAN Family Medicine
DX: I48.0 Paroxysmal atrial fibrillation (principal); I50.9 Heart failure, unspecified; E11.40 Type 2 diabetes mellitus with diabetic neuropathy, unspecified; I73.9 Peripheral vascular disease, unspecified; Z95.0 Presence of cardiac pacemaker; I45.10 Unspecified right bundle-branch block; N18.30 Chronic kidney disease, stage 3 unspecified; I13.0 Hypertensive heart and chronic kidney disease with heart failure and stage 1 through stage 4 chronic kidney disease, or unspecified chronic kidney disease; I25.10 Atherosclerotic heart disease of native coronary artery without angina pectoris; J44.9 Chronic obstructive pulmonary disease, unspecified
CPT/HCPCS: 36415; 80048

== ENCOUNTER → 2023-11-20 12:10 | Outpatient (REF) | payer OTHER, SELFPAY | LOC: RCS 12:10 | PROVIDERS: ATTENDING PHYSICIAN Internal Medicine Interventional Cardiology; FAMILY PHYSICIAN Family Medicine | DX: I34.0 Nonrheumatic mitral (valve) insufficiency (principal); I25.2 Old myocardial infarction | CPT/HCPCS: 93306 ==

== ENCOUNTER 2023-12-05 18:06 | Inpatient (IN) | payer OTHER, SELFPAY ==
[2023-12-05] VITALS (8 sets, daily range): BP systolic 108–142; BP diastolic 51–94; BMI 32.3
[2023-12-05] MEDS: TYLENOL 1000 MG PO (12:32)
[2023-12-05 12:39] LABS: % Basophils 0.4 % (0-2); % Eosinophils 2.3 % (0-6); % Immature Granulocytes 0.4 % (0-0.5); % Lymphocytes 5.8 % (20.5-51.1); % Monocytes 9.1 % (1.7-9.3); Absolute Basophils 0.1 10^3/uL (0-0.2); Absolute Eosinophils 0.4 10^3/uL (0-0.7); Absolute Immature Granulocytes 0.1 10^3/uL (0-0.05); Absolute Monocytes 1.6 10^3/uL (0.1-0.6); Absolute Neutrophils 13.9 10^3/uL (1.4-6.5); Hematocrit 35.5 % (39.0-52.0); Hemoglobin 12.6 g/dL (13.0-18.0); Mean Corp Hgb Conc. 35.5 g/dL (33.0-37.0); Mean Corpuscular Hgb 32.8 pg (27.0-31.0); Mean Corpuscular Volume 92.4 fL (80.0-94.0); Mean Platelet Volume 10.1 fL (7.4-10.4); Nucleated Red Blood Cells % 0 % (-); Platelet Count 176 10^3/uL (130-400); Red Blood Cell Count 3.84 10^6/uL (4.70-6.10); Red Cell Dist. Width 13.8 % (11.5-14.5); White Blood Cell Count 16.9 10^3/uL (4.8-10.8)
[2023-12-05 12:40] LABS: COVID-19 Antigen Negative (Negative)
[2023-12-05 12:46] LABS: ALT (SGPT) 15 U/L (0-50); AST (SGOT) 21 U/L (17-59); Albumin 4.5 g/dl (3.5-5.0); Alkaline Phosphatase 87 U/L (38-126); Blood Urea Nitrogen 24 mg/dl (9-20); Calcium 9.1 mg/dl (8.4-10.2); Carbon Dioxide 30 mmol/L (22-30); Chloride 99 mmol/L (98-107); Estimated Creatinine Clearance 49 ml/min; Glucose 200 mg/dl (70-99); Potassium 4.2 mmol/L (3.5-5.1); Sodium 140 mmol/L (135-145); Total Bilirubin 1.1 mg/dl (0.2-1.3); Total Protein 7.2 g/dl (6.3-8.2); eGFR 55.88
--- NOTE | 2023-12-05 14:56 | ED.GENMED ---
History of Present Illness
General
Chief Complaint: Weakness
Source: patient
Exam Limitations: none
Time Seen by Provider: 12/05/23 12:51
Nursing documentation reviewed up to this point in time: agreed with
History of Present Illness
History of Present Illness:
Patient presents to ED from home secondary to sudden onset of generalized weakness, shortly after waking up this morning. Patient states that due to weakness, he was unable to support his own weight when trying to ambulate. Upon arrival in ED, his
patient is found to be febrile, which he was not aware of. Denies headache. Denies coughing. Denies sore throat. Denies abdominal pain. Denies nausea, vomiting, or diarrhea. Denies rash. Denies recent sickness. Of note, patient was admitted
to the hospital 1 month ago when he was treated for UTI, along with acute urinary retention. Patient was discharged home with Davis catheter, which was removed at rehab facility upon discharge.
Past History
Past History
ED Past Medical History: HTN, Hypercholesterolemia and NIDDM
ED Past Surgical History: Cardiac (Pacemaker/stents), Orthopedic (Laminectomy) and Other (Stents bilateral lower extremities for peripheral vascular disease)
Social History
Tobacco: Former smoker
Alcohol: Occasional
Drug: None
Personal:
Living: with family
Review of Systems
Review of Systems
Allergies reviewed?: Yes
All Other Systems: ROS reviewed and negative except as documented in HPI and ROS
Constitutional: Reports no symptoms
EENT: Reports no symptoms
Respiratory: Reports no symptoms; Denies cough or trouble breathing
Cardiac: Reports no symptoms
ABD/GI: Reports no symptoms; Denies abdominal pain
: Reports difficulty voiding
Musculoskeletal: Reports no symptoms
Skin: Reports no symptoms
Neurological: Reports no symptoms
Phy Exam
Physical Exam
Physical Exam:
Physical Exam
General: mild distress, not acutely ill. febrile
Head: nc/at. eomi
Neck: supple. normal range of motion.
Heart: s1/s2 regular rate and rhythm, no murmur. equal radial pulses.
Lungs: no acute respiratory distress. clear bilaterally
Abdomen: normal bowel sounds. not tender.
Neuro: alert and oriented. no focal neurological deficits
Skin: no rash
Psychiatric: well kept. interactive and cooperative
Extremities: no edema. no calf tenderness.
Course
Orders/Labs/Results
Orders:
Orders
12/05/23 Breakfast
2000 calorie (17 carb) Diabetic
At Your Request: Full Participation
Does patient need a safe tray?: No
Diabetic Diet: Cholesterol Lowering
12/05/23 12:21
COVID-19 Antigen Urgent
Source: Nasal Swab
Complete Blood Count/With Diff Urgent
Comprehensive Metabolic Panel Urgent
Urinalysis Reflex To Culture Urgent
Date Specimen was Collected: 12/05/23
Time Specimen was Collected: 12:20
Urine Drug Abuse Screen Urgent
Date Specimen was Collected: 12/05/23
Time Specimen was Collected: 12:20
Urine Culture Urgent
FELICIANO Source: U
Specimen Description:
Date Specimen was Collected: 12/05/23
Time Specimen was Collected: 12:20
Comment: ADD ON
12/05/23 12:29
Acetaminophen [Tylenol] 1,000 mg .ROUTE .STK-MED ONE
12/05/23 12:31
Acetaminophen [Tylenol] 1,000 mg PO NOW STA
12/05/23 14:16
0.9% Sodium Chloride 500 ml [Nss] 500 ml IV BOLUS
12/05/23 14:49
Lactate Level [Lactic Acid] Urgent
12/05/23 15:55
Add On - Microbiology Urgent
Tests Added?: urine culture
12/05/23 15:57
CR Chest Portable - 1 View Urgent
Comment:
Reason For Exam: cough/fever
Reason Study Needs to be Portable: Patient Unstable
12/05/23 16:00
0.9% Sodium Chloride 500 ml [Nss] 500 ml IV 100 mls/hr
12/05/23 16:02
Blood Culture Urgent
FELICIANO Source: Blood/Venous
Specimen Description:
12/05/23 16:59
Procalcitonin Stat
PCT Algorithmm Indication: Sepsis
12/05/23 17:22
EKG [Electrocardiogram (*1)] Stat
Reason for Study: Atrial Fibrillation
12/05/23 17:23
Admit/Transfer Patient As Directed
Co-Sign Provider:
Level of Care: Inpatient admission
Assign to:: Telemetry
Physician / Group: do
Diagnosis: SIRS
Reason for Telemetry: Arrhythmia
Date to Stop Telemetry: 12/08/23
Time to Stop Telemetry: 11:00
Reason for Hospitalization: SIRS
Expected length of stay greater than two midnights?: Yes
ELOS- Estimated Length of Stay in days: 3
I certify the patient meets the requirements for IP care: Yes
12/05/23 17:24
PRN Pain Medication Management As Directed
May give lesser potent ordered pain med per pt: Yes
preference::
Protocol:: Medication orders for pain may be administered in a
manner that supports deferring to patient preference
when the pt is:
- Requesting an ordered lesser potent pain medication.
Least to most potent pain medications are defined
as: acetaminophen < NSAID < tramadol < opioids
(morphine, oxycodone, hydromorphone).
- Requesting a lesser dose of the same medication IF
ORDERED.
- Requesting a less intrusive route of administration
if both routes are prescribed by the provider (PO <
IV).
12/05/23 17:25
Code Status As Directed
Resuscitation Status: Full Code
12/05/23 18:25
0.9% Sodium Chloride 1000 ml [Nss] 1,000 ml IV 80 mls/hr
0.9% Sodium Chloride [Nss (Preservative Free)] See Protocol IV PRN PRN
Acetaminophen [Tylenol] 650 mg PO Q6HPRN PRN
Bisacodyl [Dulcolax] 10 mg RECTAL [id number] PRN
Dextrose 50%-Water [Dextrose 50% Syringe] 12.5 grams IV [id number] PRN
Docusate W/Senna [Senokot-S] 1 tablet PO BIDPRN PRN
FOLic ACID [Folvite] 1 mg 0.9% Sodium Chloride 50 ml [Nss] 50 ml IV DAILYPRN
Glucagon [GlucaGen] 1 mg IM PRN PRN
Lorazepam [Ativan] 1 mg IV Q1HPRN PRN
Lorazepam [Ativan] 1 mg PO Q2HPRN PRN
Lorazepam [Ativan] 2 mg IV Q1HPRN PRN
Polyethylene Glycol Powder [Miralax] 17 grams PO DAILYPRN PRN
12/05/23 18:25
Case Management Consult Once
Case Management Consult: Other
Comment: Substance abuse counseling
DIETARY CONSULT Routine
Reason for Consult: Nutrition support, possible refeeding guidelines
WOUND/OSTOMY CONSULT Routine
Reason for Consult: left heel wound
Activity As Directed
Activity Level: As Tolerated
Bedside Glucose Monitoring As Directed
Frequency: AC&HS
Additional Instructions:: Change to q6h if pt on TPN, tube feeding or not eating
Bladder Scan As Directed
Follow Bladder Retention/Intermittent Cath Algorithm?: Yes
PRN if no void in __ hours: 6
Frequency: Per Retention Algorithm
If Bladder Scan Result >: 400
then:: Straight cath
I&O [Intake/ Output] As Directed
Frequency: Per unit guidelines
MSAS SCORE As Directed
MSAS Score 0-4: Repeat MSAS every 2 hours until 0-4 for three consecutive assessments, then every 4 hours x 48
hours.
MSAS Score 5-7: For MILD withdrawl symptoms. Repeat MSAS and RASS every 2 hours
MSAS Score 8-11: For MODERATE withdrawal symptoms. Repeat MSAS and RASS every 1 hour. Consider ICU or IMU
level of care.
MSAS Score > 11: For SEVERE withdrawal symptoms. Repeat MSAS and RASS every 1 hour. Notify provider, consider
ICU level of care.
MSAS Additional Instructions: If no improvement or no decrease in score from severe to moderate within 12
hours, consult psychiatry
MSAS Notify Provider: Notify provider if patient requires more than 10 mg of Lorazepam in eight hour period.
Straight Cath As Directed
Frequency: Per Retention Algorithm
Additional Instructions: straight cath as needed per acute urinary retention algorithm for 24 hrs
Additional Instructions: for bladder scan greater than 400 mL
Vital Signs As Directed
Frequency: Per unit guidelines
Weight As Directed
Frequency: Daily
Cpap [RESP] Routine
Patient to use own unit?: No
Set Pressure (cm H2O): 9
12/05/23 20:00
Apixaban [Eliquis] 5 mg PO BID
Carvedilol [Coreg] 6.25 mg PO BID
Thiamine Injection 200 mg IV Q12
12/05/23 20:21
Ipratropium/Albuterol Sulfate [Duoneb] 3 ml INH R Q4HPRN PRN
12/05/23 22:00
Atorvastatin [Lipitor] 40 mg PO HS
Pregabalin [Lyrica] 150 mg PO BID@0800,2200
Trazodone [Desyrel] 100 mg PO HS
insulin detemir U-100 [Levemir FlexPen] 40 unit SC HS
12/06/23 06:00
Basic Metabolic Panel IN AM
CRP, Highly Sensitive IN AM
Complete Blood Count/No Diff IN AM
Cortisol, Random IN AM
ESR [Erythrocyte Sed Rate] IN AM
Glycohemoglobin (HgbA1c) IN AM
Magnesium IN AM
Phos [Phosphorus] IN AM
TSH Reflex To Free T4 IN AM
Occupational Therapy Consult [Ot Eval And Treat] IN AM
Physical Therapy Consult [Pt Eval And Treat] IN AM
Activity Level: As Tolerated
12/06/23 07:30
Insulin Aspart Corrective Low [Novolog Flexpen-Low Resistance] See Protocol SC AC
12/06/23 08:00
Aspirin Low Dose EC [Aspir Low (Enteric Coated)] 81 mg PO DAILY
FOLic ACID [Folvite] 1 mg PO DAILY
Pantoprazole [Protonix] 40 mg PO DAILY
12/07/23 06:00
Basic Metabolic Panel IN AM
Complete Blood Count/No Diff IN AM
12/08/23 06:00
Basic Metabolic Panel IN AM
Complete Blood Count/No Diff IN AM
12/08/23 11:00
DC Protocol for Telemetry ONCE
12/08/23 20:00
Thiamine HCl [Vitamin B1] 100 mg PO BID
12/09/23 06:00
Basic Metabolic Panel IN AM
Complete Blood Count/No Diff IN AM
12/10/23 06:00
Basic Metabolic Panel IN AM
Complete Blood Count/No Diff IN AM
Abnormal Lab Results
12/05/23
12:21
WBC 16.9 H 10^3/uL
(4.8-10.8)
RBC 3.84 L 10^6/uL
(4.70-6.10)
Hgb 12.6 L g/dL
(13.0-18.0)
Hct 35.5 L %
(39.0-52.0)
MCH 32.8 H pg
(27.0-31.0)
Abs Immat Gran (auto) 0.1 H 10^3/uL
(0-0.05)
Absolute Neuts (auto) 13.9 H 10^3/uL
(1.4-6.5)
Absolute Lymphs (auto) 1.0 L 10^3/uL
(1.2-3.4)
Absolute Monos (auto) 1.6 H 10^3/uL
(0.1-0.6)
Neutrophils % 82.0 H %
(42.2-75.2)
Lymphocytes % 5.8 L %
(20.5-51.1)
BUN 24 H mg/dl
(9-20)
Glucose 200 H mg/dl
(70-99)
12/05/23 12:21
12/05/23 12:21
Vital Signs
Initial and Last Documented VS:
Initial Vital Signs
Pulse Resp BP Pulse Ox
79 30 142/64 97
12/05/23 12:09 12/05/23 12:09 12/05/23 12:09 12/05/23 12:09
Last Documented Vital Signs
Temp Pulse Resp BP Pulse Ox
98.9 F 68 22 139/61 95
12/05/23 15:30 12/05/23 20:01 12/05/23 20:01 12/05/23 20:01 12/05/23 18:45
MDM/Problems Addressed
MDM/Problems Addressed:
Pt found to be in urinary retention with bladder scan > 400ml urine. Straight cath performed. UA pending
UA without any acute evidence of infection. However, in light of patient's febrile illness, along with initial hypotension, as well as profound generalized weakness, there is concern for potential bacteremia/sepsis. As such, patient will be
admitted for further evaluation and treatment, including continual IV hydration.
Blood culture pending
*Critical Care Note
Total Time (30-74mins, 75-104mins- exclusive of procedures): Not Applicable
ED Attending Note
-
Portions of this chart may have been created with voice recognition software.� Occasional wrong word or��sound alike� substitutions may have occurred due to the inherent limitations of voice recognition software.
Discharge Plan
Departure
Patient Disposition: Admit
Date of Disposition: 12/05/23
Time of Disposition: 16:04
Admit to: Telemetry
Presentation/result/management discussed w/ accepting MD/DO: Hospitalist
Discharge Problem:
Fever, Acute urinary retention
Interventions
Interventions:
*Risk Screen - Suicide Last Done: 12/05/23 16:11
*General Assessment Last Done: 12/05/23 12:16
*Neglect/Abuse Screening Last Done: 12/05/23 16:11
*ED COVID-19 Vaccine History Last Done: 12/05/23 12:16
ED- Cardiac Assessment Last Done: 12/05/23 12:30
ED- Neurological Assessment Last Done: 12/05/23 12:30
ED- Pulmonary Assessment Last Done: 12/05/23 12:30
[2023-12-05 15:14] LABS: Lactic Acid 1.8 mmol/L (0.7-2.0)
[2023-12-05 15:47] LABS: Urine Albumin Negative (Neg - Trace); Urine Bilirubin Negative (Negative); Urine Character Clear (Clear); Urine Color Yellow; Urine Glucose Negative (Negative); Urine Ketone Negative (Negative); Urine Leukocyte Negative (Negative); Urine Nitrite Negative (Negative); Urine Occult Blood Negative (Negative); Urine Specific Gravity 1.005 (<1.030); Urine Urobilinogen Negative (Neg - 1+)
--- NOTE | 2023-12-05 16:53 | HPS.HSE ---
Addendum entered and electronically signed by Moshe Valadez MD 12/05/23 17:35:
78-year-old male with a past medical history of atrial fibrillation on Eliquis, hypertension, hyperlipidemia, PAD, diabetes, neuropathy, COPD, and chronic kidney disease presents with acute onset of generalized weakness this morning. He was found
to be febrile, and hypotensive upon admission with a leukocytosis. Workup so far is negative for infection.
Will admit for systemic inflammatory response syndrome, check procalcitonin, check blood cultures.
Check ESR, CRP.
Consult PT/OT.
Hold home blood pressure medications, continue IV fluids.
I have personally seen and examined the patient, and agree with the plan of care as documented by ROSE MARY Day.
Advance care planning discussed, patient is a full code.
All other issues as outlined by the advanced care practitioner.
Original Note:
Family Physician
-
Family Physician: Haja Manuel
Chief Complaint
-
Generalized weakness
History of Present Illness
78-year-old with past medical history for type 2 diabetes, hypertension, hyperlipidemia, peripheral artery disease, neuropathy, paroxysmal A-fib, COPD, cc chronic kidney disease presented to us with generalized weakness which he noticed shortly
after waking up this morning . Patient states that due to weakness, he was unable to support his own weight when trying to ambulate. Patient denied headache, dizziness, syncopal episode patient denied fever, chills, chest pain, short of breath
patient denied runny nose, congestion cough. Patient denied abdominal pain, nausea, vomiting, diarrhea. Patient denied dysuria hematuria. Patient does have a chronic left heel wound.
COVID-negative, chest x-ray negative. Admitting for further management
Medical History
Past Medical History
Past Medical History: Reports Other
Additional Past Medical History:
Type 2 diabetes
Hypertension
CKD
Paroxysmal A-fib
COPD
Depression PID peripheral neuropathy
Carpal tunnel syndrome
Past Surgical History: Reports Other
Additional Past Surgical History:
Cataract
Stented coronary artery
Excision of cyst from upper back
Hemilaminectomy
Amputation of right second toe
Left big toe partial amputation
Social History
Tobacco: Non-smoker
Alcohol: None
Drug: None
Personal: Single
Living: Alone
Family History
Family History: Not pertinent
Allergies / Home Medications
Allergies reflects when Allergies were last updated in [facility].
Home Medications with original date entered in [facility]
Allergy/Medication List:
Allergies
Allergy/AdvReac Type Severity Reaction Status Date / Time
No Known Allergies Allergy Verified 12/05/23 12:12
Home Medications
cyanocobalamin (vitamin B-12) 1,000 mcg tablet 1,000 mcg PO DAILY Supplement 07/27/14
atorvastatin 40 mg tablet 40 mg PO HS High cholesterol 03/15/20
pantoprazole 40 mg tablet,delayed release 40 mg PO DAILY Gastrointestinal issue 03/15/20
pregabalin 150 mg capsule (Lyrica) 300 mg PO HS fibromyalgia 03/15/20
trazodone 100 mg tablet 100 mg PO HS antidepress 03/15/20
aspirin 81 mg tablet,delayed release 81 mg PO DAILY Blood clot prevention/tx 04/23/20
amlodipine 10 mg tablet 10 mg PO DAILY #30 tabs 07/15/21
apixaban 5 mg tablet (Eliquis) 5 mg PO BID Blood Clot Prevention/Tx 05/17/23
carvedilol 12.5 mg tablet 12.5 mg PO BID Heart Disease/Condition 05/17/23
insulin detemir U-100 100 unit/mL (3 mL) subcutaneous pen (Levemir FlexPen) 55 unit SC HS Diabetes 05/17/23
ipratropium 20 mcg-albuterol 100 mcg/actuation mist for inhalation (Combivent Respimat) 1 puff inhalation R Q4HPRN PRN sob/wheezing 05/17/23
pregabalin 150 mg capsule 150 mg PO DAILY Pain 05/17/23
furosemide 40 mg tablet (Lasix) 40 mg PO DAILY 10/26/23
finasteride 5 mg tablet 5 mg PO DAILY Urinary issue #30 tabs 10/29/23
acetaminophen 325 mg tablet (Tylenol) 650 mg PO Q6HPRN PRN mild pain 12/05/23
insulin aspart U-100 100 unit/mL (3 mL) subcutaneous pen (Novolog FlexPen U-100 Insulin aspart) 20 sliding scale dose SC AC Diabetes 12/05/23
Review of Systems
-
Constitutional: Reports No Symptoms
EENT: Reports No Symptoms
Respiratory: Reports No Symptoms
Cardiac: Reports No Symptoms
Abdomen/GI: Reports No Symptoms
: Reports No Symptoms
Musculoskeletal: Reports No Symptoms
Skin: Reports Other (Left heel wound)
Neurological: Reports Weakness
Endocrine: Reports No Symptoms
Hematologic/Lymphatic: Reports No Symptoms
Psych: Reports No Symptoms
Physical Exam
Vital Signs
Vital Signs
Temp Pulse Resp BP Pulse Ox
98.9 F 72 21 120/51 95
12/05/23 15:30 12/05/23 16:15 12/05/23 16:15 12/05/23 16:00 12/05/23 15:30
Physical Exam
General: Well Developed, Well Nourished and No Apparent Distress
HEENT: NormoCephalic, Moist mucous membranes and Atraumatic
Respiratory: Clear
Cardiac: S1/S2 and Regular Rhythm; No Murmur or Rub
GI: Soft, Non Tender, Non Distended and Normal Bowel Sounds; No Organomegaly
Rectal: Deferred by Provider
Musculoskeletal: No Clubbing, No Cyanosis and No Edema
Skin: Rash and Other (Left heel wound)
Neuro: AO x 3 and Nonfocal/grossly intact
Psych: Calm
Laboratory Results
-
12/05/23 12:21
12/05/23 12:21
Laboratory Results
Lactic Acid 1.8 mmol/L (0.7-2.0) 12/05/23 14:49
Total Bilirubin 1.1 mg/dl (0.2-1.3) 12/05/23 12:21
AST 21 U/L (17-59) 12/05/23 12:21
ALT 15 U/L (0-50) 12/05/23 12:21
Alkaline Phosphatase 87 U/L (38-126) 12/05/23 12:21
Data Reviewed
-
Diagnostic Radiology: Report Reviewed by me
Lab Data: Labs Reviewed by me
Impression/Plan
-
# Fevers/SIRS
-No clear source of infection likely viral
-COVID is negative
-UA negative
-WBC 16.9
-Chest x-ray with no acute cardiopulmonary abnormality
-Blood and urine culture sent from ER
-PT OT consulted
-monitor off abx, procal pending.
-will obtain ESR, CRP in am
#generalized weakness likely from febrile illness
-PT/OT consulted
# Hypotension likely hypovolemic
-Improving with fluids
-hold all antihypertensives
-fluids continued
# Urinary retention
-Bladder scan protocol
# Anemia of chronic disease
-Hemoglobin stable at 12.6
-No active bleeding
-Continue to trend
#Alcohol use disorder
-Patient endorses drinking 3 beers daily
-MSAS protocol initiated
-IV thiamine and folate
#Paroxysmal atrial fibrillation
-Telemetry
-Status post pacemaker
-Currently in sinus rhythm
-Continue Eliquis 5 mg twice daily p.o.
#Heart failure mildly reduced ejection fraction
-Echo 11/29 showed EF 40 to 45%
-Strict ins and outs
-Daily weights
-hold Lasix
#Insulin-dependent diabetes mellitus
-Continue Levemir 40
-Continue sliding scale
-Adjust as needed
#Obstructive sleep apnea
-Patient on CPAP at night 11 cm H20
-CPAP 11 cm H2O @ night
# Coronary artery disease with history of RCA stent , mid circumflex stent
-continue ASA/statin
# Atherosclerosis/hyperlipidemia
-continue Statin
# Hypertension
-hold Coreg/Norvasc
# CKD stage III
-Creatinine on admission 1.3
# COPD
-continue Combivent inhaler/equivalent
# History of CVA versus hypertensive encephalopathy 2014
-Eliquis/statin/aspirin
# Multilevel lumbar DJD/chronic back pain/diabetic neuropathy
-continue Lyrica
# History of pacemaker 2019
# Peripheral vascular disease with right lower extremity stent
# History of gout/pseudogout
# Chronic right bundle branch block
# Obesity - Per BMI
Diet: Diabetic diet
DVT prophylaxis-Eliquis
CODE STATUS-full code
[2023-12-05] MEDS: NSS 500 IV (17:00)
[2023-12-05 17:39] LABS: Procalcitonin < 0.05 ng/ml (0.0-0.25)
[2023-12-05 19:06] LABS: Amphetamines Negative (Negative); Barbiturates Negative (Negative); Benzodiazepines Negative (Negative); Buprenorphine Negative (Negative); Cocaine Negative (Negative); Marijuana Negative (Negative); Methadone Negative (Negative); Methamphetamines Negative (Negative); Opiates Negative (Negative); Phencyclidine Negative (Negative); Tricyclic Antidepressants Negative (Negative)
[2023-12-05 21:58] LABS: Glucose - Point of Care 270 mg/dl (70-99)
[2023-12-05] MEDS: COREG 6.25 MG PO (22:06)
[2023-12-05] MEDS: LIPITOR 40 MG PO (22:06)
[2023-12-05] MEDS: ELIQUIS 5 MG PO (22:06)
[2023-12-05] MEDS: NSS 1000 IV (22:06)
[2023-12-05] MEDS: THIAMINE INJECTION 200 MG IV (22:06)
[2023-12-05] MEDS: LANTUS 0.4 UNITS SC (22:07)
[2023-12-05] MEDS: LYRICA 150 MG PO (22:07)
[2023-12-05] MEDS: DESYREL 100 MG PO (22:07)
[2023-12-06] VITALS (9 sets, daily range): BP systolic 129–159; BP diastolic 54–80; PULSE 64–68; O2SAT 94–95; BMI 32.3
[2023-12-06 06:24] LABS: Hemoglobin 11.1 g/dL (13.0-18.0); Mean Corpuscular Hgb 34.4 pg (27.0-31.0); Mean Corpuscular Volume 92.9 fL (80.0-94.0); Mean Platelet Volume 9.7 fL (7.4-10.4); Platelet Count 156 10^3/uL (130-400); Red Blood Cell Count 3.23 10^6/uL (4.70-6.10); Red Cell Dist. Width 13.6 % (11.5-14.5); White Blood Cell Count 10.8 10^3/uL (4.8-10.8)
[2023-12-06 07:08] LABS: Blood Urea Nitrogen 21 mg/dl (9-20); Calcium 8.6 mg/dl (8.4-10.2); Carbon Dioxide 29 mmol/L (22-30); Chloride 101 mmol/L (98-107); Estimated Creatinine Clearance 53 ml/min; Glucose 232 mg/dl (70-99); Magnesium 1.9 mg/dl (1.6-2.3); Phosphorus 3.4 mg/dl (2.5-4.5); Potassium 3.9 mmol/L (3.5-5.1); Sodium 139 mmol/L (135-145); eGFR > 60.00
[2023-12-06 07:18] LABS: Erythrocyte Sed Rate 43 mm/hour (0-20)
[2023-12-06] MEDS: ASPIR LOW (ENTERIC COATED) 81 MG PO (07:35)
[2023-12-06] MEDS: PROTONIX 40 MG PO (07:36)
[2023-12-06] MEDS: FOLVITE 1 MG PO (07:36)
[2023-12-06] MEDS: ELIQUIS 5 MG PO ×2 (07:37→20:23)
[2023-12-06] MEDS: LYRICA 150 MG PO ×3 (07:38→22:27)
[2023-12-06 07:41] LABS: Cortisol, Random 7.9 ug/dl; TSH Reflex To Free T4 1.87 uIU/ml (0.47-4.68)
[2023-12-06] MEDS: COREG 6.25 MG PO ×2 (07:44→20:23)
[2023-12-06] MEDS: THIAMINE INJECTION 200 MG IV ×2 (08:02→20:23)
--- NOTE | 2023-12-06 08:14 | W.PN.HOSP.TC ---
Today's Communication/Plan
-
see bold
Assessment / Plan
Assessment / Plan
HPI: 78-year-old male with a past medical history of atrial fibrillation on Eliquis, hypertension, hyperlipidemia, PAD, diabetes, neuropathy, COPD, and chronic kidney disease presents with acute onset of generalized weakness this morning. He was
found to be febrile, and hypotensive upon admission with a leukocytosis. Workup so far is negative for infection.
#Systemic inflammatory response syndrome
#Fever
#Leukocytosis
Chest x-ray/urine analysis negative. Procalcitonin negative
Leukocytosis resolved
Suspect viral syndrome
Continue to monitor off of antibiotics
#Hypotension
Resolved with IV fluids
Continue holding home amlodipine 10 mg daily
Coreg reduced to 6.25 mg twice daily
#Acute urinary retention
Continue bladder scan protocol
#Generalized weakness
PT/OT recommends short-term rehab, patient declines
Patient lives alone
#Paroxysmal atrial fibrillation
Status post permanent pacemaker
Continue Eliquis, continue Coreg at reduced rate
#Chronic heart failure with mildly reduced ejection fraction
Resume Lasix
#Type 2 diabetes
Continue Levemir, sliding scale insulin
#Obstructive sleep apnea
Continue CPAP at 11 cm H2O at night
#Daily alcohol use
Monitor for withdrawal
# CKD stage III
Monitor creatinine
# COPD
Continue home bronchodilators
# History of CVA versus hypertensive encephalopathy 2014
Eliquis/statin/aspirin
# Multilevel lumbar DJD/chronic back pain/diabetic neuropathy
Lyrica
# History of pacemaker 2019
# Peripheral vascular disease with right lower extremity stent
# History of gout/pseudogout
# Chronic right bundle branch block
# Obesity - Per BMI
DVT prophylaxis�Eliquis
Full code
Total time spent to see the patient on the floor, examine the patient, review data and lab results, discuss treatment plan with patient, nursing staff around 51 minutes.
Physical Exam
General: Obese, no acute distress
HEENT: Normocephalic, Atraumatic, EOMI, MMM
Respiratory: Clear to Auscultation bilaterally
Cardiac: Normal S1/S2, Regular Rate and Rhythm
GI: Soft, Nontender, Nondistended, Normal Bowel Sounds
Extremities: No Clubbing, Cyanosis, or Edema
Neuro: Nonfocal/Grossly Intact
Psych: Calm, Cooperative
Derm: No Visible lesions
Anticipated Discharge: 24 - 48 hours
Subjective/Interval History
-
Date of Service: December 06, 2023
Patient reports that his weakness is the same as admission. Fever resolved. No nausea, no vomiting. Still having urinary retention, requiring straight cath.
Objective Data
-
Labs:
Laboratory Results
12/06/23
06:12
WBC 10.8
Hgb 11.1 L
Hct 30.0 L
Plt Count 156
Sodium 139
Potassium 3.9
Chloride 101
Carbon Dioxide 29
BUN 21 H
Creatinine 1.2
Glucose 232 H
Calcium 8.6
Vital Signs:
Vital Signs
Temp Pulse Resp BP Pulse Ox
98.9 F 61 22 129/44 95
12/05/23 15:30 12/06/23 07:44 12/06/23 06:30 12/06/23 07:44 12/05/23 18:45
I&O
12/05/23 12/06/23 12/07/23
06:59 06:59 06:59
Output Total 1400 / 1400
Balance -1400 / -1400
[2023-12-06 09:04] LABS: Glycohemoglobin (HgbA1c) 7.7 % (4.0-5.6)
--- NOTE | 2023-12-06 09:12 | WOUNDNOTE ---
SUZETTE (R MEDIAL, L LATERAL)
--- NOTE | 2023-12-06 09:13 | WOUNDNOTE ---
WO RN note: Patient admitted with SIRS, recent fall. Patient lives alone and is current with [facility].
See H&P for complete history.
PMH: a fib (Eliquis), HTN, PAD, RLE stent (follows Dr. Alegre), IDDM, neuropathy, CKD, depression, cardiac stent, negar laminectomy, R 2nd toe amp. L great toe amp, L 3rd partial toe amp, sleep apnea (CPAP at night), pacer, obesity.
Wound Location and type/assessment: Patient admitted with: Healing pink stage 3 L heel pressure injury. Patient follows Dr. Barros for his L heel wound. +Palpable pedal pulses. Trace LE edema. Sacrum and R heel intact.
Appetite: good.
Pressure redistribution devices in place: ED stretcher. Patient can turn self in bed.
Plan: L heel dressing changed. Heels off bed with air chair cushion. Instructed patient pressure injury prevention measures.
Will confirm orders with Dr. Valadez and updated ED RN Salma.
Care plan to be updated and will follow as needed.
[2023-12-06 09:42] LABS: Glucose - Point of Care 218 mg/dl (70-99)
[2023-12-06] MEDS: NOVOLOG FLEXPEN-LOW RESISTANCE 2 UNITS SC (09:43)
--- NOTE | 2023-12-06 10:54 | CM ---
CM reviewed patient's chart. Spoke with patient at bedside. CM introduced self and role.
PCP: Dr. Haja Manuel
Pharmacy: [facility] in [place] [facility]
Living situation: Patient lives alone in a 1st floor apartment. He has 7 steps to enter. He also is independent with his ADLs. 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 Patient declined [facility] coming to discuss resources with him. Per
patient, 'For what? I only drink 3 beers/day'. Physician made aware via TT.
Finances: Patient denies any social insecurities. He is able to afford her housing, clothing, medications, food, utilities and transportation.
DME/Ambulation: Patient ambulates independently with a walker and cane.
Transportation: Patient's friend, Brian Roth, will most likely provide transportation once patient is discharged. Patient drives.
Agreeable to home health care?: He is current with [facility]. They are providing PT and SN services. PT and OT are consulted.
ANTICIPATED DISCHARGE DISPOSITION:
Home with [facility] services, pending PT/OT's evaluation and recommendations.
CM will continue to follow case and available for further assistance.
[2023-12-06 12:34] LABS: Glucose - Point of Care 259 mg/dl (70-99)
[2023-12-06] MEDS: NOVOLOG FLEXPEN-LOW RESISTANCE 300 UNITS SC (13:47)
[2023-12-06 16:48] LABS: Glucose - Point of Care 319 mg/dl (70-99)
[2023-12-06] MEDS: NOVOLOG FLEXPEN-LOW RESISTANCE 4 UNITS SC (16:58)
[2023-12-06] MEDS: LASIX PO (16:59)
[2023-12-06] MEDS: MIRALAX PO (16:59)
[2023-12-06] MEDS: NSS IV (19:47)
[2023-12-06 21:32] LABS: Glucose - Point of Care 266 mg/dl (70-99)
[2023-12-06] MEDS: LYRICA PO (21:44)
[2023-12-06] MEDS: DESENEX/MITRAZOL/ZEASORB 1 APPLIC TOPICAL (21:44)
[2023-12-06] MEDS: DESYREL 100 MG PO (21:44)
[2023-12-06] MEDS: LIPITOR 40 MG PO (21:44)
[2023-12-06] MEDS: LANTUS 0.45 UNITS SC (21:45)
--- NOTE | 2023-12-06 23:00 | PTCARENOTE ---
Addendum entered by Gonzalo Saab RN 12/07/23 08:08:
2330: Howard JOSAFAT Castro notified by pharmacy that pt's creatinine clearance is low; orders changed from Lyrica 300mg HS back to 150mg HS.
Original Note:
Pt ordered Lyrica 150mg HS, pt reports that he takes Lyrica 300mg HS. Howard JOSAFAT Castro notified, order changed from Lyrica 150mg HS to 300mg HS and administered to pt.
[2023-12-07] VITALS (9 sets, daily range): BP systolic 135–148; BP diastolic 70–74; PULSE 62–70; BMI 31.4
--- NOTE | 2023-12-07 01:00 | PTCARENOTE ---
Pt due for next bag of IV NS but pt reports 'I don't want another bag, it's going right through me'. BP at midnight was 146/73, HR 79, no complaints of dizziness when ambulating. [employer] Matthew notified, order for IV NS at 80 mL/hr d/c'd.
[2023-12-07] MEDS: NSS IV (01:09)
[2023-12-07 07:20] LABS: Hematocrit 33.5 % (39.0-52.0); Hemoglobin 11.9 g/dL (13.0-18.0); Mean Corp Hgb Conc. 35.5 g/dL (33.0-37.0); Mean Corpuscular Hgb 32.8 pg (27.0-31.0); Mean Corpuscular Volume 92.3 fL (80.0-94.0); Mean Platelet Volume 9.8 fL (7.4-10.4); Platelet Count 175 10^3/uL (130-400); Red Blood Cell Count 3.63 10^6/uL (4.70-6.10); Red Cell Dist. Width 13.8 % (11.5-14.5); White Blood Cell Count 8.8 10^3/uL (4.8-10.8)
[2023-12-07 07:46] LABS: Blood Urea Nitrogen 20 mg/dl (9-20); Calcium 9.3 mg/dl (8.4-10.2); Carbon Dioxide 27 mmol/L (22-30); Chloride 104 mmol/L (98-107); Estimated Creatinine Clearance 52 ml/min; Glucose 186 mg/dl (70-99); Potassium 3.9 mmol/L (3.5-5.1); Sodium 142 mmol/L (135-145); eGFR > 60.00
--- NOTE | 2023-12-07 08:33 | W.PN.HOSP.TC ---
Today's Communication/Plan
-
Discharge tomorrow
Assessment / Plan
Assessment / Plan
HPI: 78-year-old male with a past medical history of atrial fibrillation on Eliquis, hypertension, hyperlipidemia, PAD, diabetes, neuropathy, COPD, and chronic kidney disease presents with acute onset of generalized weakness this morning. He was
found to be febrile, and hypotensive upon admission with a leukocytosis. Workup so far is negative for infection.
#Systemic inflammatory response syndrome
#Bronchitis
#Fever
#Leukocytosis
Chest x-ray/urine analysis negative. Procalcitonin negative
Leukocytosis resolved
Suspect viral syndrome
Continue to monitor off of antibiotics
Plan for discharge home with home care tomorrow
#Hypotension
Resolved, off of IV fluids
Continue holding home amlodipine 10 mg daily
Coreg reduced to 6.25 mg twice daily
#Acute urinary retention
Patient reports voiding
Continue bladder scan protocol
#Generalized weakness
PT/OT recommends short-term rehab, patient declines
PT now recommends home care
#Healing stage 3 left heel pressure injury, POA
Continue wound care
#Paroxysmal atrial fibrillation
Status post permanent pacemaker
Continue Eliquis, continue Coreg at reduced rate
#Chronic heart failure with mildly reduced ejection fraction
Resumed Lasix
#Type 2 diabetes
Continue Levemir, sliding scale insulin
Start Premeal insulin 5 units AC 3 times daily
#Obstructive sleep apnea
Continue CPAP at 11 cm H2O at night
#Daily alcohol use
Monitor for withdrawal
# CKD stage III
Monitor creatinine
# COPD
Continue home bronchodilators
# History of CVA versus hypertensive encephalopathy 2014
Eliquis/statin/aspirin
# Multilevel lumbar DJD/chronic back pain/diabetic neuropathy
Lyrica
# History of pacemaker 2019
# Peripheral vascular disease with right lower extremity stent
# History of gout/pseudogout
# Chronic right bundle branch block
# Obesity - Per BMI
DVT prophylaxis�Eliquis
Full code
Total time spent to see the patient on the floor, examine the patient, review data and lab results, discuss treatment plan with patient, nursing staff around 50 minutes.
Physical Exam
General: Obese, no acute distress
HEENT: Normocephalic, Atraumatic, EOMI, MMM
Respiratory: Clear to Auscultation bilaterally
Cardiac: Normal S1/S2, Regular Rate and Rhythm
GI: Soft, Nontender, Nondistended, Normal Bowel Sounds
Extremities: No Clubbing, Cyanosis, or Edema
Neuro: Nonfocal/Grossly Intact
Psych: Calm, Cooperative
Derm:
Healing stage 3 left heel pressure injury
Anticipated Discharge: Within 24 hours
Subjective/Interval History
-
Date of Service: December 07, 2023
Patient reports his weakness has improved. He has a cough. No shortness of breath, no dizziness, no lightheadedness. No fever.
Objective Data
-
Labs:
Laboratory Results
12/07/23
06:29
WBC 8.8
Hgb 11.9 L
Hct 33.5 L
Plt Count 175
Sodium 142
Potassium 3.9
Chloride 104
Carbon Dioxide 27
BUN 20
Creatinine 1.2
Glucose 186 H
Calcium 9.3
Vital Signs:
Vital Signs
Temp Pulse Resp BP Pulse Ox
97.9 F 63 18 136/74 96
12/07/23 03:55 12/07/23 03:55 12/07/23 03:55 12/07/23 03:55 12/07/23 03:55
I&O
12/06/23 12/07/23 12/08/23
06:59 06:59 06:59
Intake Total 1120 / 1120
Output Total 1400 / 1400 1725 / 1725
Balance -1400 / -1400 -605 / -605
[2023-12-07 08:49] LABS: Glucose - Point of Care 173 mg/dl (70-99)
[2023-12-07] MEDS: NOVOLOG FLEXPEN-LOW RESISTANCE 1 UNITS SC (10:03)
[2023-12-07] MEDS: NOVOLOG FLEXPEN 5 UNITS SC ×3 (10:03→17:17)
[2023-12-07] MEDS: MIRALAX PO (10:22)
[2023-12-07] MEDS: FOLVITE 1 MG PO (10:24)
[2023-12-07] MEDS: ASPIR LOW (ENTERIC COATED) 81 MG PO (10:24)
[2023-12-07] MEDS: LYRICA 150 MG PO ×2 (10:24→21:24)
[2023-12-07] MEDS: PROTONIX 40 MG PO (10:24)
[2023-12-07] MEDS: DESENEX/MITRAZOL/ZEASORB 1 APPLIC TOPICAL ×2 (10:25→20:15)
[2023-12-07] MEDS: ELIQUIS 5 MG PO ×2 (10:25→20:16)
[2023-12-07] MEDS: LASIX 40 MG PO (10:25)
[2023-12-07] MEDS: THIAMINE INJECTION 200 MG IV ×2 (10:26→20:16)
[2023-12-07] MEDS: COREG 6.25 MG PO ×2 (10:26→20:17)
[2023-12-07 11:00] LABS: CRP, Highly Sensitive > 15.00 mg/L
--- NOTE | 2023-12-07 11:25 | PN.CDI ---
CDI
- -
CDI:
Physician Documentation Request
Admit Date: 12/05/23 18:06
Dear Doctor Do,
Please review the following and provide your response in the progress notes.
Clinical Indicators:
- 12/05 Wound note indicates healing stage 3 left heel pressure injury, POA
Physician documentation of the type and location of wounds is required for compliant documentation. Based on the above clinical findings and your assessment, please provide the following in your progress note:
1. Location of the ulcer/wound, including laterality.
2. Type (etiology) of ulcer/wound:
- Diabetic ulcer
- Arterial (ischemic) ulcer
- Traumatic wound
- Venous stasis ulcer
- Pressure (decubitus) ulcer
- Non-healing surgical wound
- Other
- Unable to determine
Use of terms such as suspected, likely, concern for, or probable (associated with a specific diagnosis that is being evaluated, monitored, or treated as if it exists) are acceptable and can be coded in the inpatient setting, when documented at the
time of discharge.
Thank you,
Melodie Deleon RN
CDI Specialist
Please use your independent medical judgment in providing your response.
*Source: National Pressure Ulcer Advisory Panel (NPUAP)
--- NOTE | 2023-12-07 11:48 | CM ---
Chart reviewed and per physical therapy recommendation is for skilled placement medical case manager discussed skilled options with patient and patient reports that he is returning to home at discharge, and is adamant that he is not going to a skilled
facility.
Plan; Home when stable, with [facility] with [facility].
[2023-12-07 12:19] LABS: Glucose - Point of Care 262 mg/dl (70-99)
--- NOTE | 2023-12-07 13:56 | VNURNOTE ---
Chart reviewed. Patient current with [facility] PT, OT. Appears plan is DC home. Resumption referral in [facility].
[2023-12-07] MEDS: NOVOLOG FLEXPEN-LOW RESISTANCE 3 UNITS SC ×2 (13:58→17:16)
[2023-12-07 17:10] LABS: Glucose - Point of Care 289 mg/dl (70-99)
[2023-12-07] MEDS: LIPITOR 40 MG PO (21:24)
[2023-12-07] MEDS: DESYREL 100 MG PO (21:24)
[2023-12-07 21:46] LABS: Glucose - Point of Care 270 mg/dl (70-99)
[2023-12-07] MEDS: LANTUS 0.48 UNITS SC (21:52)
[2023-12-08] VITALS: BP 150/55
[2023-12-08 03:56] VITALS: BP 141/64
[2023-12-08 06:00] VITALS: BMI 31.0
[2023-12-08 07:47] VITALS: BP 122/72
--- NOTE | 2023-12-08 08:12 | W.PN.HOSP.TC ---
Today's Communication/Plan
-
Discharge today
Assessment / Plan
Assessment / Plan
HPI: 78-year-old male with a past medical history of atrial fibrillation on Eliquis, hypertension, hyperlipidemia, PAD, diabetes, neuropathy, COPD, and chronic kidney disease presents with acute onset of generalized weakness this morning. He was
found to be febrile, and hypotensive upon admission with a leukocytosis. Workup so far is negative for infection.
#Systemic inflammatory response syndrome
#Bronchitis
#Fever
#Leukocytosis
Chest x-ray/urine analysis negative. Procalcitonin negative
Leukocytosis resolved
Suspect viral syndrome
Continue to monitor off of antibiotics
Plan for discharge home with home care today
#Hypotension
Resolved, off of IV fluids
#Benign essential hypertension
Can resume previous Coreg dose upon discharge (is currently on a lower dose while in the hospital)
Can resume amlodipine at discharge but decrease to 5 mg daily
#Acute urinary retention
Patient reports voiding
Continue bladder scan protocol
#Generalized weakness
PT/OT recommends short-term rehab, patient declines
PT now recommends home care
#Healing stage 3 left heel pressure injury, POA
Continue wound care
#Paroxysmal atrial fibrillation
Status post permanent pacemaker
Continue Eliquis, continue Coreg at reduced rate
#Chronic heart failure with mildly reduced ejection fraction
Resumed Lasix
#Type 2 diabetes
Continue Levemir, sliding scale insulin
Start Premeal insulin 10 units AC 3 times daily
#Obstructive sleep apnea
Continue CPAP at 11 cm H2O at night
#Daily alcohol use
Monitor for withdrawal
# CKD stage III
Monitor creatinine
# COPD
Continue home bronchodilators
# History of CVA versus hypertensive encephalopathy 2014
Eliquis/statin/aspirin
# Multilevel lumbar DJD/chronic back pain/diabetic neuropathy
Lyrica
# History of pacemaker 2019
# Peripheral vascular disease with right lower extremity stent
# History of gout/pseudogout
# Chronic right bundle branch block
# Obesity - Per BMI
DVT prophylaxis�Eliquis
Full code
Physical Exam
General: Obese, no acute distress
HEENT: Normocephalic, Atraumatic, EOMI, MMM
Respiratory: Clear to Auscultation bilaterally
Cardiac: Normal S1/S2, Regular Rate and Rhythm
GI: Soft, Nontender, Nondistended, Normal Bowel Sounds
Extremities: No Clubbing, Cyanosis, or Edema
Neuro: Nonfocal/Grossly Intact
Psych: Calm, Cooperative
Derm:
Healing stage 3 left heel pressure injury
Anticipated Discharge: Today
Subjective/Interval History
-
Date of Service: December 08, 2023
Patient continues to have a mild cough. No shortness of breath, no chest pain. No fever, no vomiting.
Objective Data
-
Vital Signs:
Vital Signs
Temp Pulse Resp BP Pulse Ox
98.5 F 64 16 141/64 97
12/08/23 03:56 12/08/23 03:56 12/08/23 03:56 12/08/23 03:56 12/08/23 03:56
I&O
12/07/23 12/08/23 12/09/23
06:59 06:59 06:59
Intake Total 1120 / 1120 580 / 580
Output Total 1725 / 1725 1450 / 1450
Balance -605 / -605 -870 / -870
[2023-12-08 08:23] LABS: Glucose - Point of Care 239 mg/dl (70-99)
[2023-12-08] MEDS: NOVOLOG FLEXPEN-LOW RESISTANCE 2 UNITS SC (08:52)
[2023-12-08] MEDS: FOLVITE 1 MG PO (08:53)
[2023-12-08] MEDS: LYRICA 150 MG PO (08:53)
[2023-12-08] MEDS: ELIQUIS 5 MG PO (08:53)
[2023-12-08] MEDS: COREG 6.25 MG PO (08:53)
[2023-12-08] MEDS: MIRALAX 17 GRAMS PO (08:53)
[2023-12-08] MEDS: ASPIR LOW (ENTERIC COATED) 81 MG PO (08:54)
[2023-12-08] MEDS: PROTONIX 40 MG PO (08:54)
[2023-12-08] MEDS: LASIX 40 MG PO (08:54)
[2023-12-08] MEDS: DESENEX/MITRAZOL/ZEASORB 1 APPLIC TOPICAL (08:55)
[2023-12-08] MEDS: NOVOLOG FLEXPEN 5 UNITS SC ×2 (08:55→12:12)
[2023-12-08] MEDS: THIAMINE INJECTION 200 MG IV (08:56)
--- NOTE | 2023-12-08 10:20 | W.DCSUMMARY ---
Discharge Summary
Discharge Data
Date of Admission: 12/05/23
Date of Discharge: 12/08/23
-
Pending Results: No
Hospital Course
Discharge diagnosis:
Systemic inflammatory response syndrome
Acute viral syndrome/bronchitis
Fever
Leukocytosis
Transient hypotension
Essential hypertension
Acute urinary retention
Generalized weakness
Healing stage III left heel pressure injury, present upon admission
Paroxysmal atrial fibrillation on Eliquis
Chronic heart failure with mildly reduced ejection fraction
Type 2 diabetes
Obstructive sleep apnea
Stage III chronic kidney disease
Chronic obstructive pulmonary disease
History of stroke
Daily alcohol use
Obesity due to excess calories
Hospital course:
78-year-old male with a past medical history of atrial fibrillation on Eliquis, CHF, CKD, COPD, CVA, DM2, and obesity presented with fever, and weakness. Patient was found to be hypotensive. His hypotension resolved with IV fluids. His amlodipine
was held.
Patient's workup was negative. He did have a fever and leukocytosis upon admission. Chest x-ray, urine analysis, and covid were negative, procalcitonin normal. He reports a cough. Suspect he has an acute viral syndrome/viral bronchitis. He
received supportive care. His fever resolved.
Patient did have acute urinary retention, and required straight catheterization several times. This resolved, he was able to void prior to discharge.
Patient was seen in conjunction with physical therapy for his weakness. Initially, PT recommended short-term rehab. After several days, his weakness improved. PT changed the recommendation to home care.
Patient's blood pressure became elevated prior to discharge. He can resume his amlodipine at a reduced dose of 5 mg daily upon discharge. He was previously on 10 mg daily.
Patient is medically stable for discharge. He needs to follow-up with his primary care doctor in 1 week.
Disposition: Home with home care
Discharge planning: Required 40 minutes
Discharge Plan
-
Patient Disposition: Home with Home Care
Discharge Diagnosis/Procedures: Fever, low blood pressure, probable viral syndrome, weakness, urinary retention
Condition: Good
Diet: Diabetic, Carb Controlled
Activity: As tolerated
Driving Restrictions: As prior to admission
Activity Restrictions/Additional Instructions:
Your blood pressure in the hospital was low.
Your amlodipine has been reduced to 5 mg daily, from 10 mg daily.
Follow-up with your primary care doctor this week.
Wound Care Instructions
L heel wound-resume prior wound care as ordered by Dr. Barros.
Miconazole powder to groin folds, affected areas twice a day.
Elevate heels off bed with pillows.
Pressure redistributing chair cushion (i.e. Air chair cushion).
Follow up with Dr. Barros.
Referrals:
Haja Manuel MD [Family Provider] - in two to three days
Prescriptions:
New
polyethylene glycol 3350 17 gram/dose powder
17 g PO DAILY Qty: 510 0RF
Continued
cyanocobalamin (vitamin B-12) 1,000 MCG tablet
1,000 mcg PO DAILY
atorvastatin 40 MG tablet
40 mg PO HS
trazodone 100 MG tablet
100 mg PO HS
pantoprazole 40 MG tablet,delayed release (DR/EC)
40 mg PO DAILY
pregabalin [Lyrica] 150 MG capsule
300 mg PO HS
aspirin 81 MG tablet,delayed release (DR/EC)
81 mg PO DAILY
carvedilol 12.5 mg tablet
12.5 mg PO BID
pregabalin 150 mg capsule
150 mg PO DAILY
Levemir FlexPen 100 unit/mL (3 mL) insulin pen
55 unit SC HS
Eliquis 5 mg tablet
5 mg PO BID
Combivent Respimat 20-100 mcg/actuation Mist
1 puff INHALATION R Q4HPRN PRN (Reason: sob/wheezing)
furosemide [Lasix] 40 mg Tablet
40 mg PO DAILY
finasteride 5 mg Tablet
5 mg PO DAILY Qty: 30 0RF
Patient Comments:
12/05/23: Patient unsure if he currently takes this medication.
acetaminophen [Tylenol] 325 mg Tablet
650 mg PO Q6HPRN PRN (Reason: mild pain)
insulin aspart U-100 [Novolog FlexPen U-100 Insulin] 300 UNITS/3 ML insulin pen
20 sliding scale dose SC AC
Changed
amlodipine 10 MG tablet
5 mg PO DAILY Qty: 30 0RF
Discharge Orders:
Discharge Patient (As Directed); Ordered 12/08/23
Ordered By: Moshe Valadez
Discharge Date and Time
Discharge Date/Time: 12/08/23 14:53
Print Language: CITIZEN [place]
[2023-12-08 11:24] VITALS: BP 138/67
[2023-12-08 11:24] LABS: Glucose - Point of Care 332 mg/dl (70-99)
--- NOTE | 2023-12-08 11:24 | CM ---
CM following re: discharge planning.
Reviewed pt's chart, met with pt.
Discharge order noted. pt is aware, expressed his agreement with discharge and pt stated his friend will transport home. IMM reviewed, placed on chart, pt has a copy.
PT and OT evaluations noted - home PT/OT recommended. Pt is aware and he stated he already spoke to his RN from [facility] and she will visit him on Sunday.
Please fax discharge instructions to [facility] at [phone].
D/C plan: home with [facility] and friend support. Friend to transport.
[2023-12-08] MEDS: NOVOLOG FLEXPEN-LOW RESISTANCE 4 UNITS SC (12:12)
== END 2023-12-08 14:53 | disposition home health service (06) | DRG 190 ==
LOC: 4 WEST ACU 18:06
PROVIDERS: Registered Nurse; ADMITTING PHYSICIAN Family Medicine; EMERGENCY PHYSICIAN Emergency Medicine; FAMILY PHYSICIAN Family Medicine
PROC: 5A09357 Assistance with Respiratory Ventilation, Less than 24 Consecutive Hours, Continuous Positive Airway Pressure (ICD-10-PCS; 2023-12-06)
DX: J44.0 Chronic obstructive pulmonary disease with (acute) lower respiratory infection (principal); L89.623 Pressure ulcer of left heel, stage 3; I13.0 Hypertensive heart and chronic kidney disease with heart failure and stage 1 through stage 4 chronic kidney disease, or unspecified chronic kidney disease; R65.10 Systemic inflammatory response syndrome (SIRS) of non-infectious origin without acute organ dysfunction; I50.22 Chronic systolic (congestive) heart failure; J20.9 Acute bronchitis, unspecified; R53.1 Weakness; E11.22 Type 2 diabetes mellitus with diabetic chronic kidney disease; E11.40 Type 2 diabetes mellitus with diabetic neuropathy, unspecified; E78.00 Pure hypercholesterolemia, unspecified; N18.30 Chronic kidney disease, stage 3 unspecified; E11.51 Type 2 diabetes mellitus with diabetic peripheral angiopathy without gangrene; R33.9 Retention of urine, unspecified; I95.9 Hypotension, unspecified; I48.0 Paroxysmal atrial fibrillation; F32.A Depression, unspecified; E66.09 Other obesity due to excess calories; G47.33 Obstructive sleep apnea (adult) (pediatric); I25.10 Atherosclerotic heart disease of native coronary artery without angina pectoris; I45.10 Unspecified right bundle-branch block; M51.36 Other intervertebral disc degeneration, lumbar region; G89.29 Other chronic pain; M54.9 Dorsalgia, unspecified; E86.1 Hypovolemia; B34.9 Viral infection, unspecified; D63.1 Anemia in chronic kidney disease; F10.10 Alcohol abuse, uncomplicated; Z60.2 Problems related to living alone; Z79.01 Long term (current) use of anticoagulants; Z79.82 Long term (current) use of aspirin; Z79.4 Long term (current) use of insulin; Z95.0 Presence of cardiac pacemaker; Z95.5 Presence of coronary angioplasty implant and graft; Z87.891 Personal history of nicotine dependence; Z87.440 Personal history of urinary (tract) infections; Z86.73 Personal history of transient ischemic attack (TIA), and cerebral infarction without residual deficits; Z68.31 Body mass index [BMI] 31.0-31.9, adult; Z11.52 Encounter for screening for COVID-19
CPT/HCPCS: 51701; 51798; 71045; 80048; 80053; 80306; 81003; 82533; 82962; 83036; 83605; 83735; 84100; 84145; 84443; 85025; 85027; 85652; 86141; 87040; 87086; 87811; 93005; 94660; 96374; 97110; 97116; 99285

== ENCOUNTER 2024-03-12 18:53 | Emergency (ER) | payer OTHER, SELFPAY ==
[2024-03-12 18:55] VITALS: BP 122/75
--- NOTE | 2024-03-12 20:08 | ED.GENMED ---
History of Present Illness
General
Chief Complaint: Skin Surface Trauma
Time Seen by Provider: 03/12/24 19:05
History of Present Illness
History of Present Illness:
78-year-old male with history of A-fib on Eliquis presents to the emergency department for evaluation of persistent bleeding from a skin tear to the right hand sustained yesterday. Denies any pain.
Past History
Past History
ED Past Medical History: HTN, Hypercholesterolemia and NIDDM
ED Past Surgical History: Cardiac (Pacemaker/stents), Orthopedic (Laminectomy) and Other (Stents bilateral lower extremities for peripheral vascular disease)
Social History
Tobacco: Former smoker
Alcohol: Occasional
Drug: None
Personal:
Living: with family
Review of Systems
Review of Systems
Allergies reviewed?: Yes
All Other Systems: ROS reviewed and negative except as documented in HPI and ROS
Phy Exam
Physical Exam
Physical Exam:
GEN: Well appearing, NAD, WDWN
HEENT: Oral mucosa moist, no scleral icterus
Cardiac: Regular rate
Lung: No respiratory distress, no tachypnea
MSK: No gross deformity or injuries
Skin: Good color, no pallor or jaundice, numerous ecchymoses. 3 cm superficial skin tear to the dorsum of the right hand with mild active bleeding
Neuro: AO x3, moves all extremities freely
Psych: Calm, cooperative
Course
Vital Signs
Initial and Last Documented VS:
Initial Vital Signs
Temp Pulse Resp BP Pulse Ox
98.4 F 68 18 122/75 96
03/12/24 18:55 03/12/24 18:55 03/12/24 18:55 03/12/24 18:55 03/12/24 18:55
Last Documented Vital Signs
Temp Pulse Resp BP Pulse Ox
98.4 F 74 18 170/74 96
03/12/24 18:55 03/12/24 20:18 03/12/24 20:18 03/12/24 20:18 03/12/24 18:55
MDM/Problems Addressed
MDM/Problems Addressed:
Surgicel dressing applied with direct pressure and hemostasis was achieved. Discussed supportive care
*Critical Care Note
Total Time (30-74mins, 75-104mins- exclusive of procedures): Not Applicable
ED Attending Note
-
Portions of this chart may have been created with voice recognition software.� Occasional wrong word or��sound alike� substitutions may have occurred due to the inherent limitations of voice recognition software.
Discharge Plan
Departure
Patient Disposition: Home (Routine Discharge)
Date of Disposition: 03/12/24
Time of Disposition: 20:09
Patient with high blood pressure during this ER visit?: No
Discharge Problem:
Skin tear of right hand without complication
Instructions: Wound Care (DC)
Prescriptions:
No Action
cyanocobalamin (vitamin B-12) 1,000 MCG tablet
1,000 mcg PO DAILY
atorvastatin 40 MG tablet
40 mg PO HS
trazodone 100 MG tablet
100 mg PO HS
pantoprazole 40 MG tablet,delayed release (DR/EC)
40 mg PO DAILY
pregabalin [Lyrica] 150 MG capsule
300 mg PO HS
aspirin 81 MG tablet,delayed release (DR/EC)
81 mg PO DAILY
carvedilol 12.5 mg tablet
12.5 mg PO BID
pregabalin 150 mg capsule
150 mg PO DAILY
Levemir FlexPen 100 unit/mL (3 mL) insulin pen
55 unit SC HS
Eliquis 5 mg tablet
5 mg PO BID
Combivent Respimat 20-100 mcg/actuation Mist
1 puff INHALATION R Q4HPRN PRN (Reason: sob/wheezing)
furosemide [Lasix] 40 mg Tablet
40 mg PO DAILY
finasteride 5 mg Tablet
5 mg PO DAILY Qty: 30 0RF
Patient Comments:
12/05/23: Patient unsure if he currently takes this medication.
acetaminophen [Tylenol] 325 mg Tablet
650 mg PO Q6HPRN PRN (Reason: mild pain)
insulin aspart U-100 [Novolog FlexPen U-100 Insulin] 300 UNITS/3 ML insulin pen
20 sliding scale dose SC AC
polyethylene glycol 3350 17 gram/dose powder
17 g PO DAILY Qty: 510 0RF
amlodipine 10 MG tablet
5 mg PO DAILY Qty: 30 0RF
Referrals:
Haja Manuel MD [Family Provider] -
Activity Restrictions/Additional Instructions:
Leave the mesh dressing in place as this will absorb into the wound and allow clot to form. Change the overlying dressing at least once per day. He may begin washing the area in 3 days and eventually the mesh will dissolve typically in 7 days.
Return with any further bleeding
Interventions
Interventions:
*Risk Screen - Suicide Last Done: 03/12/24 18:55
*General Assessment Last Done: 03/12/24 18:55
*Neglect/Abuse Screening Last Done: 03/12/24 18:55
*Nursing Disposition Last Done: 03/12/24 20:25
ED-Skin Assessment Last Done: 03/12/24 19:37
Discharge Date and Time
Discharge Date/Time: 03/12/24 20:25
Print Language: SAMI
[2024-03-12 20:18] VITALS: BP 170/74
== END 2024-03-12 20:25 | disposition home or self-care (01) ==
LOC: EMR 18:53
PROVIDERS: EMERGENCY PHYSICIAN Emergency Medicine; FAMILY PHYSICIAN Family Medicine
DX: S61.411A Laceration without foreign body of right hand, initial encounter (principal); W22.8XXA Striking against or struck by other objects, initial encounter; I48.91 Unspecified atrial fibrillation; Z79.01 Long term (current) use of anticoagulants; Z87.891 Personal history of nicotine dependence
CPT/HCPCS: 99281

== ENCOUNTER 2024-05-29 18:19 | Emergency (ER) | payer OTHER, SELFPAY ==
[2024-05-29 18:28] VITALS: BP 141/72
--- NOTE | 2024-05-29 20:22 | ED.GENMED ---
History of Present Illness
General
Chief Complaint: Fall
Time Seen by Provider: 05/29/24 19:06
History of Present Illness
History of Present Illness:
78-year-old male with history of A-fib on Eliquis, hypertension, diabetes, hyperlipidemia presenting to the emergency department after a fall. Patient reports he slipped on his deck, injuring his left hand. He is unsure whether or not he struck
his head. Denies any present acute complaints. Denies neck pain, chest pain, difficulty breathing, abdominal pain. Denies any significant pain to his hand. Reports that his tetanus is up-to-date. Denies additional acute medical complaints
Past History
Past History
ED Past Medical History: HTN, Hypercholesterolemia and NIDDM
ED Past Surgical History: Cardiac (Pacemaker/stents), Orthopedic (Laminectomy) and Other (Stents bilateral lower extremities for peripheral vascular disease)
Social History
Tobacco: Former smoker
Alcohol: Occasional
Drug: None
Personal:
Living: with family
Phy Exam
Physical Exam
Physical Exam:
General: Well-appearing, no clinical signs of dehydration, nontoxic and in no acute distress
HEENT: protecting airway
Neck: appears supple, no midline cervical tenderness
CV: Normal heart rate, regular rhythm
Resp: No accessory muscle use, no increased work of breathing, lungs clear to auscultation bilaterally
Abd: Soft and non-distended, no tenderness to palpation
Extremities: No deformities, no swelling, skin tear to the left hypothenar eminence. Range of motion intact.
Neuro: alert, no focal neurologic deficit
: deferred
Rectal: deferred
Psych: Normal affect
Skin: Intact
Course
Orders/Labs/Results
Orders:
Orders
05/29/24 19:34
CT Head W/o Iv Contrast Urgent
Comment:
Reason For Exam: fall, on thinners
Vital Signs
Initial and Last Documented VS:
Initial Vital Signs
Temp Pulse Resp BP Pulse Ox
98.5 F 64 18 141/72 98
05/29/24 18:28 05/29/24 18:28 05/29/24 18:28 05/29/24 18:28 05/29/24 18:28
Last Documented Vital Signs
Temp Pulse Resp BP Pulse Ox
98.5 F 64 18 141/72 98
05/29/24 18:28 05/29/24 18:28 05/29/24 18:28 05/29/24 18:28 05/29/24 18:28
MDM/Problems Addressed
MDM/Problems Addressed:
78-year-old male with history of A-fib on Eliquis presenting after a fall. Vital signs are normal.
On exam patient is resting comfortably, no acute distress. Mild skin tear to the left hand, otherwise no significant signs of trauma. GCS 15. Patient is unsure whether or not he struck his head. Given anticoagulation status, will screen with CT
brain imaging. Patient skin tear was appropriately dressed and clean. Notes tetanus up-to-date.
20:35- CT brain without acute intracranial abnormality. On reassessment, patient remained stable. Feel stable for discharge. Return precautions discussed and patient verbalized understanding
*Critical Care Note
Total Time (30-74mins, 75-104mins- exclusive of procedures): Not Applicable
ED Attending Note
-
Portions of this chart may have been created with voice recognition software.� Occasional wrong word or��sound alike� substitutions may have occurred due to the inherent limitations of voice recognition software.
Discharge Plan
Departure
Prescriptions:
No Action
cyanocobalamin (vitamin B-12) 1,000 MCG tablet
1,000 mcg PO DAILY
atorvastatin 40 MG tablet
40 mg PO HS
trazodone 100 MG tablet
100 mg PO HS
pantoprazole 40 MG tablet,delayed release (DR/EC)
40 mg PO DAILY
pregabalin [Lyrica] 150 MG capsule
300 mg PO HS
aspirin 81 MG tablet,delayed release (DR/EC)
81 mg PO DAILY
carvedilol 12.5 mg tablet
12.5 mg PO BID
pregabalin 150 mg capsule
150 mg PO DAILY
Levemir FlexPen 100 unit/mL (3 mL) insulin pen
55 unit SC HS
Eliquis 5 mg tablet
5 mg PO BID
Combivent Respimat 20-100 mcg/actuation Mist
1 puff INHALATION R Q4HPRN PRN (Reason: sob/wheezing)
furosemide [Lasix] 40 mg Tablet
40 mg PO DAILY
finasteride 5 mg Tablet
5 mg PO DAILY Qty: 30 0RF
Patient Comments:
12/05/23: Patient unsure if he currently takes this medication.
acetaminophen [Tylenol] 325 mg Tablet
650 mg PO Q6HPRN PRN (Reason: mild pain)
insulin aspart U-100 [Novolog FlexPen U-100 Insulin] 300 UNITS/3 ML insulin pen
20 sliding scale dose SC AC
polyethylene glycol 3350 17 gram/dose powder
17 g PO DAILY Qty: 510 0RF
amlodipine 10 MG tablet
5 mg PO DAILY Qty: 30 0RF
Referrals:
Haja Manuel MD [Family Provider] -
Interventions
Interventions:
*Risk Screen - Suicide Last Done: 05/29/24 18:28
*General Assessment Last Done: 05/29/24 18:28
*Neglect/Abuse Screening Last Done: 05/29/24 18:28
*ED COVID-19 Vaccine History Last Done: 05/29/24 18:28
Discharge Date and Time
Print Language: [place]
== END 2024-05-29 22:03 | disposition home or self-care (01) ==
LOC: EMR 18:19
PROVIDERS: EMERGENCY PHYSICIAN Student in an Organized Health Care Education/Training Program; FAMILY PHYSICIAN Family Medicine
DX: S61.412A Laceration without foreign body of left hand, initial encounter (principal); W19.XXXA Unspecified fall, initial encounter; I48.91 Unspecified atrial fibrillation; I10 Essential (primary) hypertension; E11.51 Type 2 diabetes mellitus with diabetic peripheral angiopathy without gangrene; E78.00 Pure hypercholesterolemia, unspecified; Z87.891 Personal history of nicotine dependence; Z95.0 Presence of cardiac pacemaker; Z95.5 Presence of coronary angioplasty implant and graft
CPT/HCPCS: 99284; 70450

== ENCOUNTER 2024-06-20 15:20 | Emergency (ER) | payer OTHER, SELFPAY ==
[2024-06-20 15:27] VITALS: BP 138/108
--- NOTE | 2024-06-20 16:03 | ED.GENMED ---
History of Present Illness
General
Chief Complaint: Fall
Source: patient
Exam Limitations: none
Time Seen by Provider: 06/20/24 15:44
Nursing documentation reviewed up to this point in time: agreed with
History of Present Illness
History of Present Illness:
79 yo male w h/o afib on Eliquis, neuropathy, COPD, CPAP, HTN, HLD, FL, cardiac stent x 6, pacemaker, IDDM, depression, lives alone, states he was rolling his trash can in the driveway at home, 'it wheeled away from me and down I went.'
Laceration left forehead, pain and swelling left wrist. Denies LOC, denies nekc pain, change in vision, denies headache.
Denies CP, SOB, abd pain, n/v/d/c. Has had Tdap within past 5 years.
Past History
Past History
ED Past Medical History: COPD, HTN, Hypercholesterolemia, IDDM, Psychiatric (depression) and Other (CKD)
ED Past Surgical History: Cardiac (Pacemaker/stents), Orthopedic (Laminectomy) and Other (Stents bilateral lower extremities for peripheral vascular disease)
Social History
Tobacco: Former smoker
Alcohol: Occasional
Drug: None
Personal:
Living: with family
Review of Systems
Review of Systems
Allergies reviewed?: Yes
All Other Systems: ROS reviewed and negative except as documented in HPI and ROS
Constitutional: Denies fever
Respiratory: Denies trouble breathing
Cardiac: Denies chest pain or syncope
ABD/GI: Denies abdominal pain or nausea
: Denies incontinence
Musculoskeletal: Reports other (pain swelling left wrist); Denies neck pain or back pain
Skin: Reports other (scrape left forehead, right middle finger, )
Neurological: Reports no symptoms
Phy Exam
Physical Exam
Physical Exam:
GENERAL: No acute distress. A&Ox3.
CONSTITUTIONAL: Afebrile.
EYES: clear, conjunctivae normal, PERRL, EOMs intact
ENMT: moist mucus membranes, Pharynx nl
RESPIRATORY: Regular respirations, nonlabored, lungs clear.
CARDIOVASCULAR: Regular rate and rhythm, no murmurs, no rubs.
GI: Soft, nontender, normal BS
MUSCULOSKELETAL: No spinal bony tenderness. Left wrist with large dorsal hematoma, full ROM, distal n/v intact. Legs with mild chronic swelling, no pitting. Well perfused.
SKIN: Warm, dry, pink. Deep clean abrasion left forehead, small abrasion right middle finger dorsum.
PSYCH: Normal mood and affect. Well kept, interactive and appropriate
NEUROLOGIC: Awake, alert and oriented. Speech clear, CN 2-12 intact. Finger to nose intact. No focal neurological deficits
Course
Orders/Labs/Results
Orders:
Orders
06/20/24 15:21
CT Head W/o Iv Contrast Urgent
Comment:
Reason For Exam: fall hit head on bld thinner
06/20/24 15:33
Wrist, Left 3 Views CR [CR Wrist - Left Min 3 Views] Urgent
Comment:
Reason For Exam: injury
06/20/24 15:41
CT Cervical Spine W/o Iv Contr Urgent
Comment:
Reason For Exam: fall
06/20/24 17:50
Reji Wrap Left-Treatment ONCE
Vital Signs
Initial and Last Documented VS:
Initial Vital Signs
Temp Pulse Resp BP Pulse Ox
98 F 63 16 138/108 94
06/20/24 15:27 06/20/24 15:27 06/20/24 15:27 06/20/24 15:27 06/20/24 15:27
Last Documented Vital Signs
Temp Pulse Resp BP Pulse Ox
98 F 67 16 155/69 96
06/20/24 15:27 06/20/24 17:55 06/20/24 17:55 06/20/24 17:55 03/14/25 17:55
MDM/Problems Addressed
Differential Diagnosis Includes:
Brain bleed, concussion
Wrist fx, contusion, hematoma
MDM/Problems Addressed:
79 yo male w h/o afib on Eliquis, neuropathy, COPD, CPAP, HTN, HLD, FL, cardiac stent x 6, pacemaker, IDDM, depression, lives alone, states he was rolling his trash can in the driveway at home, 'it wheeled away from me and down I went.'
Laceration left forehead, pain and swelling left wrist. Denies LOC, denies nekc pain, change in vision, denies headache.
Denies CP, SOB, abd pain, n/v/d/c. Has had Tdap within past 5 years.
Afebrile, NAD
Cold compress applied to left wrist hematoma.
5:[address]
C-spine CT radiology report read: No evidence of acute fracture or dislocation
Head CT radiology report read: No evidence of acute intracranial abnormality
Left wrist x-ray read by this examiner: No acute bony abnormality noted. Significant soft tissue swelling dorsum of the wrist consistent with hematoma.
5:50 p.m.
Pt OOB and ambulating well.
Reji wrap applied to left wrist hematoma, slightly less swollen now.
Stable for discharge
*Critical Care Note
Total Time (30-74mins, 75-104mins- exclusive of procedures): Not Applicable
ED Attending Note
-
Portions of this chart may have been created with voice recognition software.� Occasional wrong word or��sound alike� substitutions may have occurred due to the inherent limitations of voice recognition software.
Discharge Plan
Departure
Patient Disposition: Home (Routine Discharge)
Date of Disposition: 06/20/24
Time of Disposition: 18:47
Patient with high blood pressure during this ER visit?: No
Condition: Good
Discharge Problem:
Fall
Instructions: Laceration Repair With Glue (DC), Head Injury in Adults (DC), Skin Abrasions (DC)
Prescriptions:
No Action
cyanocobalamin (vitamin B-12) 1,000 MCG tablet
1,000 mcg PO DAILY
atorvastatin 40 MG tablet
40 mg PO HS
trazodone 100 MG tablet
100 mg PO HS
pantoprazole 40 MG tablet,delayed release (DR/EC)
40 mg PO DAILY
pregabalin [Lyrica] 150 MG capsule
300 mg PO HS
aspirin 81 MG tablet,delayed release (DR/EC)
81 mg PO DAILY
carvedilol 12.5 mg tablet
12.5 mg PO BID
pregabalin 150 mg capsule
150 mg PO DAILY
Eliquis 5 mg tablet
5 mg PO BID
Combivent Respimat 20-100 mcg/actuation Mist
1 puff INHALATION R Q4HPRN PRN (Reason: sob/wheezing)
furosemide [Lasix] 40 mg Tablet
40 mg PO DAILY
finasteride 5 mg Tablet
5 mg PO DAILY Qty: 30 0RF
Patient Comments:
12/05/23: Patient unsure if he currently takes this medication.
insulin aspart U-100 [Novolog FlexPen U-100 Insulin] 300 UNITS/3 ML insulin pen
20 sliding scale dose SC AC
amlodipine 10 MG tablet
5 mg PO DAILY Qty: 30 0RF
insulin glargine [Lantus Solostar U-100 Insulin] 100 unit/mL (3 mL) Insulin Pen
55 unit SC HS
Referrals:
Haja Manuel MD [Family Provider] - Follow up in 2-3 days
Activity Restrictions/Additional Instructions:
As we discussed, nothing worrisome in your workup here today.
Return here IMMEDIATELY for vomiting more than once, confusion, headache that gets worse and worse despite Tylenol or feeling worse in any way.
See your doctor Sunday for recheck.
You may gently cleanse the forehead scrape with soap and water as usual in the shower. Apply antibiotic ointment like neosporin.
Apply cold compress to the left wrist swelling 20 minutes off and on today and tomorrow while awake to reduce swelling
Wear the reji wrap over the wrist for the next few days until the swelling is much better.
Interventions
Interventions:
*Risk Screen - Suicide Last Done: 06/20/24 15:33
*General Assessment Last Done: 06/20/24 16:19
*Neglect/Abuse Screening Last Done: 06/20/24 15:33
*ED- Fall Risk Assessment Last Done: 06/20/24 16:19
*ED COVID-19 Vaccine History Last Done: 06/20/24 16:46
*Nursing Disposition Last Done: 06/20/24 18:53
ED-Musculoskeletal Assessment Last Done: 06/20/24 16:23
ED- Neurological Assessment Last Done: 06/20/24 16:46
ED-Skin Assessment Last Done: 06/20/24 16:46
Discharge Date and Time
Discharge Date/Time: 06/20/24 18:53
Print Language: ROMANIAN
[2024-06-20 16:19] VITALS: BMI 34.8
[2024-06-20 16:23] VITALS: BP 133/62
--- NOTE | 2024-06-20 16:50 | EDRN ---
Pt says a trash can rolled away from him and he thinks he lost his balance. Pt fell onto concrete. Head strike with no loc. Pt called 911 from phone he had on him. Pt was unable to get up on his own. Pt denies headache, n/v, neck/back pain,
n/v, visual disturbance. Pt denies all pain. Dried blood cleaned from pt's face, L forearm and hands. Abrasion L forehead was glued by Shnatelle Jaime NP. Abrasion L wrist cleaned, abx and bandaid applied. Pt has large area of swelling dorsal wrist - ice
applied.
[2024-06-20 17:55] VITALS: BP 155/69
--- NOTE | 2024-06-20 18:10 | EDRN ---
Pt ambulated to and from bathroom using his cane. Pt denies pain. 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 Pt says he feels safe to go home, calling for ride home. Telfa dressing applied to L forehead. Fresh ice pack provided.
== END 2024-06-20 18:53 | disposition home or self-care (01) ==
LOC: EMR 15:20
PROVIDERS: EMERGENCY PHYSICIAN Emergency Medicine; FAMILY PHYSICIAN Family Medicine
DX: S60.212A Contusion of left wrist, initial encounter (principal); S01.81XA Laceration without foreign body of other part of head, initial encounter; W19.XXXA Unspecified fall, initial encounter; I48.91 Unspecified atrial fibrillation; I12.9 Hypertensive chronic kidney disease with stage 1 through stage 4 chronic kidney disease, or unspecified chronic kidney disease; E11.22 Type 2 diabetes mellitus with diabetic chronic kidney disease; N18.9 Chronic kidney disease, unspecified; E11.51 Type 2 diabetes mellitus with diabetic peripheral angiopathy without gangrene; E78.00 Pure hypercholesterolemia, unspecified; I25.2 Old myocardial infarction; J44.9 Chronic obstructive pulmonary disease, unspecified; F32.A Depression, unspecified; Z79.01 Long term (current) use of anticoagulants; Z87.891 Personal history of nicotine dependence; Z95.0 Presence of cardiac pacemaker; Z95.5 Presence of coronary angioplasty implant and graft
CPT/HCPCS: 99284; 70450; 72125; 73110

== ENCOUNTER → 2024-10-24 14:50 | Outpatient (REF) | payer OTHER, SELFPAY | LOC: RAD 14:50 | PROVIDERS: ATTENDING PHYSICIAN Podiatrist Foot & Ankle Surgery; FAMILY PHYSICIAN Family Medicine | DX: L97.422 Non-pressure chronic ulcer of left heel and midfoot with fat layer exposed (principal); E11.51 Type 2 diabetes mellitus with diabetic peripheral angiopathy without gangrene | CPT/HCPCS: 93922; 93925 ==

== ENCOUNTER → 2024-12-15 14:04 | Outpatient (REF) | payer OTHER, SELFPAY | LOC: RCS 14:04 | PROVIDERS: ATTENDING PHYSICIAN Internal Medicine Interventional Cardiology; FAMILY PHYSICIAN Family Medicine | DX: I10 Essential (primary) hypertension (principal); I25.10 Atherosclerotic heart disease of native coronary artery without angina pectoris; I25.2 Old myocardial infarction | CPT/HCPCS: 93306 ==

== ENCOUNTER 2025-01-09 13:43 | Inpatient (IN) | payer OTHER, SELFPAY ==
[2025-01-09] VITALS (9 sets, daily range): BP systolic 118–132; BP diastolic 53–81; PULSE 83
[2025-01-09 11:02] LABS: Hematocrit 34.9 % (39.0-52.0); Hemoglobin 12.2 g/dL (13.0-18.0); Mean Corp Hgb Conc. 35.0 g/dL (33.0-37.0); Mean Corpuscular Volume 95.4 fL (80.0-94.0); Nucleated Red Blood Cells % 0 % (-); Platelet Count 187 10^3/uL (130-400); Red Cell Dist. Width 13.6 % (11.5-14.5)
[2025-01-09 11:20] LABS: COVID-19 Antigen Negative (Negative)
[2025-01-09 11:28] LABS: ALT (SGPT) 24 U/L (0-50); AST (SGOT) 35 U/L (17-59); Albumin 3.9 g/dl (3.5-5.0); Alkaline Phosphatase 109 U/L (38-126); Blood Urea Nitrogen 26 mg/dl (9-20); Calcium 8.6 mg/dl (8.4-10.2); Carbon Dioxide 26 mmol/L (22-30); Chloride 100 mmol/L (98-107); Estimated Creatinine Clearance 42 ml/min; Glucose 321 mg/dl (70-99); Potassium 4.3 mmol/L (3.5-5.1); Sodium 135 mmol/L (135-145); Total Protein 6.9 g/dl (6.3-8.2); eGFR 46.77
[2025-01-09 12:20] LABS: Urine Character Clear (Clear)
--- NOTE | 2025-01-09 12:22 | ED.GENMED ---
History of Present Illness
General
Chief Complaint: Breathing Problem
Source: patient
Time Seen by Provider: 01/09/25 10:41
History of Present Illness
History of Present Illness:
Note:
CHIEF COMPLAINT(S)
Weakness and cough.
HISTORY OF PRESENT ILLNESS
The patient is an 79-year-old male who presents with difficulty standing, weakness, and cough, which have been ongoing for approximately two and a half weeks. He reports experiencing some shortness of breath but is unsure of any fever. The patient
fell last night, possibly hitting his head, resulting in some bruising. He has a history of using a CPAP at night but does not use supplemental oxygen at home regularly. He was unable to attend his doctors appointment due to transportation issues
and called an ambulance. EMS provided a breathing treatment, which did not provide significant relief. The patient is not currently smoking but did so in the past. He reports some difficulty expectorating sputum.
ADDITIONAL HISTORY OBTAINED FROM SOURCES OTHER THAN PATIENT
EMS provided a breathing treatment and measured the patients oxygen saturation, which was 91% on room air.
SOCIAL DETERMINANTS AFFECTING HEALTH
The patient lives alone and reported an inability to access transportation to attend his doctors office.
REVIEW OF SYSTEMS
- Constitutional: Reports of weakness.
- Respiratory: Cough and shortness of breath. No productive sputum.
- Musculoskeletal: Reported shakiness of the knee when attempting to bend it.
- Skin: Bruising noted on the head.
- Cardiovascular: No reports of chest pain.
PHYSICAL EXAM
General: Alert, no acute distress.
Skin: Warm, dry. Ecchymosis noted on the head.
Head: Normocephalic, atraumatic with noted bruising.
Neck: Supple, trachea midline.
Eye Ears, nose, mouth and throat: Oral mucosa moist.
Cardiovascular: Heart Rate Regular. Normal peripheral perfusion, No edema.
Respiratory: Bilateral rhonchi, mild tachypnea. Respirations are non-labored. Oxygen saturation 91% on room air.
Gastrointestinal: Abdomen nondistended.
Back: Normal range of motion, Normal alignment.
Musculoskeletal: Mild tenderness and redness on right patellar region. Swelling noted on the bilateral feet, described as usual by the patient. Patient experiences shakiness on bending knee.
Neurological: Alert and oriented to person, place, time, and situation, No focal neurological deficit observed.
Psychiatric: Cooperative, appropriate mood & affect.
PROBLEM LIST
- Acute: Difficulty standing, cough, shortness of breath, possible pneumonia, leg swelling.
PLAN
- Obtain a chest X-ray to evaluate for pneumonia or other respiratory causes.
- Conduct blood work to assess for infection or other metabolic causes.
- Monitor oxygen saturation and provide supplemental oxygen as needed.
DIFFERENTIAL DIAGNOSIS
The Differential Diagnosis includes, in no particular order and is not limited to:
1. Pneumonia
2. Chronic obstructive pulmonary disease (COPD) exacerbation
3. Congestive heart failure
4. Pulmonary embolism
5. Anemia
6. Urinary tract infection
7. Dehydration
8. Stroke or transient ischemic attack
9. Metabolic imbalance
10. Medication side effects
EKG
My independent EKG interpretation is:
- Rhythm: AV pacemaker
- Heart Rate: 76 bpm
- No acute ischemic changes noted
Disposition:
SUMMARY OF ENCOUNTER
The patient, an 79-year-old male with a history of chronic obstructive pulmonary disease (COPD) and bronchitis, presented with a productive cough over the past one and a half weeks. He was found to be hypoxic. Laboratory tests revealed leukocytosis
with a white blood cell count of 17,000, elevated from 8,000 in November 2023, and a left shift with 83% neutrophils. The patients chemistry panel indicated acute kidney injury with a creatinine level of 1.5 mg/dL, hyperglycemia with a glucose level
of 321 mg/dL, and an elevated B-type Natriuretic Peptide (BNP) at 3,000 pg/mL. A COVID test returned negative. Chest X-ray shows suspicion for an infiltrating process. Management included initiating broad-spectrum antibiotics, corticosteroids, and
bronchodilators. Due to worsening respiratory status and increased oxygen demand, the decision was made to admit the patient for further evaluation and management.
DISPOSITION
Admit
ASSESSMENT
The patient demonstrates clinical signs consistent with a respiratory infection, likely pneumonia given the productive cough and chest X-ray findings, compounded by acute kidney injury and hyperglycemia. The elevated BNP also raises concern for
possible heart failure exacerbation, warranting further inpatient evaluation and management.
INDEPENDENT REVIEW OF LABS AND INTERPRETATION OF TESTS
- My independent review of CBC shows leukocytosis with a white blood cell count of 17,000 and a left shift of 83% neutrophils.
- My independent review of BMP indicates acute kidney injury with a creatinine level of 1.5 mg/dL and hyperglycemia with a glucose level of 321 mg/dL.
- My independent review of BNP shows an elevation at 3,000 pg/mL.
- My independent interpretation of the COVID test is negative.
- My independent interpretation of the chest X-ray indicates a suspicion for an infiltrating process.
MEDICATION RECONCILIATION
- Broad-spectrum antibiotics initiated.
- Corticosteroids administered.
- Bronchodilators provided.
MEDICAL DECISION MAKING
-Complexity of Data Reviewed: Chronic conditions affecting care, including COPD and bronchitis. Differential diagnosis includes pneumonia, acute kidney injury, heart failure exacerbation, and hyperglycemia.
-Data:
Category 1:
- Reviewed external records showing a previous white blood cell count of 8,000 in November 2023.
- Clinical information obtained from an independent historian.
Category 2:
- My independent interpretation of the CBC, BMP, BNP, and COVID-19 tests.
-Risk:
Prescription medication management with antibiotics, steroids, and bronchodilators. The patient requires hospitalization due to the complexity and risk associated with the respiratory infection, potential heart failure exacerbation, and renal
impairment.
DIAGNOSIS
- Pneumonia, unspecified organism (ICD-10: J18.9)
- Acute kidney injury, unspecified (ICD-10: N17.9)
- Hyperglycemia, unspecified (ICD-10: R73.9)
- Chronic obstructive pulmonary disease with bronchitis (ICD-10: J44.0)
Past History
Past History
ED Past Medical History: COPD, HTN, Hypercholesterolemia, IDDM, Psychiatric (depression) and Other (CKD)
ED Past Surgical History: Cardiac (Pacemaker/stents), Orthopedic (Laminectomy) and Other (Stents bilateral lower extremities for peripheral vascular disease)
Social History
Tobacco: Former smoker
Alcohol: Occasional
Drug: None
Personal:
Living: with family
Phy Exam
Physical Exam
Physical Exam:
.
Scores
Heart Failure Risk
Heart Failure Risk Score: Not Applicable
Course
Orders/Labs/Results
Orders:
Orders
01/09/25 Breakfast
2000 calorie (17 carb) Diabetic
At Your Request: Limited Participation
01/09/25 10:41
Electrocardiogram (*1) Urgent
Reason for Study: Shortness of Breath
EKG- Treatment ONCE
01/09/25 10:53
COVID-19 Antigen Urgent
Source: Nasal Swab
Complete Blood Count/With Diff Urgent
Comprehensive Metabolic Panel Urgent
Lactic Acid Urgent
NT-proBNP Urgent
Blood Culture Urgent
FELICIANO Source: Blood/Venous
Specimen Description:
Influenza A+B Rapid Molecular Urgent
FELICIANO Source: Nasal Swab
Specimen Description:
CR Chest - 2 Views Urgent
Comment:
Reason For Exam: cough
01/09/25 11:50
Urinalysis Reflex To Culture Urgent
Date Specimen was Collected: 01/09/25
Time Specimen was Collected: 11:48
Urine Microscopic Reflex Cult Urgent
01/09/25 12:22
Ipratropium/Albuterol Sulfate [Duoneb] 3 ml INH R NOW STA
Piperacillin/Tazo 3.375 Gram [Zosyn] 3.375 gram in 50 ml IV NOW
01/09/25 12:23
Dexamethasone Sod Phosphate [Decadron] 10 mg IV NOW STA
Vancomycin [Vancocin] 2,000 mg 0.9% Sodium Chloride 500 ml [Nss] 500 ml IV NOW
01/09/25 12:32
Blood Culture Urgent
FELICIANO Source: Blood/Venous
Specimen Description:
01/09/25 13:06
CT Head W/o Iv Contrast Stat
Comment:
Reason For Exam: fall
01/09/25 13:11
Admit/Transfer Patient As Directed
Co-Sign Provider:
Level of Care: Inpatient admission
Assign to:: Telemetry
Physician / Group: leni
Diagnosis: acute hypoxia
Reason for Telemetry: Arrhythmia
Date to Stop Telemetry: 01/12/25
Time to Stop Telemetry: 11:00
Reason for Hospitalization: acute hypoxia
Expected length of stay greater than two midnights?: Yes
ELOS- Estimated Length of Stay in days: 3
I certify the patient meets the requirements for IP care: Yes
PRN Pain Medication Management As Directed
May give lesser potent ordered pain med per pt: Yes
preference::
Protocol:: Medication orders for pain may be administered in a
manner that supports deferring to patient preference
when the pt is:
- Requesting an ordered lesser potent pain medication.
Least to most potent pain medications are defined
as: acetaminophen < NSAID < tramadol < opioids
(morphine, oxycodone, hydromorphone).
- Requesting a lesser dose of the same medication IF
ORDERED.
- Requesting a less intrusive route of administration
if both routes are prescribed by the provider (PO <
IV).
01/09/25 13:13
Code Status As Directed
Resuscitation Status: Full Code
01/09/25 14:25
Acetaminophen [Tylenol] 650 mg PO Q4HPRN PRN
Dexamethasone Sod Phosphate [Decadron] 4 mg IV Q8
Dextrose 50%-Water [Dextrose 50% Syringe] 12.5 grams IV [id number] PRN
Glucagon [GlucaGen] 1 mg IM PRN PRN
Ipratropium/Albuterol Sulfate [Duoneb] 3 ml INH R Q4HPRN PRN
01/09/25 14:25
Legionella Urinary Antigen Routine
FELICIANO Source: Urine
Specimen Description:
Respiratory Culture/Gram Stain Urgent
FELICIANO Source: Sputum
Specimen Description:
Date Specimen was Collected: 01/10/25
Time Specimen was Collected: 09:20
Strep pneumoniae Antigen Routine
FELICIANO Source: Urine
Specimen Description:
Activity As Directed
Activity Level: Out of Bed-Early Mobility
Bedside Glucose Monitoring As Directed
Frequency: AC&HS
Additional Instructions:: Change to q6h if pt on TPN, tube feeding or not eating
Intake/ Output As Directed
Frequency: Per unit guidelines
Vital Signs As Directed
Frequency: Per unit guidelines
Weight As Directed
Frequency: Once
Comment: on admission
Cpap [RESP] Routine
Patient to use own unit?: No
Set Pressure (cm H2O): 11
Pulse Ox/cont/shift [RESP] Routine
Quantity: 1
Special Instructions: notify provider if SPO2 < 91%
Ot Eval And Treat Routine
Pt Eval And Treat Routine
Activity Level: As Tolerated
01/09/25 15:00
CefTRIAXone [Rocephin] 1,000 mg IV Q24H
01/09/25 16:30
Insulin Aspart Corrective Mod [Novolog Flexpen-Moderate Resistance] See Protocol SC AC
01/09/25 20:00
Apixaban [Eliquis] 2.5 mg PO BID
Carvedilol [Coreg] 12.5 mg PO BID
Doxycycline [Vibramycin] 100 mg PO BID
Guaifenesin [Mucinex] 600 mg PO Q12
01/09/25 22:00
Atorvastatin [Lipitor] 40 mg PO HS
Pregabalin [Lyrica] 300 mg PO HS
Tamsulosin [Flomax] 2 mg PO HS
Trazodone [Desyrel] 100 mg PO HS
01/10/25 07:36
Basic Metabolic Panel IN AM
Complete Blood Count/No Diff IN AM
Glycohemoglobin (HgbA1c) IN AM
01/10/25 08:00
Amlodipine [Norvasc] 10 mg PO DAILY
Aspirin Low Dose EC [Aspir Low (Enteric Coated)] 81 mg PO DAILY
Finasteride [Proscar] 5 mg PO DAILY
Furosemide [Lasix] 40 mg PO DAILY
Pantoprazole [Protonix] 40 mg PO DAILY
Pregabalin [Lyrica] 150 mg PO DAILY
01/11/25 06:00
Basic Metabolic Panel IN AM
Complete Blood Count/No Diff IN AM
01/12/25 06:00
Basic Metabolic Panel IN AM
Complete Blood Count/No Diff IN AM
01/12/25 11:00
DC Protocol for Telemetry ONCE
01/13/25 06:00
Basic Metabolic Panel IN AM
Complete Blood Count/No Diff IN AM
Abnormal Lab Results
01/09/25 01/09/25
10:53 11:50
WBC 17.3 H 10^3/uL
(4.8-10.8)
RBC 3.66 L 10^6/uL
(4.70-6.10)
Hgb 12.2 L g/dL
(13.0-18.0)
Hct 34.9 L %
(39.0-52.0)
MCV 95.4 H fL
(80.0-94.0)
MCH 33.3 H pg
(27.0-31.0)
Abs Immat Gran (auto) 0.1 H 10^3/uL
(0-0.05)
Absolute Neuts (auto) 14.4 H 10^3/uL
(1.4-6.5)
Absolute Lymphs (auto) 0.9 L 10^3/uL
(1.2-3.4)
Absolute Monos (auto) 1.8 H 10^3/uL
(0.1-0.6)
Neutrophils % 83.6 H %
(42.2-75.2)
Lymphocytes % 5.2 L %
(20.5-51.1)
Monocytes % 10.4 H %
(1.7-9.3)
BUN 26 H mg/dl
(9-20)
Creatinine 1.5 H mg/dL
(0.7-1.3)
Glucose 321 H mg/dl
(70-99)
Total Bilirubin 1.9 H mg/dl
(0.2-1.3)
Urine Ketones 3+ A
(Negative)
Ur Occult Blood Reflex 2+ A
(Negative)
Urine Bacteria (Reflex) Few A
(Negative)
Urine Glucose 2+ A
(Negative)
Urine Albumin (Reflex) 3+ A
(Neg - Trace)
01/09/25 10:53
01/09/25 10:53
Vital Signs
Initial and Last Documented VS:
Initial Vital Signs
BP
122/73
01/09/25 10:42
Last Documented Vital Signs
Temp Pulse Resp BP Pulse Ox
98.1 F 67 18 118/58 90
01/10/25 11:00 01/10/25 11:00 01/10/25 11:00 01/10/25 11:00 01/10/25 11:00
*Pulse Oximetry
SaO2: 95
Nasal Cannula flow liters per minute: 2
Patient hypoxic: yes
*Critical Care Note
Total Time (30-74mins, 75-104mins- exclusive of procedures): 30 minutes
ED Attending Note
-
Portions of this chart may have been created with voice recognition software.� Occasional wrong word or��sound alike� substitutions may have occurred due to the inherent limitations of voice recognition software.
Discharge Plan
Departure
Patient Disposition: Admit
Date of Disposition: 01/09/25
Time of Disposition: 12:35
Admit to: Telemetry
Presentation/result/management discussed w/ accepting MD/DO: Hospitalist
Discharge Problem:
Pneumonia, Hypoxia, Acute exacerbation of chronic obstructive pulmonary disease, Acute kidney injury, Acute hyperglycemia
Interventions
Interventions:
*Risk Screen - Suicide Last Done: 01/09/25 10:43
*General Assessment Last Done: 01/09/25 10:43
*Neglect/Abuse Screening Last Done: 01/09/25 10:43
*ED- Fall Risk Assessment Last Done: 01/09/25 10:47
*ED COVID-19 Vaccine History Last Done: 01/09/25 10:47
*ED Influenza Vaccine History Last Done: 01/09/25 10:47
*Nursing Disposition Last Done: 01/09/25 13:55
ED- Cardiac Assessment Last Done: 01/09/25 10:47
ED- Pulmonary Assessment Last Done: 01/09/25 10:47
Discharge Date and Time
Discharge Date/Time: 01/09/25 14:23
[2025-01-09] MEDS: ZOSYN 50 IV (12:33)
[2025-01-09] MEDS: DECADRON 10 MG IV (12:33)
[2025-01-09] MEDS: DUONEB 3 ML INH (12:33)
--- NOTE | 2025-01-09 12:40 | HPS.HSE ---
Addendum entered and electronically signed by Mukesh Castillo MD 01/09/25 14:29:
This is an addendum to the H&P written by Zahraa Don on 01/09/2025. �Patient seen and examined independently with [employer].
79-year-old male past medical history of hypertension, paroxysmal atrial fibrillation on Eliquis, chronic HFrEF, stage III left heel pressure injury, type 2 diabetes, obstructive sleep apnea, COPD, CKD 3, CVA, daily alcohol use, obesity, chronic
lower extremity edema presenting with weakness, cough ongoing for 2 weeks. �Has shortness of breath. �No fever. �He fell last night after right leg gave out and he hit his head.� He did not take insulin in 3 days due to poor p.o. intake.
Vital signs show hypoxemia of 91% requiring 2 L of oxygen.
Labs show leukocytosis of 17. �Creatinine 1.5 at baseline . �Glucose 321. �COVID and influenza negative. �Cardiac BNP of 3000 from 6100 previously.
Chest x-ray shows hypoinflated lungs. �Mild parenchymal opacity over both lower lungs likely atelectasis.
Patient with mild hypoxemia secondary to pneumonia/COPD exacerbation.� �Hyperglycemia secondary to infection/insulin noncompliance. �Resume insulin. �Check sputum culture,�Ceftriaxone/Doxycycline. �Dexamethasone. �DuoNebs. �Check CT head given head
injury on Eliquis.
Original Note:
Family Physician
-
Family Physician: Haja Manuel
Chief Complaint
-
congestion, cough,
History of Present Illness
79-year-old male with PMH for Type 2 DM, CHF, GERD, paroxysmal atrial fib presented to us with cough, congestion, runny nose for past ten days.patient stated cough is productive with dark green color. patient stated very weak. cough is worse with
exertion. he fell lat night after his right leg gave up and hit his head on the floor. not sure about the fever. denied CAPPS, dizzy or syncope. denied chest pain. denied abdominal pain,n,v,d. denied dysuria or hematuria.
Concern for pneumonia and COPD exacerbation. Patient received vancomycin and Zosyn in ER. Patient also received Decadron in the ER. Admitted for further management
Medical History
Past Medical History
Past Medical History: Reports Other
Additional Past Medical History:
Coronary artery disease, type 2 diabetes, peripheral artery disease,
Past Surgical History: Reports Other
Additional Past Surgical History:
Coronary artery stent
Right sided hemilaminectomy, facetectomy
Amputation of right second toe
Left big toe partial amputation right wrist carpal tunnel
Social History
Tobacco: Former Smoker
Alcohol: Daily
Drug: None
Personal: Single
Living: Alone
Family History
Family History: Not pertinent
Allergies / Home Medications
Allergies reflects when Allergies were last updated in [employer] [employer].
Home Medications with original date entered in [facility] [employer]
Allergy/Medication List:
Allergies
Allergy/AdvReac Type Severity Reaction Status Date / Time
No Known Allergies Allergy Verified 06/20/24 16:48
Home Medications
cyanocobalamin (vitamin B-12) 1,000 mcg tablet 1,000 mcg PO DAILY Supplement 07/27/14
atorvastatin 40 mg tablet 40 mg PO HS High cholesterol 03/15/20
pantoprazole 40 mg tablet,delayed release 40 mg PO DAILY Gastrointestinal issue 03/15/20
pregabalin 150 mg capsule (Lyrica) 300 mg PO HS fibromyalgia 03/15/20
trazodone 100 mg tablet 100 mg PO HS sleep/mood 03/15/20
aspirin 81 mg tablet,delayed release 81 mg PO DAILY Blood clot prevention/tx 04/23/20
apixaban 5 mg tablet (Eliquis) 5 mg PO BID Blood Clot Prevention/Tx 05/17/23
carvedilol 12.5 mg tablet 12.5 mg PO BID Heart Disease/Condition 05/17/23
ipratropium 20 mcg-albuterol 100 mcg/actuation mist for inhalation (Combivent Respimat) 1 puff inhalation R Q4HPRN PRN sob/wheezing 05/17/23
pregabalin 150 mg capsule 150 mg PO DAILY Pain 05/17/23
furosemide 40 mg tablet (Lasix) 40 mg PO DAILY Fluid Retention/Swelling 10/26/23
finasteride 5 mg tablet 5 mg PO DAILY Urinary issue #30 tabs 10/29/23
insulin aspart U-100 100 unit/mL (3 mL) subcutaneous pen (Novolog FlexPen U-100 Insulin aspart) 20 sliding scale dose SC AC Diabetes 12/05/23
amlodipine 10 mg tablet 5 mg (1/2 x 10 mg) PO DAILY #30 tabs 12/08/23
insulin glargine 100 unit/mL (3 mL) subcutaneous pen (Lantus Solostar U-100 Insulin) 55 unit SC HS 06/20/24
Review of Systems
-
Constitutional: Reports Fatigue
EENT: Reports Runny Nose
Respiratory: Reports Cough and Trouble Breathing
Cardiac: Reports No Symptoms
Abdomen/GI: Reports No Symptoms
: Reports No Symptoms
Musculoskeletal: Reports Edema (Chronic)
Skin: Reports No Symptoms
Neurological: Reports No Symptoms
Endocrine: Reports No Symptoms
Hematologic/Lymphatic: Reports No Symptoms
Psych: Reports No Symptoms
Physical Exam
Vital Signs
Vital Signs
Temp Pulse Resp BP Pulse Ox
98.7 F 68 16 118/54 95
01/09/25 10:43 01/09/25 12:00 01/09/25 12:24 01/09/25 12:00 01/09/25 12:22
Physical Exam
General: Well Developed, Well Nourished and No Apparent Distress
HEENT: NormoCephalic, Moist mucous membranes and Atraumatic
Respiratory: Wheezes, Rales and Rhonchi
Cardiac: S1/S2 and Regular Rhythm; No Murmur or Rub
GI: Soft, Non Tender, Non Distended and Normal Bowel Sounds; No Organomegaly
Rectal: Deferred by Provider
Musculoskeletal: No Clubbing, No Cyanosis, Edema, Left Lower Extremity and Edema, Right Lower Extremity
Skin: No Rash
Neuro: Nonfocal/grossly intact
Laboratory Results
-
01/09/25 10:53
01/09/25 10:53
Laboratory Results
Lactic Acid 1.4 mmol/L (0.7-2.0) 01/09/25 10:53
Total Bilirubin 1.9 mg/dl (0.2-1.3) H 01/09/25 10:53
AST 35 U/L (17-59) 01/09/25 10:53
ALT 24 U/L (0-50) 01/09/25 10:53
Alkaline Phosphatase 109 U/L (38-126) 01/09/25 10:53
Data Reviewed
-
Diagnostic Radiology: Report Reviewed by me
Lab Data: Labs Reviewed by me
Impression/Plan
-
# Acute hypoxia secondary to pneumonia
# Concern for COPD exacerbation
- WBC 17.3
- COVID-negative
- Chest x-ray with impression of lungs appear hypoinflated.Mild parenchymal opacity over both lower lungs, most likely atelectasis.
- Continue supplemental oxygen to keep sat greater than 95, wean as tolerated
- IV Vanco and Zosyn in the ER
-iv ceftriaxone and doxycycline
-Decadron continue
-Blood culture sent from ER
- Tylenol as needed for fever and pain
- Mucinex for cough
- Continue to curve WBC
#fall mechanical
-PT/OT consulted
-obtain CT head
# CKD stage IIIb
- Creatinine 1.5
# Type 2 diabetes with hyperglycemia
- Glucose in 300s
-sliding scale
-CHO diet
- Lantus continued
#Benign essential hypertension
-Norvasc continued with hold parameter
#Generalized weakness likely secondary to pneumonia
-PT/OT
#Paroxysmal atrial fibrillation
-EKG with paced rhythm
-Status post permanent pacemaker
-Continue Eliquis, continue Coreg
#Chronic heart failure with mildly reduced ejection fraction
-strict I&O, daily weight
- Lasix continued
# BPH
- Finasteride tamsulosin continued
# GERD
- PPI continued
#Obstructive sleep apnea
-Continue CPAP at 11 cm H2O at night
# Multilevel lumbar DJD/chronic back pain/diabetic neuropathy
-Lyrica
# Peripheral vascular disease with right lower extremity stent
# History of gout/pseudogout
# Chronic right bundle branch block
# Obesity - Per BMI
DVT prophylaxis�Eliquis
Full code
[2025-01-09 12:53] LABS: Urine Red Blood Cell 0-2 /HPF (0-2); Urine Squamous Cell 0-2 /LPF (Few)
[2025-01-09] MEDS: VANCOCIN 540 MG IV (13:04)
--- NOTE | 2025-01-09 14:50 | PTCARENOTE ---
Received pt from ED via stretcher. Pt pulled over to bed with assist x4. Bed alarm placed. color television console monitor placed. Assessed and oriented to room. Incontinent, CC placed. Will continue to monitor.
[2025-01-09] MEDS: STERILE WATER FOR INJECTION 10 ML IV (16:00)
[2025-01-09] MEDS: ROCEPHIN 1000 MG IV (16:00)
[2025-01-09] MEDS: DECADRON 4 MG IV (16:00)
[2025-01-09 16:32] LABS: Glucose - Point of Care 327 mg/dl (70-99)
[2025-01-09] MEDS: NOVOLOG FLEXPEN-MODERATE RESISTANCE 7 UNITS SC (16:54)
[2025-01-09] MEDS: COREG 12.5 MG PO (20:06)
[2025-01-09] MEDS: MUCINEX 600 MG PO (20:06)
[2025-01-09] MEDS: VIBRAMYCIN 100 MG PO (20:06)
[2025-01-09] MEDS: LYRICA 300 MG PO (20:12)
[2025-01-09] MEDS: FLOMAX 2 MG PO (20:12)
[2025-01-09] MEDS: LIPITOR 40 MG PO (20:12)
[2025-01-09] MEDS: DESYREL 100 MG PO (20:14)
[2025-01-09] MEDS: ELIQUIS 2.5 MG PO (20:15)
[2025-01-09 22:18] LABS: Glucose - Point of Care 466 mg/dl (70-99)
[2025-01-09 22:59] LABS: Glucose 453 mg/dl (70-99)
--- NOTE | 2025-01-09 23:02 | PTCARENOTE ---
Addendum entered by Caroline Roberto RN 01/10/25 00:26:
Provider ordered 11 units NovoLog to be administered for glucose of 453, administered at 0000. Patient awaiting response prior to wanting his Lantus. 55 units Lantus provided at the time of NovoLog administration, see MAR.
Original Note:
Patient's HS blood glucose resulted RR HI (466). Stat lab glucose drawn and sent, resulted 453. Patient states 'I know why, they didn't give me enough insulin today. I usually take around 24 units with meals, they only gave me 7 units today, it
wasn't enough.' He also stated he checked his numbers on his own device and it also resulted high for him. Patient is due for evening lantus 55 units. Notified ROSE MARY Cash of results, awaiting further instruction at this time. Will monitor.
[2025-01-09] MEDS: LANTUS 0.55 UNITS SC (23:59)
[2025-01-10] VITALS (7 sets, daily range): BP systolic 115–138; BP diastolic 48–96; PULSE 65; BMI 33.5; BMI 33.6
[2025-01-10] MEDS: DECADRON 4 MG IV ×2 (00:06→08:51)
[2025-01-10 02:00] LABS: Glucose - Point of Care 482 mg/dl (70-99)
[2025-01-10 02:43] LABS: Glucose 430 mg/dl (70-99)
[2025-01-10] MEDS: NOVOLOG FLEXPEN 11 UNITS SC ×2 (03:09)
[2025-01-10 06:32] LABS: Glucose - Point of Care 400 mg/dl (70-99)
[2025-01-10] MEDS: NOVOLOG FLEXPEN-HIGH RESISTANCE 14 UNITS SC (06:45)
--- NOTE | 2025-01-10 07:36 | PTCARENOTE ---
Per nightshift RN, glucose levels uncontrolled throughout night. Pt informed RN that he usually gets 20 units of NovoLog standing with every meal. Pt c/o new spams in right upper leg and L foot that are bothersome. made aware.
[2025-01-10 08:04] LABS: Glucose - Point of Care 401 mg/dl (70-99)
[2025-01-10 08:37] LABS: Hematocrit 30.7 % (39.0-52.0); Hemoglobin 10.6 g/dL (13.0-18.0); Mean Corp Hgb Conc. 34.5 g/dL (33.0-37.0); Mean Corpuscular Volume 93.6 fL (80.0-94.0); Platelet Count 208 10^3/uL (130-400); Red Cell Dist. Width 13.2 % (11.5-14.5)
[2025-01-10 08:42] LABS: Blood Urea Nitrogen 34 mg/dl (9-20); Calcium 8.2 mg/dl (8.4-10.2); Carbon Dioxide 25 mmol/L (22-30); Chloride 102 mmol/L (98-107); Estimated Creatinine Clearance 40 ml/min; Glucose 373 mg/dl (70-99); Potassium 3.6 mmol/L (3.5-5.1); Sodium 137 mmol/L (135-145); eGFR 43.29
[2025-01-10] MEDS: NORVASC 10 MG PO (08:51)
[2025-01-10] MEDS: ASPIR LOW (ENTERIC COATED) 81 MG PO (08:51)
[2025-01-10] MEDS: MUCINEX 600 MG PO ×2 (08:51→20:50)
[2025-01-10] MEDS: PROTONIX 40 MG PO (08:51)
[2025-01-10] MEDS: LYRICA 150 MG PO (08:51)
[2025-01-10] MEDS: ELIQUIS 2.5 MG PO ×2 (08:52→20:49)
[2025-01-10] MEDS: VIBRAMYCIN 100 MG PO ×2 (08:52→20:50)
[2025-01-10] MEDS: PROSCAR 5 MG PO (08:52)
[2025-01-10] MEDS: COREG 12.5 MG PO ×2 (08:52→20:50)
--- NOTE | 2025-01-10 09:10 | PTCARENOTE ---
Bladder scan result= 898. Pt stated, 'I don't have to pee right now'. made aware.
[2025-01-10 09:13] LABS: Glucose 361 mg/dl (70-99)
[2025-01-10] MEDS: NOVOLOG FLEXPEN 20 UNITS SC (09:31)
[2025-01-10 10:56] LABS: Vitamin D, 25-OH*** 29.2 ng/mL (30-80)
--- NOTE | 2025-01-10 11:09 | W.PN.HOSP.TC ---
Today's Communication/Plan
-
Slightly wean steroids today
Continue antibiotics sputum culture
Increase NovoLog
Assessment / Plan
Assessment / Plan
79-year-old male with a fall as his right leg gave out and he hit his head. Did not take insulin for 3 days prior to arrival due to poor p.o. intake
Head CT-no acute intracranial abnormality
Chest x-ray-lungs hypoinflated. Mild parenchymal opacity over both lower lungs mostly atelectasis
Echo 12/15/2024-EF 50 to 55%. Possible distal septal hypokinesis. Inferior apex akinetic. Mild LVH.
CVS: S1-S2 normal
Chest: CTA B/L
Abdomen: Soft, NT / Bowel sounds present
Extremities:mild pedal edema
left forehead skin abrasion
# Acute hypoxic respiratory insufficiency secondary to pneumonia
Also concern for COPD exacerbation
Continue antibiotics, wean steroids as able to given elevated sugars
Uses Combivent inhaler as outpatient
Mucolytic's
# Mechanical fall-head CT unremarkable. PT OT
# CHRIS-creatinine was 1.2 with normal GFR 12/07/2023-follow. Hold Lasix. Bladder scan with retention. Straight cath ordered. Continue to do bladder scanning
# Type 2 diabetes hemoglobin [id number]
Continue Lantus 55 units NovoLog 20 units AC with sliding scale coverage and follow sugars
Continue Lantus 55 units with NovoLog 25 units AC
Hyperglycemia likely secondary to illness and steroids
Adjust insulin as needed
# Hypertension-continue Norvasc, Coreg
# Paroxysmal atrial fibrillation with history of permanent pacemaker-continue Eliquis, Coreg
# Chronic HFMREF-follow intake output, hold Lasix, continue, Coreg
# Anemia-check iron studies
# Coronary disease with history of stents
# Generalized weakness-likely secondary to pneumonia
# Multilevel lumbar DJD/chronic back pain/lumbar laminectomy/diabetic neuropathy-continue Lyrica
# PVD with history of right lower extremity stent
# Prostate disease-continue finasteride, Flomax
# History of CVA
# History of gout/pseudogout
# Chronic RBBB
# GERD-continue PPI
# Sleep apnea-continue CPAP
# Insomnia-continue trazodone
# Obesity with a BMI of 33
# DVT prophylaxis on Eliquis
# Full code
D/W RN
Part of this note was created using voice recognition system. Occasional wrong word or��sound alike� substitutions may have inadvertently occurred due to the inherent limitations of voice recognition software. If noted kindly bring it to my
attention for correction.
Anticipated Discharge: 24 - 48 hours
Subjective/Interval History
-
Date of Service: January 10, 2025
Objective Data
-
Labs:
Laboratory Results
01/10/25 01/10/25 01/10/25
02:10 07:36 08:39
WBC 17.7 H
Hgb 10.6 L
Hct 30.7 L
Plt Count 208
Sodium 137
Potassium 3.6
Chloride 102
Carbon Dioxide 25
BUN 34 H
Creatinine 1.6 H
Glucose 430 H 373 H 361 H
Calcium 8.2 L
Vital Signs:
Vital Signs
Temp Pulse Resp BP Pulse Ox
97.9 F 63 18 138/56 90
01/10/25 07:00 01/10/25 08:51 01/10/25 07:00 01/10/25 08:51 01/10/25 07:00
I&O
01/09/25 01/10/25 01/11/25
06:59 06:59 06:59
Intake Total 480 / 480
Output Total 500 / 500 1130 / 1130
Balance -20 / -20 -1130 / -1130
[2025-01-10 11:25] LABS: Glucose - Point of Care 335 mg/dl (70-99)
[2025-01-10 11:29] LABS: Vitamin B12 > 1000 pg/ml (239-931)
[2025-01-10] MEDS: NOVOLOG FLEXPEN-HIGH RESISTANCE 10 UNITS SC ×2 (11:41→17:40)
[2025-01-10] MEDS: NOVOLOG FLEXPEN 25 UNITS SC ×2 (11:42→17:41)
[2025-01-10] MEDS: DECADRON 3 MG IV (11:43)
--- NOTE | 2025-01-10 11:54 | CM ---
Addendum entered by Claudio Vasquez 01/10/25 12:03:
Patient rec's wound care for his foot via [facility], referral sent to them.
PLAN: Home w. [facility]
Original Note:
Initial Assessment Completed by JASPAL Snyder
Patient lives alone independently in a 1st set up of a [employer], uses rolling walker, single cane, and has a CPAP (unsure of the name of the company). Patient has [facility] currently for wound care
PCP: Dr. Haja Manuel
Pharmacy: [facility] on [address] in [facility]
Patient has transportation when he is ready.
[2025-01-10 12:20] LABS: Glycohemoglobin (HgbA1c) 8.1 % (4.0-5.6)
[2025-01-10] MEDS: STERILE WATER FOR INJECTION 10 ML IV (14:57)
[2025-01-10] MEDS: ROCEPHIN 1000 MG IV (14:57)
[2025-01-10 17:22] LABS: Glucose - Point of Care 314 mg/dl (70-99)
[2025-01-10] MEDS: DESYREL 100 MG PO (20:49)
[2025-01-10] MEDS: FLOMAX 2 MG PO (20:49)
[2025-01-10] MEDS: LYRICA 300 MG PO (20:49)
[2025-01-10] MEDS: LIPITOR 40 MG PO (20:50)
[2025-01-10] MEDS: DECADRON 2 MG IV (20:50)
[2025-01-10 21:44] LABS: Glucose - Point of Care 343 mg/dl (70-99)
--- NOTE | 2025-01-10 22:30 | PTCARENOTE ---
Patient blood sugar at HS 343. Orders to notify if BG >200. Notified ROSE MARY Grubbs -- order placed for one time 10 units Novolog. Provided Novolog and scheduled 60 units Lantus, see MAR. Patient inquiring on low amount, states he thinks he would have
given himself a larger dose. Will monitor throughout the evening. Call sams in place, will monitor.
[2025-01-10] MEDS: LANTUS 0.6 UNITS SC (22:32)
[2025-01-10] MEDS: NOVOLOG FLEXPEN 10 UNITS SC (22:33)
[2025-01-11 01:59] LABS: Glucose - Point of Care 306 mg/dl (70-99)
--- NOTE | 2025-01-11 02:00 | PTCARENOTE ---
Patient asleep in bed, CPAP maintained, arousable to tactile stimuli but immediately goes back to sleep. VSS. Bladder scanned for 552cc, patient with no urine output so far this shift. Was straight cathed during dayshift twice, no urine output
during the day as well. Notified ROSE MARY Grubbs -- will place order for hall catheter placement for retention. Hall placed with initial 650mls output, clear dark yellow urine with small amount of sediment present. Patient still asleep throughout
entire procedure, blood sugar checked - 306. No further intervention at this time, will monitor.
[2025-01-11 03:01] VITALS: BP 128/62
[2025-01-11] MEDS: DECADRON 2 MG IV (03:56)
[2025-01-11 05:56] VITALS: BMI 33.2
[2025-01-11 07:12] VITALS: BP 128/56
[2025-01-11 07:21] LABS: Glucose - Point of Care 293 mg/dl (70-99)
[2025-01-11 07:28] LABS: Hematocrit 30.5 % (39.0-52.0); Hemoglobin 10.8 g/dL (13.0-18.0); Mean Corp Hgb Conc. 35.4 g/dL (33.0-37.0); Mean Corpuscular Volume 94.1 fL (80.0-94.0); Platelet Count 241 10^3/uL (130-400); Red Cell Dist. Width 13.2 % (11.5-14.5)
[2025-01-11 08:02] LABS: Blood Urea Nitrogen 38 mg/dl (9-20); Calcium 8.2 mg/dl (8.4-10.2); Carbon Dioxide 26 mmol/L (22-30); Chloride 103 mmol/L (98-107); Estimated Creatinine Clearance 42 ml/min; Glucose 292 mg/dl (70-99); Potassium 3.9 mmol/L (3.5-5.1); Sodium 140 mmol/L (135-145); eGFR 46.77
[2025-01-11] MEDS: PROSCAR 5 MG PO (08:09)
[2025-01-11] MEDS: MUCINEX 600 MG PO ×2 (08:09→20:42)
[2025-01-11] MEDS: NORVASC 10 MG PO (08:09)
[2025-01-11] MEDS: COREG 12.5 MG PO ×2 (08:09→20:42)
[2025-01-11] MEDS: PROTONIX 40 MG PO (08:09)
[2025-01-11] MEDS: VIBRAMYCIN 100 MG PO ×2 (08:09→20:43)
[2025-01-11] MEDS: LYRICA 150 MG PO (08:09)
[2025-01-11] MEDS: ELIQUIS 2.5 MG PO ×2 (08:09→20:43)
[2025-01-11] MEDS: ASPIR LOW (ENTERIC COATED) 81 MG PO (08:09)
[2025-01-11] MEDS: NOVOLOG FLEXPEN-HIGH RESISTANCE SC (09:10)
[2025-01-11] MEDS: NOVOLOG FLEXPEN 35 UNITS SC (09:11)
[2025-01-11] MEDS: NOVOLOG FLEXPEN SC (09:17)
--- NOTE | 2025-01-11 09:38 | W.PN.HOSP.TC ---
Addendum entered and electronically signed by Wilfredo Briscoe MD 01/11/25 13:04:
I saw and evaluated the patient. I reviewed the resident�s note and agree with findings and plan as documented in the resident�s note.
79-year-old male with a fall as his right leg gave out and he hit his head. Did not take insulin for 3 days prior to arrival due to poor p.o. intake
Head CT-no acute intracranial abnormality
Chest x-ray-lungs hypoinflated. Mild parenchymal opacity over both lower lungs mostly atelectasis
Echo 12/15/2024-EF 50 to 55%. Possible distal septal hypokinesis. Inferior apex akinetic. Mild LVH.
CVS: S1-S2 normal
Chest: CTA B/L
Abdomen: Soft, NT / Bowel sounds present
Extremities:mild pedal edema
left forehead skin abrasion
# Acute hypoxic respiratory insufficiency secondary to pneumonia
Also concern for COPD exacerbation
Continue antibiotics, wean steroids to PO
Uses Combivent inhaler as outpatient
Mucolytic's
# Mechanical fall-head CT unremarkable. PT OT
# CHRIS-Vs CKD stage 3- Hold Lasix. Bladder scan with retention. Straight cath ordered. Continue to do bladder scanning
# Type 2 diabetes hemoglobin A1c-8.1
Continue Lantus 55 units NovoLog 20 units AC with sliding scale coverage and follow sugars
Continue Lantus 60 units with NovoLog 30 units AC
Hyperglycemia likely secondary to illness and steroids
Adjust insulin as needed
# Hypertension-continue Norvasc, Coreg
# Paroxysmal atrial fibrillation with history of permanent pacemaker-continue Eliquis, Coreg
# Chronic HFMREF-follow intake output, hold Lasix, continue, Coreg
# Anemia
# Coronary disease with history of stents
# Generalized weakness-likely secondary to pneumonia
# Multilevel lumbar DJD/chronic back pain/lumbar laminectomy/diabetic neuropathy-continue Lyrica
# PVD with history of right lower extremity stent
# Prostate disease-continue finasteride, Flomax
# History of CVA continue Eliquis and statin and aspirin
# History of gout/pseudogout
# Chronic RBBB
# GERD-continue PPI
# Sleep apnea-continue CPAP
# Insomnia-continue trazodone
# Obesity with a BMI of 33
# DVT prophylaxis on Eliquis
# Full code
D/W RN
Called civil engineering draftsperson , went to message
Part of this note was created using voice recognition system. Occasional wrong word or��sound alike� substitutions may have inadvertently occurred due to the inherent limitations of voice recognition software. If noted kindly bring it to my
attention for correction.
Original Note:
Today's Communication/Plan
-
Novolog increased from 25u to 30 AC
Continue POC
PO steroids today with 8 day taper
Assessment / Plan
Assessment / Plan
79-year-old with hypertension, paroxysmal atrial fibrillation on Eliquis, chronic HFrEF (50-55% per echo 12/15/24), stage III left heel pressure injury, type 2 diabetes, obstructive sleep apnea, COPD, CKD 3, CVA, daily alcohol use, obesity, chronic
lower extremity edema who presented with 2 weeks of productive cough, weakness, SOB, and a fall on 01/08 (hit his head) here for management of PNA vs COPD exacerbation.
Head CT-no acute intracranial abnormality
CXR-lungs hypoinflated. Mild parenchymal opacity over both lower lungs mostly atelectasis
Echo 12/15/2024-EF 50 to 55%. Possible distal septal hypokinesis. Inferior apex akinetic. Mild LVH.
#Acute hypoxic respiratory insufficiency secondary to pneumonia
#Concern for COPD exacerbation
Patient reports relief of symptoms since admission. Not on O2 currently. HDS, afebrile.
- s/p IV Vanco and Zosyn in the ER
- Continue IV ceftriaxone 1g and doxycycline BID
- s/p IV steroids. Today: Prednisone 40mg po daily. Wean steroids as able, aim for 8 day taper.
- Use Combivent inhaler as outpatient
- Mucinex 600mg BID
#Mechanical fall
#Weakness, generalized
A&Ox3. Head CT unremarkable. Weakness likely secondary to infection.
- PT/OT
#CHRIS on CKD stage IIIb
Ceatinine was 1.2 with normal GFR 12/07/2023-follow. Cr 1.5 today, CrCl 42, GFR 46.7.
- Hold Lasix
- Straight cath ordered.� Continue to do bladder scanning
#Type 2 diabetes
He missed insulin for 3 days iso weakness/not eating. POC been high in hospital. 368 at lunch today. Hyperglycemia likely 2/2 to steroids and infection.
- Hemoglobin [id number]
- Continue Lantus 55 units
- Increase NovoLog from 25 units to 30 units AC with high sliding scale coverage
- CTM POC; adjust as needed
#Hypertension
- Continue Norvasc, Coreg
#Paroxysmal atrial fibrillation with history of permanent pacemaker
- Continue Eliquis, Coreg
#Chronic HFMREF
- FollowIs&Os
- Hold Lasix
- Continue Coreg
#Anemia
- F/u iron studies
#Coronary disease with history of stents
#Multilevel lumbar DJD/chronic back pain/lumbar laminectomy/diabetic neuropathy
- Continue Lyrica
#PVD with history of right lower extremity stent
#BPH
- Continue finasteride, Flomax
#GERD
- Continue PPI
#Sleep apnea
- Continue CPAP
#Insomnia
- Continue trazodone
#History of CVA
#History of gout/pseudogout
#Chronic RBBB
#Obesity with a BMI of 33
DVT prophylaxis: Eliquis
Code status: Full code
Anticipated Discharge: 24 - 48 hours
Subjective/Interval History
-
Date of Service: January 11, 2025
- This morning, he's on RA enjoying breakfast, sitting at edge of bed. He reports feeling a lot better than yesterday, but stating that he feels as if he needs to cough up mucus and is unable to. IS ordered. Otherwise, NAEON or new symptoms per
patient.
Objective Data
-
Labs:
Laboratory Results
01/11/25
06:44
WBC 20.6 H
Hgb 10.8 L
Hct 30.5 L
Plt Count 241
Sodium 140
Potassium 3.9
Chloride 103
Carbon Dioxide 26
BUN 38 H
Creatinine 1.5 H
Glucose 292 H
Calcium 8.2 L
Vital Signs:
Vital Signs
Temp Pulse Resp BP Pulse Ox
97.9 F 63 20 128/56 95
01/11/25 07:12 01/11/25 08:09 01/11/25 07:12 01/11/25 08:09 01/11/25 07:12
I&O
01/10/25 01/11/25 01/12/25
06:59 06:59 06:59
Intake Total 480 / 480 240 / 240
Output Total 500 / 500 2380 / 2380
Balance -20 / -20 -2140 / -2140
Review of Systems
-
History Source: Patient
All other systems: Reviewed and negative
Constitutional: Reports Fatigue and Weakness
Physical Exam
-
General: Well Nourished, No Apparent Distress, Comfortable, Conversant and Appears Chronically Ill
HEENT: Normocephalic, Moist Mucous Membranes and Other (abrasion on forehead, right)
Respiratory: Crackles and Non Labored Respirations
Cardiac: S1/S2 and Irregular Rhythm (known AFib)
GI: Soft, Nontender and Nondistended
Musculoskeletal: Edema, Right Lower Extrem and Edema, Left Lower Extrem
Skin: Warm and Dry
Neuro: AO x 3
Psych: Calm and Intact Judgement/Insight
[2025-01-11 12:06] LABS: Glucose - Point of Care 368 mg/dl (70-99)
[2025-01-11 12:09] VITALS: BP 122/59
[2025-01-11] MEDS: DELTASONE 40 MG PO (12:36)
[2025-01-11] MEDS: NOVOLOG FLEXPEN 30 UNITS SC ×2 (12:36→18:16)
[2025-01-11] MEDS: NOVOLOG FLEXPEN-HIGH RESISTANCE 12 UNITS SC (12:37)
[2025-01-11 15:03] LABS: Glucose - Point of Care 240 mg/dl (70-99)
[2025-01-11] MEDS: ROCEPHIN 1000 MG IV (15:24)
[2025-01-11] MEDS: STERILE WATER FOR INJECTION 10 ML IV (15:25)
[2025-01-11 16:35] VITALS: BP 143/63
[2025-01-11 18:15] LABS: Glucose - Point of Care 254 mg/dl (70-99)
[2025-01-11] MEDS: NOVOLOG FLEXPEN-HIGH RESISTANCE 7 UNITS SC (18:16)
[2025-01-11 19:00] VITALS: BP 143/65
[2025-01-11 22:12] LABS: Glucose - Point of Care 287 mg/dl (70-99)
[2025-01-11] MEDS: LANTUS 0.6 UNITS SC (22:13)
[2025-01-11] MEDS: FLOMAX 2 MG PO (22:13)
[2025-01-11] MEDS: LYRICA 300 MG PO (22:14)
[2025-01-11] MEDS: DESYREL 100 MG PO (22:14)
[2025-01-11] MEDS: LIPITOR 40 MG PO (22:15)
[2025-01-11 22:49] VITALS: PULSE 85
[2025-01-12] VITALS (9 sets, daily range): BP systolic 132–154; BP diastolic 65–75; PULSE 60–61; O2SAT 97–98; BMI 33.1
[2025-01-12 07:16] LABS: Hematocrit 34.8 % (39.0-52.0); Hemoglobin 12.1 g/dL (13.0-18.0); Mean Corp Hgb Conc. 34.8 g/dL (33.0-37.0); Mean Corpuscular Volume 94.3 fL (80.0-94.0); Platelet Count 251 10^3/uL (130-400); Red Cell Dist. Width 13.2 % (11.5-14.5)
[2025-01-12 07:36] LABS: Blood Urea Nitrogen 37 mg/dl (9-20); Calcium 8.5 mg/dl (8.4-10.2); Carbon Dioxide 29 mmol/L (22-30); Chloride 103 mmol/L (98-107); Estimated Creatinine Clearance 48 ml/min; Glucose 230 mg/dl (70-99); Potassium 4.2 mmol/L (3.5-5.1); Sodium 140 mmol/L (135-145); eGFR 55.53
--- NOTE | 2025-01-12 07:44 | W.PN.HOSP.TC ---
Today's Communication/Plan
-
Lantus increased from 60 to 65u
Restarted home lasix
dispo pending SNF placement
Assessment / Plan
Assessment / Plan
79-year-old with hypertension, paroxysmal atrial fibrillation on Eliquis, chronic HFrEF (50-55% per echo 12/15/24), stage III left heel pressure injury, type 2 diabetes, obstructive sleep apnea, COPD, CKD 3, CVA, daily alcohol use, obesity, chronic
lower extremity edema who presented with 2 weeks of productive cough, weakness, SOB, and a fall on 01/08 (hit his head) here for management of PNA vs COPD exacerbation.
Head CT-no acute intracranial abnormality
CXR-lungs hypoinflated. Mild parenchymal opacity over both lower lungs mostly atelectasis
Echo 12/15/2024-EF 50 to 55%. Possible distal septal hypokinesis. Inferior apex akinetic. Mild LVH.
#Acute hypoxic respiratory insufficiency secondary to pneumonia
#Concern for COPD exacerbation
Patient reports relief of symptoms since admission. Not on O2 currently. HDS, afebrile.
- s/p IV Vanco and Zosyn in the ER
- Continue IV ceftriaxone 1g and doxycycline BID
- s/p IV steroids. Today: Prednisone 40mg po daily. Plan for week taper; 30mg starting tomorrow.
- Use Combivent inhaler as outpatient
- Mucinex 600mg BID
#Mechanical fall
#Weakness, generalized
A&Ox3. Head CT unremarkable. Weakness likely secondary to infection.
- PT/OT
#CHRIS on CKD stage IIIb
Ceatinine was 1.2 with normal GFR 12/07/2023-follow. Cr 1.3 today, CrCl 48, GFR 55.5.
- Restart Lasix 40mg daily
- Straight cath ordered.� Continue to do bladder scanning
#Type 2 diabetes
He missed insulin for 3 days iso weakness/not eating. POC been high in hospital. 368 at lunch today. Hyperglycemia likely 2/2 to steroids and infection.
- Hemoglobin [id number]
- Lantus 55 units --> 65 units 01/12
- NovoLog 30 units AC with high sliding scale coverage
- CTM POC; adjust as needed
#Hypertension
- Continue Norvasc, Coreg
#Paroxysmal atrial fibrillation with history of permanent pacemaker
- Continue Eliquis, Coreg
#Chronic HFMREF
- FollowIs&Os
- Hold Lasix
- Continue Coreg
#Anemia
- F/u iron studies
#Coronary disease with history of stents
#Multilevel lumbar DJD/chronic back pain/lumbar laminectomy/diabetic neuropathy
- Continue Lyrica
#PVD with history of right lower extremity stent
#BPH
- Continue finasteride, Flomax
#GERD
- Continue PPI
#Sleep apnea
- Continue CPAP
#Insomnia
- Continue trazodone
#History of CVA
#History of gout/pseudogout
#Chronic RBBB
#Obesity with a BMI of 33
DVT prophylaxis: Eliquis
Code status: Full code
Dispo: Pending SNF
Anticipated Discharge: Within 24 hours
Subjective/Interval History
-
Date of Service: January 12, 2025
- This morning, he's sitting up in bed without any new complaints. Still feels he has mucus he needs to dislodge from his chest; IS at bedside. He reports his blood sugars at home are usually 150 or less. We discussed plan for the day, and he looks
forward to working with PT.
Objective Data
-
Labs:
Laboratory Results
01/12/25
06:54
WBC 20.4 H
Hgb 12.1 L
Hct 34.8 L
Plt Count 251
Sodium 140
Potassium 4.2
Chloride 103
Carbon Dioxide 29
BUN 37 H
Creatinine 1.3
Glucose 230 H
Calcium 8.5
Vital Signs:
Vital Signs
Temp Pulse Resp BP Pulse Ox
97.6 F 66 18 135/75 97
01/12/25 07:39 01/12/25 07:39 01/12/25 07:39 01/12/25 07:39 01/12/25 07:39
I&O
01/11/25 01/12/25 01/13/25
06:59 06:59 06:59
Intake Total 240 / 240 1680 / 1680
Output Total 2380 / 2380 1999 / 1999
Balance -2140 / -2140 -320 / -320
Physical Exam
-
General: Well Developed, Well Nourished, No Apparent Distress, Comfortable and Conversant
HEENT: Normocephalic, Atraumatic and Moist Mucous Membranes
Respiratory: Clear to Auscultation
Cardiac: Regular Rhythm and S1/S2
GI: Soft, Nontender and Nondistended
Musculoskeletal: No Clubbing, No Cyanosis and No Edema
Skin: Warm and Dry
Neuro: AO x 3
Psych: Calm and Intact Judgement/Insight
[2025-01-12 08:17] LABS: Glucose - Point of Care 224 mg/dl (70-99)
[2025-01-12] MEDS: PROSCAR 5 MG PO (08:20)
[2025-01-12] MEDS: ASPIR LOW (ENTERIC COATED) 81 MG PO (08:20)
[2025-01-12] MEDS: VIBRAMYCIN 100 MG PO ×2 (08:20→20:56)
[2025-01-12] MEDS: PROTONIX 40 MG PO (08:20)
[2025-01-12] MEDS: COREG 12.5 MG PO ×2 (08:20→20:56)
[2025-01-12] MEDS: NORVASC 10 MG PO (08:20)
[2025-01-12] MEDS: MUCINEX 600 MG PO ×2 (08:20→20:56)
[2025-01-12] MEDS: ELIQUIS 2.5 MG PO (08:20)
[2025-01-12] MEDS: LYRICA 150 MG PO (08:22)
--- NOTE | 2025-01-12 08:38 | VNURNOTE ---
Chart reviewed. Patient is current with [facility]. Will continue to follow hospital course and DC plans.
[2025-01-12] MEDS: NOVOLOG FLEXPEN 30 UNITS SC ×3 (09:46→18:17)
[2025-01-12] MEDS: NOVOLOG FLEXPEN-HIGH RESISTANCE 4 UNITS SC (09:47)
[2025-01-12 12:12] LABS: Glucose - Point of Care 275 mg/dl (70-99)
[2025-01-12] MEDS: LASIX 40 MG PO (12:53)
[2025-01-12] MEDS: DELTASONE 40 MG PO (12:53)
[2025-01-12] MEDS: NOVOLOG FLEXPEN-HIGH RESISTANCE 7 UNITS SC (14:21)
[2025-01-12] MEDS: ROCEPHIN 1000 MG IV (14:22)
[2025-01-12] MEDS: STERILE WATER FOR INJECTION 10 ML IV (14:22)
--- NOTE | 2025-01-12 16:54 | W.PN.UPDATE ---
Addendum entered and electronically signed by Wilfredo Briscoe MD 01/12/25 16:57:
I saw and evaluated the patient. I reviewed the resident�s note and agree with findings and plan as documented in the resident�s note.
Original Note:
Update Note
Progress Note Update
79-year-old male with a fall as his right leg gave out and he hit his head. Did not take insulin for 3 days prior to arrival due to poor p.o. intake
Head CT-no acute intracranial abnormality
Chest x-ray-lungs hypoinflated. Mild parenchymal opacity over both lower lungs mostly atelectasis
Echo 12/15/2024-EF 50 to 55%. Possible distal septal hypokinesis. Inferior apex akinetic. Mild LVH.
CVS: S1-S2 normal
Chest: CTA B/L
Abdomen: Soft, NT / Bowel sounds present
Extremities:mild pedal edema
left forehead skin abrasion
# Acute hypoxic respiratory insufficiency secondary to pneumonia
Also concern for COPD exacerbation
Continue antibiotics, wean steroids as able to given elevated sugars
Uses Combivent inhaler as outpatient
# Mechanical fall-head CT unremarkable. PT OT
# CHRIS-creatinine was 1.2 with normal GFR 12/07/2023-follow. Restart Lasix. Bladder scan with retention. Davis placed
# Type 2 diabetes hemoglobin [id number]
Continue Lantus 55 units NovoLog 20 units AC with sliding scale coverage and follow sugars
Continue Lantus 60 units with NovoLog 30 units AC
Hyperglycemia likely secondary to illness and steroids
Adjust insulin as needed
# Hypertension-continue Norvasc, Coreg
# Paroxysmal atrial fibrillation with history of permanent pacemaker-continue Eliquis, Coreg
# Chronic HFMREF-follow intake output, restart Lasix, continue, Coreg
# Anemia-check iron studies
# Coronary disease with history of stents
# Generalized weakness-likely secondary to pneumonia
# Multilevel lumbar DJD/chronic back pain/lumbar laminectomy/diabetic neuropathy-continue Lyrica
# PVD with history of right lower extremity stent
# Prostate disease-continue finasteride, Flomax
# History of CVA
# History of gout/pseudogout
# Chronic RBBB
# GERD-continue PPI
# Sleep apnea-continue CPAP
# Insomnia-continue trazodone
# Obesity with a BMI of 33
# DVT prophylaxis on Eliquis
# Full code
D/W RN
Patient does not want us to communicate with anybody in his family states he has a friend and is aware of what is going on
Part of this note was created using voice recognition system. Occasional wrong word or��sound alike� substitutions may have inadvertently occurred due to the inherent limitations of voice recognition software. If noted kindly bring it to my
attention for correction.
--- NOTE | 2025-01-12 17:15 | W.PN.UPDATE ---
Update Note
Progress Note Update
Novolog increased from 30u --> 35u
--- NOTE | 2025-01-12 17:32 | CM ---
Patient seen at bedside
PT rec SNF
patient prefers [facility]
referral placed in [facility] for Skylar liaison at [facility]
Will require auth
PLAN: SNF, pending bed availability
[2025-01-12 18:02] LABS: Glucose - Point of Care 184 mg/dl (70-99)
[2025-01-12] MEDS: NOVOLOG FLEXPEN-HIGH RESISTANCE 2 UNITS SC (18:17)
[2025-01-12] MEDS: ELIQUIS 5 MG PO (20:56)
[2025-01-12] MEDS: FLOMAX 2 MG PO (21:05)
[2025-01-12] MEDS: DESYREL 100 MG PO (21:05)
[2025-01-12] MEDS: LIPITOR 40 MG PO (21:06)
[2025-01-12 21:10] LABS: Glucose - Point of Care 226 mg/dl (70-99)
[2025-01-12] MEDS: LANTUS 0.65 UNITS SC (21:10)
[2025-01-12] MEDS: LYRICA 300 MG PO (21:13)
[2025-01-12] MEDS: ANESTHETIC LOZENGE 1 LOZENGE PO (21:14)
[2025-01-13 03:00] VITALS: BP 144/69
[2025-01-13 05:47] VITALS: BMI 33.2
[2025-01-13 07:42] LABS: Hematocrit 34.3 % (39.0-52.0); Hemoglobin 11.8 g/dL (13.0-18.0); Mean Corp Hgb Conc. 34.4 g/dL (33.0-37.0); Mean Corpuscular Volume 93.2 fL (80.0-94.0); Platelet Count 275 10^3/uL (130-400); Red Cell Dist. Width 13.4 % (11.5-14.5)
[2025-01-13 07:49] VITALS: BP 134/69
[2025-01-13 08:03] LABS: Blood Urea Nitrogen 41 mg/dl (9-20); Calcium 8.2 mg/dl (8.4-10.2); Carbon Dioxide 29 mmol/L (22-30); Chloride 101 mmol/L (98-107); Estimated Creatinine Clearance 48 ml/min; Glucose 176 mg/dl (70-99); Potassium 4.3 mmol/L (3.5-5.1); Sodium 137 mmol/L (135-145); eGFR 55.53
[2025-01-13] MEDS: LYRICA 150 MG PO (08:06)
[2025-01-13] MEDS: VIBRAMYCIN 100 MG PO (08:06)
[2025-01-13] MEDS: PROSCAR 5 MG PO (08:07)
[2025-01-13] MEDS: NORVASC 10 MG PO (08:07)
[2025-01-13] MEDS: ELIQUIS 5 MG PO (08:07)
[2025-01-13] MEDS: PROTONIX 40 MG PO (08:07)
[2025-01-13] MEDS: ASPIR LOW (ENTERIC COATED) 81 MG PO (08:07)
[2025-01-13] MEDS: COREG 12.5 MG PO (08:07)
[2025-01-13] MEDS: LASIX 40 MG PO (08:07)
[2025-01-13] MEDS: MUCINEX 600 MG PO (08:07)
--- NOTE | 2025-01-13 08:08 | W.PN.HOSP.TC ---
Addendum entered and electronically signed by Wilfredo Briscoe MD 01/13/25 15:52:
I saw and evaluated the patient. I reviewed the resident�s note and agree with findings and plan as documented in the resident�s note. Plan formulated together
Patient was feeling much better not requiring any oxygen. Davis catheter still in
Chest
Clear to auscultation
Sugars are better
Will complete antibiotics his productive sputum has gotten better no more yellowish-green sputum noted
We will continue on a higher insulin for discharge and gradually taper down when his sugars are better
More than 30 minutes spent in discharge including
Final examination of the patient
Summarizing hospital stay
Instructions for continuing care to all relevant caregivers
Preparation of discharge records, prescriptions, and referral forms
Original Note:
Today's Communication/Plan
-
Discharge to [facility] with Ceftin and Doxy through 01/15, steroid taper, and insulin adjustment; all detailed in note and discharge
Voiding trial at [facility] tomorrow 01/14
Assessment / Plan
Assessment / Plan
79-year-old with hypertension, paroxysmal atrial fibrillation on Eliquis, chronic HFrEF (50-55% per echo 12/15/24), stage III left heel pressure injury, type 2 diabetes, obstructive sleep apnea, COPD, CKD 3, CVA, daily alcohol use, obesity, chronic
lower extremity edema who presented with 2 weeks of productive cough, weakness, SOB, and a fall on 01/08 (hit his head) here for management of PNA vs COPD exacerbation.
Head CT-no acute intracranial abnormality
CXR-lungs hypoinflated. Mild parenchymal opacity over both lower lungs mostly atelectasis
Echo 12/15/2024-EF 50 to 55%. Possible distal septal hypokinesis. Inferior apex akinetic. Mild LVH.
#Acute hypoxic respiratory insufficiency secondary to pneumonia
#Concern for COPD exacerbation
Patient reports relief of symptoms since admission. Not on O2 currently. HDS, afebrile.
- s/p IV Vanco and Zosyn in the ER
- IV ceftriaxone 1g 01/09-01/13 and doxycycline BID: Start Ceftin 500mg twice daily and continue Doxycycline BID with last dose for both on 01/15
- s/p IV steroids. Today: Prednisone 40mg po daily. Plan for week taper as follows:
30 mg 01/13
30mg 01/14
20mg 01/15
20mg 01/15
10mg 01/17
10mg 01/18
Stop 01/19
- Use Combivent inhaler as outpatient
- Mucinex 600mg BID
#Mechanical fall
#Weakness, generalized
A&Ox3. Head CT unremarkable. Weakness likely secondary to infection.
- PT/OT -- recommending SNF
#CHRIS on CKD stage IIIb
Ceatinine was 1.2 with normal GFR 12/07/2023-follow. Cr 1.3, CrCl 48, GFR 55.5, stable from 01/12 today.
- Lasix 40mg daily
- Straight cath ordered.� Continue to do bladder scanning
#Type 2 diabetes
He missed insulin for 3 days iso weakness/not eating. POC been high in hospital. 368 at lunch today. Hyperglycemia likely 2/2 to steroids and infection.
- Hemoglobin [id number]
- Lantus 55 units --> 65 units 01/12
- NovoLog 30 units --> 35 units AC 01/12 with high sliding scale coverage
- Adjust insulin as follows while on steroid wean:
Novolog 30u, Lantus 65u 01/13
Novolog 30u, Lantus 65u 01/14
Novolog 25u, Lantus 65u 01/15
Novolog 25u, Lantus 65u 01/16
Novolog 20u, Lantus 65u 01/17
Novolog 20u, Lantus 65u 01/18
Novolog 20u, Lantus 55u 01/19 onwards
- CTM POC; adjust as needed
#Hypertension
- Continue Norvasc, Coreg
#Paroxysmal atrial fibrillation with history of permanent pacemaker
- Continue Eliquis, Coreg
#Chronic HFMREF
- FollowIs&Os
- Hold Lasix
- Continue Coreg
#Anemia
- F/u iron studies
#Coronary disease with history of stents
#Multilevel lumbar DJD/chronic back pain/lumbar laminectomy/diabetic neuropathy
- Continue Lyrica
#PVD with history of right lower extremity stent
#BPH
- Continue finasteride, Flomax
- Discharge with Davis; voiding trial at [facility] 01/14 and plan to remove Davis if able
#GERD
- Continue PPI
#Sleep apnea
- Continue CPAP
#Insomnia
- Continue trazodone
#History of CVA
#History of gout/pseudogout
#Chronic RBBB
#Obesity with a BMI of 33
DVT prophylaxis: Eliquis
Code status: Full code
Dispo: [facility]
Anticipated Discharge: Today
Subjective/Interval History
-
Date of Service: January 13, 2025
- This morning, sitting up in bed without any complaints. Still weak and unable to stand. Friend Shabana to bring CPAP from home prior to SNF auth.
Objective Data
-
Labs:
Laboratory Results
01/13/25
06:46
WBC 18.8 H
Hgb 11.8 L
Hct 34.3 L
Plt Count 275
Sodium 137
Potassium 4.3
Chloride 101
Carbon Dioxide 29
BUN 41 H
Creatinine 1.3
Glucose 176 H
Calcium 8.2 L
Vital Signs:
Vital Signs
Temp Pulse Resp BP Pulse Ox
97.6 F 61 14 134/69 96
01/13/25 07:49 01/13/25 07:49 01/13/25 07:49 01/13/25 07:49 01/13/25 07:49
I&O
01/12/25 01/13/25 01/14/25
06:59 06:59 06:59
Intake Total 1680 / 1680 480 / 480
Output Total 1999 3675 / 3675
Balance -320 / -320 -3195 / -3195
Physical Exam
-
General: Well Developed, No Apparent Distress, Comfortable and Obese
HEENT: Normocephalic, Atraumatic and Moist Mucous Membranes
Respiratory: Clear to Auscultation
Cardiac: Regular Rhythm and S1/S2
GI: Soft, Nontender and Nondistended
Musculoskeletal: No Clubbing, Edema, Right Lower Extrem and Edema, Left Lower Extrem
Skin: Warm and Dry
Neuro: AO x 3
Psych: Calm and Intact Judgement/Insight
[2025-01-13 09:12] LABS: Glucose - Point of Care 184 mg/dl (70-99)
[2025-01-13] MEDS: NOVOLOG FLEXPEN 35 UNITS SC (09:18)
[2025-01-13] MEDS: NOVOLOG FLEXPEN-HIGH RESISTANCE 2 UNITS SC (09:19)
--- NOTE | 2025-01-13 09:59 | CM ---
Addendum entered by Nat Cheng 01/13/25 10:23:
[facility] AUTHORIZATION APPROVAL #: [id number]
START DATE 01/13/25, NRD 01/16/25
CALL WITH UPDATES TO [phone]
Gave auth information to Skylar from [facility]
IMM explained & signed. In chart
[facility] AUTH #:[id number]
PLAN: [facility] today
report #: [phone]
Fax #: [phone]
transportation forms on chart
Original Note:
Patient seen at bedside
[facility] accepted per Skylar in admissions - patient agreeable
Patient states his friend Shabana will bring his CPAP to [facility] NPI #: [id number]
Dr. Webb NPI #: [id number]
called insurance [id number] to obtain ins authorization
spoke with Agata at ins co.
PLAN: [facility] once auth obtained
report #: [phone]
Fax #: [phone]
transportation forms on chart
[2025-01-13 11:04] VITALS: BP 134/59
[2025-01-13] MEDS: DELTASONE 30 MG PO (11:29)
[2025-01-13] MEDS: CEFTIN 500 MG PO (12:09)
[2025-01-13 12:40] LABS: Glucose - Point of Care 281 mg/dl (70-99)
[2025-01-13] MEDS: NOVOLOG FLEXPEN-HIGH RESISTANCE 7 UNITS SC (12:40)
[2025-01-13] MEDS: NOVOLOG FLEXPEN 30 UNITS SC (12:40)
[2025-01-13 14:01] VITALS: BP 126/57
--- NOTE | 2025-01-13 16:13 | W.DCSUMMARY ---
Discharge Summary
Discharge Data
Date of Admission: 01/09/25
Date of Discharge: 01/13/25
-
Pending Results: No
Hospital Course
Discharging Physician : Wilfredo Hood
Disposition : [facility]
Principal Discharge diagnosis : Acute hypoxic respiratory insufficiency secondary to pneumonia, concern for COPD exacerbation; Mechanical fall; CHRIS
Chronic Discharge diagnosis : Type 2 diabetes, Hypertension, CKD 3, Paroxysmal atrial fibrillation with history of permanent pacemaker, Chronic HFMREF, Anemia, Coronary disease with history of stents, Generalized weakness, Multilevel lumbar
DJD/chronic back pain/lumbar laminectomy/diabetic neuropathy, PVD with history of right lower extremity stent, Prostate disease, History of CVA, History of gout/pseudogout, Chronic RBBB, GERD, KATHY, Insomnia, and Obesity with a BMI of 33
Hospital Course : Christopher is an 79-year-old male with PMH as above who presented with weakness, SOB, cough ongoing for 2 weeks, and a fall the night prior where he hit his head. He did not take insulin the past 3 days prior to presenting due to poor
p.o. intake. In the ED, pertinent impression and studies were: hypoxemia of 91% requiring 2L NC (no baseline O2 at home), leukocytosis of 17, glucose 321, Chest x-ray with hypoinflated lungs and mild parenchymal opacity over both lower lungs likely
atelectasis. He was restarted on insulin, got one dose of IV Vancomycin and Zosyn before being started on IV Ceftriaxone and Doxycycline, given dexamethasone and DuoNebs. Head CT was negative for injury and he was admitted for further management.
Throughout hospital course, he continued to improve, coming off NC to RA on 01/10 and IV steroids weaning to PO on 01/11. His hospital course was complicated by urinary retention so a Hall was placed and hyperglycemia (high 300s at times), surely due
to steroid and infection, so insulin was adjusted as needed. PT recommended skilled rehab for him and he was medically stable for discharge on 01/13 to [facility] with an insulin taper in accordance to his steroid taper as detailed below, oral
antibiotics through 01/15 for a 7 day course total, and instructions to SNF for a voiding trial and Hall removal on 01/14. See below for hospital course by problem:
1. Acute hypoxic respiratory insufficiency secondary to pneumonia and concern for COPD exacerbation
- s/p IV Vanco and Zosyn in the ER
- IV Ceftriaxone 1g 01/09-01/13 and doxycycline BID: Start Ceftin 500mg twice daily and continue Doxycycline BID with last dose for both on 01/15
- s/p IV steroids. Prednisone 40mg po daily 01/11 and 01/12.
Plan for week taper as follows:
30 mg 01/13
30mg 01/14
20mg 01/15
20mg 01/15
10mg 01/17
10mg 01/18
Stop 01/19
- Use Combivent inhaler as outpatient
- Mucinex 600mg BID
2. Mechanical fall and weakness
- PT/OT recommending SNF
3. CHRIS on CKD stage IIIb
Creatinine baseline 1.2-1.3 with normal GFR 12/07/2023-follow. Cr 1.3, CrCl 48, GFR 55.5, stable from 01/12.
- Lasix 40mg daily
- Hall in place 2/2 retention; voiding trial and removal at SNF 01/14
4. Type 2 diabetes
He missed insulin for 3 days iso weakness/not eating. POC been high in hospital. 368 at lunch 01/11. Hyperglycemia likely 2/2 to steroids and infection. Home regimen is Lantus 55u and Novolog 20u.
- Hemoglobin A1c-8.1
- Lantus 55 units --> 65 units 01/12
- NovoLog 30 units --> 35 units AC 01/12 with high sliding scale coverage
- Adjust insulin as follows while on steroid wean:
Novolog 30u, Lantus 65u 01/13
Novolog 30u, Lantus 65u 01/14
Novolog 25u, Lantus 65u 01/15
Novolog 25u, Lantus 65u 01/16
Novolog 20u, Lantus 65u 01/17
Novolog 20u, Lantus 65u 01/18
Novolog 20u, Lantus 55u 01/19 onwards
- CTM POC; adjust as needed
5. Hypertension
- Continue Norvasc, Coreg
6. Paroxysmal atrial fibrillation with history of permanent pacemaker
- Continue Eliquis, Coreg
7. Chronic HFMREF
- FollowIs&Os
- Home Lasix
- Continue Coreg
8. Multilevel lumbar DJD/chronic back pain/lumbar laminectomy/diabetic neuropathy
- Continue Lyrica
9. BPH
- Continue finasteride, Flomax
- Discharge with Hall; voiding trial at SNF 01/14 and plan to remove Hall if able
10. GERD
- Continue PPI
11. Sleep apnea
- Continue CPAP
12. Insomnia
- Continue trazodone
Important imaging findings :
CXR 01/09:
Lungs appear hypoinflated.
Mild parenchymal opacity over both lower lungs, most likely atelectasis.
NC Head CT 01/09:
No evidence of acute intracranial abnormality. Stable appearance.
Mixed daniel on sputum culture.
Discharge Plan
-
Patient Disposition: Jail/SNF
Discharge Diagnosis/Procedures: Acute PNA exacerbating chronic COPD
Urinary retention needing bladder scans and hall
Mechanical fall
Acute kidney injury
Type 2 diabetes
Hypertension
Paroxysmal atrial fibrillation
Chronic heart failure with mildly reduced ejection fraction
Anemia
Coronary artery disease
Multilevel DJD/chronic back pain/lumbar radiculopathy
Peripheral vascular disease
Enlarged prostate
History of gout/pseudogout
History of CVA
GERD
Sleep apnea
Condition: Good
Diet: Diabetic, Carb Controlled
Activity: As tolerated
Driving Restrictions: As prior to admission
Bathing Restrictions: None
Blood Work: cbc,bmp 1 week
Other Services: PT and OT
Activity Restrictions/Additional Instructions:
Patient with Hall; voiding trial should be done at [facility] on 01/14
Continue CPAP-bring your own
Referrals:
Haja Manuel MD [Family Provider, Family Practice]
Richard Iglesias MD [Active, Urology]
Referral Note: for Urinary retention
Additional Discharge Medication Instructions: Take Doxycycline 100g twice daily and Ceftin 500mg twice daily with last dose on 01/15
Take prednisone as directed:
30mg 01/14
20mg 01/15
20mg 01/15
10mg 01/17
10mg 01/18
Stop 01/19
Adjust Insulin as directed:
Novolog 30u, Lantus 65u 01/14
Novolog 25u, Lantus 65u 01/15
Novolog 25u, Lantus 65u 01/16
Novolog 20u, Lantus 65u 01/17
Novolog 20u, Lantus 65u 01/18
Novolog 20u, Lantus 55u 01/19 onwards
Prescriptions:
New
prednisone 10 mg tablet
10 mg PO DIRECTED Qty: 9 0RF
Rx Instructions:
30mg 01/14
20mg 01/15
20mg 01/15
10mg 01/17
10mg 01/18
stop 01/19
Chloraseptic Sore Throat 6-10 mg Lozenge
1 maryann PO Q4HPRN PRN (Reason: throat irritation) 14 Days Qty: 18 0RF
ipratropium-albuterol 0.5 mg-3 mg(2.5 mg base)/3 mL Solution For Nebulization
3 ml inhalation R Q4HPRN PRN (Reason: SOB/wheezing) 30 Days Qty: 100 0RF
cefuroxime axetil 500 mg Tablet
500 mg PO BID 3 Days Qty: 6 0RF
glucagon HCl 1 mg/mL Recon Soln
1 mg IM PRN PRN (Reason: hypoglycemia) Qty: 10 0RF
guaifenesin 600 mg Tablet Extended Release 12hr
600 mg PO Q12 30 Days Qty: 60 0RF
Insulin Glargine Lantus [Lantus] 65 UNITS
Subcutaneous Insulin Syringe [Syringe-Insulin] 0 UNIT
As Directed mls/hr SC HS
Reason for use: Diabetes
Last day of Lantus 65units is 01/18 given steroid taper; resume home regimen with Lantus 55u 01/19 onwards
Ordered By: Sarahi Foster MD, Resident
Last Taken: 01/12/25 21:10 0.65 mls
insulin aspart U-100 100 unit/mL (3 mL) Insulin Pen
30 unit SC AC 1 Days Qty: 0.9 0RF
doxycycline hyclate 100 mg Capsule
100 mg PO BID 3 Days Qty: 6 0RF
insulin aspart U-100 [Novolog FlexPen U-100 Insulin] 100 unit/mL (3 mL) insulin pen
25 unit SC AC 2 Days Qty: 1.5 0RF
Rx Instructions:
Start 01/15 at meals, last dose dinner 01/16; Home regimen Nov 20mg 01/17 onwards
Continued
cyanocobalamin (vitamin B-12) 1,000 MCG tablet
1,000 mcg PO DAILY
atorvastatin 40 MG tablet
40 mg PO HS
trazodone 100 MG tablet
100 mg PO HS
pantoprazole 40 MG tablet,delayed release (DR/EC)
40 mg PO DAILY
aspirin 81 MG tablet,delayed release (DR/EC)
81 mg PO DAILY
carvedilol 12.5 mg tablet
12.5 mg PO BID
pregabalin 150 mg capsule
150 mg PO DAILY
Eliquis 5 mg tablet
5 mg PO BID
Combivent Respimat 20-100 mcg/actuation Mist
1 puff INHALATION R Q4HPRN PRN (Reason: sob/wheezing)
furosemide [Lasix] 40 mg Tablet
40 mg PO DAILY
finasteride 5 mg Tablet
5 mg PO DAILY Qty: 30 0RF
tamsulosin 0.4 mg capsule
2 mg PO HS
amlodipine 10 MG tablet
10 mg PO DAILY
pregabalin [Lyrica] 150 MG capsule
300 mg PO HS Qty: 6 0RF
Held
insulin aspart U-100 [Novolog FlexPen U-100 Insulin] 300 UNITS/3 ML insulin pen
20 sliding scale dose SC AC
Hold Instructions: Resume on 01/17/25. Resume this home dose of Novolog 20units starting 01/17 onwards.
insulin glargine [Lantus Solostar U-100 Insulin] 100 unit/mL (3 mL) Insulin Pen
55 unit SC HS
Hold Instructions: Resume on 01/19/25. Take Lantus 65u 01/14-01/18 while on steroid taper; resume 01/19 onwards
Discharge Orders:
Discharge Patient (As Directed); Ordered 01/13/25
Ordered By: Wilfredo Briscoe
Discharge Date and Time
Discharge Date/Time: 01/13/25 14:16
Print Language: BAHAMIAN
== END 2025-01-13 14:16 | DRG 190 ==
LOC: 3 WEST ACU 13:43
PROVIDERS: Registered Nurse; ADMITTING PHYSICIAN Hospitalist; ATTENDING PHYSICIAN Hospitalist; EMERGENCY PHYSICIAN Emergency Medicine; FAMILY PHYSICIAN Family Medicine
PROC: 5A09357 Assistance with Respiratory Ventilation, Less than 24 Consecutive Hours, Continuous Positive Airway Pressure (ICD-10-PCS; 2025-01-09)
DX: J44.1 Chronic obstructive pulmonary disease with (acute) exacerbation (principal); J18.9 Pneumonia, unspecified organism; L89.623 Pressure ulcer of left heel, stage 3; I13.0 Hypertensive heart and chronic kidney disease with heart failure and stage 1 through stage 4 chronic kidney disease, or unspecified chronic kidney disease; N17.9 Acute kidney failure, unspecified; I50.22 Chronic systolic (congestive) heart failure; J98.11 Atelectasis; J44.0 Chronic obstructive pulmonary disease with (acute) lower respiratory infection; R09.02 Hypoxemia; W18.30XA Fall on same level, unspecified, initial encounter; N18.32 Chronic kidney disease, stage 3b; I48.0 Paroxysmal atrial fibrillation; E11.51 Type 2 diabetes mellitus with diabetic peripheral angiopathy without gangrene; M47.26 Other spondylosis with radiculopathy, lumbar region; D64.9 Anemia, unspecified; E66.9 Obesity, unspecified; G47.33 Obstructive sleep apnea (adult) (pediatric); I45.10 Unspecified right bundle-branch block; G47.00 Insomnia, unspecified; K21.9 Gastro-esophageal reflux disease without esophagitis; Z86.73 Personal history of transient ischemic attack (TIA), and cerebral infarction without residual deficits; R33.8 Other retention of urine; E11.65 Type 2 diabetes mellitus with hyperglycemia; T38.0X5A Adverse effect of glucocorticoids and synthetic analogues, initial encounter; N40.1 Benign prostatic hyperplasia with lower urinary tract symptoms; Z95.0 Presence of cardiac pacemaker; Z79.01 Long term (current) use of anticoagulants; Z87.891 Personal history of nicotine dependence; Z95.5 Presence of coronary angioplasty implant and graft; Z79.82 Long term (current) use of aspirin; Z79.4 Long term (current) use of insulin; E11.22 Type 2 diabetes mellitus with diabetic chronic kidney disease; E11.40 Type 2 diabetes mellitus with diabetic neuropathy, unspecified; E78.00 Pure hypercholesterolemia, unspecified; F32.A Depression, unspecified; G89.29 Other chronic pain; I25.10 Atherosclerotic heart disease of native coronary artery without angina pectoris; Z59.82 Transportation insecurity; Z11.52 Encounter for screening for COVID-19
CPT/HCPCS: 70450; 71046; 80048; 80053; 81003; 81015; 82306; 82607; 82947; 82962; 83036; 83605; 83880; 85025; 85027; 87040; 87070; 87205; 87449; 87502; 87811; 87899; 93005; 94640; 94660; 94761; 96374; 96375; 97163; 97167; 97530; 97535; 99291

== ENCOUNTER → 2025-01-16 10:06 | Outpatient (REF) | payer OTHER, SELFPAY ==
[2025-01-16 10:39] LABS: Hematocrit 34.5 % (39.0-52.0); Hemoglobin 12.0 g/dL (13.0-18.0); Mean Corp Hgb Conc. 34.8 g/dL (33.0-37.0); Mean Corpuscular Volume 94.0 fL (80.0-94.0); Nucleated Red Blood Cells % 0 % (-); Platelet Count 306 10^3/uL (130-400); Red Cell Dist. Width 13.5 % (11.5-14.5)
[2025-01-16 10:51] LABS: Blood Urea Nitrogen 47 mg/dl (9-20); Calcium 8.4 mg/dl (8.4-10.2); Carbon Dioxide 32 mmol/L (22-30); Chloride 103 mmol/L (98-107); Glucose 82 mg/dl (70-99); Potassium 4.2 mmol/L (3.5-5.1); Sodium 140 mmol/L (135-145); eGFR 50.81
== END ==
LOC: OLABP 10:06
PROVIDERS: ATTENDING PHYSICIAN Family Medicine
DX: J18.9 Pneumonia, unspecified organism (principal); I50.22 Chronic systolic (congestive) heart failure; E11.40 Type 2 diabetes mellitus with diabetic neuropathy, unspecified; G47.00 Insomnia, unspecified; I10 Essential (primary) hypertension; I25.10 Atherosclerotic heart disease of native coronary artery without angina pectoris; I48.0 Paroxysmal atrial fibrillation; R09.02 Hypoxemia; I73.9 Peripheral vascular disease, unspecified; J44.1 Chronic obstructive pulmonary disease with (acute) exacerbation; J96.21 Acute and chronic respiratory failure with hypoxia; N18.32 Chronic kidney disease, stage 3b
CPT/HCPCS: 36415; 80048; 85025

== ENCOUNTER → 2025-01-21 11:36 | Outpatient (REF) | payer OTHER, SELFPAY ==
[2025-01-21 13:14] LABS: Hematocrit 30.3 % (39.0-52.0); Hemoglobin 10.0 g/dL (13.0-18.0); Mean Corp Hgb Conc. 33.0 g/dL (33.0-37.0); Mean Corpuscular Volume 96.2 fL (80.0-94.0); Nucleated Red Blood Cells % 0 % (-); Platelet Count 239 10^3/uL (130-400); Red Cell Dist. Width 14.5 % (11.5-14.5)
[2025-01-21 13:40] LABS: Blood Urea Nitrogen 38 mg/dl (9-20); Calcium 8.1 mg/dl (8.4-10.2); Carbon Dioxide 31 mmol/L (22-30); Chloride 103 mmol/L (98-107); Glucose 128 mg/dl (70-99); Potassium 3.9 mmol/L (3.5-5.1); Sodium 138 mmol/L (135-145); eGFR 46.77
== END ==
LOC: OLABP 11:36
PROVIDERS: ATTENDING PHYSICIAN Family Medicine
DX: J18.9 Pneumonia, unspecified organism (principal); I50.22 Chronic systolic (congestive) heart failure; E11.40 Type 2 diabetes mellitus with diabetic neuropathy, unspecified; F32.4 Major depressive disorder, single episode, in partial remission; G47.00 Insomnia, unspecified; I10 Essential (primary) hypertension; I25.10 Atherosclerotic heart disease of native coronary artery without angina pectoris; N40.0 Benign prostatic hyperplasia without lower urinary tract symptoms; I48.0 Paroxysmal atrial fibrillation; I73.9 Peripheral vascular disease, unspecified; J44.1 Chronic obstructive pulmonary disease with (acute) exacerbation; K21.9 Gastro-esophageal reflux disease without esophagitis
CPT/HCPCS: 36415; 80048; 85025

== ENCOUNTER → 2025-01-27 12:30 | Outpatient (REF) | payer OTHER, SELFPAY ==
[2025-01-27 12:54] LABS: Hematocrit 28.9 % (39.0-52.0); Hemoglobin 9.7 g/dL (13.0-18.0); Mean Corp Hgb Conc. 33.6 g/dL (33.0-37.0); Mean Corpuscular Volume 96.7 fL (80.0-94.0); Nucleated Red Blood Cells % 0 % (-); Platelet Count 155 10^3/uL (130-400); Red Cell Dist. Width 14.3 % (11.5-14.5)
[2025-01-27 13:04] LABS: Blood Urea Nitrogen 28 mg/dl (9-20); Calcium 7.9 mg/dl (8.4-10.2); Carbon Dioxide 36 mmol/L (22-30); Chloride 100 mmol/L (98-107); Glucose 207 mg/dl (70-99); Potassium 3.4 mmol/L (3.5-5.1); Sodium 138 mmol/L (135-145); eGFR 46.77
== END ==
LOC: OLABP 12:30
PROVIDERS: ATTENDING PHYSICIAN Family Medicine
DX: J18.9 Pneumonia, unspecified organism (principal); I50.22 Chronic systolic (congestive) heart failure; E11.40 Type 2 diabetes mellitus with diabetic neuropathy, unspecified; F32.4 Major depressive disorder, single episode, in partial remission; G47.00 Insomnia, unspecified; G47.33 Obstructive sleep apnea (adult) (pediatric); I10 Essential (primary) hypertension; I25.10 Atherosclerotic heart disease of native coronary artery without angina pectoris; I48.0 Paroxysmal atrial fibrillation; R09.02 Hypoxemia; Z86.73 Personal history of transient ischemic attack (TIA), and cerebral infarction without residual deficits; I73.9 Peripheral vascular disease, unspecified; J44.1 Chronic obstructive pulmonary disease with (acute) exacerbation; J96.21 Acute and chronic respiratory failure with hypoxia; K21.9 Gastro-esophageal reflux disease without esophagitis; L89.623 Pressure ulcer of left heel, stage 3; M51.16 Intervertebral disc disorders with radiculopathy, lumbar region; N18.32 Chronic kidney disease, stage 3b
CPT/HCPCS: 36415; 80048; 85025

== ENCOUNTER → 2025-01-28 12:09 | Outpatient (REF) | payer OTHER, SELFPAY ==
[2025-01-28 12:45] LABS: Blood Urea Nitrogen 33 mg/dl (9-20); Calcium 8.1 mg/dl (8.4-10.2); Carbon Dioxide 35 mmol/L (22-30); Chloride 95 mmol/L (98-107); Glucose 123 mg/dl (70-99); Potassium 3.4 mmol/L (3.5-5.1); Sodium 138 mmol/L (135-145); eGFR 50.81
== END ==
LOC: OLABP 12:09
PROVIDERS: ATTENDING PHYSICIAN Family Medicine
DX: I50.22 Chronic systolic (congestive) heart failure (principal); J18.9 Pneumonia, unspecified organism; E11.40 Type 2 diabetes mellitus with diabetic neuropathy, unspecified; I10 Essential (primary) hypertension; I48.0 Paroxysmal atrial fibrillation; J44.1 Chronic obstructive pulmonary disease with (acute) exacerbation
CPT/HCPCS: 36415; 80048

== ENCOUNTER → 2025-02-03 10:25 | Outpatient (REF) | payer OTHER, SELFPAY ==
[2025-02-03 11:16] LABS: Blood Urea Nitrogen 43 mg/dl (9-20); Calcium 8.7 mg/dl (8.4-10.2); Carbon Dioxide 33 mmol/L (22-30); Chloride 99 mmol/L (98-107); Glucose 113 mg/dl (70-99); Potassium 3.5 mmol/L (3.5-5.1); Sodium 143 mmol/L (135-145); eGFR 43.29
== END ==
LOC: OLABP 10:25
PROVIDERS: ATTENDING PHYSICIAN Family Medicine
DX: E11.40 Type 2 diabetes mellitus with diabetic neuropathy, unspecified (principal); I50.22 Chronic systolic (congestive) heart failure; J18.9 Pneumonia, unspecified organism; F32.4 Major depressive disorder, single episode, in partial remission; G47.33 Obstructive sleep apnea (adult) (pediatric); I10 Essential (primary) hypertension; I25.10 Atherosclerotic heart disease of native coronary artery without angina pectoris; R09.02 Hypoxemia; I48.0 Paroxysmal atrial fibrillation; I73.9 Peripheral vascular disease, unspecified
CPT/HCPCS: 36415; 80048

== ENCOUNTER → 2025-02-10 11:28 | Outpatient (REF) | payer OTHER, SELFPAY ==
[2025-02-10 13:33] LABS: Hematocrit 31.2 % (39.0-52.0); Hemoglobin 10.3 g/dL (13.0-18.0); Mean Corp Hgb Conc. 33.0 g/dL (33.0-37.0); Mean Corpuscular Volume 97.5 fL (80.0-94.0); Nucleated Red Blood Cells % 0 % (-); Platelet Count 244 10^3/uL (130-400); Red Cell Dist. Width 14.9 % (11.5-14.5)
[2025-02-10 13:43] LABS: Blood Urea Nitrogen 37 mg/dl (9-20); Calcium 8.4 mg/dl (8.4-10.2); Carbon Dioxide 31 mmol/L (22-30); Chloride 100 mmol/L (98-107); Glucose 203 mg/dl (70-99); Potassium 4.1 mmol/L (3.5-5.1); Sodium 140 mmol/L (135-145); eGFR 55.53
== END ==
LOC: OLABP 11:28
PROVIDERS: ATTENDING PHYSICIAN Family Medicine
DX: J18.9 Pneumonia, unspecified organism (principal); I50.22 Chronic systolic (congestive) heart failure; E11.40 Type 2 diabetes mellitus with diabetic neuropathy, unspecified; F32.4 Major depressive disorder, single episode, in partial remission; I10 Essential (primary) hypertension; I25.10 Atherosclerotic heart disease of native coronary artery without angina pectoris
CPT/HCPCS: 36415; 80048; 85025

== ENCOUNTER → 2025-02-11 12:27 | Outpatient (REF) | payer OTHER, SELFPAY ==
[2025-02-11 13:39] LABS: Blood Urea Nitrogen 40 mg/dl (9-20); Calcium 8.4 mg/dl (8.4-10.2); Carbon Dioxide 30 mmol/L (22-30); Chloride 102 mmol/L (98-107); Glucose 216 mg/dl (70-99); Potassium 4.0 mmol/L (3.5-5.1); Sodium 138 mmol/L (135-145); eGFR 50.81
== END ==
LOC: OLABP 12:27
PROVIDERS: ATTENDING PHYSICIAN Family Medicine
DX: N40.0 Benign prostatic hyperplasia without lower urinary tract symptoms (principal); J18.9 Pneumonia, unspecified organism; I50.22 Chronic systolic (congestive) heart failure; E11.40 Type 2 diabetes mellitus with diabetic neuropathy, unspecified; F32.4 Major depressive disorder, single episode, in partial remission; G47.00 Insomnia, unspecified; G47.33 Obstructive sleep apnea (adult) (pediatric); I10 Essential (primary) hypertension; I25.10 Atherosclerotic heart disease of native coronary artery without angina pectoris; I48.0 Paroxysmal atrial fibrillation; I73.9 Peripheral vascular disease, unspecified; J44.1 Chronic obstructive pulmonary disease with (acute) exacerbation; J96.21 Acute and chronic respiratory failure with hypoxia; K21.9 Gastro-esophageal reflux disease without esophagitis; L89.623 Pressure ulcer of left heel, stage 3; M51.16 Intervertebral disc disorders with radiculopathy, lumbar region; R09.02 Hypoxemia; Z86.73 Personal history of transient ischemic attack (TIA), and cerebral infarction without residual deficits; N18.32 Chronic kidney disease, stage 3b
CPT/HCPCS: 36415; 80048

== ENCOUNTER 2025-03-25 21:01 | Inpatient (IN) | payer OTHER, SELFPAY ==
[2025-03-25 10:41] VITALS: BMI 34.2
[2025-03-25 10:49] VITALS: BP 154/66
[2025-03-25 11:19] LABS: Hematocrit 32.1 % (39.0-52.0); Hemoglobin 10.6 g/dL (13.0-18.0); Mean Corp Hgb Conc. 33.0 g/dL (33.0-37.0); Mean Corpuscular Volume 92.5 fL (80.0-94.0); Nucleated Red Blood Cells % 0 % (-); Platelet Count 209 10^3/uL (130-400); Red Cell Dist. Width 14.6 % (11.5-14.5)
[2025-03-25 11:29] LABS: ALT (SGPT) 15 U/L (0-50); AST (SGOT) 19 U/L (17-59); Albumin 4.3 g/dl (3.5-5.0); Alkaline Phosphatase 87 U/L (38-126); Blood Urea Nitrogen 30 mg/dl (9-20); Calcium 8.8 mg/dl (8.4-10.2); Carbon Dioxide 27 mmol/L (22-30); Chloride 105 mmol/L (98-107); Glucose 186 mg/dl (70-99); Potassium 4.7 mmol/L (3.5-5.1); Sodium 139 mmol/L (135-145); Total Protein 7.4 g/dl (6.3-8.2); eGFR 55.53
[2025-03-25 15:52] VITALS: BP 162/73
[2025-03-25 16:22] VITALS: BP 158/70
--- NOTE | 2025-03-25 17:09 | ED.GENMED ---
History of Present Illness
<Mega Vargas PA-C - Last Filed: 03/25/25 19:29>
General
Chief Complaint: Weakness
Time Seen by Provider: 03/25/25 16:25
History of Present Illness
History of Present Illness:
79-year-old male with history of A-fib on Eliquis, hypertension, hyperlipidemia, CAD status post multiple stents, insulin-dependent diabetes, COPD, and prior stroke presents to the emergency department for evaluation of general weakness and
difficulty ambulating. Typically uses a walker but for the past several weeks has had increasing difficulty ambulating. He has a known ulceration to the left heel that he is concerned about and he missed his foot doctor appointment yesterday.
Denies any fevers or chills. Denies any chest pain or shortness of breath. Denies any claudication symptoms.
Past History
<Mega Vargas PA-C - Last Filed: 03/25/25 19:29>
Past History
ED Past Medical History: COPD, HTN, Hypercholesterolemia, IDDM, Psychiatric (depression) and Other (CKD)
ED Past Surgical History: Cardiac (Pacemaker/stents), Orthopedic (Laminectomy) and Other (Stents bilateral lower extremities for peripheral vascular disease)
Social History
Tobacco: Former smoker
Alcohol: Occasional
Drug: None
Personal:
Living: with family
Review of Systems
<Mega Vargas PA-C - Last Filed: 03/25/25 19:29>
Review of Systems
Allergies reviewed?: Yes
All Other Systems: ROS reviewed and negative except as documented in HPI and ROS
Phy Exam
<Mega Vargas PA-C - Last Filed: 03/25/25 19:29>
Physical Exam
Physical Exam:
GEN: Well appearing, NAD, WDWN
HEENT: Oral mucosa moist, no scleral icterus
Cardiac: Regular rate and rhythm
Lung: No respiratory distress, no tachypnea, lungs clear
MSK: No gross deformity or injuries. Diffuse edema noted to bilateral lower extremities, nonpitting. Bilateral DP and PT pulses are strong by Doppler. Status post several toe amputations, there is a superficial ulceration to the left heel with no
significant surrounding erythema or purulent discharge.
Skin: Good color, no pallor or jaundice, no rashes
Neuro: AO x3, moves all extremities freely
Psych: Calm, cooperative
Course
<Mega Vargas PA-C - Last Filed: 03/25/25 19:29>
Orders/Labs/Results
Orders:
Orders
03/25/25 10:59
C-Reactive Protein Urgent
Comment: ADD ON
Complete Blood Count/With Diff Urgent
Comprehensive Metabolic Panel Urgent
Erythrocyte Sed Rate Urgent
Comment: ADD ON
03/25/25 16:51
Add On- LAB Urgent
Tests Added?: CRP, ESR
03/25/25 16:52
CR Heel/os Calcis - Left 2 Vw* Urgent
Comment:
Reason For Exam: ulcer
03/25/25 17:46
Straight cath- Treatment ONCE
03/25/25 17:55
Urinalysis Reflex To Culture Urgent
Date Specimen was Collected: 03/25/25
Time Specimen was Collected: 17:50
Urine Microscopic Reflex Cult Urgent
Abnormal Lab Results
03/25/25 03/25/25
10:59 17:55
WBC 14.2 H 10^3/uL
(4.8-10.8)
RBC 3.47 L 10^6/uL
(4.70-6.10)
Hgb 10.6 L g/dL
(13.0-18.0)
Hct 32.1 L %
(39.0-52.0)
RDW 14.6 H %
(11.5-14.5)
Absolute Neuts (auto) 11.8 H 10^3/uL
(1.4-6.5)
Absolute Lymphs (auto) 1.1 L 10^3/uL
(1.2-3.4)
Absolute Monos (auto) 1.1 H 10^3/uL
(0.1-0.6)
Neutrophils % 83.1 H %
(42.2-75.2)
Lymphocytes % 7.4 L %
(20.5-51.1)
ESR 40 H mm/hour
(0-20)
BUN 30 H mg/dl
(9-20)
Glucose 186 H mg/dl
(70-99)
C-Reactive Protein 28.70 H mg/L
(0.0-10.00)
Urine Albumin (Reflex) 1+ A
(Neg - Trace)
03/25/25 10:59
03/25/25 10:59
Vital Signs
Initial and Last Documented VS:
Initial Vital Signs
Temp Pulse Resp BP Pulse Ox
36.9 C 69 16 154/66 98
03/25/25 10:49 03/25/25 10:49 03/25/25 10:49 03/25/25 10:49 03/25/25 10:49
Last Documented Vital Signs
Temp Pulse Resp BP Pulse Ox
36.4 C 74 18 158/70 95
03/25/25 16:00 03/25/25 16:22 03/25/25 16:22 03/25/25 16:22 03/25/25 17:09
<Sonny Jones MD - Last Filed: 03/25/25 19:47>
Orders/Labs/Results
Orders:
Orders
03/25/25 10:59
C-Reactive Protein Urgent
Comment: ADD ON
Complete Blood Count/With Diff Urgent
Comprehensive Metabolic Panel Urgent
Erythrocyte Sed Rate Urgent
Comment: ADD ON
03/25/25 16:51
Add On- LAB Urgent
Tests Added?: CRP, ESR
03/25/25 16:52
CR Heel/os Calcis - Left 2 Vw* Urgent
Comment:
Reason For Exam: ulcer
03/25/25 17:46
Straight cath- Treatment ONCE
03/25/25 17:55
Urinalysis Reflex To Culture Urgent
Date Specimen was Collected: 03/25/25
Time Specimen was Collected: 17:50
Urine Microscopic Reflex Cult Urgent
Abnormal Lab Results
03/25/25 03/25/25
10:59 17:55
WBC 14.2 H 10^3/uL
(4.8-10.8)
RBC 3.47 L 10^6/uL
(4.70-6.10)
Hgb 10.6 L g/dL
(13.0-18.0)
Hct 32.1 L %
(39.0-52.0)
RDW 14.6 H %
(11.5-14.5)
Absolute Neuts (auto) 11.8 H 10^3/uL
(1.4-6.5)
Absolute Lymphs (auto) 1.1 L 10^3/uL
(1.2-3.4)
Absolute Monos (auto) 1.1 H 10^3/uL
(0.1-0.6)
Neutrophils % 83.1 H %
(42.2-75.2)
Lymphocytes % 7.4 L %
(20.5-51.1)
ESR 40 H mm/hour
(0-20)
BUN 30 H mg/dl
(9-20)
Glucose 186 H mg/dl
(70-99)
C-Reactive Protein 28.70 H mg/L
(0.0-10.00)
Urine Albumin (Reflex) 1+ A
(Neg - Trace)
03/25/25 10:59
03/25/25 10:59
Vital Signs
Initial and Last Documented VS:
Initial Vital Signs
Temp Pulse Resp BP Pulse Ox
36.9 C 69 16 154/66 98
03/25/25 10:49 03/25/25 10:49 03/25/25 10:49 03/25/25 10:49 03/25/25 10:49
Last Documented Vital Signs
Temp Pulse Resp BP Pulse Ox
36.4 C 74 18 158/70 95
03/25/25 16:00 03/25/25 16:22 03/25/25 16:22 03/25/25 16:22 03/25/25 17:09
<Mega Vargas PA-C - Last Filed: 03/25/25 19:29>
MDM/Problems Addressed
MDM/Problems Addressed:
Patient is unable to walk, no immediate reason for this is known, suspect physical deconditioning. He has strong pulses no evidence for acute arterial disease in the lower extremities. Labs are reassuring, no evidence of UTI. There is a mild
leukocytosis of uncertain etiology. The left heel ulcer shows no infectious signs. Unable to be safely d/c due to inability to ambulate
<Mega Vargas PA-C - Last Filed: 03/25/25 19:29>
*Pulse Oximetry
SaO2: 95
Oxygen Mode of Delivery: Room air
Patient hypoxic: no
*Critical Care Note
Total Time (30-74mins, 75-104mins- exclusive of procedures): Not Applicable
ED Attending Note
<Mega Vargas PA-C - Last Filed: 03/25/25 19:29>
-
Portions of this chart may have been created with voice recognition software.� Occasional wrong word or��sound alike� substitutions may have occurred due to the inherent limitations of voice recognition software.
<Sonny Jones MD - Last Filed: 03/25/25 19:47>
ED Attending Note
Patient seen and examined by attending physician: Yes
ED Attending Note:
I have seen and evaluated the patient with a [id number] encounter. I have spoken to the advance practicer provider and involved in the medical history, the physical exam, medical decision making.
Evaluation and management service: agree unless noted differently below.
Results interpretation: agree unless noted differently below.
Focused HPI: 79-year-old male with a past medical history as noted presents to the ER for evaluation of leg pain. Patient currently lives at home by himself, ambulates with a walker. He has a history of peripheral vascular disease and prior stents
in the right leg. He also has a history of diabetes and wounds in the feet requiring partial amputation of the toes bilaterally. He has a chronic left heel wound. He reports he has chronic swelling in the legs. He says that over the past week or
so he has had increased generalized weakness and increasing pain down the left leg�he reports a shooting pain from proximal to distal left leg. He denies any falls or trauma. He denies any fever or chills. He says that he was not able to make it
to his foot doctor appointment yesterday due to his severe weakness ultimately called the ambulance to bring him to hospital today for evaluation.
Physical exam: Awake and alert, not in acute distress. Hypertensive but otherwise normal vitals. He has marked edema in the legs bilaterally +3 pitting. He has some mild chronic venous stasis changes but no significant erythema or warmth in the
legs bilaterally. He has a chronic wound on the left heel no gross discharge or significant erythema surrounding. He has strong femoral pulse bilaterally, difficult to locate DP pulse given marked edema but his feet are warm and well-perfused.
Medical Decision Makin-year-old male presents from home for increased generalized weakness and left leg pain. Vitals and exam are as above. He does have a chronic wound on the left heel�x-ray nothing to suggest osteomyelitis. The pain he
describes is more of a shooting pain down the leg most consistent with a radiculopathy. He does have a history of vascular disease but seems to have good perfusion of the foot. He does not move around much at home and is at risk for DVT but he
takes Eliquis and reports compliance making DVT very unlikely and there is no asymmetry to his swelling, no calf tenderness, no palpable cords, no streaking redness or skin changes to suggest that this is a DVT. I suspect that his leg pain is
neuropathic. With tenuous ambulatory status increased weakness he will likely need short-term rehab�admit to hospitalist.
Discharge Plan
Departure
Patient Disposition: Admit
Date of Disposition: 03/25/25
Time of Disposition: 19:11
Presentation/result/management discussed w/ accepting MD/DO: Hospitalist
Discharge Problem:
Weakness, Ambulatory dysfunction
Prescriptions:
No Action
cyanocobalamin (vitamin B-12) 1,000 MCG tablet
1,000 mcg PO DAILY
atorvastatin 40 MG tablet
40 mg PO DAILY
trazodone 100 MG tablet
100 mg PO HS
pantoprazole 40 MG tablet,delayed release (DR/EC)
40 mg PO DAILY
aspirin 81 MG tablet,delayed release (DR/EC)
81 mg PO DAILY
carvedilol 12.5 mg tablet
12.5 mg PO BID
pregabalin 150 mg capsule
150 mg PO DAILY
Eliquis 5 mg tablet
5 mg PO BID
furosemide [Lasix] 40 mg Tablet
40 mg PO DAILY
finasteride 5 mg Tablet
5 mg PO DAILY Qty: 30 0RF
tamsulosin 0.4 mg capsule
0.8 mg PO HS
amlodipine 10 MG tablet
10 mg PO DAILY
ipratropium-albuterol 0.5 mg-3 mg(2.5 mg base)/3 mL Solution For Nebulization
3 ml inhalation R Q4HPRN PRN (Reason: SOB/wheezing) 30 Days Qty: 100 0RF
pregabalin [Lyrica] 150 MG capsule
300 mg PO HS Qty: 6 0RF
insulin glargine [Lantus Solostar U-100 Insulin] 100 unit/mL (3 mL) Insulin Pen
55 unit SC HS
insulin aspart U-100 [Novolog FlexPen U-100 Insulin] 100 unit/mL (3 mL) insulin pen
20 unit SC AC
Referrals:
Haja Manuel MD [Family Provider, Family Practice]
Interventions
Interventions:
*General Assessment Last Done: 03/25/25 10:49
*Neglect/Abuse Screening Last Done: 03/25/25 10:49
*ED COVID-19 Vaccine History Last Done: 03/25/25 10:49
*ED Influenza Vaccine History Last Done: 03/25/25 10:49
[facility] Fall Risk Assessment Tool Last Done: 03/25/25 10:41
*Risk Screen - Suicide (C-SSRS) Last Done: 03/25/25 10:49
ED- Cardiac Assessment Last Done: 03/25/25 16:34
ED- Neurological Assessment Last Done: 03/25/25 16:34
ED- Pulmonary Assessment Last Done: 03/25/25 16:34
Discharge Date and Time
Print Language: YEMENI
[2025-03-25 17:34] LABS: C-Reactive Protein 28.70 mg/L (0.0-10.00)
[2025-03-25 18:04] LABS: Urine Character Clear (Clear)
[2025-03-25 18:20] LABS: Urine Red Blood Cell 0-2 /HPF (0-2); Urine White Cell 0-2 /HPF (0-5)
--- NOTE | 2025-03-25 19:51 | HPS.HSE ---
Family Physician
-
Family Physician: Haja Manuel
Chief Complaint
-
left leg weakness
History of Present Illness
79-year-old male from Home, where he lives alone complaining of generalized weakness with difficulty ambulating for the past several weeks. He normally uses a walker but has had increased difficulty ambulating with. The pt reports increased ability
to left his left leg up to get into bed , worse since last night so he slept in a recline. He has severe neuropathy from feet to groin area and has also had urinary incontinence little less then 1 year where he cannot feel himself voiding. he has
not has this evaluated. He has chronic lower back and his of laminectomy. He reports since having pneumonnia in dec then going to [facility] for rehab x1 month he feels weaker then his baseline where he uses a walker for . He has a chronic left heel
ulcer with known history of PVD and stents bilateral lower extremities. 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 . He denies fever, chills, chest pain, palpitations, cough, abdominal pain, nausea, vomit diarrhea, urinary
symptoms.
Past medical history PVD with bilateral lower extremity stents, Severe nuropathy bilat legs to groin, chronic urinay incontinece unclear etiology, A-fib, HTN, HLD, CAD s/p cardiac stents, pacemaker, D2, COPD, CVA, depression, CKD 3A, former smoker
Medical History
Past Medical History
Past Medical History: Reports Other
Additional Past Medical History:
PVD with bilateral lower extremity stents
A-fib
CKD 3A
HTN
HLD
CAD s/p cardiac stents
pacemaker
DM2
COPD
CVA
depression
former smoker
Past Surgical History: Reports Other
Additional Past Surgical History:
Coronary artery stent
Right sided hemilaminectomy, facetectomy
Amputation of right second toe
Left big toe partial amputation right wrist carpal tunnel
Social History
Tobacco: Former Smoker
Alcohol: Daily
Drug: None
Personal: Single
Living: Alone
Family History
Family History: Not pertinent
Allergies / Home Medications
Allergies reflects when Allergies were last updated in [employer].
Home Medications with original date entered in [employer]
Allergy/Medication List:
Allergies
Allergy/AdvReac Type Severity Reaction Status Date / Time
No Known Allergies Allergy Verified 03/25/25 10:51
Home Medications
cyanocobalamin (vitamin B-12) 1,000 mcg tablet 1,000 mcg PO DAILY Supplement 07/27/14
atorvastatin 40 mg tablet 40 mg PO DAILY High cholesterol 03/15/20
pantoprazole 40 mg tablet,delayed release 40 mg PO DAILY Gastrointestinal issue 03/15/20
trazodone 100 mg tablet 100 mg PO HS sleep/mood 03/15/20
aspirin 81 mg tablet,delayed release 81 mg PO DAILY Blood clot prevention/tx 04/23/20
apixaban 5 mg tablet (Eliquis) 5 mg PO BID Prevent Blood Clot/AFib 05/17/23
carvedilol 12.5 mg tablet 12.5 mg PO BID Heart Disease/BP 05/17/23
pregabalin 150 mg capsule 150 mg PO DAILY fibromyalgia/pain 05/17/23
furosemide 40 mg tablet (Lasix) 40 mg PO DAILY Fluid Retention/Swelling 10/26/23
finasteride 5 mg tablet 5 mg PO DAILY Urinary issue #30 tabs 10/29/23
amlodipine 10 mg tablet 10 mg PO DAILY Blood Pressure 01/09/25
tamsulosin 0.4 mg capsule 0.8 mg PO HS Urinary Issue 01/09/25
ipratropium 0.5 mg-albuterol 3 mg (2.5 mg base)/3 mL nebulization soln 3 ml inhalation R Q4HPRN PRN SOB/wheezing 30 days #100 mL 01/13/25
pregabalin 150 mg capsule (Lyrica) 300 mg (2 x 150 mg) PO HS fibromyalgia/pain #6 caps 01/13/25
insulin aspart U-100 100 unit/mL (3 mL) subcutaneous pen (Novolog FlexPen U-100 Insulin aspart) 20 unit SC AC 03/25/25
insulin glargine 100 unit/mL (3 mL) subcutaneous pen (Lantus Solostar U-100 Insulin) 55 unit SC HS 03/25/25
Review of Systems
-
History Source: Patient
A 12 point ROS was completed and negative except as noted: Yes
Constitutional: Denies Fever or Chills
EENT: Denies Sore Throat or Runny Nose
Respiratory: Denies Cough or Trouble Breathing
Cardiac: Denies Chest Pain, Diaphoresis, Palpitations or Syncope
Abdomen/GI: Denies Abdominal Pain, Nausea, Vomiting, Diarrhea, Constipated, Bloody Stools or Black Stools
: Reports Incontinence (chronic x 1 year )
Musculoskeletal: Reports Edema (bilt leg +2 edema) and Other (weakenss left leg 0/5 right leg 2/5 strength ); Denies Joint Pain
Skin: Denies Itching or Rash
Neurological: Reports Weakness (left leg greater then right ); Denies Dizzy or Headache
Hematologic/Lymphatic: Reports No Symptoms
Psych: Reports Calm
Physical Exam
Vital Signs
Vital Signs
Temp Pulse Resp BP Pulse Ox
97.5 F 74 18 158/70 95
03/25/25 16:00 03/25/25 16:22 03/25/25 16:22 03/25/25 16:22 03/25/25 17:09
Physical Exam
General: No Fever or Chills
HEENT: NormoCephalic, Anicteric, Moist mucous membranes, Atraumatic, PERRLA, [place] Conjunctivae and No Ptosis
Respiratory: Clear; No Wheezes, Rales or Rhonchi
Cardiac: S1/S2, Regular Rhythm and Peripheral Edema (+2 bilat lower legs ); No Murmur, Rub or Gallop
Breast: Deferred by me
GI: Soft, Non Tender, Non Distended, Normal Bowel Sounds and No Hepatosplenomegaly
Rectal: Deferred by Provider
Genito-urinary: Deferred by me
Musculoskeletal: No Clubbing, No Cyanosis, Edema, Left Lower Extremity (+2), Edema, Right Lower Extremity (+2) and Other (weakenss left leg 0/5 right leg 2/5 strength ); No Edema, Left Upper Extremity or Edema, Right Upper Extremity
Skin: Warm and Dry
Neuro: AO x 3 and Other (severe neuropathy feet to groin ); No Slurred Speech, Facial Droop, Tremors or Sedated
Psych: Calm
Laboratory Results
-
03/25/25 10:59
03/25/25 10:59
Laboratory Results
Total Bilirubin 0.7 mg/dl (0.2-1.3) 03/25/25 10:59
AST 19 U/L (17-59) 03/25/25 10:59
ALT 15 U/L (0-50) 03/25/25 10:59
Alkaline Phosphatase 87 U/L (38-126) 03/25/25 10:59
Impression/Plan
-
Impression/plan:
Obs Med surg
#Left leg weakness with severe Neuropathy feet to groin conc for Herniated disc
#Chronic Left heel ulcer
#Chronic Bilat Leg edema
#PVD with bilateral lower extremity stents,amputation partial toes left foot 1st,2nd,3rd, right foot partial 1st and 2n toes
esr 40 , crp 28.7
-MRi Lumbar
pt has pacemaker placed Edmundo olvera 05/13/2019
-consult Neuro
- soke with Dr barros podiatry - pt needs wound care ans santyl to heel, chronic wound not currently infected
- cont Lyrica
- cont lasix 40 mg daily
-pt consult
Calcaneus x-ray: No evidence of fracture or osteomyelitis
#Chronic urinary incontinence ? neurogenic bladder
pt has never had evaluated
- check post void residuals
cont Finasterde 5 mg daily , flomax
Pacemaker 05/13/2019
-placed at [facility]
#Acute on chronic leukocytosis
Wbc 14.2 prior 15-20
follow cbc . pt afebrile
#Daily Etoh use
1 beer daily with dinner
cont b12 supp
#Dm 2
BS 186
-pt on lantus 55units hs, novolog 20 units sc
- will place on 1800 ada , give lantus 20 units hs, novolog Mod dose wmeals
#A-fib
cont eliquis 5 mg bid,coreg
#CKD 3A
creat 1.3
follow bmp
#Normocytic anemia
hgb 10.6
# HTN
bp 158/70
cont coreg
#HLD
cont lipitor
#CAD s/p cardiac stents
cont
#COPD no acute exacerbation
former smoker
# CVA hx
cont statin
#depression
No reported meds
#Sleep apnea chronic cpap setting 11
pt has own mask with him
#Insomnia
cont trazadone
dvt proph
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
Full code
--- NOTE | 2025-03-25 20:18 | W.PN.UPDATE ---
Update Note
Progress Note Update
This note serves as an addendum to the H&P by ultrasonic cleaner Shameka Donahue
�
HPI
79M Obesity, use walker, daily ETOH use ( 1 beer per day)
Significant PMHX:HTN, Prx AF, chr Eliquis, chronic HFrEF, CKD3, stage III left heel pressure injury, T2DM, KATHY, CPAP HS ( 11cm ) COPD, CKD 3, CVA,. chronic lower extremity edema
- pw general weakness and difficulty ambulating.
- Typically uses a walker but for the past several weeks has had increasing difficulty ambulating.
- known ulceration to the left heel that he is concerned about and he missed his foot doctor appointment yesterday.
ROS
Denies any fevers or chills. Denies any chest pain or shortness of breath. Denies any claudication symptoms.
Relevant VS
Temp Pulse Resp BP Pulse Ox
97.5 F 74 18 158/70 95
03/25/25 16:00 03/25/25 16:22 03/25/25 16:22 03/25/25 16:22 03/25/25 17:09
PE
Gen: unkempt , cooperative
HEENT:anicteric
Neck: supple
Lungs: CTA
Cor: paced rhythm
Abdomen:�obese
INCOME TAX INVESTIGATOR: AAO3
MS:b/l Braulio weakness ( Lt is weaker than Rt)
B/L edema
Partial amputee of Lt Toes 1, 2 and 3 , partial amputee of R toe 1 & 2
Psych: Nl mood
Relevant Data
02/10/25 02/11/25 03/25/25
08:50 06:10 10:59
WBC 14.2 H
Hgb 10.3 L 10.6 L
Potassium 4.0 4.7
Carbon Dioxide 30 27
Creatinine 1.4 H 1.3
eGFR 50.81 55.53
C-Reactive Protein 28.70 H
Last hospitalist admission: 01/09/25 - 01/13/25
Principal Discharge diagnosis : Acute hypoxic respiratory insufficiency secondary to pneumonia, concern for COPD exacerbation; Mechanical fall; CHRIS
Chronic Discharge diagnosis : Type 2 diabetes, Hypertension, CKD 3, Paroxysmal atrial fibrillation with history of permanent pacemaker, Chronic HFmrEF, Anemia, Coronary disease with history of stents, Generalized weakness, Multilevel lumbar
DJD/chronic back pain/lumbar laminectomy/diabetic neuropathy, PVD with history of right lower extremity stent, Prostate disease, History of CVA, History of gout/pseudogout, Chronic RBBB, GERD, KATHY, Insomnia, and Obesity with a BMI of 33
ASSESSMENT & PLAN
Chronic Left heel ulcer
PVD with bilateral lower extremity stents
- ESR 40 , CRP 28.7
- Leucocytosis
- afebrile
- NEG Calcaneus XR facture or OM
- P Pediatric Care Coordinator ( Dr. Angelina Barros) consult
Profound b/l Braulio weakness ( Lt is weaker than Rt)
Acute on chr Gait dysfunction
Urinary incontinence for almost 1 yr - no prior evaluation
DDX: diabetic or ETOH peripheral neuropathy, cord dysfunction
HX multilevel lumbar DJD/chronic back pain/diabetic neuropathy
-Lyrica
- Bladder scan protocol
- MRI Lx spine
- PT/OT
- Neuro consult
HX PPM placed
- uncertain MRI compactability
- await MRI eval for PPM compactability
HX CKD 3b
- Creatinine 1.5
- Trend Cr
T2DM with hyperglycemia
- Lantus continued
- ISS Mod
Benign HTN
- Norvasc continued with hold parameter
HX Paroxysmal AF
-EKG with paced rhythm
-Status post permanent pacemaker
c/w Eliquis, continue Coreg
HX Chronic HFmrEF
- strict I&O, daily weight
- Lasix continued
BPH
- c/w Finasteride + tamsulosin continued
HX KATHY
Class I/II Obesity - BMI 34.2
- Continue CPAP @ 11 cm H2O HS
HX gout/pseudogout
HX Chronic right bundle branch block
DVT prophylaxis�Eliquis
Full code
IP MS
[2025-03-25 22:29] LABS: Glucose - Point of Care 132 mg/dl (70-99)
[2025-03-25] MEDS: LYRICA 300 MG PO (23:22)
[2025-03-25] MEDS: LANTUS 0.2 UNITS SC (23:23)
[2025-03-25] MEDS: DESYREL 100 MG PO (23:23)
[2025-03-25] MEDS: FLOMAX 0.8 MG PO (23:23)
[2025-03-26] VITALS (9 sets, daily range): BP systolic 117–147; BP diastolic 46–67; PULSE 68–71; O2SAT 95; BMI 34.2
[2025-03-26 07:59] LABS: Glucose - Point of Care 115 mg/dl (70-99)
--- NOTE | 2025-03-26 08:44 | CON.NEURO4 ---
Addendum entered and electronically signed by Jimy Devlin MD 03/26/25 10:12:
Studies reviewed.
I have personally examined the patient. I reviewed and agree with the NCQA SPECIALIST's Note.
My addenda:
Awake, alert, interactive. No acute distress. Wearing CPAP.
Speech intact.
Follows 2-step requests w/o difficulty. No tremor.
Extra-ocular movements grossly intact.
Facial movements full and symmetric. Hearing intact to normal conversational volume.
Normal UE movements bilaterally. 3 out of 5 strength in bilateral lower extremities. No cramping noted in either any extremities or in mouth
Neck: full ROM.
Chest: no dyspnea
Heart: no JVD
Ext: (-) Clubbing, (-) Cyanosis, (-) Edema
IMPRESSIONS/RECOMMENDATIONS:
Abrupt onset of left lower extremity weakness which is semiacute on chronic in nature and involves bilateral lower extremities with regards to weakness. Cramping only in the left lower extremity at rest.
Several possible etiologies exist for this weakness which include recurrence of severe lumbar spinal stenosis, as well as physical deconditioning and possibly restless leg syndrome
Agree with checking MRI of lumbar spine without contrast for structural abnormalities
Outpatient EMG study of bilateral lower extremities
Continue usual medications including apixaban
D/W patient
All questions answered.
Will continue to follow pending results.
Original Note:
Consultation - Neurology 4
-
CONSULTING PHYSICIAN: Jimy Devlin MD
REFERRING PHYSICIAN: Hospitalists/ROSE MARY Green
DICTATED BY: ROSE MARY Garcia
DATE/TIME OF REQUEST: 03/25/25
DATE/TIME OF CONSULTATION: 03/26/25
Reason for Consultation: Left lower extremity weakness
History of Present Illness:
This is an 79-year-old right-handed female who has presented to the hospital on 03/25/25 with report of progressive left lower extremity weakness and difficulty ambulating. Patient reports that his legs are weak at baseline. At one point his RLE
was severely weak but this improved. His left lower extremity is mildly weak at baseline but over the past few weeks has become severely weak. He also notes having cramps/spasm sensations in his left groin. He notices the cramping sensation when he
is laying down only, not when he is walking. He notes chronic mild lumbar back pain, this is unchanged. He notes chronic numbness in bilateral lower extremities and in his R hand. He reports having carpal tunnel release in his right arm that was
unsuccessful, and his right arm has been weak chronically. He denies any headaches, dizziness, vision changes, and speech/swallow difficulty.
Past Medical History: Afib (apixaban), 'TIA' with visual disturbance/negative MRI 2018, COPD, HTN, HLD, DM requiring insulin, CKD 3a, CAD, PAD, b/l carpal tunnel, peripheral neuropathy, osteomyelitis, syncope, left heel wound, chronic urinary
incontinence
Surgical History: Pacemaker, Cardiac stents, R hemilaminectomy facetectomy w/ debridement/excision of stenosing lesion 2018, b/l lower extremity arteriogram and stenting, R 2nd toe amputation, L great toe, 2nd/3rd toe amputation, R carpal tunnel
release
Family History: Reviewed and noncontributory.
Social History: Former smoker. Daily alcohol. Denies illicit drug use.
Allergies: No known allergies.
Home Medications: See below.
Review of Symptoms:
Patient denies any fever, headache, chest pain, shortness of breath, GI or symptoms.
�Per the HPI.�All systems are reviewed negative except above.
Physical Exam:
The patient is afebrile, abdomen is nondistended, breathing is unlabored, skin is dry, right third finger gouty deformities, bilateral toes with partial amputations, BLE with +3 edema/PVD changes.
Neurologic Examination:
The patient is awake, alert and oriented x 3. He is able to follow commands and answer questions appropriately. There is no aphasia or dysarthria. On cranial nerve assessment, pupils are pinpoint bilateral, round and reactive to light and
accommodation. Visual escobar are full. Extraocular movements are intact. Facial sensations are intact and bilaterally symmetrical, there is no facial asymmetry. Hearing is intact bilaterally to normal conversation volume. Tongue palate and uvula are
midline. Sternocleidomastoid strengths are full bilaterally. Motor strengths are 4/5 right upper, 5-/5 left upper, 4-/5 right lower, and 3-/5 left lower extremities on medical research [place] scale. There is slight drift in the RUE. Drift in RLE,
some effort against gravity LLE. No involuntary movement noted. Deep tendon reflexes are 2+ bilateral upper and absent bilateral lower extremities and Babinski is absent bilaterally. There was no extinction noted on double simultaneous stimulation.
Coordination is intact by finger to nose bilaterally.
Lab Results: See below.
Neuro Imaging: None.
Differentials for the patient's presentation include:
1. Progressive weakness of chronically weak left lower extremity.
2. Left groin cramping.
3. Leukocytosis.
Patient has the following risk factors for their symptoms: PVD, PAD, wound, lumbar surgery
Recommendations:
-MRI lumbar spine pending.
-PT/OT evaluations.
-Checking blood work for metabolic abnormalities.
-Continue home Eliquis/aspirin.
Discussed patient care with: Dr. Devlin, the patient
Vital Signs and Labs
-
Vital Signs and Labs:
Vital Signs
Temp Pulse Resp BP Pulse Ox
97.7 F 60 18 117/47 95
03/26/25 08:00 03/26/25 08:00 03/26/25 08:00 03/26/25 08:00 03/26/25 08:00
Lab Results
03/25/25 10:59
03/25/25 10:59
Sodium 139 mmol/L (135-145) 03/25/25 10:59
Potassium 4.7 mmol/L (3.5-5.1) 03/25/25 10:59
BUN 30 mg/dl (9-20) H 03/25/25 10:59
Glucose 186 mg/dl (70-99) H 12/17/25 10:59
Calcium 8.8 mg/dl (8.4-10.2) 03/25/25 10:59
Medications
-
Active Medications
Generic Name Dose Route Start Last Admin
Trade Name Freq PRN Reason Stop Dose Admin
Albuterol/Ipratropium 3 ml 03/25/25 21:05
Ipratropium 0.5/Albuterol 3 Mg (3 Ml Ampul) INH
R Q4HPRN PRN
SOB/wheezing
Protocol
Amlodipine Besylate 10 mg 03/26/25 08:00
Amlodipine 10 Mg Tablet PO 04/23/25 07:59
DAILY DONOVAN
Apixaban 5 mg 03/26/25 08:00
Apixaban (Eliquis) 5 Mg Tablet PO 04/23/25 07:59
BID DONOVAN
Aspirin 81 mg 03/26/25 08:00
Aspirin 81 Mg (Enteric Coated) Tablet PO 04/23/25 07:59
DAILY DONOVAN
Atorvastatin Calcium 40 mg 03/26/25 08:00
Atorvastatin (Lipitor) 40 Mg Tablet PO 04/23/25 07:59
DAILY DONOVAN
Carvedilol 12.5 mg 03/26/25 08:00
Carvedilol 12.5 Mg Tablet PO 04/23/25 07:59
BID DONOVAN
Cyanocobalamin (Vitamin B12) 1,000 mcg 03/26/25 08:00
Cyanocobalamin (Vitamin B-12) 500 Mcg Tablet PO 04/23/25 07:59
DAILY DONOVAN
Dextrose 12.5 grams 03/25/25 21:05
Dextrose 50% (0.5 Grams/Ml) 50 Ml Syringe IV 04/22/25 21:04
[id number] PRN
hypoglycemia
Protocol
Finasteride 5 mg 03/26/25 08:00
Finasteride 5 Mg Tablet PO 04/23/25 07:59
DAILY DONOVAN
Furosemide 40 mg 03/26/25 08:00
Furosemide 40 Mg Tablet PO 04/23/25 07:59
DAILY DONOVAN
Glucagon 1 mg 03/25/25 21:05
Glucagon 1 Mg Vial IM 04/22/25 21:04
PRN PRN
hypoglycemia
Protocol
Insulin Glargine 20 units/ 0.2 mls @ 0 mls/hr 03/25/25 22:00 03/25/25 23:23
Device SC 04/22/25 21:59 0.2 mls
HS DONOVAN Administration
As Directed
Insulin Aspart 0 units 03/26/25 07:30
Insulin Aspart Moderate Resistance 300 Units/3 Ml Pen.Injctr SC 04/23/25 07:29
AC DONOVAN
Protocol
Pantoprazole Sodium 40 mg 03/26/25 08:00
Pantoprazole 40 Mg Delayed Release Tablet PO 04/23/25 07:59
DAILY DONOVAN
Pregabalin 150 mg 03/26/25 08:00
Pregabalin 75 Mg Capsule PO 04/23/25 07:59
DAILY DONOVAN
Pregabalin 300 mg 03/25/25 22:00 03/25/25 23:22
Pregabalin 100 Mg Capsule PO 04/22/25 21:59 300 mg
HS DONOVAN Administration
Sodium Chloride 0 flush 03/25/25 22:00
Sodium Chloride 0.9% (Flush) Syringe IV 04/22/25 21:59
PER PROTOCOL DONOVAN
Tamsulosin HCl 0.8 mg 03/25/25 22:00 03/25/25 23:23
Tamsulosin 0.4 Mg Capsule PO 04/22/25 21:59 0.8 mg
HS DONOVAN Administration
Trazodone HCl 100 mg 03/25/25 22:00 03/25/25 23:23
Trazodone 100 Mg Tablet PO 04/22/25 21:59 100 mg
HS DONOVAN Administration
Home Medications
�Medication �Instructions �Recorded
cyanocobalamin (vitamin B-12) 1,000 mcg PO DAILY Supplement 07/27/14
1,000 mcg tablet
atorvastatin 40 mg tablet 40 mg PO DAILY High cholesterol 03/15/20
pantoprazole 40 mg tablet,delayed 40 mg PO DAILY Gastrointestinal 03/15/20
release issue
trazodone 100 mg tablet 100 mg PO HS sleep/mood 03/15/20
aspirin 81 mg tablet,delayed 81 mg PO DAILY Blood clot 04/23/20
release prevention/tx
apixaban 5 mg tablet (Eliquis) 5 mg PO BID Prevent Blood Clot/AFib 05/17/23
carvedilol 12.5 mg tablet 12.5 mg PO BID Heart Disease/BP 05/17/23
pregabalin 150 mg capsule 150 mg PO DAILY fibromyalgia/pain 05/17/23
furosemide 40 mg tablet (Lasix) 40 mg PO DAILY Fluid 10/26/23
Retention/Swelling
finasteride 5 mg tablet 5 mg PO DAILY Urinary issue #30 10/29/23
tabs
amlodipine 10 mg tablet 10 mg PO DAILY Blood Pressure 01/09/25
tamsulosin 0.4 mg capsule 0.8 mg PO HS Urinary Issue 01/09/25
ipratropium 0.5 mg-albuterol 3 mg 3 ml inhalation R Q4HPRN PRN 01/13/25
(2.5 mg base)/3 mL nebulization SOB/wheezing 30 days #100 mL
soln
pregabalin 150 mg capsule (Lyrica) 300 mg (2 x 150 mg) PO HS 01/13/25
fibromyalgia/pain #6 caps
insulin aspart U-100 100 unit/mL 20 unit SC AC 03/25/25
(3 mL) subcutaneous pen (Novolog
FlexPen U-100 Insulin aspart)
insulin glargine 100 unit/mL (3 55 unit SC HS 03/25/25
mL) subcutaneous pen (Lantus
Solostar U-100 Insulin)
[2025-03-26 09:18] LABS: Glycohemoglobin (HgbA1c) 6.3 % (4.0-5.9)
[2025-03-26] MEDS: NOVOLOG FLEXPEN-MODERATE RESISTANCE SC ×2 (09:43→11:34)
[2025-03-26] MEDS: ASPIR LOW (ENTERIC COATED) 81 MG PO (09:45)
[2025-03-26] MEDS: PROTONIX 40 MG PO (09:45)
[2025-03-26] MEDS: PROSCAR 5 MG PO (09:46)
[2025-03-26] MEDS: ELIQUIS 5 MG PO ×2 (09:46→20:20)
[2025-03-26] MEDS: LYRICA 150 MG PO (09:46)
[2025-03-26] MEDS: VITAMIN B-12 1000 MCG PO (09:46)
[2025-03-26] MEDS: LIPITOR 40 MG PO (09:46)
[2025-03-26] MEDS: NORVASC 10 MG PO (09:47)
[2025-03-26] MEDS: LASIX 40 MG PO (09:47)
[2025-03-26] MEDS: COREG 12.5 MG PO ×2 (09:47→20:20)
--- NOTE | 2025-03-26 10:00 | W.PN.HOSP.TC ---
Today's Communication/Plan
-
see A/P
Assessment / Plan
Assessment / Plan
HPI: 79 yo M PMH obesity, uses walker, daily ETOH use (1 beer per day), HTN, Prx AF on Eliquis, chronic HFrEF, CKD3, stage III left heel pressure injury, T2DM, KATHY, CPAP HS (11cm), COPD, CKD 3, CVA, chronic lower extremity edema; p/w generalized
weakness and difficulty ambulating.
He typically uses a walker but for the past several weeks has had increasing difficulty ambulating. He has a chronic ulceration on the left heel that he is concerned about and he missed his foot doctor appointment the day [employer].
A/P:
# Chronic Left heel ulcer
# PVD with bilateral lower extremity stents
L heel XR without fracture or osteomyelitis.
Truck Safety Inspector (Dr. Angelina Barros) consult
Wound care CS
ID CS
# BL LE weakness (Lt is weaker than Rt)
# Acute on chronic ambulatory dysfunction
# Chronic Urinary incontinence for almost 1 yr - no prior evaluation
# HX multilevel lumbar DJD/chronic back pain/diabetic neuropathy
DDX: diabetic or ETOH peripheral neuropathy, cord dysfunction
Cont [employer] Lyrica
Bladder scan protocol
MRI Lx spine, Check PPM compatibility for MRI
Neuro on board
PT/OT
# CKD stage 3b
Creatinine 1.3
Trend Cr
# type 2 IDDM
Cont reduced Lantus at 20 units HS
Cont reduced dose Aspart 5 units AC
ISS Mod
# Benign HTN
Cont [employer] Norvasc and Coreg with hold parameter
# HX Paroxysmal AF
EKG with paced rhythm
Status post permanent pacemaker
c/w Eliquis, continue Coreg
# Chronic HFmrEF
strict I&O, daily weight
Lasix continued
# BPH
Cont Finasteride, tamsulosin
# HX KATHY
# Obesity, BMI 34.2
Continue CPAP @ 11 cm H2O HS
# HX gout/pseudogout
# HX Chronic right bundle branch block
DVT prophylaxis�Eliquis
Full code
DW RN
DW bicycle mechanic
total time 51 min
Anticipated Discharge: > 48 hours
Subjective/Interval History
-
Date of Service: March 26, 2025
Objective Data
-
Vital Signs:
Vital Signs
Temp Pulse Resp BP Pulse Ox
36.5 C 67 18 128/53 95
03/26/25 08:00 03/26/25 09:47 03/26/25 08:00 03/26/25 09:47 03/26/25 08:00
I&O
03/25/25 03/26/25 03/27/25
06:59 06:59 06:59
Output Total 700 / 700
Balance -700 / -700
Review of Systems
-
History Source: Patient
All other systems: Reviewed and negative
Physical Exam
-
General: Well Developed, Well Nourished, No Apparent Distress, Comfortable, Conversant and Obese
HEENT: Normocephalic, Atraumatic and Moist Mucous Membranes
Respiratory: Clear to Auscultation and Non Labored Respirations; Negative Accessory Resp Muscle Use
Cardiac: Regular Rhythm and S1/S2
GI: Soft, Nontender, Nondistended and Normal Bowel Sounds
Musculoskeletal: No Clubbing, Edema, Right Lower Extrem and Edema, Left Lower Extrem
Skin: Warm, Dry and Ulcers (L heel, see wound care note)
Neuro: Awake and Alert
Psych: Calm and Intact Judgement/Insight
Data Reviewed
-
Diagnostic Radiology: Report Reviewed by me
Labs: Labs Reviewed by me
--- NOTE | 2025-03-26 10:21 | WOUNDNOTE ---
L HEEL (with photo flash)
--- NOTE | 2025-03-26 10:24 | WOUNDNOTE ---
[facility] RN note: Patient admitted with acute on chronic L leg weakness, leg edema. Patient lives alone. He states he is current with [facility]. He is followed by Dr. Barros.
See H&P for complete history.
PMH: DM, ambulation dysfunction, uses a walker and he states he has diabetic shoes, incontinence, neuropathy, lower back pain, laminectomy, obesity, chronic L heel ulcer, PAD, bilateral Le stents, a fib (Eliquis), CAD, cardiac stents, pacer, COPD,
CKD3a, former smoker, daily beer, sleep apnea, CPAP use.
Wound Location and type/assessment: Patient admitted with: L posterior heel pressure injury along with diabetes/PAD unstageable, pale pink with yellow/dennis necrotic section, mild local redness along proximal edge. Lateral to ulcer macerated. +1-2 LE
edema. Pedal pulses heard via portable Doppler. Sacral coccyx linear slow to marleen red area.
Appetite: Fair-poor.
Pressure redistribution devices in place: ED stretcher. Discussed with DENTON Quinteros re: switching his bed to an air bed. t/c Spoke with [employer] Donnie who will bring up a [facility] air bed.
Plan: L heel dressing changed. Heels off bed with pillow and air chair cushion. TruVue lite boots obtained from [facility]. Silicone border foam applied to sacral/coccyx. Patient turned to L semi side lying position.
Updated and confirm orders with Dr. Jaramillo who approved knee high Reji as tolerated (remove q hs); updated Dr. Barros via tiger text including wound photo L heel (Dr. Jaramillo also on tiger text). Discussed with DENTON Quinteros.
Care plan to be updated and will follow as needed.
Note to case management of equipment requested for discharge: Air mattress at [facility]. Patient to follow up with Dr. Barros and Dr. Alegre.
[2025-03-26 11:26] LABS: Glucose - Point of Care 128 mg/dl (70-99)
[2025-03-26] MEDS: NOVOLOG FLEXPEN SC ×3 (11:33→12:12)
[2025-03-26 11:43] LABS: Ferritin 55.0 ng/ml (17.9-464.0)
[2025-03-26 12:15] LABS: Folate 13.3 ng/ml (2.76-20); Vitamin B12 > 1000 pg/ml (239-931)
--- NOTE | 2025-03-26 13:39 | PTCARENOTE ---
Patient is an ED hold that was transferred to [facility]- I called down to SPD for static air overlay and air pump as [facility] does not have these
--- NOTE | 2025-03-26 13:50 | CON.ID ---
Consultation
-
Date/Time Consultation Requested: 03/26/2025 1012
Date/Time Consultation Performed: 03/26/2025 1045
Requesting Provider: Dr. Jaramillo
Performing Provider: Dr. Paul
Reason for Consultation: Left heel wound
Chief Complaint / Past History
History of Present Illness
Christopher Monroe is an 79-year-old man being evaluated request of Dr. Jaramillo in regards to a left heel wound. History is obtained from chart review, along with patient interview.
The patient has a significant past medical history of CAD/NM and ambulatory dysfunction. He presents to the emergency room on 03/25/2025 secondary to increasing generalized weakness and increased difficulty with ambulation. He notes that he
typically uses a walker, but has found it increasingly difficult over the past several weeks to walk. He reports that he has had a wound on his left heel for approximately the past 4-1/2 years which has healed up several times, but opened up again
in January. Since that time it has grown worse. He is followed by Podiatry for it. He notes that he has decreased feeling in the lower extremities secondary to his diabetes. He is not sure there has been any redness tracking up the leg but he
has admitted to some drainage from the foot/heel area. He currently lives alone and notes that his neighbor has been assisting with care of the wound. Ultimately, he called EMS who brought him to the hospital for further evaluation.
He denies any fevers or chills. He denies any chest pain or shortness of breath at present. He denies any abdominal pain, nausea or vomiting. He denies any groin pain.
Past History
Additional Past Medical History:
COPD
CAD; Hx NM
HTN
HLD
DM with neuropathy
Depression
CKD
Additional Past Surgical History:
PCI with stent placement
PPM placement
Laminectomy
Vascular stenting of the lower extremities.
Allergy History:
No Known Allergies Allergy (Verified 03/25/25 10:51)
Medications Reviewed: Yes
Current Antibiotics:
None
Social History
Tobacco: Former Smoker
Alcohol: Occasional
Drug: None
Living: Alone
Employment: Retired
Family History
Family History: Not Pertinent
Review of Systems
Vital Signs
Temp Pulse Resp BP Pulse Ox
98.0 F 68 18 131/67 94
03/26/25 11:58 03/26/25 11:58 03/26/25 11:58 03/26/25 11:58 03/26/25 11:58
Physical Exam
Physical Exam
Constitutional: No Acute Distress, Comfortable, Chronically Ill and Non-toxic
Eyes: No Conjunctival Hemorrhage and Sclera Anicteric
Oral: No Thrush and No Ulcers
Cardiovascular: Regular Rate and S1/S2; Negative S3/S4
Pulmonary: Clear; Negative Wheezes or Rales
Gastrointestinal: Soft and Non Tender
Extremities: Edema (3-4 plus edema B/L LE's)
Wound: Other (left heel wound noted. mild periwound eryhtema)
Neurological: Awake and Alert
Psychological: Calm
Lab / Diagnostic Study Results
03/25/25 10:59
03/25/25 10:59
Abs Immat Gran (auto) 0.0 10^3/uL (0-0.05) 03/25/25 10:59
Absolute Neuts (auto) 11.8 10^3/uL (1.4-6.5) H 03/25/25 10:59
Absolute Lymphs (auto) 1.1 10^3/uL (1.2-3.4) L 03/25/25 10:59
Absolute Monos (auto) 1.1 10^3/uL (0.1-0.6) H 03/25/25 10:59
Absolute Basos (auto) 0.0 10^3/uL (0-0.2) 03/25/25 10:59
Immature Gran % 0.3 % (0-0.5) 03/25/25 10:59
Neutrophils % 83.1 % (42.2-75.2) H 03/25/25 10:59
Lymphocytes % 7.4 % (20.5-51.1) L 03/25/25 10:59
Monocytes % 7.4 % (1.7-9.3) 03/25/25 10:59
Eosinophils % 1.5 % (0-6) 03/25/25 10:59
Basophils % 0.3 % (0-2) 03/25/25 10:59
ESR 40 mm/hour (0-20) H 03/25/25 10:59
C-Reactive Protein 28.70 mg/L (0.0-10.00) H 03/25/25 10:59
Ur Squamous Epith Cells 3-5 /LPF (Few) 03/25/25 17:55
Microbiology Results
Imaging:
03/25/2025 X-ray left heel: no acute fracture, dislocation or subluxation. There is degenerative changes along the dorsum of the midfoot. Mild degenerative changes of the tibiotalar and subtalar joints. No periosteal reaction or erosive changes.
No osteolytic or blastic lesion seen. No foreign body identified. There is extensive vascular calcifications. Overall, no evidence of acute fracture or findings to suggest osteomyelitis.
Assessment / Plan
Chronic left heel ulcer
Ambulatory dysfunction; progressive
Leukocytosis
COPD
CAD; Hx NM
HTN
HLD
DM with neuropathy
Depression
CKD
Recommendations:
X-ray imaging of this longstanding left heel wound has shown no evidence of bony destruction, making osteomyelitis less likely. I am not sure that MRI imaging at this time will add anything, and would suggest ongoing plain film imaging monthly to
assess for any bony changes. Should they develop, MRI imaging and further workup can be pursued.
Continue with local care to the wound bed.
Will need ongoing care and follow-up with Podiatry [facility].
Agree with compressive modalities to control overall edema which will assist in healing.
Patient for MRI of low back and attempt to determine etiology of left lower extremity weakness.
Would continue to monitor white count and temperature curve.
If leukocytosis persists, further investigation can be pursued to determine whether an infection is present.
--- NOTE | 2025-03-26 15:36 | CM ---
manager rental reviewed patient's chart and met with patient and patient lives alone in a multilevel home with 3 steps to enter, bilateral rails, patient is independent with adl's and uses a cane or walker with ambulation, physical therapy are
recommending skilled patient is refusing skilled wants home with [facility] visiting nurses.
PCP: Dr Haja Manuel
Pharmacy: [facility] on [facility]
phone [phone]
[2025-03-26 16:42] LABS: Glucose - Point of Care 197 mg/dl (70-99)
--- NOTE | 2025-03-26 18:09 | CON.MD ---
Consultation - Medical
-
HPI:
This is a pleasant 79-year-old diabetic man known to me for wound care to the left heel
PMH: Ambulatory dysfunction with recent history of MULTIPLE FALLS, Weakness of LEs, CAD, Complete heart block, dual-chamber [employer] pacemaker, paroxysmal atrial fibrillation, NIDDM with PAD and DPN, hyperlipidemia, hypertension,
asthma/COPD, obstructive sleep apnea, ischemic cardiomyopathy, CKD
PSH: Amputation of right second toe, partial amputation of left great toe and 2nd toe, carpal tunnel release, cataracts
SH: , former smoker, daily alcohol, retired, lives alone, no children, socially isolated
FH: Reviewed and not pertinent
Allergies: None
Outpatient medicines: Amlodipine, apixaban, aspirin 81 mg a day, atorvastatin, carvedilol, insulin, Combivent, Symbicort, Lyrica, trazodone, Finasteride, Lasix, pantoprazole
ROS: Negative except as above
Physical Exam-lower extremity
WOUND PHOTO reviewed left heel - previously necrotic heel decub complicated by PAD and immobility, local erythema to periwound now with increased yellow fibrotic tissue bed and decreased necrosis no purulence or cellulitis
Consultation
-
Date/Time Consultation Requested: 03/26/2025 @1000
Date/Time Consultation Performed: 03/26/2025
Requesting Provider: Dr Ella Marrero
Performing Provider: Dr Angelina Barros
Reason for Consultation: Non healing wound left heel
Vital Signs / Labs
-
Vital Signs and Labs:
Temp Pulse Resp BP Pulse Ox
98.6 F 69 17 147/60 96
03/26/25 15:00 03/26/25 15:00 03/26/25 15:00 03/26/25 15:00 03/26/25 15:00
03/25/25 10:59
03/25/25 10:59
03/25/25 03/25/25 03/26/25
10:59 22:28 04:48
Hemoglobin A1c 6.3 H
Vitamin B12 > 1000 H
POC Glucose 132 H
03/26/25 03/26/25 03/26/25
07:58 11:24 16:40
Hemoglobin A1c
Vitamin B12
POC Glucose 115 H 128 H 197 H
XRAY LEFT HEEL- Negative for OM, + calcified arteries
Assessemnt/Plan
-
1-DM2 with PAD -last arterial study 10/2024 demonstrates NC DPA w/multiphasic flow. Repeat Vascular assessment recommended
2-DM2 with DPN and LOPS
3-Diabetic FT pressure ulcer to the left heel- As a result of increased mobility issues wound has deteriorated over the last few months, it was previously healed for several months, BUT is not infected and do not believe OM present. Recommend
meticulous offloading off of bed and santyl dressing to the heel daily post vashe cleanse, orders on chart
4-Ambulatory dysfunction w/increased LE weakness and immobility and increased fall risk- will require eval spine
[2025-03-26] MEDS: NOVOLOG FLEXPEN-MODERATE RESISTANCE 1 UNITS SC (18:32)
[2025-03-26] MEDS: NOVOLOG FLEXPEN 5 UNITS SC (18:33)
[2025-03-26] MEDS: DESENEX/MITRAZOL/ZEASORB 1 APPLIC TOPICAL (20:25)
--- NOTE | 2025-03-26 21:08 | PTCARENOTE ---
1905, pt with c/o distention and no urine output. bladder scan done, 1082cc scanned
--- NOTE | 2025-03-26 21:08 | PTCARENOTE ---
2014 hall cath inserted for retention, 1000cc yellow urine immediate output. STARCHMAKER notified of hall placement
[2025-03-26 21:29] LABS: Glucose - Point of Care 201 mg/dl (70-99)
[2025-03-26] MEDS: FLOMAX 0.8 MG PO (22:03)
[2025-03-26] MEDS: LYRICA 300 MG PO (22:03)
[2025-03-26] MEDS: LANTUS 0.2 UNITS SC (22:08)
[2025-03-26] MEDS: DESYREL 100 MG PO (22:08)
[2025-03-27] MEDS: SANTYL OINTMENT 1 APPLIC TOPICAL ×3 (00:46→21:39)
[2025-03-27] MEDS: TYLENOL 650 MG PO ×2 (00:53→23:10)
--- NOTE | 2025-03-27 00:55 | PTCARENOTE ---
Received patient from [facility] as ED medsurg overflow in bed. AAOx3, reports spasms to left groin. POWER TONG OPERATOR made aware, orders for tylenol. Oriented patient to room and placed call sams within reach.
[2025-03-27 07:30] VITALS: BP 134/57
[2025-03-27 07:40] LABS: Glucose - Point of Care 262 mg/dl (70-99)
[2025-03-27 08:51] LABS: Hematocrit 27.9 % (39.0-52.0); Hemoglobin 9.2 g/dL (13.0-18.0); Mean Corp Hgb Conc. 33.0 g/dL (33.0-37.0); Mean Corpuscular Volume 94.3 fL (80.0-94.0); Nucleated Red Blood Cells % 0 % (-); Platelet Count 176 10^3/uL (130-400); Red Cell Dist. Width 14.6 % (11.5-14.5)
[2025-03-27 09:04] LABS: Blood Urea Nitrogen 22 mg/dl (9-20); Calcium 8.5 mg/dl (8.4-10.2); Carbon Dioxide 28 mmol/L (22-30); Chloride 104 mmol/L (98-107); Estimated Creatinine Clearance 53 ml/min; Glucose 210 mg/dl (70-99); Magnesium 1.9 mg/dl (1.6-2.3); Potassium 3.7 mmol/L (3.5-5.1); Sodium 138 mmol/L (135-145); eGFR > 60.00
--- NOTE | 2025-03-27 09:40 | W.PN.HOSP.TC ---
Today's Communication/Plan
-
see A/P
Assessment / Plan
Assessment / Plan
HPI: 79 yo M PMH obesity, uses walker, daily ETOH use (1 beer per day), HTN, Prx AF on Eliquis, chronic HFrEF, CKD3, stage III left heel pressure injury, T2DM, KATHY, CPAP HS (11cm), COPD, CKD 3, CVA, chronic lower extremity edema; p/w generalized
weakness and difficulty ambulating.
He typically uses a walker but for the past several weeks has had increasing difficulty ambulating. 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
A/P:
# Chronic Left heel ulcer
# PVD with bilateral lower extremity stents
L heel XR without fracture or osteomyelitis.
Epic Ambulatory Analyst (Dr. Angelina Barros) on board, Wound care on board
ID on board, recc ongoing plain film monthly to assess for any bony changes, and they develop, MRI imaging and further workup can be pursued.
# BL LE weakness (Lt is weaker than Rt) with acute on chronic ambulatory dysfunction
# Chronic Urinary incontinence for almost 1 yr - no prior evaluation
# HX multilevel lumbar DJD/chronic back pain/diabetic neuropathy
# Now acute urinary retention
DDX: diabetic or ETOH peripheral neuropathy, cord dysfunction
Cont POLICE COMMANDING OFFICER Lyrica
Bladder scan protocol noted urinary retention, hall placed 03/26
Check MRI Lumbar spine
Neuro on board
PT/OT eval
# CKD stage 3b
Creatinine 1.2 today
Trend Cr
# type 2 IDDM
Cont reduced Lantus, adjust to 30 units HS (POLICE COMMANDING OFFICER 55 units HS)
Cont reduced dose Aspart 5 units AC
cover with ISS Mod
# Benign HTN
Cont POLICE COMMANDING OFFICER Norvasc and Coreg with hold parameter
# HX Paroxysmal AF
# Status post permanent pacemaker
EKG with paced rhythm
c/w Eliquis, continue Coreg
# Chronic HFmrEF
strict I&O, daily weight
Lasix continued
# BPH
Cont Finasteride, tamsulosin
# HX KATHY
# Obesity, BMI 34.2
Continue CPAP @ 11 cm H2O HS
# HX gout/pseudogout
# HX Chronic right bundle branch block
DVT prophylaxis�Eliquis
Full code
DW RN
Anticipated Discharge: > 48 hours
Subjective/Interval History
-
Date of Service: March 27, 2025
Objective Data
-
Labs:
Laboratory Results
03/27/25 03/27/25
08:03 08:04
WBC 8.3
Hgb 9.2 L
Hct 27.9 L
Plt Count 176
Sodium 138
Potassium 3.7
Chloride 104
Carbon Dioxide 28
BUN 22 H
Creatinine 1.2
Glucose 210 H
Calcium 8.5
Vital Signs:
Vital Signs
Temp Pulse Resp BP Pulse Ox
36.7 C 61 20 134/57 97
03/27/25 07:30 03/27/25 07:30 03/27/25 07:30 03/27/25 07:30 03/27/25 07:30
I&O
03/26/25 03/27/25 03/28/25
06:59 06:59 06:59
Intake Total 240 / 240
Output Total 700 / 700 3350 / 3350
Balance -700 / -700 -3110 / -3110
Review of Systems
-
History Source: Patient
All other systems: Reviewed and negative
Physical Exam
-
General: Well Developed, Well Nourished, No Apparent Distress, Comfortable, Conversant, Appears Chronically Ill and Obese
HEENT: Normocephalic, Atraumatic and Moist Mucous Membranes
Respiratory: Clear to Auscultation and Non Labored Respirations; Negative Accessory Resp Muscle Use
Cardiac: Regular Rhythm and S1/S2
GI: Soft, Nontender, Nondistended and Normal Bowel Sounds
Genito-urinary: Hall
Musculoskeletal: No Clubbing, Edema, Right Lower Extrem and Edema, Left Lower Extrem
Skin: Warm, Dry and Ulcers (L heel, see wound care note)
Neuro: Awake and Alert
Psych: Calm and Intact Judgement/Insight (somewhat)
Data Reviewed
-
Diagnostic Radiology: Report Reviewed by me
Labs: Labs Reviewed by me
[2025-03-27] MEDS: PROTONIX 40 MG PO (09:43)
[2025-03-27] MEDS: LYRICA 150 MG PO (09:43)
[2025-03-27] MEDS: COREG 12.5 MG PO ×2 (09:43→21:38)
[2025-03-27] MEDS: VITAMIN B-12 1000 MCG PO (09:44)
[2025-03-27] MEDS: LASIX 40 MG PO (09:44)
[2025-03-27] MEDS: ELIQUIS 5 MG PO ×2 (09:44→21:38)
[2025-03-27] MEDS: DESENEX/MITRAZOL/ZEASORB 1 APPLIC TOPICAL ×2 (09:45→21:38)
[2025-03-27] MEDS: ASPIR LOW (ENTERIC COATED) 81 MG PO (09:45)
[2025-03-27] MEDS: NORVASC 10 MG PO (09:45)
[2025-03-27] MEDS: LIPITOR 40 MG PO (09:45)
[2025-03-27] MEDS: PROSCAR 5 MG PO (09:45)
[2025-03-27] MEDS: NOVOLOG FLEXPEN-MODERATE RESISTANCE 5 UNITS SC (10:34)
[2025-03-27] MEDS: NOVOLOG FLEXPEN 5 UNITS SC ×3 (10:35→18:49)
--- NOTE | 2025-03-27 11:00 | W.PN.ID1 ---
Date of Service
Date of Service: March 27, 2025
Today's Communication
Leukocytosis has resolved and patient remains afebrile, follow up with PCP and podiatry/wound care
Assessment / Plan
Chronic left heel ulcer
Ambulatory dysfunction; progressive
Leukocytosis
COPD
CAD; Hx [place]
HTN
HLD
DM with neuropathy
Depression
CKD
Recommendations:
X-ray imaging of this longstanding left heel wound has shown no evidence of bony destruction, making osteomyelitis less likely. I am not sure that MRI imaging at this time will add anything, and would suggest ongoing plain film imaging monthly to
assess for any bony changes. Should they develop, MRI imaging and further workup can be pursued.
Continue with local care to the wound bed.
Will need ongoing care and follow-up with [facility]iatry [facility].
Agree with compressive modalities to control overall edema which will assist in healing.
Patient for MRI of low back - spinal stenosis and DJD
Would continue to monitor white count and temperature curve.
Leukocytosis has resolved and patient remains afebrile, follow up with PCP and podiatry/wound care
Chief Complaint
-: Other (ambulatory dysfunction)
Subjective / Review of Systems
afebrile
bp stable
MRI lumbar spine with spinal stenosis
L groin spasms
hall inserted for 1L urinary retention
Vital Signs / Physical Exam
Vital Signs
Vital Signs
Temp Pulse Resp BP Pulse Ox
98.1 F 61 20 134/57 97
03/27/25 07:30 03/27/25 07:30 03/27/25 07:30 03/27/25 07:30 03/27/25 07:30
Physical Exam
Constitutional: No Acute Distress and Chronically Ill
Cardiovascular: Regular Rate and S1/S2; Negative Murmur or Rub
Pulmonary: Clear and Symmetric; Negative Wheezes or Rales
Gastrointestinal: Soft, Non Tender, Non Distended and Normal Bowel Sounds
Skin: Warm and Dry; Negative Rash or Jaundice
Wound: Other (deferred dressing take down, reviewed photos: scant area of eschar, superficial wound with slough )
Objective Data
Lab Data
Lab Results
03/27/25 08:03
03/27/25 08:04
ESR 40 mm/hour (0-20) H 03/25/25 10:59
Estimated Creat Clear 53 ml/min 03/27/25 08:04
Total Bilirubin 0.7 mg/dl (0.2-1.3) 03/25/25 10:59
AST 19 U/L (17-59) 03/25/25 10:59
ALT 15 U/L (0-50) 03/25/25 10:59
Alkaline Phosphatase 87 U/L (38-126) 03/25/25 10:59
C-Reactive Protein 28.70 mg/L (0.0-10.00) H 03/25/25 10:59
Most recent labs reviewed.
Imaging:
03/25/2025 X-ray left heel: no acute fracture, dislocation or subluxation. There is degenerative changes along the dorsum of the midfoot. Mild degenerative changes of the tibiotalar and subtalar joints. No periosteal reaction or erosive changes.
No osteolytic or blastic lesion seen. No foreign body identified. There is extensive vascular calcifications. Overall, no evidence of acute fracture or findings to suggest osteomyelitis.
[2025-03-27] MEDS: NOVOLOG FLEXPEN-MODERATE RESISTANCE 1 UNITS SC (12:35)
[2025-03-27 15:15] VITALS: BP 130/53
[2025-03-27] MEDS: FLEXERIL 5 MG PO (16:18)
--- NOTE | 2025-03-27 16:36 | W.PN.POD ---
Today's Communication
Today's Communication
Will not be able to evaluate left heel wound today as result of pain, images were reviewed from wound care.
Recommend that heels continue to be protected and offloaded and pre medicate prior to wound care
Continue wound care as ordered
Please call if any concerns arise, will sign off for now
Assessment / Plan
-
1-DM2 with PAD -last arterial study 10/2024 demonstrates NC DPA w/multiphasic flow. Repeat Vascular assessment recommended
2-DM2 with DPN and LOPS
3-Diabetic FT pressure ulcer to the left heel- As a result of increased mobility issues wound has deteriorated over the last few months, it was previously healed for several months, I do not believe OM present.
Recommend meticulous offloading off of bed and santyl dressing to the heel daily post vashe cleanse, orders on chart
4-Ambulatory dysfunction w/increased LE weakness and immobility and increased fall risk
Subjective
Chief Complaint
Left heel wound/amb dysfunction
Subjective
Seen in discomfort and states 'my hip and back are in spasm'
Objective
Temp Pulse Resp BP Pulse Ox
98.3 F 62 16 130/53 97
03/27/25 15:15 03/27/25 15:15 03/27/25 15:15 03/27/25 15:15 03/27/25 15:56
03/27/25 08:03
03/27/25 08:04
Vital Signs and Lab results were reviewed.
Review of Systems
Review of Systems
Review of Systems: No Fever, No Chills, No Nausea and Other (pain and spasm)
Physical Exam
Physical Exam
General: Other (Appears uncomfortable but NAD)
Musculoskeletal: Other (unable to remove prevalon boot and assess wound as result of acute pain and spasm to the LLE )
Skin: Pressure Ulcer - Stage III and Neurotrophic Ulcer
Neuro: AO x 3 and Protective Sensation Absent
Vascular: Other (unable to eval as result of severe pain and spasm )
Dorsalis Pedis: Other (unable to eval as result of severe pain and spasm )
Posterior Tibialis: Other (unable to eval as result of severe pain and spasm )
[2025-03-27 16:39] LABS: Glucose - Point of Care 197 mg/dl (70-99)
[2025-03-27 16:40] LABS: Glucose - Point of Care 93 mg/dl (70-99)
[2025-03-27] MEDS: NOVOLOG FLEXPEN-MODERATE RESISTANCE SC (16:56)
--- NOTE | 2025-03-27 17:15 | W.PN.NEURO.1 ---
Today's Communication / Plan
-
Curbside spine to determine if surgical intervention is worthwhile as outpatient
Outpatient EMG study of bilateral lower extremities
Continue usual medications including apixaban
Rehabilitation evaluations and treatment
Neuro Assessment/Plan
Assessment
Abrupt onset of left lower extremity weakness which is semiacute on chronic in nature and involves bilateral lower extremities with regards to weakness. Cramping only in the left lower extremity at rest.
Several possible etiologies exist for this weakness which include recurrence of severe lumbar spinal stenosis, as well as physical deconditioning and possibly restless leg syndrome
MRI of lumbar spine without contrast for structural abnormalities suggests no acute lesions producing symptoms
Plan
Curbside spine to determine if surgical intervention is worthwhile as outpatient
Outpatient EMG study of bilateral lower extremities
Continue usual medications including apixaban
Rehabilitation evaluations and treatment
Will follow as needed
Subjective/Objective
Subjective Data
Date of Service: March 27, 2025
Objective Data
Vital Signs
Temp Pulse Resp BP Pulse Ox
36.8 C 62 16 130/53 97
03/27/25 15:15 03/27/25 15:15 03/27/25 15:15 03/27/25 15:15 03/27/25 15:56
Lab Results
03/27/25 08:03
03/27/25 08:04
Sodium 138 mmol/L (135-145) 03/27/25 08:04
Potassium 3.7 mmol/L (3.5-5.1) 03/27/25 08:04
BUN 22 mg/dl (9-20) H 03/27/25 08:04
Glucose 210 mg/dl (70-99) H 03/27/25 08:04
Calcium 8.5 mg/dl (8.4-10.2) 03/27/25 08:04
Vitamin B12 > 1000 pg/ml (239-931) H 03/25/25 10:59
Patient Allergies
No Known Allergies Allergy (Verified 03/25/25 10:51)
Data Reviewed
-
MRI Lumbar Spine: Report Reviewed and Image Reviewed
Labs: Report Reviewed
Reviewed with: Physician
Old Records: Summarized
Past History
Past History
ED Past Medical History: COPD, HTN, Hypercholesterolemia, IDDM, Psychiatric (depression) and Other (CKD)
ED Past Surgical History: Cardiac (Pacemaker/stents), Orthopedic (Laminectomy) and Other (Stents bilateral lower extremities for peripheral vascular disease)
Social History
Tobacco: Former smoker
Alcohol: Occasional
Drug: None
Personal:
Living: with family
Medications
-
Medications:
Generic Name Dose Route Start Last Admin
Trade Name Freq PRN Reason Stop Dose Admin
Acetaminophen 650 mg 03/27/25 00:48 03/27/25 00:53
Acetaminophen 325 Mg Tablet PO 04/24/25 00:47 650 mg
Q4HPRN PRN Administration
mild pain/CAPPS/temp>100.5
Albuterol/Ipratropium 3 ml 03/25/25 21:05
Ipratropium 0.5/Albuterol 3 Mg (3 Ml Ampul) INH
R Q4HPRN PRN
SOB/wheezing
Protocol
Amlodipine Besylate 10 mg 03/26/25 08:00 03/27/25 09:45
Amlodipine 10 Mg Tablet PO 04/23/25 07:59 10 mg
DAILY DONOVAN Administration
Apixaban 5 mg 03/26/25 08:00 03/27/25 09:44
Apixaban (Eliquis) 5 Mg Tablet PO 04/23/25 07:59 5 mg
BID DONOVAN Administration
Aspirin 81 mg 03/26/25 08:00 03/27/25 09:45
Aspirin 81 Mg (Enteric Coated) Tablet PO 04/23/25 07:59 81 mg
DAILY DONOVAN Administration
Atorvastatin Calcium 40 mg 12/18/25 08:00 03/27/25 09:45
Atorvastatin (Lipitor) 40 Mg Tablet PO 04/23/25 07:59 40 mg
DAILY DONOVAN Administration
Carvedilol 12.5 mg 03/26/25 08:00 03/27/25 09:43
Carvedilol 12.5 Mg Tablet PO 04/23/25 07:59 12.5 mg
BID DONOVAN Administration
Collagenase 0 applic 03/26/25 20:00 03/27/25 09:46
Collagenase Ointment 2.5 Gram Jar TOPICAL 04/23/25 19:59 1 applic
BID DONOVAN Administration
Cyanocobalamin (Vitamin B12) 1,000 mcg 03/26/25 08:00 03/27/25 09:44
Cyanocobalamin (Vitamin B-12) 500 Mcg Tablet PO 04/23/25 07:59 1,000 mcg
DAILY DONOVAN Administration
Dextrose 12.5 grams 03/25/25 21:05
Dextrose 50% (0.5 Grams/Ml) 50 Ml Syringe IV 04/22/25 21:04
[id number] PRN
hypoglycemia
Protocol
Finasteride 5 mg 03/26/25 08:00 03/27/25 09:45
Finasteride 5 Mg Tablet PO 04/23/25 07:59 5 mg
DAILY DONOVAN Administration
Furosemide 40 mg 03/26/25 08:00 03/27/25 09:44
Furosemide 40 Mg Tablet PO 04/23/25 07:59 40 mg
DAILY DONOVAN Administration
Glucagon 1 mg 03/25/25 21:05
Glucagon 1 Mg Vial IM 04/22/25 21:04
PRN PRN
hypoglycemia
Protocol
Insulin Glargine 30 units/ 0.3 mls @ 0 mls/hr 03/27/25 09:49
Device SC 04/22/25 21:59
HS DONOVAN
As Directed
Insulin Aspart 0 units 03/26/25 07:30 03/27/25 16:56
Insulin Aspart Moderate Resistance 300 Units/3 Ml Pen.Injctr SC 04/23/25 07:29 Not Given
AC DONOVAN
Protocol
Insulin Aspart 5 units 03/26/25 11:30 03/27/25 12:35
Insulin Aspart (Novolog) 100 Units/Ml 3 Ml Flexpen SC 04/23/25 11:29 5 units
AC DONOVAN Administration
Miconazole Nitrate 0 applic 03/26/25 20:00 03/27/25 09:45
Miconazole Powder Bottle TOPICAL 04/23/25 19:59 1 applic
BID DONOVAN Administration
Pantoprazole Sodium 40 mg 03/26/25 08:00 03/27/25 09:43
Pantoprazole 40 Mg Delayed Release Tablet PO 04/23/25 07:59 40 mg
DAILY DONOVAN Administration
Pregabalin 150 mg 03/26/25 08:00 03/27/25 09:43
Pregabalin 75 Mg Capsule PO 04/23/25 07:59 150 mg
DAILY DONOVAN Administration
Pregabalin 300 mg 03/25/25 22:00 03/26/25 22:03
Pregabalin 100 Mg Capsule PO 04/22/25 21:59 300 mg
HS DONOVAN Administration
Sodium Chloride 0 flush 03/25/25 22:00
Sodium Chloride 0.9% (Flush) Syringe IV 04/22/25 21:59
PER PROTOCOL DONOVAN
Tamsulosin HCl 0.8 mg 03/25/25 22:00 03/26/25 22:03
Tamsulosin 0.4 Mg Capsule PO 04/22/25 21:59 0.8 mg
HS DONOVAN Administration
Trazodone HCl 100 mg 03/25/25 22:00 03/26/25 22:08
Trazodone 100 Mg Tablet PO 04/22/25 21:59 100 mg
HS DONOVAN Administration
[2025-03-27 21:30] LABS: Glucose - Point of Care 151 mg/dl (70-99)
[2025-03-27] MEDS: LANTUS 0.3 UNITS SC (21:39)
[2025-03-27] MEDS: ROXICODONE 5 MG PO (21:39)
[2025-03-27] MEDS: FLOMAX 0.8 MG PO (21:39)
[2025-03-27] MEDS: LYRICA 300 MG PO (21:40)
[2025-03-27] MEDS: DESYREL 100 MG PO (23:10)
[2025-03-27 23:16] VITALS: BP 140/55
[2025-03-28 07:00] VITALS: BP 123/50
--- NOTE | 2025-03-28 07:41 | W.PN.HOSP.TC ---
Today's Communication/Plan
-
SNF placement versus home care
Assessment / Plan
Assessment / Plan
Physical Exam
General: Well Developed, Well Nourished
HEENT: Normocephalic, Atraumatic
Respiratory: Clear to Auscultation Bilaterally
Cardiac: Regular Rhythm and S1/S2
GI: Soft, Nontender, Nondistended and Normal Bowel Sounds
Genito-urinary: Hall
Musculoskeletal: Edema, Right Lower Extrem and Edema, Left Lower Extrem
Skin: Warm, Dry and Ulcers (L heel, see wound care note)
Neuro: Awake and Alert
Psych: Calm and Intact Judgement/Insight (somewhat)
Assessment/Plan
HPI: 79 yo M PMH obesity, uses walker, daily ETOH use (1 beer per day), HTN, Prx AF on Eliquis, chronic HFrEF, CKD3, stage III left heel pressure injury, T2DM, KATHY, CPAP HS (11cm), COPD, CKD 3, CVA, chronic lower extremity edema; p/w generalized
weakness and difficulty ambulating.
He typically uses a walker but for the past several weeks has had increasing difficulty ambulating. 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
# Chronic Left heel ulcer
# PVD with bilateral lower extremity stents
L heel XR without fracture or osteomyelitis.
Inventory Accountant (Dr. Angelina Barros) on board, Wound care on board
ID on board, recc ongoing plain film monthly to assess for any bony changes, and they develop, MRI imaging and further workup can be pursued.
# BL LE weakness (Lt is weaker than Rt) with acute on chronic ambulatory dysfunction
# Chronic Urinary incontinence for almost 1 yr - no prior evaluation
# HX multilevel lumbar DJD/chronic back pain/diabetic neuropathy
# Now acute urinary retention
DDX: diabetic or ETOH peripheral neuropathy, cord dysfunction
Cont STEELWORKER Lyrica
Bladder scan protocol noted urinary retention, hall placed 03/26
MRI Lumbar spine -- suggested no acute lesions producing symptoms, as per neurology, but did show progression of severe spinal stenosis
Neuro on board
PT/OT eval
# CKD stage 3b
Creatinine 1.4 today, up from before
Trend Cr
# type 2 IDDM
Cont reduced Lantus, adjust to 30 units HS (STEELWORKER 55 units HS)
Cont reduced dose Aspart 5 units AC
cover with ISS Mod
# Benign HTN
Cont STEELWORKER Norvasc and Coreg with hold parameter
# HX Paroxysmal AF
# Status post permanent pacemaker
EKG with paced rhythm
c/w Eliquis, continue Coreg
# Chronic HFmrEF
strict I&O, daily weight
Lasix continued
#Acute Urinary Retention
-Hall catheter placed this admission
# BPH
Cont Finasteride, tamsulosin
# HX KATHY
# Obesity, BMI 34.2
Continue CPAP @ 11 cm H2O HS
# HX gout/pseudogout
# HX Chronic right bundle branch block
DVT prophylaxis�Eliquis
Full code
DW RN
Anticipated Discharge: > 48 hours
Subjective/Interval History
-
Date of Service: March 28, 2025
Patient was seen and examined. Overnight, he had breakthrough pain and received Oxycodone and IV NSAIDs.
Objective Data
-
Labs:
Laboratory Results
03/28/25
06:54
WBC Pending
Hgb Pending
Hct Pending
Plt Count Pending
Sodium Pending
Potassium Pending
Chloride Pending
Carbon Dioxide Pending
BUN Pending
Creatinine Pending
Glucose Pending
Calcium Pending
Vital Signs:
Vital Signs
Temp Pulse Resp BP Pulse Ox
98.8 F 72 20 140/55 94
03/27/25 23:16 03/27/25 23:16 03/27/25 23:16 03/27/25 23:16 03/27/25 23:16
I&O
03/27/25 03/28/25 03/29/25
06:59 06:59 06:59
Intake Total 240 / 240 720 / 720
Output Total 3350 / 3350 2325 / 2325
Balance -3110 / -3110 -1605 / -1605
[2025-03-28 08:01] LABS: Glucose - Point of Care 232 mg/dl (70-99)
[2025-03-28 08:10] LABS: Hematocrit 28.8 % (39.0-52.0); Hemoglobin 9.4 g/dL (13.0-18.0); Mean Corp Hgb Conc. 32.6 g/dL (33.0-37.0); Mean Corpuscular Volume 92.6 fL (80.0-94.0); Nucleated Red Blood Cells % 0 % (-); Platelet Count 175 10^3/uL (130-400); Red Cell Dist. Width 14.6 % (11.5-14.5)
[2025-03-28 08:34] LABS: Blood Urea Nitrogen 22 mg/dl (9-20); Calcium 8.2 mg/dl (8.4-10.2); Carbon Dioxide 29 mmol/L (22-30); Chloride 102 mmol/L (98-107); Estimated Creatinine Clearance 46 ml/min; Glucose 195 mg/dl (70-99); Potassium 3.7 mmol/L (3.5-5.1); Sodium 137 mmol/L (135-145); eGFR 50.81
[2025-03-28] MEDS: ASPIR LOW (ENTERIC COATED) 81 MG PO (09:20)
[2025-03-28] MEDS: NORVASC 10 MG PO (09:20)
[2025-03-28] MEDS: VITAMIN B-12 1000 MCG PO (09:20)
[2025-03-28] MEDS: LIPITOR 40 MG PO (09:20)
[2025-03-28] MEDS: PROSCAR 5 MG PO (09:21)
[2025-03-28] MEDS: PROTONIX 40 MG PO (09:21)
[2025-03-28] MEDS: ELIQUIS 5 MG PO ×2 (09:21→20:13)
[2025-03-28] MEDS: SANTYL OINTMENT 1 APPLIC TOPICAL ×2 (09:21→22:10)
[2025-03-28] MEDS: LASIX 40 MG PO (09:21)
[2025-03-28] MEDS: COREG 12.5 MG PO ×2 (09:21→20:12)
[2025-03-28] MEDS: DESENEX/MITRAZOL/ZEASORB 1 APPLIC TOPICAL ×2 (09:22→20:13)
[2025-03-28] MEDS: LYRICA 150 MG PO (09:25)
[2025-03-28] MEDS: TYLENOL 650 MG PO ×2 (09:25→23:58)
[2025-03-28] MEDS: NOVOLOG FLEXPEN 5 UNITS SC ×3 (10:15→17:58)
[2025-03-28] MEDS: NOVOLOG FLEXPEN-MODERATE RESISTANCE 3 UNITS SC (10:15)
[2025-03-28 13:42] LABS: Glucose - Point of Care 160 mg/dl (70-99)
[2025-03-28] MEDS: NOVOLOG FLEXPEN-MODERATE RESISTANCE 1 UNITS SC ×2 (13:58→17:58)
[2025-03-28 15:32] VITALS: BP 125/54
[2025-03-28 16:37] LABS: Glucose - Point of Care 169 mg/dl (70-99)
[2025-03-28] MEDS: LYRICA 300 MG PO (20:12)
[2025-03-28] MEDS: DESYREL 100 MG PO (20:12)
[2025-03-28] MEDS: FLOMAX 0.8 MG PO (20:12)
[2025-03-28] MEDS: LANTUS 0.3 UNITS SC (20:15)
[2025-03-28 20:20] LABS: Glucose - Point of Care 207 mg/dl (70-99)
[2025-03-28] MEDS: PERCOCET 5/325 1 TABLET PO (20:46)
[2025-03-28 21:12] LABS: Glucose - Point of Care 219 mg/dl (70-99)
[2025-03-28 23:49] VITALS: BP 146/62
[2025-03-29 07:55] VITALS: BP 143/53
[2025-03-29 07:57] LABS: Hematocrit 29.8 % (39.0-52.0); Hemoglobin 9.6 g/dL (13.0-18.0); Mean Corp Hgb Conc. 32.2 g/dL (33.0-37.0); Mean Corpuscular Volume 94.9 fL (80.0-94.0); Nucleated Red Blood Cells % 0 % (-); Platelet Count 168 10^3/uL (130-400); Red Cell Dist. Width 14.8 % (11.5-14.5)
--- NOTE | 2025-03-29 07:58 | W.PN.HOSP.TC ---
Today's Communication/Plan
-
Fever -- see plan
Voiding trial -- did not pass, Hall to be resumed
Start Tamiflu
Hold Lasix due to rising creatinine
Assessment / Plan
Assessment / Plan
Physical Exam
General: Well Developed, Well Nourished
HEENT: Normocephalic, Atraumatic
Respiratory: Clear to Auscultation Bilaterally
Cardiac: Regular Rhythm and S1/S2
GI: Soft, Nontender, Nondistended and Normal Bowel Sounds
Genito-urinary: Hall
Musculoskeletal: Edema, Right Lower Extrem and Edema, Left Lower Extrem
Skin: Warm, Dry and Ulcers (L heel, see wound care note)
Neuro: Awake and Alert
Psych: Calm and Intact Judgement/Insight (somewhat)
Assessment/Plan
HPI: 79 yo M PMH obesity, uses walker, daily ETOH use (1 beer per day), HTN, Prx AF on Eliquis, chronic HFrEF, CKD3, stage III left heel pressure injury, T2DM, KATHY, CPAP HS (11cm), COPD, CKD 3, CVA, chronic lower extremity edema; p/w generalized
weakness and difficulty ambulating.
He typically uses a walker but for the past several weeks has had increasing difficulty ambulating. 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
# Chronic Left heel ulcer
# PVD with bilateral lower extremity stents
L heel XR without fracture or osteomyelitis.
Intelligence Analyst (Dr. Angelina Barros) on board, Wound care on board
ID on board, recc ongoing plain film monthly to assess for any bony changes, and they develop, MRI imaging and further workup can be pursued.
#Fever 101.9 F on 03/28/25 evening
#Influenza A Positive
-Start Tamiflu
-COVID test negative
-UA with reflex ordered
-Follow blood cultures
-Appreciate ID follow-up
# BL LE weakness (Lt is weaker than Rt) with acute on chronic ambulatory dysfunction
# Chronic Urinary incontinence for almost 1 yr - no prior evaluation
# HX multilevel lumbar DJD/chronic back pain/diabetic neuropathy
# Now acute urinary retention
DDX: diabetic or ETOH peripheral neuropathy, cord dysfunction
Cont RUNNER MAN Lyrica
Bladder scan protocol noted urinary retention, hall placed 03/26 -- Voiding Trial Ordered 03/29/25 -- patient later had 434 urine -- Hall re-ordered
MRI Lumbar spine -- suggested no acute lesions producing symptoms, as per neurology, but did show progression (compared to 2018) of severe spinal stenosis
Neuro on board
PT/OT eval
# CKD stage 3b
Creatinine 1.5 today, up from before
Trend Cr
# type 2 IDDM
Cont reduced Lantus, but increased from 30 units HS to 33 units HS (RUNNER MAN 55 units HS)
Cont reduced dose Aspart but increase from 5 units AC to 7 units AC
cover with ISS Mod
# Benign HTN
Cont RUNNER MAN Norvasc and Coreg with hold parameter
# HX Paroxysmal AF
# Status post permanent pacemaker
EKG with paced rhythm
c/w Eliquis, continue Coreg
# Chronic HFmrEF
strict I&O, daily weight
Held Lasix due to rising creatinine to 1.5 as of 03/29/25
#Acute Urinary Retention
-Hall catheter placed this admission
-Voiding trial 03/29/25: Hall removed on 03/29/25 morning -- he was found to have retained 434 cc on 03/29/25 evening, resumed Hall Catheter
# BPH
Cont Finasteride, tamsulosin
# HX KATHY
# Obesity, BMI 34.2
Continue CPAP @ 11 cm H2O HS
# HX gout/pseudogout
# HX Chronic right bundle branch block
DVT prophylaxis�Eliquis
Full code
DW RN
Anticipated Discharge: 24 - 48 hours
Subjective/Interval History
-
Date of Service: March 29, 2025
Patient was seen and examined. He had fever last night, and this morning he was reporting sore throat.
Objective Data
-
Labs:
Laboratory Results
03/29/25
07:13
WBC 6.3
Hgb 9.6 L
Hct 29.8 L
Plt Count 168
Sodium Pending
Potassium Pending
Chloride Pending
Carbon Dioxide Pending
BUN Pending
Creatinine Pending
Glucose Pending
Calcium Pending
Vital Signs:
Vital Signs
Temp Pulse Resp BP Pulse Ox
98.7 F 80 19 146/62 94
03/29/25 04:13 03/28/25 23:49 03/28/25 23:49 03/28/25 23:49 03/28/25 23:49
I&O
03/28/25 03/29/25 03/30/25
06:59 06:59 06:59
Intake Total 720 / 720 720 / 720
Output Total 2325 / 2325 1575 / 1575
Balance -1605 / -1605 -855 / -855
[2025-03-29 08:16] LABS: Glucose - Point of Care 243 mg/dl (70-99)
[2025-03-29 08:23] LABS: Blood Urea Nitrogen 27 mg/dl (9-20); Calcium 8.0 mg/dl (8.4-10.2); Carbon Dioxide 31 mmol/L (22-30); Chloride 101 mmol/L (98-107); Estimated Creatinine Clearance 43 ml/min; Glucose 210 mg/dl (70-99); Potassium 3.7 mmol/L (3.5-5.1); Sodium 138 mmol/L (135-145); eGFR 46.77
[2025-03-29] MEDS: PROTONIX 40 MG PO (09:13)
[2025-03-29] MEDS: VITAMIN B-12 1000 MCG PO (09:13)
[2025-03-29] MEDS: NORVASC 10 MG PO (09:13)
[2025-03-29] MEDS: PROSCAR 5 MG PO (09:14)
[2025-03-29] MEDS: ASPIR LOW (ENTERIC COATED) 81 MG PO (09:14)
[2025-03-29] MEDS: LIPITOR 40 MG PO (09:14)
[2025-03-29] MEDS: ELIQUIS 5 MG PO ×2 (09:14→20:42)
[2025-03-29] MEDS: COREG 12.5 MG PO ×2 (09:14→20:43)
[2025-03-29] MEDS: SANTYL OINTMENT 1 APPLIC TOPICAL ×2 (09:15→20:45)
[2025-03-29] MEDS: LYRICA 150 MG PO (09:16)
[2025-03-29] MEDS: DESENEX/MITRAZOL/ZEASORB 1 APPLIC TOPICAL ×2 (09:16→20:48)
[2025-03-29] MEDS: NOVOLOG FLEXPEN-MODERATE RESISTANCE 3 UNITS SC ×3 (09:17→18:18)
[2025-03-29] MEDS: NOVOLOG FLEXPEN 5 UNITS SC ×2 (09:18→13:47)
[2025-03-29] MEDS: LASIX PO (09:30)
[2025-03-29 10:15] LABS: COVID-19 Antigen Negative (Negative)
--- NOTE | 2025-03-29 10:37 | W.PN.ID1 ---
Date of Service
Date of Service: March 29, 2025
Today's Communication
Start oseltamivir
Assessment / Plan
Influenza A infection
New Fever
Chronic left heel ulcer
Ambulatory dysfunction; progressive
Leukocytosis
COPD
CAD; Hx NV
HTN
HLD
DM with neuropathy
Depression
CKD
Recommendations:
- Pt seen early this am, I did not start antibiotic pending COVID19 and Influenza result based on symptoms.
- At time of writing this progress note, Influenza A POSITIVE. COVID19 neg
- Start oseltamivir 75mg po bid x 5 days.
- Trend fever.
- Droplet isolation
- Left heel wound examined today and does not look infected.
X-ray imaging of this longstanding left heel wound has shown no evidence of bony destruction, making osteomyelitis less likely. I am not sure that MRI imaging at this time will add anything, and would suggest ongoing plain film imaging monthly to
assess for any bony changes. Should they develop, MRI imaging and further workup can be pursued.
Continue with local care to the wound bed.
Will need ongoing care and follow-up with [facility].
Agree with compressive modalities to control overall edema which will assist in healing.
MRI of low back shows spinal stenosis and DJD
Chief Complaint
-: Other (ambulatory dysfunction)
Subjective / Review of Systems
Asked to see patient due to fever overnight.
Pt denies chills or sweats.
c/o sore throat that started this am. + rhinorrhea. No CAPPS.
No cough/sob or diarrhea. ]
Back pain stable.
Vital Signs / Physical Exam
Vital Signs
Vital Signs
Temp Pulse Resp BP Pulse Ox
98.9 F 62 16 143/53 89
03/29/25 07:55 03/29/25 09:13 03/29/25 07:55 03/29/25 09:13 03/29/25 07:55
Selected Entries
03/28/25
23:49
Temp 101.9 F H
Physical Exam
Constitutional: No Acute Distress and Obese
Head: Other (No sinus tenderness)
Eyes: No Conjunctival Hemorrhage and Sclera Anicteric
Oropharyngeal: Erythema (mild erythema pharynx)
Cardiovascular: Regular Rate and S1/S2
Pulmonary: Clear
Gastrointestinal: Soft, Non Tender, Non Distended and Normal Bowel Sounds
Extremities: Venous Insufficiency; Negative Edema
Wound: Other (Left heel shallow ound without deep undermining. No surrounding erythema. )
Neurological: AO x 3; Negative Meningeal Signs
Objective Data
Lab Data
Lab Results
03/29/25 07:13
03/29/25 07:13
ESR 40 mm/hour (0-20) H 03/25/25 10:59
Estimated Creat Clear 43 ml/min 03/29/25 07:13
Total Bilirubin 0.7 mg/dl (0.2-1.3) 03/25/25 10:59
AST 19 U/L (17-59) 03/25/25 10:59
ALT 15 U/L (0-50) 03/25/25 10:59
Alkaline Phosphatase 87 U/L (38-126) 03/25/25 10:59
C-Reactive Protein 28.70 mg/L (0.0-10.00) H 03/25/25 10:59
Most recent labs reviewed.
Micro Results:
03/29/25 09:38 Influenza Types A & B (JOELLEN) - Final
Nasal Swab Influenza A Positive, NAAT
03/29/25 09:37 Blood Culture - Pending
Blood/Venous
03/29/25 08:55 Blood Culture - Pending
Blood/Venous
Imaging:
03/25/2025 X-ray left heel: no acute fracture, dislocation or subluxation. There is degenerative changes along the dorsum of the midfoot. Mild degenerative changes of the tibiotalar and subtalar joints. No periosteal reaction or erosive changes.
No osteolytic or blastic lesion seen. No foreign body identified. There is extensive vascular calcifications. Overall, no evidence of acute fracture or findings to suggest osteomyelitis.
Care Review
Plan reviewed with: Physician (Drs. Francisco and Papo)
[2025-03-29] MEDS: TAMIFLU 30 MG PO ×2 (10:55→20:44)
[2025-03-29 12:00] LABS: Glucose - Point of Care 243 mg/dl (70-99)
[2025-03-29 15:55] VITALS: BP 126/54
[2025-03-29] MEDS: NOVOLOG FLEXPEN SC (17:36)
[2025-03-29 17:52] LABS: Urine Character Clear (Clear)
[2025-03-29 18:13] LABS: Glucose - Point of Care 245 mg/dl (70-99)
[2025-03-29] MEDS: NOVOLOG FLEXPEN 7 UNITS SC (18:19)
[2025-03-29] MEDS: LYRICA 300 MG PO (20:42)
[2025-03-29] MEDS: DESYREL 100 MG PO (20:42)
[2025-03-29] MEDS: FLOMAX 0.8 MG PO (20:43)
[2025-03-29] MEDS: LANTUS 0.33 UNITS SC (20:48)
[2025-03-29 20:49] LABS: Glucose - Point of Care 227 mg/dl (70-99)
[2025-03-29] MEDS: PERCOCET 5/325 1 TABLET PO (21:06)
[2025-03-29 23:26] VITALS: BP 144/62
[2025-03-30 07:10] VITALS: BP 139/66
[2025-03-30 07:23] LABS: Glucose - Point of Care 302 mg/dl (70-99)
[2025-03-30] MEDS: SANTYL OINTMENT 1 APPLIC TOPICAL (08:38)
[2025-03-30] MEDS: ASPIR LOW (ENTERIC COATED) 81 MG PO (08:39)
[2025-03-30] MEDS: TAMIFLU 30 MG PO ×2 (08:39→19:49)
[2025-03-30] MEDS: PROTONIX 40 MG PO (08:39)
[2025-03-30] MEDS: VITAMIN B-12 1000 MCG PO (08:39)
[2025-03-30] MEDS: ELIQUIS 5 MG PO ×2 (08:39→19:47)
[2025-03-30] MEDS: LIPITOR 40 MG PO (08:40)
[2025-03-30] MEDS: PROSCAR 5 MG PO (08:40)
[2025-03-30] MEDS: NORVASC 10 MG PO (08:41)
[2025-03-30] MEDS: COREG 12.5 MG PO ×2 (08:42→19:47)
[2025-03-30] MEDS: LASIX 40 MG PO (08:42)
[2025-03-30] MEDS: LYRICA 150 MG PO (08:43)
[2025-03-30] MEDS: DESENEX/MITRAZOL/ZEASORB 1 APPLIC TOPICAL ×2 (08:43→19:51)
[2025-03-30] MEDS: NOVOLOG FLEXPEN-MODERATE RESISTANCE 7 UNITS SC (08:44)
[2025-03-30] MEDS: NOVOLOG FLEXPEN 7 UNITS SC (08:45)
[2025-03-30 10:05] LABS: Hematocrit 30.5 % (39.0-52.0); Hemoglobin 10.1 g/dL (13.0-18.0); Mean Corp Hgb Conc. 33.1 g/dL (33.0-37.0); Mean Corpuscular Volume 94.1 fL (80.0-94.0); Nucleated Red Blood Cells % 0 % (-); Platelet Count 164 10^3/uL (130-400); Red Cell Dist. Width 14.4 % (11.5-14.5)
[2025-03-30 11:03] LABS: Blood Urea Nitrogen 24 mg/dl (9-20); Calcium 8.1 mg/dl (8.4-10.2); Carbon Dioxide 29 mmol/L (22-30); Chloride 100 mmol/L (98-107); Estimated Creatinine Clearance 53 ml/min; Glucose 281 mg/dl (70-99); Potassium 3.9 mmol/L (3.5-5.1); Sodium 136 mmol/L (135-145); eGFR > 60.00
[2025-03-30 11:57] LABS: Glucose - Point of Care 291 mg/dl (70-99)
--- NOTE | 2025-03-30 12:05 | W.PN.HOSP.TC ---
Today's Communication/Plan
-
see A/P
Assessment / Plan
Assessment / Plan
HPI: 79 yo M PMH obesity, uses walker, daily ETOH use (1 beer per day), HTN, Prx AF on Eliquis, chronic HFrEF, CKD3, stage III left heel pressure injury, T2DM, KATHY, CPAP HS (11cm), COPD, CKD 3, CVA, chronic lower extremity edema; p/w generalized
weakness and difficulty ambulating.
He typically uses a walker but for the past several weeks has had increasing difficulty ambulating. 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
A/P:
# Chronic Left heel ulcer
# PVD with bilateral lower extremity stents
L heel XR without fracture or osteomyelitis.
Print Traffic Manager (Dr. Angelina Barros) on board, Wound care on board
ID on board, recc ongoing plain film monthly to assess for any bony changes, and they develop, MRI imaging and further workup can be pursued.
# New fever on 03/28/25 evening , likely due to Influenza A infection
Started Tamiflu, treat x5 days
COVID test negative
Follow urine culture
blood cultures so far neg
Appreciate ID follow-up
# BL LE weakness (Lt is weaker than Rt) with acute on chronic ambulatory dysfunction
# Chronic Urinary incontinence for almost 1 yr - no prior evaluation
# HX multilevel lumbar DJD/chronic back pain/diabetic neuropathy
# Now acute urinary retention
DDX: diabetic or ETOH peripheral neuropathy, cord dysfunction
Cont SENIOR TELLER Lyrica
Bladder scan protocol noted urinary retention, hall placed 03/26
Failed voiding trial 03/29/25, Hall re-ordered
MRI Lumbar spine suggest no acute lesions producing symptoms, as per neurology, but did show progression (compared to 2018) of severe spinal stenosis
Neuro on board
PT/OT recc SNF
# CKD stage 3b
Creatinine 1.2 today
Trend Cr
# type 2 IDDM
Cont Lantus, adjust to 40 units HS (SENIOR TELLER 55 units HS)
Cont Aspart, adjust to 12 units AC (SENIOR TELLER 20 units AC)
will give NPH 10 units now for hyperglycemia for BG coverage prior to evening Lantus
cover with ISS Mod
# Benign HTN
Cont SENIOR TELLER Norvasc and Coreg with hold parameter
# HX Paroxysmal AF
# Status post permanent pacemaker
EKG with paced rhythm
c/w Eliquis, continue Coreg
# Chronic HFmrEF
strict I&O, daily weight
Cont Lasix 40 mg daily
# BPH
Cont Finasteride, tamsulosin
# HX KATHY
# Obesity, BMI 34.2
Continue CPAP @ 11 cm H2O HS
# HX gout/pseudogout
# HX Chronic right bundle branch block
DVT prophylaxis�Eliquis
Full code
Dispo: SNF
Anticipated Discharge: Within 24 hours
Subjective/Interval History
-
Date of Service: March 30, 2025
Objective Data
-
Labs:
Laboratory Results
03/30/25
09:26
WBC 6.7
Hgb 10.1 L
Hct 30.5 L
Plt Count 164
Sodium 136
Potassium 3.9
Chloride 100
Carbon Dioxide 29
BUN 24 H
Creatinine 1.2
Glucose 281 H
Calcium 8.1 L
Vital Signs:
Vital Signs
Temp Pulse Resp BP Pulse Ox
36.3 C 69 20 139/66 94
03/30/25 07:10 03/30/25 08:41 03/30/25 07:10 03/30/25 08:41 03/30/25 08:15
I&O
03/29/25 03/30/25 03/31/25
06:59 06:59 06:59
Intake Total 720 / 720 600 / 600
Output Total 1575 / 1575 800 / 800
Balance -855 / -855 -200 / -200
Review of Systems
-
History Source: Patient
All other systems: Reviewed and negative
Physical Exam
-
General: Well Developed, Well Nourished, No Apparent Distress, Comfortable, Conversant, Appears Chronically Ill and Obese
HEENT: Normocephalic, Atraumatic and Moist Mucous Membranes; Negative Oxygen
Respiratory: Clear to Auscultation and Non Labored Respirations; Negative Accessory Resp Muscle Use
Cardiac: Regular Rhythm and S1/S2
GI: Soft, Nontender, Nondistended and Normal Bowel Sounds
Genito-urinary: Hall
Musculoskeletal: No Clubbing, Edema, Right Lower Extrem and Edema, Left Lower Extrem
Skin: Warm, Dry and Ulcers (L heel, see wound care note)
Neuro: Awake and Alert
Psych: Calm and Intact Judgement/Insight (somewhat)
Data Reviewed
-
Diagnostic Radiology: Report Reviewed by me
Labs: Labs Reviewed by me
[2025-03-30] MEDS: NOVOLOG FLEXPEN SC (12:40)
[2025-03-30] MEDS: NOVOLIN N vial 0.1 UNITS SC (12:41)
[2025-03-30] MEDS: NOVOLOG FLEXPEN 12 UNITS SC ×2 (12:50→17:25)
[2025-03-30] MEDS: NOVOLOG FLEXPEN-MODERATE RESISTANCE 5 UNITS SC (12:50)
--- NOTE | 2025-03-30 13:19 | CM ---
Chart reviewed. Per hospitalist, patient ready to discharge likely tomorrow
Patient has previously declined SNF when discussed
CM met w/ patient bedside, patient still declining SNF. Patient would like to discharge home
Patient current w/ [facility]. [facility] referral [facility]

Plan: Home, [facility] w[facility]
--- NOTE | 2025-03-30 14:28 | W.PN.ID1 ---
Date of Service
Date of Service: March 30, 2025
Today's Communication
Continue with oseltamavir.
Assessment / Plan
Influenza A infection
New Fever
Chronic left heel ulcer
Ambulatory dysfunction; progressive
Leukocytosis
COPD
CAD; Hx LA
HTN
HLD
DM with neuropathy
Depression
CKD
Recommendations:
- Continue oseltamivir 75mg po bid (d#2 of 5)
- Trend fever.
- Droplet isolation
X-ray imaging of this longstanding left heel wound has shown no evidence of bony destruction, making osteomyelitis less likely.
Suggest ongoing plain film imaging every 1-2 months to assess for any bony changes. Should they develop, MRI imaging and further workup can be pursued.
Continue with local care to the wound bed.
Will need ongoing care and follow-up with [facility]iat[facility].
Agree with compressive modalities to control overall edema which will assist in healing.
MRI of low back shows spinal stenosis and DJD
����������������������������������������������������������
Chief Complaint
-: Other (ambulatory dysfunction)
Subjective / Review of Systems
Review of Systems: No Fever and No Chills
Vital Signs / Physical Exam
Vital Signs
Vital Signs
Temp Pulse Resp BP Pulse Ox
97.4 F 69 20 139/66 94
03/30/25 07:10 03/30/25 08:41 03/30/25 07:10 03/30/25 08:41 03/30/25 08:15
Physical Exam
Constitutional: No Acute Distress and Obese
Head: Other (No sinus tenderness)
Eyes: No Conjunctival Hemorrhage and Sclera Anicteric
Cardiovascular: Regular Rate and S1/S2
Pulmonary: Clear
Gastrointestinal: Soft, Non Tender, Non Distended and Normal Bowel Sounds
Extremities: Venous Insufficiency; Negative Edema
Wound: Other (Left heel shallow ound without deep undermining. No surrounding erythema. )
Neurological: AO x 3; Negative Meningeal Signs
Objective Data
Lab Data
Lab Results
03/30/25 09:26
03/30/25 09:26
ESR 40 mm/hour (0-20) H 03/25/25 10:59
Estimated Creat Clear 53 ml/min 03/30/25 09:26
Total Bilirubin 0.7 mg/dl (0.2-1.3) 03/25/25 10:59
AST 19 U/L (17-59) 03/25/25 10:59
ALT 15 U/L (0-50) 03/25/25 10:59
Alkaline Phosphatase 87 U/L (38-126) 03/25/25 10:59
C-Reactive Protein 28.70 mg/L (0.0-10.00) H 03/25/25 10:59
Most recent labs reviewed.
Micro Results:
03/29/25 09:37 Blood Culture - Preliminary
Blood/Venous No Growth in 24 hours- Final report to follow
03/29/25 08:55 Blood Culture - Preliminary
Blood/Venous No Growth in 24 hours- Final report to follow
03/29/25 17:21 Urine Culture - Pending
Urine
03/29/25 09:38 Influenza Types A & B (JOELLEN) - Final
Nasal Swab Influenza A Positive, NAAT
Imaging:
03/25/2025 X-ray left heel: no acute fracture, dislocation or subluxation. There is degenerative changes along the dorsum of the midfoot. Mild degenerative changes of the tibiotalar and subtalar joints. No periosteal reaction or erosive changes.
No osteolytic or blastic lesion seen. No foreign body identified. There is extensive vascular calcifications. Overall, no evidence of acute fracture or findings to suggest osteomyelitis.
[2025-03-30 15:25] VITALS: BP 101/49
[2025-03-30 15:55] VITALS: BP 101/49; PULSE 95; O2SAT 95
[2025-03-30 16:43] LABS: Glucose - Point of Care 187 mg/dl (70-99)
[2025-03-30] MEDS: NOVOLOG FLEXPEN-MODERATE RESISTANCE 1 UNITS SC (17:25)
[2025-03-30] MEDS: FLOMAX 0.8 MG PO (19:48)
[2025-03-30] MEDS: SANTYL OINTMENT TOPICAL ×2 (19:50→20:03)
[2025-03-30 21:28] LABS: Glucose - Point of Care 193 mg/dl (70-99)
[2025-03-30] MEDS: DESYREL 100 MG PO (21:33)
[2025-03-30] MEDS: LYRICA 300 MG PO (21:33)
[2025-03-30] MEDS: LANTUS 0.4 UNITS SC (21:34)
[2025-03-30] MEDS: PERCOCET 5/325 1 TABLET PO (22:29)
[2025-03-30 22:33] VITALS: BP 128/52
[2025-03-31 02:27] LABS: Glucose - Point of Care 172 mg/dl (70-99)
[2025-03-31] MEDS: TORADOL 15 MG IV (03:12)
[2025-03-31 07:46] LABS: Glucose - Point of Care 252 mg/dl (70-99)
[2025-03-31 08:38] VITALS: BP 122/49
[2025-03-31] MEDS: PROTONIX 40 MG PO (08:50)
[2025-03-31] MEDS: LIPITOR 40 MG PO (08:50)
[2025-03-31] MEDS: DESENEX/MITRAZOL/ZEASORB 1 APPLIC TOPICAL ×2 (08:50→19:43)
[2025-03-31] MEDS: ASPIR LOW (ENTERIC COATED) 81 MG PO (08:50)
[2025-03-31] MEDS: PROSCAR 5 MG PO (08:50)
[2025-03-31] MEDS: LYRICA 150 MG PO (08:50)
[2025-03-31] MEDS: VITAMIN B-12 1000 MCG PO (08:50)
[2025-03-31] MEDS: ELIQUIS 5 MG PO ×2 (08:50→19:40)
[2025-03-31] MEDS: TAMIFLU 30 MG PO ×2 (08:50→19:42)
[2025-03-31] MEDS: SANTYL OINTMENT 1 APPLIC TOPICAL (08:51)
[2025-03-31] MEDS: LASIX 40 MG PO (09:01)
[2025-03-31] MEDS: NORVASC 10 MG PO (09:01)
[2025-03-31] MEDS: COREG 12.5 MG PO ×2 (09:01→19:41)
[2025-03-31] MEDS: NOVOLOG FLEXPEN-MODERATE RESISTANCE 5 UNITS SC ×2 (09:02→18:03)
[2025-03-31] MEDS: NOVOLOG FLEXPEN 12 UNITS SC (10:04)
--- NOTE | 2025-03-31 11:17 | W.PN.HOSP.TC ---
Today's Communication/Plan
-
see A/P
Assessment / Plan
Assessment / Plan
HPI: 79 yo M PMH obesity, uses walker, daily ETOH use (1 beer per day), HTN, Prx AF on Eliquis, chronic HFrEF, CKD3, stage III left heel pressure injury, T2DM, KATHY, CPAP HS (11cm), COPD, CKD 3, CVA, chronic lower extremity edema; p/w generalized
weakness and difficulty ambulating.
He typically uses a walker but for the past several weeks has had increasing difficulty ambulating. 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
A/P:
# Chronic Left heel ulcer
# PVD with bilateral lower extremity stents
L heel XR without fracture or osteomyelitis.
High Climber (Dr. Angelina Barros) on board, Wound care on board
ID on board, recc ongoing plain film monthly to assess for any bony changes, and they develop, MRI imaging and further workup can be pursued.
# New fever on 03/28/25 evening , likely due to Influenza A infection
Started Tamiflu, treat x5 days
COVID test negative
Follow urine culture (although pt denies to any urinary symptoms)
blood cultures so far neg
Appreciate ID follow-up
# BL LE weakness (Lt is weaker than Rt) with acute on chronic ambulatory dysfunction
# Chronic Urinary incontinence for almost 1 yr - no prior evaluation
# HX multilevel lumbar DJD/chronic back pain/diabetic neuropathy
# Now acute urinary retention
DDX: diabetic or ETOH peripheral neuropathy, cord dysfunction
Cont MECHANICAL MANUFACTURING TECHNICIAN Lyrica
Bladder scan protocol noted urinary retention, hall placed 03/26
Failed voiding trial 03/29/25, Hall re-ordered
MRI Lumbar spine suggest no acute lesions producing symptoms, as per neurology, but did show progression (compared to 2018) of severe spinal stenosis
Neuro on board
PT/OT recc SNF
# CKD stage 3b
Creatinine has been stable
# type 2 IDDM
Cont Lantus, adjust to 45 units HS (MECHANICAL MANUFACTURING TECHNICIAN 55 units HS)
Cont Aspart, adjust to 15 units AC (MECHANICAL MANUFACTURING TECHNICIAN 20 units AC)
cover with ISS Mod
# Benign HTN
Cont MECHANICAL MANUFACTURING TECHNICIAN Norvasc and Coreg with hold parameter
# HX Paroxysmal AF
# Status post permanent pacemaker
EKG with paced rhythm
c/w Eliquis, continue Coreg
# Chronic HFmrEF
strict I&O, daily weight
Cont Lasix 40 mg daily
# BPH
Cont Finasteride, tamsulosin
# HX KATHY
# Obesity, BMI 34.2
Continue CPAP @ 11 cm H2O HS
# HX gout/pseudogout
# HX Chronic right bundle branch block
DVT prophylaxis� Eliquis
Full code
Dispo: SNF
DW CM. Pt now wants to go to SNF
Anticipated Discharge: Within 24 hours
Subjective/Interval History
-
Date of Service: March 31, 2025
Objective Data
-
Vital Signs:
Vital Signs
Temp Pulse Resp BP Pulse Ox
36.3 C 62 12 122/49 93
03/31/25 08:38 03/31/25 09:01 03/31/25 08:38 03/31/25 09:01 03/31/25 08:38
I&O
03/30/25 03/31/25 04/01/25
06:59 06:59 06:59
Intake Total 600 / 600 1080 / 1080 240 / 240
Output Total 800 / 800 1700 / 1700
Balance -200 / -200 -620 / -620 240 / 240
Review of Systems
-
History Source: Patient
All other systems: Reviewed and negative
Genitourinary: Reports No Symptoms; Denies Dysuria or Frequency
Physical Exam
-
General: Well Developed, Well Nourished, No Apparent Distress, Comfortable, Conversant, Appears Chronically Ill and Obese
HEENT: Normocephalic, Atraumatic and Moist Mucous Membranes; Negative Oxygen
Respiratory: Clear to Auscultation and Non Labored Respirations; Negative Accessory Resp Muscle Use
Cardiac: Regular Rhythm and S1/S2
GI: Soft, Nontender, Nondistended and Normal Bowel Sounds
Genito-urinary: Hall
Musculoskeletal: No Clubbing, Edema, Right Lower Extrem and Edema, Left Lower Extrem
Skin: Warm, Dry and Ulcers (L heel, see wound care note)
Neuro: Awake and Alert
Psych: Calm and Intact Judgement/Insight (somewhat)
Data Reviewed
-
Diagnostic Radiology: Report Reviewed by me
Labs: Labs Reviewed by me
--- NOTE | 2025-03-31 11:56 | CM ---
Chart reviewed. Medically stable. Patient now agreeable to SNF
Met w/ patient bedside, interested in [facility] and if not accepted, agreeable to referrals to other [place] facilities
Patient will need insurance auth
Plan: SNF
[2025-03-31 12:42] LABS: Glucose - Point of Care 336 mg/dl (70-99)
[2025-03-31] MEDS: NOVOLOG FLEXPEN-MODERATE RESISTANCE 7 UNITS SC (13:02)
--- NOTE | 2025-03-31 13:50 | W.PN.ID1 ---
Date of Service
Date of Service: March 31, 2025
Today's Communication
Continue oseltamavir
Assessment / Plan
Influenza A infection
New Fever
Chronic left heel ulcer
Ambulatory dysfunction; progressive
Leukocytosis
COPD
CAD; Hx CO
HTN
HLD
DM with neuropathy
Depression
CKD
Recommendations:
- Continue oseltamivir 75mg po bid (d#3 of 5)
- Trend fever. Afebrile since 03/29
- Droplet isolation per IP
X-ray imaging of this longstanding left heel wound has shown no evidence of bony destruction, making osteomyelitis less likely.
Suggest ongoing plain film imaging every 1-2 months to assess for any bony changes. Should they develop, MRI imaging and further workup can be pursued.
Continue with local care to the wound bed.
Will need ongoing care and follow-up with [facility]iat[facility].
Agree with compressive modalities to control overall edema which will assist in healing.
MRI of low back shows spinal stenosis and DJD
����������������������������������������������������������
Chief Complaint
-: Other (ambulatory dysfunction)
Subjective / Review of Systems
Review of Systems: No Fever and No Chills
Vital Signs / Physical Exam
Vital Signs
Vital Signs
Temp Pulse Resp BP Pulse Ox
97.4 F 62 12 122/49 93
03/31/25 08:38 03/31/25 09:01 03/31/25 08:38 03/31/25 09:01 03/31/25 08:38
Physical Exam
Constitutional: No Acute Distress
Head: Other (No sinus tenderness)
Eyes: No Conjunctival Hemorrhage and Sclera Anicteric
Cardiovascular: Regular Rate and S1/S2
Pulmonary: Clear
Gastrointestinal: Soft, Non Tender, Non Distended and Normal Bowel Sounds
Extremities: Venous Insufficiency; Negative Edema
Wound: Other (Left heel shallow ound without deep undermining. No surrounding erythema. )
Neurological: AO x 3; Negative Meningeal Signs
Objective Data
Lab Data
Lab Results
03/30/25 09:26
03/30/25 09:26
ESR 40 mm/hour (0-20) H 03/25/25 10:59
Estimated Creat Clear 53 ml/min 03/30/25 09:26
Total Bilirubin 0.7 mg/dl (0.2-1.3) 03/25/25 10:59
AST 19 U/L (17-59) 03/25/25 10:59
ALT 15 U/L (0-50) 03/25/25 10:59
Alkaline Phosphatase 87 U/L (38-126) 03/25/25 10:59
C-Reactive Protein 28.70 mg/L (0.0-10.00) H 03/25/25 10:59
Most recent labs reviewed.
Micro Results:
03/29/25 17:21 Urine Culture - Final
Urine NO GROWTH
03/29/25 09:37 Blood Culture - Preliminary
Blood/Venous No Growth in 48 hours- Final report to follow
03/29/25 08:55 Blood Culture - Preliminary
Blood/Venous No Growth in 48 hours- Final report to follow
03/29/25 09:38 Influenza Types A & B (JOELLEN) - Final
Nasal Swab Influenza A Positive, NAAT
Imaging:
03/25/2025 X-ray left heel: no acute fracture, dislocation or subluxation. There is degenerative changes along the dorsum of the midfoot. Mild degenerative changes of the tibiotalar and subtalar joints. No periosteal reaction or erosive changes.
No osteolytic or blastic lesion seen. No foreign body identified. There is extensive vascular calcifications. Overall, no evidence of acute fracture or findings to suggest osteomyelitis.
[2025-03-31 14:01] VITALS: BP 107/47
[2025-03-31] MEDS: NOVOLOG FLEXPEN SC (14:39)
[2025-03-31 14:40] VITALS: BP 107/47
[2025-03-31 15:40] VITALS: BP 107/47
[2025-03-31 17:00] LABS: Glucose - Point of Care 265 mg/dl (70-99)
[2025-03-31] MEDS: NOVOLOG FLEXPEN 15 UNITS SC (18:04)
[2025-03-31] MEDS: SANTYL OINTMENT TOPICAL (19:42)
[2025-03-31 21:12] LABS: Glucose - Point of Care 213 mg/dl (70-99)
[2025-03-31] MEDS: PERCOCET 5/325 1 TABLET PO (21:15)
[2025-03-31] MEDS: FLOMAX 0.8 MG PO (21:15)
[2025-03-31] MEDS: SENOKOT-S 1 TABLET PO (21:15)
[2025-03-31] MEDS: LANTUS 0.45 UNITS SC (21:16)
[2025-03-31] MEDS: DESYREL 100 MG PO (22:33)
[2025-03-31] MEDS: LYRICA 300 MG PO (22:33)
[2025-03-31 23:19] VITALS: BP 108/49
[2025-04-01 08:26] LABS: Glucose - Point of Care 220 mg/dl (70-99)
[2025-04-01 08:39] VITALS: BP 121/52
[2025-04-01] MEDS: NOVOLOG FLEXPEN-MODERATE RESISTANCE 3 UNITS SC ×3 (09:53→17:14)
[2025-04-01] MEDS: NOVOLOG FLEXPEN 15 UNITS SC (09:53)
[2025-04-01] MEDS: LYRICA 150 MG PO (09:54)
[2025-04-01] MEDS: NORVASC 10 MG PO (09:54)
[2025-04-01] MEDS: PROTONIX 40 MG PO (09:54)
[2025-04-01] MEDS: ASPIR LOW (ENTERIC COATED) 81 MG PO (09:54)
[2025-04-01] MEDS: COREG 12.5 MG PO ×2 (09:54→20:17)
[2025-04-01] MEDS: TAMIFLU 30 MG PO ×2 (09:54→20:04)
[2025-04-01] MEDS: VITAMIN B-12 1000 MCG PO (09:54)
[2025-04-01] MEDS: ELIQUIS 5 MG PO ×2 (09:54→20:04)
[2025-04-01] MEDS: SENOKOT-S 1 TABLET PO ×2 (09:55→20:04)
[2025-04-01] MEDS: PROSCAR 5 MG PO (09:55)
[2025-04-01] MEDS: SANTYL OINTMENT 1 APPLIC TOPICAL (09:55)
[2025-04-01] MEDS: LIPITOR 40 MG PO (09:55)
[2025-04-01] MEDS: LASIX 40 MG PO (09:55)
[2025-04-01] MEDS: DESENEX/MITRAZOL/ZEASORB 1 APPLIC TOPICAL ×2 (10:00→20:04)
[2025-04-01] MEDS: MIRALAX 17 GRAMS PO (10:00)
--- NOTE | 2025-04-01 10:00 | W.PN.HOSP.TC ---
Addendum entered and electronically signed by Elida Jaramillo MD 04/01/25 11:44:
Informed by RN that pt's hall was pulled per protocol.
Since it was been removed, can check repeat voiding trial and reinsert if needed
Original Note:
Today's Communication/Plan
-
see A/P
Assessment / Plan
Assessment / Plan
HPI: 79 yo M PMH obesity, uses walker, daily ETOH use (1 beer per day), HTN, Prx AF on Eliquis, chronic HFrEF, CKD3, stage III left heel pressure injury, T2DM, KATHY, CPAP HS (11cm), COPD, CKD 3, CVA, chronic lower extremity edema; p/w generalized
weakness and difficulty ambulating.
He typically uses a walker but for the past several weeks has had increasing difficulty ambulating. 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
A/P:
# Chronic Left heel ulcer
# PVD with bilateral lower extremity stents
L heel XR without fracture or osteomyelitis.
Marketing Intern (Dr. Angelina Barros) on board, Wound care on board
ID on board, recc ongoing plain film monthly to assess for any bony changes, and they develop, MRI imaging and further workup can be pursued.
# New fever on 03/28/25 evening , likely due to Influenza A infection
Tamiflu x5 days
COVID test negative
urine culture no growth (pt also denies to urinary symptoms)
blood cultures neg
Appreciate ID follow-up
# BL LE weakness (Lt is weaker than Rt) with acute on chronic ambulatory dysfunction
# Chronic Urinary incontinence for almost 1 yr - no prior evaluation
# HX multilevel lumbar DJD/chronic back pain/diabetic neuropathy
# Now acute urinary retention
DDX: diabetic or ETOH peripheral neuropathy, cord dysfunction
Cont MEDICINAL PLANT PICKER Lyrica
Bladder scan protocol noted urinary retention, hall placed 03/26
Failed voiding trial 03/29/25, Hall re-ordered, next hall change 04/27/2025
MRI Lumbar spine suggest no acute lesions producing symptoms, as per neurology, but did show progression (compared to 2018) of severe spinal stenosis
Neuro on board
PT/OT recc SNF
# CKD stage 3b
Creatinine has been stable
# type 2 IDDM
Cont Lantus, adjust back to home dose at 55 units HS
Cont Aspart, adjust back to home dose at 20 units AC
cover with ISS Mod
A1C 6.3%
# Benign HTN
Cont MEDICINAL PLANT PICKER Norvasc and Coreg with hold parameter
# HX Paroxysmal AF
# Status post permanent pacemaker
EKG with paced rhythm
c/w Eliquis, continue Coreg
# Chronic HFmrEF
strict I&O, daily weight
Cont Lasix 40 mg daily
# BPH
Cont Finasteride, tamsulosin
# HX KATHY
# Obesity, BMI 34.2
Continue CPAP @ 11 cm H2O HS
# HX gout/pseudogout
# HX Chronic right bundle branch block
DVT prophylaxis� Eliquis
Full code
Dispo: Pt now wants to go to
Anticipated Discharge: 24 - 48 hours
Subjective/Interval History
-
Date of Service: April 01, 2025
Objective Data
-
Vital Signs:
Vital Signs
Temp Pulse Resp BP Pulse Ox
36.8 C 61 18 121/52 97
04/01/25 08:39 04/01/25 08:39 04/01/25 08:39 04/01/25 08:39 04/01/25 08:39
I&O
03/31/25 04/01/25 04/02/25
06:59 06:59 06:59
Intake Total 1080 / 1080 600 / 600
Output Total 1700 / 1700 800 / 800
Balance -620 / -620 -200 / -200
Review of Systems
-
History Source: Patient
All other systems: Reviewed and negative
Physical Exam
-
General: Well Developed, Well Nourished, No Apparent Distress, Comfortable, Conversant, Appears Chronically Ill and Obese
HEENT: Normocephalic, Atraumatic and Moist Mucous Membranes; Negative Oxygen
Respiratory: Clear to Auscultation and Non Labored Respirations; Negative Accessory Resp Muscle Use
Cardiac: Regular Rhythm and S1/S2
GI: Soft, Nontender, Nondistended and Normal Bowel Sounds
Genito-urinary: Hall
Musculoskeletal: No Clubbing, Edema, Right Lower Extrem and Edema, Left Lower Extrem
Skin: Warm, Dry and Ulcers (L heel, see wound care note)
Neuro: Awake and Alert
Psych: Calm and Intact Judgement/Insight (somewhat)
Data Reviewed
-
Diagnostic Radiology: Report Reviewed by me
Labs: Labs Reviewed by me
--- NOTE | 2025-04-01 11:16 | WOUNDNOTE ---
R GREAT TOE (PARTIAL AMP)
--- NOTE | 2025-04-01 11:22 | WOUNDNOTE ---
[facility] RN note: Patient is on a static air overlay. L heel ulcer aircraft cleaner than last week. Ulcer 75%pink, 25% brown necrotic with loosening edges. No surrounding erythema. Sacral skin intact without redness. R heel blanchable mild red and intact. L hip
drying abrasion noted. Silicone border foam applied to L hip. L heel dressing changed. Protective silicone foam applied to sacrum. Foam dressing applied to protect R heel. Patient turned to R semi side lying position with help from SAFIA Culp. LE
edema down. Byrd abrasions dry. Protective silicone border foam changed. Knee high Reji wraps applied. TruVue lite heel relief boots reapplied. Discussed with Dr. Paul and DENTON Feng. Will follow as needed.
--- NOTE | 2025-04-01 11:29 | CM ---
Addendum entered by Mamie Arrieta 04/01/25 12:33:
Multiple referrals placed.
Wound care is rec an air mattress. SNFs made aware
Original Note:
Met with pt bedside. Provided pt with Medicare 5-star report for [facility]. CM requested he select more facilities for referral.
Plan: DC to SNF
--- NOTE | 2025-04-01 11:34 | W.PN.ID1 ---
Date of Service
Date of Service: April 01, 2025
Today's Communication
Continue current course of oseltamavir.
Assessment / Plan
Influenza A infection
New Fever
Chronic left heel ulcer
Ambulatory dysfunction; progressive
Leukocytosis
COPD
CAD; Hx IL
HTN
HLD
DM with neuropathy
Depression
CKD
Recommendations:
- Continue oseltamivir 75mg po bid (d#4 of 5)
- Droplet isolation per IP protocol.
X-ray imaging of this longstanding left heel wound has shown no evidence of bony destruction, making osteomyelitis less likely.
Suggest ongoing plain film imaging every 1-2 months to assess for any bony changes. Should they develop, MRI imaging and further workup can be pursued.
Continue with local care to the wound bed.
Will need ongoing care and follow-up with [facility].
Agree with compressive modalities to control overall edema which will assist in healing.
Little more to offer from a Infectious Diseases standpoint.
Will see again at your request.
����������������������������������������������������������
Chief Complaint
-: Other (left heel wound; Influenza)
Subjective / Review of Systems
Review of Systems: No Fever, No Chills and No Cough
Vital Signs / Physical Exam
Vital Signs
Vital Signs
Temp Pulse Resp BP Pulse Ox
98.2 F 61 18 121/52 97
04/01/25 08:39 04/01/25 09:54 04/01/25 08:39 04/01/25 08:39 04/01/25 08:39
Physical Exam
Constitutional: No Acute Distress
Head: Other (No sinus tenderness)
Eyes: No Conjunctival Hemorrhage and Sclera Anicteric
Cardiovascular: Regular Rate and S1/S2
Pulmonary: Clear
Gastrointestinal: Soft, Non Tender, Non Distended and Normal Bowel Sounds
Extremities: Venous Insufficiency; Negative Edema
Wound: Other (Left heel wound is dressed. Images from today's wound dressing reviewed with wound care nurse.)
Neurological: AO x 3; Negative Meningeal Signs
Objective Data
Lab Data
Lab Results
03/30/25 09:26
03/30/25 09:26
ESR 40 mm/hour (0-20) H 03/25/25 10:59
Estimated Creat Clear 53 ml/min 03/30/25 09:26
Total Bilirubin 0.7 mg/dl (0.2-1.3) 03/25/25 10:59
AST 19 U/L (17-59) 03/25/25 10:59
ALT 15 U/L (0-50) 03/25/25 10:59
Alkaline Phosphatase 87 U/L (38-126) 03/25/25 10:59
C-Reactive Protein 28.70 mg/L (0.0-10.00) H 03/25/25 10:59
Most recent labs reviewed.
Micro Results:
03/29/25 09:37 Blood Culture - Preliminary
Blood/Venous No Growth in 72 hours- Final report to follow
03/29/25 08:55 Blood Culture - Preliminary
Blood/Venous No Growth in 72 hours- Final report to follow
03/29/25 17:21 Urine Culture - Final
Urine NO GROWTH
03/29/25 09:38 Influenza Types A & B (JOELLEN) - Final
Nasal Swab Influenza A Positive, NAAT
Imaging:
03/25/2025 X-ray left heel: no acute fracture, dislocation or subluxation. There is degenerative changes along the dorsum of the midfoot. Mild degenerative changes of the tibiotalar and subtalar joints. No periosteal reaction or erosive changes.
No osteolytic or blastic lesion seen. No foreign body identified. There is extensive vascular calcifications. Overall, no evidence of acute fracture or findings to suggest osteomyelitis.
Care Review
Plan reviewed with: Nurse
[2025-04-01 12:30] VITALS: BP 108/46; PULSE 63; O2SAT 92
[2025-04-01 12:33] VITALS: BP 108/46; PULSE 92; O2SAT 92
[2025-04-01 12:35] LABS: Glucose - Point of Care 241 mg/dl (70-99)
[2025-04-01] MEDS: NOVOLOG FLEXPEN 20 UNITS SC ×2 (13:00→17:14)
[2025-04-01 16:06] VITALS: BP 124/60
[2025-04-01 17:02] LABS: Glucose - Point of Care 243 mg/dl (70-99)
[2025-04-01] MEDS: SANTYL OINTMENT TOPICAL (20:03)
[2025-04-01] MEDS: PERCOCET 5/325 1 TABLET PO (20:18)
[2025-04-01 21:23] LABS: Glucose - Point of Care 176 mg/dl (70-99)
[2025-04-01] MEDS: LANTUS 0.55 UNITS SC (21:24)
[2025-04-01] MEDS: FLOMAX 0.8 MG PO (21:24)
[2025-04-01] MEDS: DESYREL 100 MG PO (21:24)
[2025-04-01] MEDS: LYRICA 300 MG PO (21:24)
[2025-04-01 23:15] VITALS: BP 116/47
[2025-04-02 07:57] VITALS: BP 118/56
[2025-04-02 07:57] LABS: Glucose - Point of Care 235 mg/dl (70-99)
[2025-04-02] MEDS: SANTYL OINTMENT 1 APPLIC TOPICAL (08:57)
[2025-04-02] MEDS: NORVASC 10 MG PO (08:57)
[2025-04-02] MEDS: SENOKOT-S 1 TABLET PO ×2 (08:57→19:35)
[2025-04-02] MEDS: COREG 12.5 MG PO ×2 (08:58→19:35)
[2025-04-02] MEDS: PROSCAR 5 MG PO (08:58)
[2025-04-02] MEDS: ASPIR LOW (ENTERIC COATED) 81 MG PO (08:58)
[2025-04-02] MEDS: VITAMIN B-12 1000 MCG PO (08:58)
[2025-04-02] MEDS: LASIX 40 MG PO (08:58)
[2025-04-02] MEDS: DESENEX/MITRAZOL/ZEASORB 1 APPLIC TOPICAL ×2 (08:58→19:33)
[2025-04-02] MEDS: TAMIFLU 30 MG PO ×2 (08:58→19:34)
[2025-04-02] MEDS: LYRICA 150 MG PO (08:58)
[2025-04-02] MEDS: LIPITOR 40 MG PO (08:58)
[2025-04-02] MEDS: ELIQUIS 5 MG PO ×2 (08:58→19:34)
[2025-04-02] MEDS: PROTONIX 40 MG PO (08:59)
[2025-04-02] MEDS: NOVOLOG FLEXPEN-MODERATE RESISTANCE 300 UNITS SC (09:04)
[2025-04-02] MEDS: NOVOLOG FLEXPEN 20 UNITS SC ×3 (09:04→17:55)
--- NOTE | 2025-04-02 11:24 | W.PN.HOSP.TC ---
Today's Communication/Plan
-
see A/P
Assessment / Plan
Assessment / Plan
HPI: 79 yo M PMH obesity, uses walker, daily ETOH use (1 beer per day), HTN, Prx AF on Eliquis, chronic HFrEF, CKD3, stage III left heel pressure injury, T2DM, KATHY, CPAP HS (11cm), COPD, CKD 3, CVA, chronic lower extremity edema; p/w generalized
weakness and difficulty ambulating.
He typically uses a walker but for the past several weeks has had increasing difficulty ambulating. 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
A/P:
# Chronic Left heel ulcer
# PVD with bilateral lower extremity stents
L heel XR without fracture or osteomyelitis.
Collections Assistant (Dr. Angelina Barros) on board, Wound care on board
ID on board, recc ongoing plain film monthly to assess for any bony changes, and they develop, MRI imaging and further workup can be pursued.
# New fever on 03/28/25 evening , likely due to Influenza A infection
Tamiflu x5 days
COVID test negative
urine culture no growth (pt also denies to urinary symptoms)
blood cultures neg
Appreciate ID follow-up
# BL LE weakness (Lt is weaker than Rt) with acute on chronic ambulatory dysfunction
# Chronic Urinary incontinence for almost 1 yr - no prior evaluation
# HX multilevel lumbar DJD/chronic back pain/diabetic neuropathy
# Now acute urinary retention
DDX: diabetic or ETOH peripheral neuropathy, cord dysfunction
Cont MARKETING EDUCATION TEACHER Lyrica
Bladder scan protocol noted urinary retention, hall placed 03/26
Failed voiding trial 03/29/25 and 04/01,
Hall re-inserted 04/02 , next hall change in 4 weeks
MRI Lumbar spine suggest no acute lesions producing symptoms, as per neurology, but did show progression (compared to 2018) of severe spinal stenosis
Neuro on board
PT/OT recc SNF
# CKD stage 3b
Creatinine has been stable
# type 2 IDDM
Cont Lantus, adjust to 60 units HS (MARKETING EDUCATION TEACHER 55 units HS)
Cont Aspart, adjust back to home dose at 20 units AC
cover with ISS Mod
A1C 6.3%
# Benign HTN
Cont MARKETING EDUCATION TEACHER Norvasc and Coreg with hold parameter
# HX Paroxysmal AF
# Status post permanent pacemaker
EKG with paced rhythm
c/w Eliquis, continue Coreg
# Chronic HFmrEF
strict I&O, daily weight
Cont Lasix 40 mg daily
# BPH
Cont Finasteride, tamsulosin
# HX KATHY
# Obesity, BMI 34.2
Continue CPAP @ 11 cm H2O HS
# HX gout/pseudogout
# HX Chronic right bundle branch block
DVT prophylaxis� Eliquis
Full code
Dispo: Pt now wants to go to [facility]
DW RN
Anticipated Discharge: 24 - 48 hours
Subjective/Interval History
-
Date of Service: April 02, 2025
Objective Data
-
Vital Signs:
Vital Signs
Temp Pulse Resp BP Pulse Ox
36.4 C 67 18 118/56 90
04/02/25 07:57 04/02/25 07:57 04/02/25 07:57 04/02/25 07:57 04/02/25 07:57
I&O
04/01/25 04/02/25 04/03/25
06:59 06:59 06:59
Intake Total 600 / 600 680 / 680
Output Total 800 / 800 1225 / 1225
Balance -200 / -200 -545 / -545
[2025-04-02 11:59] LABS: Glucose - Point of Care 275 mg/dl (70-99)
[2025-04-02] MEDS: NOVOLOG FLEXPEN-MODERATE RESISTANCE 5 UNITS SC (12:44)
[2025-04-02 15:21] VITALS: BP 107/56
[2025-04-02 17:04] LABS: Glucose - Point of Care 176 mg/dl (70-99)
[2025-04-02] MEDS: NOVOLOG FLEXPEN-MODERATE RESISTANCE 1 UNITS SC (17:56)
[2025-04-02] MEDS: SANTYL OINTMENT TOPICAL (19:30)
[2025-04-02] MEDS: LYRICA 300 MG PO (21:44)
[2025-04-02] MEDS: FLOMAX 0.8 MG PO (21:44)
[2025-04-02] MEDS: DESYREL 100 MG PO (21:44)
[2025-04-02 21:45] LABS: Glucose - Point of Care 222 mg/dl (70-99)
[2025-04-02] MEDS: LANTUS 0.6 UNITS SC (21:46)
[2025-04-02] MEDS: PERCOCET 5/325 1 TABLET PO (21:51)
[2025-04-02 23:43] VITALS: BP 131/56
[2025-04-03 07:25] VITALS: BP 124/57
[2025-04-03 07:41] LABS: Glucose - Point of Care 235 mg/dl (70-99)
[2025-04-03] MEDS: SANTYL OINTMENT 1 APPLIC TOPICAL (08:35)
[2025-04-03] MEDS: VITAMIN B-12 1000 MCG PO (08:35)
[2025-04-03] MEDS: ELIQUIS 5 MG PO ×2 (08:36→20:45)
[2025-04-03] MEDS: PROSCAR 5 MG PO (08:36)
[2025-04-03] MEDS: PROTONIX 40 MG PO (08:36)
[2025-04-03] MEDS: LIPITOR 40 MG PO (08:36)
[2025-04-03] MEDS: LASIX 40 MG PO (08:36)
[2025-04-03] MEDS: COREG 12.5 MG PO ×2 (08:36→20:47)
[2025-04-03] MEDS: NORVASC 10 MG PO (08:37)
[2025-04-03] MEDS: ASPIR LOW (ENTERIC COATED) 81 MG PO (08:37)
[2025-04-03] MEDS: NOVOLOG FLEXPEN-MODERATE RESISTANCE 3 UNITS SC ×2 (08:37→12:42)
[2025-04-03] MEDS: SENOKOT-S 1 TABLET PO ×2 (08:37→20:45)
[2025-04-03] MEDS: NOVOLOG FLEXPEN 20 UNITS SC ×3 (08:38→17:56)
[2025-04-03] MEDS: LYRICA 150 MG PO (08:40)
[2025-04-03] MEDS: DESENEX/MITRAZOL/ZEASORB 1 APPLIC TOPICAL ×2 (08:42→20:47)
[2025-04-03 11:58] LABS: Glucose - Point of Care 216 mg/dl (70-99)
--- NOTE | 2025-04-03 12:45 | W.PN.HOSP.TC ---
Today's Communication/Plan
-
see A/P
Assessment / Plan
Assessment / Plan
HPI: 79 yo M PMH obesity, uses walker, daily ETOH use (1 beer per day), HTN, Prx AF on Eliquis, chronic HFrEF, CKD3, stage III left heel pressure injury, T2DM, KATHY, CPAP HS (11cm), COPD, CKD 3, CVA, chronic lower extremity edema; p/w generalized
weakness and difficulty ambulating.
He typically uses a walker but for the past several weeks has had increasing difficulty ambulating. 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
A/P:
# Chronic Left heel ulcer
# PVD with bilateral lower extremity stents
L heel XR without fracture or osteomyelitis.
Machine Bander And Cellophaner (Dr. Angelina Barros) on board, Wound care on board
ID on board, recc ongoing plain film monthly to assess for any bony changes, and they develop, MRI imaging and further workup can be pursued.
# New fever on 03/28/25 evening , likely due to Influenza A infection
Tamiflu x5 days
COVID test negative
urine culture no growth (pt also denies to urinary symptoms)
blood cultures neg
Appreciate ID follow-up
# BL LE weakness (Lt is weaker than Rt) with acute on chronic ambulatory dysfunction
# Chronic Urinary incontinence for almost 1 yr - no prior evaluation
# HX multilevel lumbar DJD/chronic back pain/diabetic neuropathy
# Now acute urinary retention
DDX: diabetic or ETOH peripheral neuropathy, cord dysfunction
Cont SENIOR INFORMATICA ETL DEVELOPER Lyrica
Bladder scan protocol noted urinary retention, hall placed 03/26
Failed voiding trial 03/29/25 and 04/01,
Hall re-inserted 04/02 , next hall change in 4 weeks
MRI Lumbar spine suggest no acute lesions producing symptoms, as per neurology, but did show progression (compared to 2018) of severe spinal stenosis
Neuro on board
PT/OT recc SNF
# CKD stage 3b
Creatinine has been stable
# type 2 IDDM
Cont Lantus, adjust to 60 units HS (SENIOR INFORMATICA ETL DEVELOPER 55 units HS)
Cont Aspart, adjust back to home dose at 20 units AC
cover with ISS Mod
A1C 6.3%
# Benign HTN
Cont SENIOR INFORMATICA ETL DEVELOPER Norvasc and Coreg with hold parameter
# HX Paroxysmal AF
# Status post permanent pacemaker
EKG with paced rhythm
c/w Eliquis, continue Coreg
# Chronic HFmrEF
strict I&O, daily weight
Cont Lasix 40 mg daily
# BPH
Cont Finasteride, tamsulosin
# HX KATHY
# Obesity, BMI 34.2
Continue CPAP @ 11 cm H2O HS
# HX gout/pseudogout
# HX Chronic right bundle branch block
DVT prophylaxis� Eliquis
Full code
Dispo: Pt now wants to go to [facility]
DW CM
Anticipated Discharge: Within 24 hours
Subjective/Interval History
-
Date of Service: April 03, 2025
Objective Data
-
Vital Signs:
Vital Signs
Temp Pulse Resp BP Pulse Ox
36.6 C 73 20 137/73 95
04/03/25 07:25 04/03/25 08:36 04/03/25 07:25 04/03/25 08:36 04/03/25 11:46
I&O
04/02/25 04/03/25 04/04/25
06:59 06:59 06:59
Intake Total 680 / 680 840 / 840
Output Total 1225 / 1225 1350 / 1350
Balance -545 / -545 -510 / -510
Review of Systems
-
History Source: Patient
All other systems: Reviewed and negative
Physical Exam
-
General: Well Developed, Well Nourished, No Apparent Distress, Comfortable, Conversant, Appears Chronically Ill and Obese
HEENT: Normocephalic, Atraumatic and Moist Mucous Membranes; Negative Oxygen
Respiratory: Clear to Auscultation and Non Labored Respirations; Negative Accessory Resp Muscle Use
Cardiac: Regular Rhythm and S1/S2
GI: Soft, Nontender, Nondistended and Normal Bowel Sounds
Genito-urinary: Hall
Musculoskeletal: No Clubbing, Edema, Right Lower Extrem and Edema, Left Lower Extrem
Skin: Warm, Dry and Ulcers (L heel, see wound care note)
Neuro: Awake and Alert
Psych: Calm and Intact Judgement/Insight (somewhat)
Data Reviewed
-
Diagnostic Radiology: Report Reviewed by me
Labs: Labs Reviewed by me
[2025-04-03 15:24] VITALS: BP 140/60
[2025-04-03 17:02] VITALS: BP 133/57
[2025-04-03 17:49] LABS: Glucose - Point of Care 165 mg/dl (70-99)
[2025-04-03] MEDS: NOVOLOG FLEXPEN-MODERATE RESISTANCE 1 UNITS SC (17:57)
[2025-04-03] MEDS: MIRALAX 17 GRAMS PO (18:37)
[2025-04-03 20:45] VITALS: BP 123/60
[2025-04-03] MEDS: SANTYL OINTMENT TOPICAL (20:48)
[2025-04-03 21:32] LABS: Glucose - Point of Care 212 mg/dl (70-99)
[2025-04-03] MEDS: LANTUS 0.6 UNITS SC (21:56)
[2025-04-03] MEDS: FLOMAX 0.8 MG PO (22:02)
[2025-04-03] MEDS: LYRICA 300 MG PO (22:03)
[2025-04-03] MEDS: DESYREL 100 MG PO (22:03)
[2025-04-03] MEDS: PERCOCET 5/325 1 TABLET PO (22:16)
[2025-04-03 22:40] VITALS: BP 115/41
[2025-04-03 23:00] VITALS: BP 115/41; PULSE 68
[2025-04-04 06:00] VITALS: BMI 33.9
[2025-04-04 06:56] LABS: Hematocrit 30.8 % (39.0-52.0); Hemoglobin 10.1 g/dL (13.0-18.0); Mean Corp Hgb Conc. 32.8 g/dL (33.0-37.0); Mean Corpuscular Volume 92.8 fL (80.0-94.0); Platelet Count 201 10^3/uL (130-400); Red Cell Dist. Width 14.2 % (11.5-14.5)
[2025-04-04 07:11] LABS: Blood Urea Nitrogen 28 mg/dl (9-20); Calcium 8.1 mg/dl (8.4-10.2); Carbon Dioxide 32 mmol/L (22-30); Chloride 99 mmol/L (98-107); Estimated Creatinine Clearance 42 ml/min; Glucose 195 mg/dl (70-99); Potassium 3.6 mmol/L (3.5-5.1); Sodium 137 mmol/L (135-145); eGFR 46.77
[2025-04-04 07:32] LABS: Glucose - Point of Care 207 mg/dl (70-99)
[2025-04-04 07:36] VITALS: BP 134/60
[2025-04-04] MEDS: LYRICA 150 MG PO (09:41)
[2025-04-04] MEDS: ASPIR LOW (ENTERIC COATED) 81 MG PO (09:42)
[2025-04-04] MEDS: NORVASC 10 MG PO (09:42)
[2025-04-04] MEDS: COREG 12.5 MG PO ×2 (09:42→19:54)
[2025-04-04] MEDS: LIPITOR 40 MG PO (09:42)
[2025-04-04] MEDS: VITAMIN B-12 1000 MCG PO (09:42)
[2025-04-04] MEDS: LASIX 40 MG PO (09:43)
[2025-04-04] MEDS: PROTONIX 40 MG PO (09:43)
[2025-04-04] MEDS: PROSCAR 5 MG PO (09:43)
[2025-04-04] MEDS: SENOKOT-S 1 TABLET PO ×2 (09:43→19:54)
[2025-04-04] MEDS: ELIQUIS 5 MG PO ×2 (09:43→19:54)
[2025-04-04] MEDS: NOVOLOG FLEXPEN-MODERATE RESISTANCE 3 UNITS SC (09:44)
[2025-04-04] MEDS: NOVOLOG FLEXPEN 20 UNITS SC ×2 (09:44→12:36)
[2025-04-04] MEDS: DESENEX/MITRAZOL/ZEASORB 1 APPLIC TOPICAL ×2 (09:45→20:04)
[2025-04-04 12:12] LABS: Glucose - Point of Care 322 mg/dl (70-99)
[2025-04-04] MEDS: SANTYL OINTMENT 1 APPLIC TOPICAL (12:31)
[2025-04-04] MEDS: NOVOLOG FLEXPEN-MODERATE RESISTANCE 7 UNITS SC (12:32)
--- NOTE | 2025-04-04 14:19 | W.PN.HOSP.TC ---
Today's Communication/Plan
-
Needs rehab placement
Assessment / Plan
Assessment / Plan
79 yo Man with PMH of:
obesity,
uses walker,
daily ETOH use (1 beer per day),
essential HTN,
Prx AF on Eliquis,
chronic HFrEF, CKD3,
stage III left heel pressure injury,
T2DM,
KATHY,
CPAP HS (11cm),
COPD,
CKD 3,
CVA,
chronic lower extremity edema;
p/w generalized weakness and difficulty ambulating. He typically uses a walker but for the past several weeks has had increasing difficulty ambulating. He has a chronic ulceration on the left heel that he is concerned about and he missed his foot
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
A/P:
1. Chronic Left heel ulcer
Complicated by PVD with bilateral lower extremity stents
Complicated by L heel XR without fracture or osteomyelitis.
Inclusion Internship (Dr. Angelina Barros) on board, Wound care on board
ID on board, recc ongoing plain film monthly to assess for any bony changes, and they develop, MRI imaging and further workup can be pursued.
Wll need placement in rehab. He cannot manage at home where he lives alone.
2. New fever on 03/28/25 evening , likely due to Influenza A infection
Had Tamiflu x 5 days
COVID test negative
urine culture no growth (pt also denies to urinary symptoms)
blood cultures neg
Appreciate ID follow-up
Other issues:
3. BL LE weakness (Lt is weaker than Rt) with acute on chronic ambulatory dysfunction
4. Chronic Urinary incontinence for almost 1 yr - no prior evaluation
5. HX multilevel lumbar DJD/chronic back pain/diabetic neuropathy
6. acute urinary retention
DDX: diabetic or ETOH peripheral neuropathy, cord dysfunction
Cont SAP PROJECT MANAGER Lyrica
Bladder scan protocol noted urinary retention, hall placed 03/26
Failed voiding trial 03/29/25 and 04/01,
Hall re-inserted 04/02 , next hall change in 4 weeks
MRI Lumbar spine suggest no acute lesions producing symptoms, as per neurology, but did show progression (compared to 2018) of severe spinal stenosis
Neuro on board
PT/OT recc SNF
7. CKD stage 3b - Creatinine has been stable
8. type 2 IDDM - chronic
Cont Lantus, adjust to 60 units HS (SAP PROJECT MANAGER 55 units HS)
Cont Aspart, adjust back to home dose at 20 units AC
cover with ISS Mod
A1C 6.3%
9. Benign HTN - Cont SAP PROJECT MANAGER Norvasc and Coreg with hold parameter
10. HX Paroxysmal AF
Status post permanent pacemaker
EKG with paced rhythm
c/w Eliquis, continue Coreg
11. Chronic HFmrEF
strict I&O, daily weight
Cont Lasix 40 mg daily
12. BPH - Cont Finasteride, tamsulosin
13. HX KATHY - cpap - Continue CPAP @ 11 cm H2O HS
14. Obesity, BMI 34.2
15. HX gout/pseudogout
16. HX Chronic right bundle branch block
DVT prophylaxis� Eliquis
Full code
Dispo: Pt wants to go to SNF, ok to go when bed available
Anticipated Discharge: 24 - 48 hours
Subjective/Interval History
-
Date of Service: April 04, 2025
No new complaints. Does not think he can manage at home, where he lives alone. Requests placement in rehab.
Objective Data
-
Labs:
Laboratory Results
04/04/25
06:13
WBC 8.3
Hgb 10.1 L
Hct 30.8 L
Plt Count 201 D
Sodium 137
Potassium 3.6
Chloride 99
Carbon Dioxide 32 H
BUN 28 H
Creatinine 1.5 H
Glucose 195 H
Calcium 8.1 L
Vital Signs:
Vital Signs
Temp Pulse Resp BP Pulse Ox
97.4 F 62 16 134/60 93
04/04/25 07:36 04/04/25 09:42 04/04/25 07:36 04/04/25 09:42 04/04/25 08:00
I&O
04/03/25 04/04/25 04/05/25
06:59 06:59 06:59
Intake Total 840 / 840 240 / 240
Output Total 1350 / 1350 600 / 600
Balance -510 / -510 -360 / -360
Review of Systems
-
History Source: Patient
All other systems: Reviewed and negative
Physical Exam
-
General: Well Developed, Well Nourished, No Apparent Distress, Comfortable, Conversant and Appears Chronically Ill
HEENT: Normocephalic, Moist Mucous Membranes, Nose Appears Normal and Ears Appear Normal
Respiratory: Clear to Auscultation and Decreased Breath Sounds
Cardiac: Regular Rhythm and S1/S2
GI: Soft, Nontender and Nondistended
Musculoskeletal: No Clubbing and No Cyanosis
Skin: Warm and Dry
Neuro: Awake, Alert and Oriented
Psych: Calm
Data Reviewed
-
Labs: Labs Reviewed by me
[2025-04-04 14:51] VITALS: BP 130/60
[2025-04-04 17:26] LABS: Glucose - Point of Care 197 mg/dl (70-99)
[2025-04-04] MEDS: NOVOLOG FLEXPEN-MODERATE RESISTANCE 1 UNITS SC (17:35)
[2025-04-04] MEDS: NOVOLOG FLEXPEN 10 UNITS SC (17:36)
[2025-04-04] MEDS: SANTYL OINTMENT TOPICAL (21:24)
[2025-04-04] MEDS: DESYREL 100 MG PO (21:27)
[2025-04-04] MEDS: FLOMAX 0.8 MG PO (21:28)
[2025-04-04] MEDS: LYRICA 300 MG PO (21:28)
[2025-04-04 21:59] LABS: Glucose - Point of Care 264 mg/dl (70-99)
[2025-04-04] MEDS: LANTUS 0.6 UNITS SC (22:41)
[2025-04-04] MEDS: PERCOCET 5/325 1 TABLET PO (22:45)
[2025-04-05 06:00] VITALS: BMI 32.1
[2025-04-05 07:12] VITALS: BP 126/60
[2025-04-05 08:43] LABS: Glucose - Point of Care 188 mg/dl (70-99)
[2025-04-05] MEDS: SANTYL OINTMENT 1 APPLIC TOPICAL (09:31)
[2025-04-05] MEDS: PROTONIX 40 MG PO (09:31)
[2025-04-05] MEDS: ELIQUIS 5 MG PO ×2 (09:31→21:25)
[2025-04-05] MEDS: LASIX 40 MG PO (09:31)
[2025-04-05] MEDS: LIPITOR 40 MG PO (09:31)
[2025-04-05] MEDS: LYRICA 150 MG PO (09:31)
[2025-04-05] MEDS: PROSCAR 5 MG PO (09:31)
[2025-04-05] MEDS: VITAMIN B-12 1000 MCG PO (09:31)
[2025-04-05] MEDS: ASPIR LOW (ENTERIC COATED) 81 MG PO (09:31)
[2025-04-05] MEDS: SENOKOT-S 1 TABLET PO ×2 (09:31→21:25)
[2025-04-05] MEDS: COREG 12.5 MG PO ×2 (09:32→21:25)
[2025-04-05] MEDS: NORVASC 10 MG PO (09:32)
[2025-04-05] MEDS: DESENEX/MITRAZOL/ZEASORB 1 APPLIC TOPICAL ×2 (09:34→21:19)
[2025-04-05] MEDS: NOVOLOG FLEXPEN-MODERATE RESISTANCE 1 UNITS SC (09:35)
[2025-04-05] MEDS: NOVOLOG FLEXPEN 20 UNITS SC ×3 (09:35→18:10)
[2025-04-05 09:59] LABS: Hematocrit 31.9 % (39.0-52.0); Hemoglobin 10.4 g/dL (13.0-18.0); Mean Corp Hgb Conc. 32.6 g/dL (33.0-37.0); Mean Corpuscular Volume 92.5 fL (80.0-94.0); Platelet Count 225 10^3/uL (130-400); Red Cell Dist. Width 14.2 % (11.5-14.5)
[2025-04-05 10:32] LABS: Blood Urea Nitrogen 29 mg/dl (9-20); Calcium 8.4 mg/dl (8.4-10.2); Carbon Dioxide 31 mmol/L (22-30); Chloride 98 mmol/L (98-107); Estimated Creatinine Clearance 48 ml/min; Glucose 178 mg/dl (70-99); Potassium 3.6 mmol/L (3.5-5.1); Sodium 138 mmol/L (135-145); eGFR 55.53
--- NOTE | 2025-04-05 11:39 | W.PN.HOSP.TC ---
Today's Communication/Plan
-
Stable. Needs placement.
Assessment / Plan
Assessment / Plan
79 yo Man with PMH of:
obesity,
uses walker,
daily ETOH use (1 beer per day),
essential HTN,
Prx AF on Eliquis,
chronic HFrEF, CKD3,
stage III left heel pressure injury,
T2DM,
KATHY,
CPAP HS (11cm),
COPD,
CKD 3,
CVA,
chronic lower extremity edema;
p/w generalized weakness and difficulty ambulating. He typically uses a walker but for the past several weeks has had increasing difficulty ambulating. He has a chronic ulceration on the left heel that he is concerned about and he missed his foot
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
A/P:
1. Chronic Left heel ulcer
Complicated by PVD with bilateral lower extremity stents
Complicated by L heel XR without fracture or osteomyelitis.
Brush Operator (Dr. Angelina Barros) on board, Wound care on board
ID on board, recc ongoing plain film monthly to assess for any bony changes, and they develop,
MRI imaging and further workup can be pursued.
Will need placement in rehab. He cannot manage at home where he lives alone.
2. New fever on 03/28/25 evening , likely due to Influenza A infection
Had Tamiflu x 5 days
COVID test negative
urine culture no growth (pt also denies to urinary symptoms)
blood cultures neg
Appreciate ID follow-up
Other issues:
3. BL LE weakness (Lt is weaker than Rt) with acute on chronic ambulatory dysfunction
4. Chronic Urinary incontinence for almost 1 yr - no prior evaluation
5. HX multilevel lumbar DJD/chronic back pain/diabetic neuropathy
6. acute urinary retention
DDX: diabetic or ETOH peripheral neuropathy, cord dysfunction
Cont SPORTS MARKETING SPECIALIST Lyrica
Bladder scan protocol noted urinary retention, hall placed 03/26
Failed voiding trial 03/29/25 and 04/01,
Hall re-inserted 04/02 , next hall change in 4 weeks
MRI Lumbar spine suggest no acute lesions producing symptoms, as per neurology, but did show progression (compared to 2018) of severe spinal stenosis
Neuro on board
PT/OT recc SNF
7. CKD stage 3b - Creatinine has been stable
8. type 2 IDDM - chronic
Cont Lantus, adjusted to 60 units HS (SPORTS MARKETING SPECIALIST 55 units HS)
Cont Aspart, adjusted back to home dose at 20 units AC
cover with ISS Mod
A1C 6.3%
9. Benign HTN - Cont SPORTS MARKETING SPECIALIST Norvasc and Coreg with hold parameter
10. HX Paroxysmal AF
Status post permanent pacemaker
EKG with paced rhythm
c/w Eliquis, continue Coreg
11. Chronic HFmrEF
strict I&O, daily weight
Cont Lasix 40 mg daily
12. BPH - Cont Finasteride, tamsulosin
13. HX KATHY - cpap - Continue CPAP @ 11 cm H2O HS
14. Obesity, BMI 34.2
15. HX gout/pseudogout
16. HX Chronic right bundle branch block
DVT prophylaxis� Eliquis
Full code
Dispo: Pt wants to go to SNF, ok to go when bed available
Anticipated Discharge: 24 - 48 hours
Subjective/Interval History
-
Date of Service: April 05, 2025
No new complaints
Objective Data
-
Labs:
Laboratory Results
04/05/25
08:32
WBC 7.6
Hgb 10.4 L
Hct 31.9 L
Plt Count 225
Sodium 138
Potassium 3.6
Chloride 98
Carbon Dioxide 31 H
BUN 29 H
Creatinine 1.3
Glucose 178 H
Calcium 8.4
Vital Signs:
Vital Signs
Temp Pulse Resp BP Pulse Ox
97.6 F 65 18 126/60 91
04/05/25 07:12 04/05/25 09:32 04/05/25 07:12 04/05/25 09:32 04/05/25 08:00
I&O
04/04/25 04/05/25 04/06/25
06:59 06:59 06:59
Intake Total 240 / 240 1440 / 1440
Output Total 600 / 600 1250 / 1250
Balance -360 / -360 190 / 190
Review of Systems
-
History Source: Patient
All other systems: Reviewed and negative
Physical Exam
-
General: Well Developed, Well Nourished, No Apparent Distress, Comfortable and Conversant
HEENT: Normocephalic, Nose Appears Normal and Ears Appear Normal
Respiratory: Clear to Auscultation
Cardiac: Regular Rhythm and S1/S2
GI: Soft, Nontender and Nondistended
Musculoskeletal: No Clubbing and No Cyanosis
Skin: Warm and Dry; Negative Rash
Neuro: Awake, Alert and Oriented
Psych: Calm
Data Reviewed
-
Labs: Labs Reviewed by me
[2025-04-05 12:03] LABS: Glucose - Point of Care 256 mg/dl (70-99)
[2025-04-05] MEDS: NOVOLOG FLEXPEN-MODERATE RESISTANCE 5 UNITS SC (13:38)
[2025-04-05 15:09] VITALS: BP 119/49
[2025-04-05 17:10] LABS: Glucose - Point of Care 220 mg/dl (70-99)
[2025-04-05] MEDS: NOVOLOG FLEXPEN-MODERATE RESISTANCE 3 UNITS SC (18:10)
[2025-04-05] MEDS: SANTYL OINTMENT TOPICAL (21:19)
[2025-04-05] MEDS: LYRICA 300 MG PO (21:25)
[2025-04-05] MEDS: DESYREL 100 MG PO (21:25)
[2025-04-05] MEDS: FLOMAX 0.8 MG PO (21:25)
[2025-04-05 21:48] LABS: Glucose - Point of Care 167 mg/dl (70-99)
[2025-04-05] MEDS: PERCOCET 5/325 1 TABLET PO (22:38)
[2025-04-05] MEDS: LANTUS 0.6 UNITS SC (22:39)
[2025-04-05 23:08] VITALS: BP 129/56
[2025-04-06] VITALS (7 sets, daily range): BP systolic 110–121; BP diastolic 48–56; PULSE 64–72; BMI 31.7
[2025-04-06 03:32] LABS: Glucose - Point of Care 198 mg/dl (70-99)
[2025-04-06 07:19] LABS: Glucose - Point of Care 219 mg/dl (70-99)
[2025-04-06] MEDS: LIPITOR 40 MG PO (07:40)
[2025-04-06] MEDS: SENOKOT-S 1 TABLET PO (07:41)
[2025-04-06] MEDS: SANTYL OINTMENT 1 APPLIC TOPICAL ×2 (07:41→19:59)
[2025-04-06] MEDS: VITAMIN B-12 1000 MCG PO (07:41)
[2025-04-06] MEDS: ASPIR LOW (ENTERIC COATED) 81 MG PO (07:41)
[2025-04-06] MEDS: PROSCAR 5 MG PO (07:42)
[2025-04-06] MEDS: PROTONIX 40 MG PO (07:42)
[2025-04-06] MEDS: LASIX 40 MG PO (07:42)
[2025-04-06] MEDS: NORVASC 10 MG PO (07:43)
[2025-04-06] MEDS: NOVOLOG FLEXPEN 20 UNITS SC ×3 (07:44→17:02)
[2025-04-06] MEDS: COREG 12.5 MG PO ×2 (07:44→19:57)
[2025-04-06] MEDS: LYRICA 150 MG PO (07:44)
[2025-04-06] MEDS: ELIQUIS 5 MG PO ×2 (07:44→19:59)
[2025-04-06] MEDS: NOVOLOG FLEXPEN-MODERATE RESISTANCE 3 UNITS SC ×2 (07:44→17:02)
[2025-04-06] MEDS: DESENEX/MITRAZOL/ZEASORB 1 APPLIC TOPICAL ×2 (07:46→20:00)
--- NOTE | 2025-04-06 08:16 | W.PN.HOSP.TC ---
Today's Communication/Plan
-
Spoke to case management, SNF is pending
Assessment / Plan
Assessment / Plan
Physical Exam
General: Not in acute distress
HEENT: Normocephalic
Respiratory: Clear to Auscultation Bilaterally
Cardiac: Regular Rhythm and S1/S2
GI: Soft, Nontender and Nondistended. Positive bowel sounds.
Musculoskeletal: No Cyanosis
Skin: Warm and Dry
Neuro: Awake, Alert and Oriented
Psych: Calm
Assessment/Plan
79 yo male with PMH of:
obesity,
uses walker,
daily ETOH use (1 beer per day),
essential HTN,
Prx AF on Eliquis,
chronic HFrEF, CKD3,
stage III left heel pressure injury,
T2DM,
KATHY,
CPAP HS (11cm),
COPD,
CKD 3,
CVA,
chronic lower extremity edema;
p/w generalized weakness and difficulty ambulating. He typically uses a walker but for the several weeks, prior to presentation, he has had increasing difficulty ambulating. He has a chronic ulceration on the left heel that he is concerned about
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
1. Chronic Left heel ulcer
Complicated by PVD with bilateral lower extremity stents
Complicated by L heel XR without fracture or osteomyelitis.
Starch Treating Assistant (Dr. Angelina Barros) on board, Wound care on board
ID on board, recc ongoing plain film monthly to assess for any bony changes, and if they develop,
MRI imaging and further workup can be pursued.
Will need placement in rehab. He cannot manage at home where he lives alone.
2. New fever on 03/28/25 evening , likely due to Influenza A infection
Had Tamiflu x 5 days
COVID test negative
urine culture no growth (pt also denies to urinary symptoms)
blood cultures neg
Appreciate ID follow-up
Other issues:
3. BL LE weakness (Lt is weaker than Rt) with acute on chronic ambulatory dysfunction
4. Chronic Urinary incontinence for almost 1 yr - no prior evaluation
5. HX multilevel lumbar DJD/chronic back pain/diabetic neuropathy
6. acute urinary retention
DDX: diabetic or ETOH peripheral neuropathy, cord dysfunction
Cont WIRE DRAWING SETTER Lyrica
Bladder scan protocol noted urinary retention, hall placed 03/26
Failed voiding trial 03/29/25 and 04/01,
Hall re-inserted 04/02 , next hall change in 4 weeks
MRI Lumbar spine suggest no acute lesions producing symptoms, as per neurology, but did show progression (compared to 2018) of severe spinal stenosis
Neuro on board
PT/OT recc SNF
7. CKD stage 3b - Creatinine has been stable
8. type 2 IDDM - chronic
Cont Lantus, adjusted to 60 units HS (WIRE DRAWING SETTER 55 units HS)
Cont Aspart, adjusted back to home dose at 20 units AC
cover with ISS Mod
A1C 6.3%
9. Benign HTN - Cont WIRE DRAWING SETTER Norvasc and Coreg with hold parameter
10. HX Paroxysmal AF
Status post permanent pacemaker
EKG with paced rhythm
c/w Eliquis, continue Coreg
11. Chronic HFmrEF
strict I&O, daily weight
Cont Lasix 40 mg daily
12. BPH - Cont Finasteride, tamsulosin
13. HX KATHY - cpap - Continue CPAP @ 11 cm H2O HS
14. Obesity, BMI 34.2
15. HX gout/pseudogout
16. HX Chronic right bundle branch block
DVT prophylaxis� Eliquis
Full code
Dispo: Pt wants to go to SNF, ok to go when bed available
Anticipated Discharge: 24 - 48 hours
Subjective/Interval History
-
Date of Service: April 06, 2025
Patient was seen and examined. He denied any new symptoms or complaints.
Objective Data
-
Labs:
Laboratory Results
04/06/25
07:07
Sodium Pending
Potassium Pending
Chloride Pending
Carbon Dioxide Pending
BUN Pending
Creatinine Pending
Glucose Pending
Calcium Pending
Vital Signs:
Vital Signs
Temp Pulse Resp BP Pulse Ox
98.9 F 61 18 110/48 92
04/05/25 23:08 04/06/25 07:42 04/05/25 23:08 04/06/25 07:42 04/06/25 07:55
I&O
04/05/25 04/06/25 04/07/25
06:59 06:59 06:59
Intake Total 1440 / 1440 1200 / 1200
Output Total 1250 / 1250 1725 / 1725
Balance 190 / 190 -525 / -525
[2025-04-06 08:27] LABS: Blood Urea Nitrogen 30 mg/dl (9-20); Calcium 8.4 mg/dl (8.4-10.2); Carbon Dioxide 32 mmol/L (22-30); Chloride 100 mmol/L (98-107); Estimated Creatinine Clearance 47 ml/min; Glucose 201 mg/dl (70-99); Potassium 3.7 mmol/L (3.5-5.1); Sodium 137 mmol/L (135-145); eGFR 55.53
[2025-04-06 11:48] LABS: Glucose - Point of Care 197 mg/dl (70-99)
[2025-04-06] MEDS: NOVOLOG FLEXPEN-MODERATE RESISTANCE 1 UNITS SC (12:10)
--- NOTE | 2025-04-06 16:48 | CM ---
Discharge POC: Therapy recommended SNF. Patient preference is [facility]. Needed updated PT/OT notes for insurance auth. Requested and completed this afternoon. Called Skylar at [facility] admissions for bed availability. She requested a call in
morning on 04/07/25 to discuss bed availability. Will need insurance auth when bed is confirmed.
[2025-04-06 17:03] LABS: Glucose - Point of Care 227 mg/dl (70-99)
[2025-04-06] MEDS: SENOKOT-S PO ×2 (19:59→20:02)
[2025-04-06 21:28] LABS: Glucose - Point of Care 264 mg/dl (70-99)
[2025-04-06] MEDS: LYRICA 300 MG PO (21:39)
[2025-04-06] MEDS: FLOMAX 0.8 MG PO (21:39)
[2025-04-06] MEDS: DESYREL 100 MG PO (21:39)
[2025-04-06] MEDS: LANTUS 0.6 UNITS SC (21:39)
[2025-04-06] MEDS: PERCOCET 5/325 1 TABLET PO (21:41)
[2025-04-07 07:28] VITALS: BP 121/56
[2025-04-07] MEDS: SANTYL OINTMENT 1 APPLIC TOPICAL (07:43)
[2025-04-07] MEDS: NORVASC 10 MG PO (07:44)
[2025-04-07] MEDS: ASPIR LOW (ENTERIC COATED) 81 MG PO (07:44)
[2025-04-07] MEDS: LYRICA 150 MG PO (07:44)
[2025-04-07] MEDS: PROTONIX 40 MG PO (07:44)
[2025-04-07] MEDS: VITAMIN B-12 1000 MCG PO (07:45)
[2025-04-07] MEDS: SENOKOT-S 1 TABLET PO (07:45)
[2025-04-07] MEDS: LASIX 40 MG PO (07:45)
[2025-04-07] MEDS: COREG 12.5 MG PO (07:45)
[2025-04-07] MEDS: ELIQUIS 5 MG PO (07:46)
[2025-04-07] MEDS: LIPITOR 40 MG PO (07:46)
[2025-04-07] MEDS: PROSCAR 5 MG PO (07:46)
[2025-04-07] MEDS: DESENEX/MITRAZOL/ZEASORB 1 APPLIC TOPICAL (07:48)
[2025-04-07] MEDS: NOVOLOG FLEXPEN-MODERATE RESISTANCE 3 UNITS SC ×2 (07:53→13:01)
[2025-04-07] MEDS: NOVOLOG FLEXPEN 20 UNITS SC ×3 (07:53→17:03)
[2025-04-07 07:54] LABS: Glucose - Point of Care 206 mg/dl (70-99)
[2025-04-07 09:27] LABS: Glucose - Point of Care 183 mg/dl (70-99)
--- NOTE | 2025-04-07 10:33 | W.PN.HOSP.TC ---
Today's Communication/Plan
-
Discharge today
Assessment / Plan
Assessment / Plan
Physical Exam
General: Not in acute distress
HEENT: Normocephalic
Respiratory: Clear to Auscultation Bilaterally
Cardiac: Regular Rhythm and S1/S2
GI: Soft, Nontender and Nondistended. Positive bowel sounds.
Musculoskeletal: No Cyanosis
Skin: Warm and Dry
Neuro: Awake, Alert and Oriented
Psych: Calm
Assessment/Plan
79 yo male with PMH of:
obesity,
uses walker,
daily ETOH use (1 beer per day),
essential HTN,
Prx AF on Eliquis,
chronic HFrEF, CKD3,
stage III left heel pressure injury,
T2DM,
KATHY,
CPAP HS (11cm),
COPD,
CKD 3,
CVA,
chronic lower extremity edema;
p/w generalized weakness and difficulty ambulating. He typically uses a walker but for the several weeks, prior to presentation, he has had increasing difficulty ambulating. He has a chronic ulceration on the left heel that he is concerned about
and he missed his foot doctor appointment the day DINING ROOM COORDINATOR.
1. Chronic Left heel ulcer
Complicated by PVD with bilateral lower extremity stents
Complicated by L heel XR without fracture or osteomyelitis.
[employer] (Dr. Angelina Barros) on board, Wound care on board
ID on board, recc ongoing plain film monthly to assess for any bony changes, and if they develop,
MRI imaging and further workup can be pursued.
Will need placement in rehab. He cannot manage at home where he lives alone.
2. New fever on 03/28/25 evening , likely due to Influenza A infection
Had Tamiflu x 5 days
COVID test negative
urine culture no growth (pt also denies to urinary symptoms)
blood cultures neg
Appreciate ID follow-up
Other issues:
3. BL LE weakness (Lt is weaker than Rt) with acute on chronic ambulatory dysfunction
4. Chronic Urinary incontinence for almost 1 yr - no prior evaluation
5. HX multilevel lumbar DJD/chronic back pain/diabetic neuropathy
6. acute urinary retention
DDX: diabetic or ETOH peripheral neuropathy, cord dysfunction
Cont DINING ROOM COORDINATOR Lyrica
Bladder scan protocol noted urinary retention, hall placed 03/26
Failed voiding trial 03/29/25 and 04/01,
Hall re-inserted 04/02 , next hall change in 4 weeks
MRI Lumbar spine suggest no acute lesions producing symptoms, as per neurology, but did show progression (compared to 2018) of severe spinal stenosis
Neuro on board
PT/OT recc SNF
7. CKD stage 3b - Creatinine has been stable
8. type 2 IDDM - chronic
Cont Lantus, adjusted to 60 units HS (DINING ROOM COORDINATOR 55 units HS)
Cont Aspart, adjusted back to home dose at 20 units AC
Continue adjusting Insulin at facility
cover with ISS Mod
A1C 6.3%
9. Benign HTN - Cont DINING ROOM COORDINATOR Norvasc and Coreg with hold parameter
10. HX Paroxysmal AF
Status post permanent pacemaker
EKG with paced rhythm
c/w Eliquis, continue Coreg
11. Chronic HFmrEF
strict I&O, daily weight
Cont Lasix 40 mg daily
12. BPH - Cont Finasteride, tamsulosin
13. HX KATHY - cpap - Continue CPAP @ 11 cm H2O HS
14. Obesity, BMI 34.2
15. HX gout/pseudogout
16. HX Chronic right bundle branch block
DVT prophylaxis� Eliquis
Full code
Dispo: SNF
More than 30 minutes spent in discharge including
Final examination of the patient
Summarizing hospital stay
Instructions for continuing care to all relevant caregivers
Preparation of discharge records, prescriptions, and referral forms
Total time spent (in minutes): 45
Anticipated Discharge: Today
Subjective/Interval History
-
Date of Service: April 07, 2025
Patient was seen and examined. He denied any new symptoms or complaints.
Objective Data
-
Vital Signs:
Vital Signs
Temp Pulse Resp BP Pulse Ox
97.7 F 62 15 121/56 96
04/07/25 07:28 04/07/25 07:44 04/07/25 07:28 04/07/25 07:44 04/07/25 08:40
I&O
04/06/25 04/07/25 04/08/25
06:59 06:59 06:59
Intake Total 1200 / 1200 1440 / 1440
Output Total 1725 / 1725 1475 / 1475
Balance -525 / -525 -35 / -35
--- NOTE | 2025-04-07 11:40 | CM ---
Addendum entered by Elizabeth Alicea 04/07/25 15:56:
IMM benefit explained to patient; form dated/timed @ 1505
Authorization approved for level I Longterm for 7 days;
Starting today, 04/07/2025; Next Review 04/13/2025; to give verbal update
SNF Authorization # [id number]
Ambulance Authorization # [id number]
Plan: Discharge to [facility] via Ambulance today
Report # [phone]

Addendum entered by Elizabeth Alicea 04/07/25 13:47:
[facility] does not have a bed available; patient is agreeable to go to [facility]
Addendum entered by Elizabeth Alicea 04/07/25 12:50:
Patient now wants to go to [facility] if a bed is available.
Original Note:
Stable for discharge pending bed available; and authorization approval
[facility] unable to accept referral; no bed available.
Met with patient; other sites identified; agreeable to [facility] and [facility]. Liaison to these facilities notified; referral clinicals updated and sent via [facility]
Plan: Discharge to SNF pending bed availability and authorization approval
[2025-04-07 12:01] LABS: Glucose - Point of Care 235 mg/dl (70-99)
[2025-04-07 14:36] VITALS: BP 111/53
[2025-04-07 16:46] LABS: Glucose - Point of Care 194 mg/dl (70-99)
[2025-04-07] MEDS: NOVOLOG FLEXPEN-MODERATE RESISTANCE 1 UNITS SC (17:03)
--- NOTE | 2025-04-07 17:38 | PTCARENOTE ---
Report called to DENTON Rosenbaum at [facility]. Transport scheduled to pick him up at 1830 with Acute Care Medic. Davis being transported with pt to be removed OP in 4 weeks with urology.
== END 2025-04-07 18:20 | DRG 947 ==
LOC: 2 NORTH 21:01
PROVIDERS: Clinical Nurse Specialist Family Health; Internal Medicine; Physician Assistant; Student in an Organized Health Care Education/Training Program; ADMITTING PHYSICIAN Internal Medicine; ATTENDING PHYSICIAN Hospitalist; CONSULT PHYSICIAN Internal Medicine Infectious Disease; CONSULT PHYSICIAN Podiatrist Foot & Ankle Surgery; CONSULT PHYSICIAN Psychiatry & Neurology Neurology; EMERGENCY PHYSICIAN Emergency Medicine; FAMILY PHYSICIAN Family Medicine
PROC: 5A09357 Assistance with Respiratory Ventilation, Less than 24 Consecutive Hours, Continuous Positive Airway Pressure (ICD-10-PCS; 2025-03-25)
DX: R53.1 Weakness (principal); L89.623 Pressure ulcer of left heel, stage 3; I50.22 Chronic systolic (congestive) heart failure; I13.0 Hypertensive heart and chronic kidney disease with heart failure and stage 1 through stage 4 chronic kidney disease, or unspecified chronic kidney disease; E11.621 Type 2 diabetes mellitus with foot ulcer; E11.42 Type 2 diabetes mellitus with diabetic polyneuropathy; E11.51 Type 2 diabetes mellitus with diabetic peripheral angiopathy without gangrene; G89.29 Other chronic pain; N18.32 Chronic kidney disease, stage 3b; I48.0 Paroxysmal atrial fibrillation; Z95.0 Presence of cardiac pacemaker; G47.33 Obstructive sleep apnea (adult) (pediatric); E66.9 Obesity, unspecified; Z68.34 Body mass index [BMI] 34.0-34.9, adult; I45.10 Unspecified right bundle-branch block; Z86.73 Personal history of transient ischemic attack (TIA), and cerebral infarction without residual deficits; Z95.5 Presence of coronary angioplasty implant and graft; F32.A Depression, unspecified; Z87.891 Personal history of nicotine dependence; Z79.01 Long term (current) use of anticoagulants; Z79.4 Long term (current) use of insulin; Z79.899 Other long term (current) drug therapy; D63.1 Anemia in chronic kidney disease; D72.829 Elevated white blood cell count, unspecified; E11.22 Type 2 diabetes mellitus with diabetic chronic kidney disease; E11.65 Type 2 diabetes mellitus with hyperglycemia; E78.00 Pure hypercholesterolemia, unspecified; G47.00 Insomnia, unspecified; I25.10 Atherosclerotic heart disease of native coronary artery without angina pectoris; I25.2 Old myocardial infarction; I25.5 Ischemic cardiomyopathy; J44.89 Other specified chronic obstructive pulmonary disease; N40.1 Benign prostatic hyperplasia with lower urinary tract symptoms; Z91.81 History of falling; R32 Unspecified urinary incontinence; Z11.52 Encounter for screening for COVID-19
CPT/HCPCS: 72158; 73650; 80048; 80053; 81003; 81015; 82607; 82728; 82746; 82962; 83036; 83735; 84443; 85025; 85027; 85652; 86140; 87040; 87086; 87502; 87811; 94660; 97110; 97163; 97167; 97530; 97535